=== PATIENT | male | born 1945 | race Caucasian/White ===

== ENCOUNTER 2019-09-29 15:46 | Inpatient (IN) | payer MEDICARE ==
[~2019-09-29] VITALS: Ht 172.7 cm; Wt 93.6 kg
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
[2019-09-29] MEDS ORDERED: BISACODYL 10 MG/30 ML ENEMA RC PRN (18:45)
[2019-09-29] MEDS ORDERED: NON FORMULARY ITEM (Insulin Lispro (Humalog) 1 UNIT) SQ PRN (18:45)
[2019-09-29] MEDS ORDERED: METF10007 PO (18:50)
[2019-09-29] MEDS ORDERED: INSU100V SQ (18:50)
[2019-09-29] MEDS ORDERED: BISA10EN RC (18:50)
[2019-09-29] MEDS ORDERED: PANT40TA3 PO (18:50)
[2019-09-29] MEDS ORDERED: INSU100I13 SQ (18:50)
[2019-09-29] MEDS ORDERED: METO50TA6 PO (18:50)
[2019-09-29] MEDS ORDERED: POLY17PO5 PO (18:50)
[2019-09-29] MEDS ORDERED: DOCU-109 PO (18:50)
[2019-09-29] MEDS ORDERED: ASPI1CPM9 PO (18:50)
[2019-09-29] MEDS ORDERED: ACET-704 PO (18:50)
[2019-09-29] MEDS ORDERED: CYCL-331 PO (18:50)
[2019-09-29] MEDS ORDERED: SIMV10TA PO (18:50)
[2019-09-29] MEDS ORDERED: DULO60CA6 PO (18:50)
[2019-09-29] MEDS ORDERED: DEXTROSE 50% 25 GM / 50ML DISP.SYRIN. IV PRN ×2 (19:00)
[2019-09-29] MEDS ORDERED: MAGNESIUM HYDROXIDE 2,400 MG/30 ML ORAL.SUSP. PO PRN (19:00)
[2019-09-29] MEDS ORDERED: METHYL SALICYLATE/MENTHOL TOPICAL OINTMENT 57GM TUBE. TP PRN (19:00)
[2019-09-29] MEDS ORDERED: MAG HYDROX/AL HYDROX/SIMETH 30 ML ORAL.SUSP PO PRN (19:00)
[2019-09-29] MEDS ORDERED: ACETAMINOPHEN 325 MG TABLET PO PRN (19:00)
[2019-09-29 19:36] LABS: BASO % 0 % (0-3); EOS % 0 % (0-3); HEMATOCRIT 33.6 % (39.0-53.0); HEMOGLOBIN 10.8 g/dL (13.0-17.5); LYMPH # 0.4 x10^3/uL (1.0-4.8); LYMPH % 7 % (24-48); MEAN CORPUSCULAR HEMOGLOBIN 27 pg (25-35); MEAN CORPUSCULAR HGB CONC 32 g/dL (31-37); MEAN CORPUSCULAR VOLUME 85 fL (79-100); MONO # 0.5 x10^3/uL (0.0-1.1); MONO % 10 % (0-9); NEUT # 3.9 x10^3uL (1.8-7.7); NEUT % 82 % (31-73); PLATELET COUNT 214 x10^3/uL (140-400); RED BLOOD COUNT 3.97 x10^6/uL (4.30-5.70); RED CELL DISTRIBUTION WIDTH 17.7 % (11.5-14.5); WHITE BLOOD COUNT 4.7 x10^3/uL (4.0-11.0)
[2019-09-29 19:51] LABS: ALBUMIN 3.3 g/dL (3.4-5.0); CALCIUM 8.7 mg/dL (8.5-10.1); CREATININE 1.1 mg/dL (0.7-1.3); GFR 65.3; MAGNESIUM 1.5 mg/dL (1.8-2.4); TOTAL BILIRUBIN 0.4 mg/dL (0.2-1.0); TOTAL PROTEIN 6.7 g/dL (6.4-8.2)
[2019-09-29 20:58] LABS: % LYMPHS 8 % (24-48); % MONOS 9 % (0-10); % SEGS 83 % (35-66)
[2019-09-29 21:00] LABS: ANISOCYTOSIS SLIGHT; OVALOCYTES OCC; PLT ESTIMATE ADEQUATE (ADEQUATE); POLYCHROMASIA SLIGHT
[2019-09-29] MEDS: INSULIN GLARGINE SYRINGE. SQ SCH (21:00)
[2019-09-29] MEDS ORDERED: DULoxetine HCL 60 MG CAPSULE.DR PO SCH (21:00)
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
--- NOTE | 2019-09-29 21:26 | PDOC ---
Exam Note: Sandoval Note: Please also refer to the separate dictated note~for this date of service dictated separately. Discussed the patient with Nursing staff reviewed the chart.~Reviewed interim history and current functioning. Reviewed vital signs,~Labs/ Radiology~and current medications noted below. Continue current treatment with the changes noted in the dictated addendum note Assessment: Labs: Laboratory Tests Test 09/29/19 19:25 White Blood Count 4.7 x10^3/uL (4.0-11.0) Red Blood Count 3.97 x10^6/uL (4.30-5.70) L Hemoglobin 10.8 g/dL (13.0-17.5) L Hematocrit 33.6 % (39.0-53.0) L Mean Corpuscular Volume 85 fL (79-100) Mean Corpuscular Hemoglobin 27 pg (25-35) Mean Corpuscular Hemoglobin Concent 32 g/dL (31-37) Red Cell Distribution Width 17.7 % (11.5-14.5) H Platelet Count 214 x10^3/uL (140-400) Neutrophils (%) (Auto) 82 % (31-73) H Lymphocytes (%) (Auto) 7 % (24-48) L Monocytes (%) (Auto) 10 % (0-9) H Eosinophils (%) (Auto) 0 % (0-3) Basophils (%) (Auto) 0 % (0-3) Neutrophils # (Auto) 3.9 x10^3uL (1.8-7.7) Lymphocytes # (Auto) 0.4 x10^3/uL (1.0-4.8) L Monocytes # (Auto) 0.5 x10^3/uL (0.0-1.1) Eosinophils # (Auto) 0.0 x10^3/uL (0.0-0.7) Basophils # (Auto) 0.0 x10^3/uL (0.0-0.2) Segmented Neutrophils % 83 % (35-66) H Lymphocytes % 8 % (24-48) L Monocytes % 9 % (0-10) Platelet Estimate Adequate (ADEQUATE) Polychromasia Slight Anisocytosis Slight Ovalocytes Occ Sodium Level 141 mmol/L (136-145) Potassium Level 4.0 mmol/L (3.5-5.1) Chloride Level 106 mmol/L (98-107) Carbon Dioxide Level 22 mmol/L (21-32) Anion Gap 13 (6-14) Blood Urea Nitrogen 18 mg/dL (8-26) Creatinine 1.1 mg/dL (0.7-1.3) Estimated GFR (Cockcroft-Gault) 65.3 BUN/Creatinine Ratio 16 (6-20) Glucose Level 117 mg/dL (70-99) H Calcium Level 8.7 mg/dL (8.5-10.1) Magnesium Level 1.5 mg/dL (1.8-2.4) L Total Bilirubin 0.4 mg/dL (0.2-1.0) Aspartate Amino Transferase (AST) 14 U/L (15-37) L Alanine Aminotransferase (ALT) 17 U/L (16-63) Alkaline Phosphatase 108 U/L (46-116) Total Protein 6.7 g/dL (6.4-8.2) Albumin 3.3 g/dL (3.4-5.0) L Albumin/Globulin Ratio 1.0 (1.0-1.7) Current Medications: I have reviewed the current psychotropics carefully including drug interactions. Risk benefit ratio favors no change other than as noted in my dictated progress note. Diagnosis: Problems: (1) Major neurocognitive disorder (2) Major neurocognitive disorder, due to vascular disease, with behavioral disturbance, mild (3) Anxiety disorder (4) Dementia, vascular, with delusions (5) Dementia, vascular, with depression (6) Impulse control disorder JESSICA TREADWELL MD Sep 29, 2019 21:26
[2019-09-29] MEDS: ACETAMINOPHEN/CODEINE 300/30MG TABLET PO PRN (21:53)
[2019-09-29] MEDS: DOCUSATE SODIUM 100 MG CAPSULE PO SCH (21:53)
[2019-09-29] MEDS: METOPROLOL TART IMMED RELEASE 50 MG TABLET PO SCH (21:54)
[2019-09-29] MEDS: SIMVASTATIN 10 MG TABLET PO SCH (21:54)
[2019-09-29 23:54] VITALS: BP 112/92
--- NOTE | 2019-09-30 02:36 | NUR ---
Nsg Note: Patient in room at time of medication administration and assessments. Patient was drowsy, lethargic at the time. Patient was able to answer simple yes or no questions and take medications crushed in pudding. Patient mentioned he was having some pain, moaning and groaning so PRN pain medication given. Patient went to sleep shortly after this. Patient began waking up around 0130. Patient needed to be changed because he was soaked and was not compliant. Patient was verbally aggressive and became combative. After done cleaning up patient, he ripped brief and all sheets off him. Onezie was placed on him and new brief. Patient is laying in the bed now, but is moving around. No other notable behaviors at this time.
[2019-09-30 05:03] VITALS: BP 137/89
[2019-09-30] MEDS: PANTOPRAZOLE 40 MG TABLET. PO SCH (05:13)
[2019-09-30] MEDS: INSULIN LISPRO 300 UNITS/3 ML VIAL. SQ SCH ×3 (07:55→17:00)
[2019-09-30] MEDS ORDERED: INSULIN LISPRO 300 UNITS/3 ML VIAL. SQ SCH (08:00)
[2019-09-30] MEDS: METOPROLOL TART IMMED RELEASE 50 MG TABLET PO SCH ×2 (08:11→20:53)
[2019-09-30] MEDS: DULoxetine HCL 60 MG CAPSULE.DR PO SCH (08:12)
[2019-09-30] MEDS: metFORMIN 500 MG TABLET PO SCH (08:12)
[2019-09-30] MEDS: POLYETHYLENE GLYCOL 3350 17 GM PACKET. PO SCH (08:12)
[2019-09-30] MEDS: DOCUSATE SODIUM 100 MG CAPSULE PO SCH ×2 (08:12→20:54)
[2019-09-30 10:56] LABS: THYROID STIM HORMONE (TSH) 0.652 uIU/mL (0.358-3.740)
[2019-09-30 11:07] LABS: THYROXINE 6.8 ug/dL (4.5-12.0)
[2019-09-30 15:50] VITALS: BP 126/67
--- NOTE | 2019-09-30 16:13 | NUR ---
Pt combative with staff prior to lunch with ADL and attempting to blood sugar. Pt up to table in Refuses to eat but did eat ice cream with zydis. During lunch patient did take insulin. Dtr called and attempted to get information about pt but does not have code. Dtr called and talked to two different nurses last noc attempting to get information. Son who is DPOA voiced concerns regarding sister being able to obtain information. Son changed code. Pt son does not feel pt dtr is a good influence for pt at this time but may be later when pt is more stabilized.
--- NOTE | 2019-09-30 20:45 | PDOC ---
Exam Note: Sandoval Note: Please also refer to the separate dictated note~for this date of service dictated separately.~Patient seen individually. Discussed the patient with Nursing staff reviewed the chart.~Reviewed interim history and current functioning. Reviewed vital signs,~Labs/ Radiology~and current medications noted below. Continue current treatment with the changes noted in the dictated addendum note Assessment: Vital Signs/I&O: Vital Signs Date Time Temp Pulse Resp B/P (MAP) Pulse Ox O2 Delivery O2 Flow Rate FiO2 09/30/19 15:50 97.5 78 16 126/67 (86) 95 09/29/19 23:54 Room Air Labs: Laboratory Tests Test 09/29/19 22:25 09/30/19 07:44 09/30/19 07:55 09/30/19 11:36 Glucose (Fingerstick) 113 mg/dL (70-99) H 87 mg/dL (70-99) 78 mg/dL (70-99) 355 mg/dL (70-99) H Test 09/30/19 16:29 09/30/19 19:25 Glucose (Fingerstick) 169 mg/dL (70-99) H 258 mg/dL (70-99) H Current Medications: Meds: Current Medications Medications (Trade) Dose Ordered Sig/John Route PRN Reason Start Time Stop Time Status Last Admin Dose Admin Docusate Sodium (Colace) 100 mg BID PO 09/29/19 21:00 09/30/19 08:12 Duloxetine HCl (Cymbalta) 60 mg BID PO 09/29/19 21:00 09/29/19 22:35 DC 09/29/19 21:53 Metoprolol Tartrate (Lopressor) 50 mg BID PO 09/29/19 21:00 09/30/19 08:11 Polyethylene Glycol (miraLAX) 17 gm DAILY PO 09/30/19 09:00 09/30/19 08:12 Simvastatin (Zocor) 10 mg HS PO 09/29/19 21:00 09/29/19 21:54 Insulin Glargine (Lantus Syringe) 52 unit QHS SQ 09/29/19 21:00 09/29/19 21:00 Metformin HCl (Glucophage) 1,000 mg DAILYWBKFT PO 09/30/19 08:00 09/30/19 08:12 Insulin Human Lispro (HumaLOG) 0-9 UNITS TIDWMEALS SQ 09/30/19 08:00 09/30/19 17:00 Duloxetine HCl (Cymbalta) 60 mg DAILY PO 09/30/19 09:00 09/30/19 08:12 Olanzapine (ZyPREXA ZYDIS) 2.5 mg PRN Q2HR PRN PO agitation 09/29/19 22:45 09/30/19 12:59 I have reviewed the current psychotropics carefully including drug interactions. Risk benefit ratio favors no change other than as noted in my dictated progress note. Diagnosis: Problems: (1) Major neurocognitive disorder, due to vascular disease, with behavioral disturbance, mild (2) Anxiety disorder (3) Dementia in Alzheimer's disease with delusions (4) Dementia in Alzheimer's disease with depression (5) Dementia, vascular, with delusions (6) Dementia, vascular, with depression (7) Impulse control disorder JESSICA TREADWELL MD Sep 30, 2019 20:45
[2019-09-30] MEDS: SIMVASTATIN 10 MG TABLET PO SCH (20:53)
[2019-09-30] MEDS: INSULIN GLARGINE SYRINGE. SQ SCH (20:54)
--- NOTE | 2019-09-30 23:02 | NUR ---
Pt located in the dayroom this evening. Pt sitting calmly in wheelchair. When approached, pt refused to lift his head up and acknowledge nurse. Pt refused to answer any assessment questions. Pt compliant with whole medications, looking up once and rolling his eyes at nurse. Once taken to bed, pt was noncompliant and became " weight." Pt called staff names and was sarcastic.
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
[2019-10-01 02:06] LABS: HEMOGLOBIN A1C 6.6 % (4.8-5.6)
[2019-10-01 05:59] VITALS: BP 153/75
[2019-10-01] MEDS: PANTOPRAZOLE 40 MG TABLET. PO SCH (06:10)
[2019-10-01] MEDS: INSULIN LISPRO 300 UNITS/3 ML VIAL. SQ SCH ×3 (08:00→17:00)
[2019-10-01] MEDS: metFORMIN 500 MG TABLET PO SCH (08:49)
[2019-10-01] MEDS: METOPROLOL TART IMMED RELEASE 50 MG TABLET PO SCH ×2 (08:50→20:25)
[2019-10-01] MEDS: DULoxetine HCL 60 MG CAPSULE.DR PO SCH (08:50)
[2019-10-01] MEDS: DOCUSATE SODIUM 100 MG CAPSULE PO SCH ×2 (08:51→20:25)
[2019-10-01] MEDS: POLYETHYLENE GLYCOL 3350 17 GM PACKET. PO SCH (08:51)
[2019-10-01] MEDS: QUEtiapine 25 MG TABLET. PO SCH ×3 (08:51→17:00)
--- NOTE | 2019-10-01 09:30 | NUR ---
Patient is in the dining room for assessment and medication. He is pleasant, confused, disorganized. He is alert to name, , and date. But he thinks he is at a train station. He was compliant taking his medications whole. Denies SI. Denies pain or discomfort.
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
--- NOTE | 2019-10-01 14:13 | NUR ---
Patient remains on the floor in the hallway despite repeated attempts by different staff members to convince him to get off the floor. He is snarky, rude, condescending. This teletypewriter operator went to the patient with his 1300 dose of Seroquel. Asked him if it wouldn't be easier to take it if he were sitting up. He stated "I'll just take it dry." Scanned patient wristband which he had used his teeth to remove. Gave patient the half pill, which he proceeded to lose in the sheet laying next to him. This teletypewriter operator offered him the other half, and he became suspicious, saying "I won't take nothing from you unless it comes in a bottle or a tube." This teletypewriter operator told patient that it was the same pill and if he wanted to refuse it that was fine. He replied "Oh, my heart bleeds for you, you thief. You are an asshole." This teletypewriter operator once again offered patient the medication once more, which he refused. Also offered to assist him off of the floor, which he also refused. Will continue to monitor.
--- NOTE | 2019-10-01 14:49 | NUR ---
Patient remains in hallway. He has urinated all over the sheet laying next to him through his clothing. Very resistant to being assisted off the floor and taken to his room to be changed. When asked why he urinated everywhere, he states "No one brought a urinal out." Patient did not, in fact, ask for a urinal or tell anyone he needed to use the bathroom. He continues to yell "You're all a bunch of thieves. I know what this place is." Brought into his room, where he changed himself with very little assistance, while continuing to be snarky and rude. Currently sitting in his wheelchair in his room. Will continue to monitor.
[2019-10-01 15:54] VITALS: BP 158/88
--- NOTE | 2019-10-01 18:43 | NUR ---
Patient has been remorseful and tearful. He stated "I am sorry from the bottom of my heart for how I acted earlier. I just miss my dog." He apologized to multiple staff members who he had yelled at and insulted. Came out of his room after dinner and ate his dinner in the hallway, then returned to his room.
[2019-10-01] MEDS: SIMVASTATIN 10 MG TABLET PO SCH (20:25)
[2019-10-01] MEDS: INSULIN GLARGINE SYRINGE. SQ SCH (20:29)
--- NOTE | 2019-10-01 20:48 | PDOC ---
Exam Note: Sandoval Note: Please also refer to the separate dictated note~for this date of service dictated separately.~Patient seen individually. Discussed the patient with Nursing staff reviewed the chart.~Reviewed interim history and current functioning. Reviewed vital signs,~Labs/ Radiology~and current medications noted below. Continue current treatment with the changes noted in the dictated addendum note Assessment: Vital Signs/I&O: Vital Signs Date Time Temp Pulse Resp B/P (MAP) Pulse Ox O2 Delivery O2 Flow Rate FiO2 10/01/19 20:25 73 158/88 10/01/19 15:54 97.3 16 95 09/29/19 23:54 Room Air I & O 09/30/19 09/30/19 10/01/19 14:59 22:59 06:59 Intake Total 360 ml 240 ml 0 ml Balance 360 ml 240 ml 0 ml Labs: Laboratory Tests Test 10/01/19 07:23 10/01/19 11:52 10/01/19 19:27 Glucose (Fingerstick) 131 mg/dL (70-99) H 190 mg/dL (70-99) H 219 mg/dL (70-99) H Current Medications: Meds: Current Medications Medications (Trade) Dose Ordered Sig/John Route PRN Reason Start Time Stop Time Status Last Admin Dose Admin Quetiapine Fumarate (SEROquel) 12.5 mg TID@0900,1300,1700 PO 10/01/19 09:00 10/01/19 17:00 I have reviewed the current psychotropics carefully including drug interactions. Risk benefit ratio favors no change other than as noted in my dictated progress note. Diagnosis: Problems: (1) Major neurocognitive disorder, due to vascular disease, with behavioral disturbance, mild (2) Anxiety disorder (3) Dementia in Alzheimer's disease with delusions (4) Dementia in Alzheimer's disease with depression (5) Dementia, vascular, with delusions (6) Dementia, vascular, with depression (7) Impulse control disorder JESSICA TREADWELL MD Oct 01, 2019 20:48
--- NOTE | 2019-10-01 22:20 | PN ---
DATE: 09/30/2019 PSYCHIATRIC PROGRESS NOTE. This late entry of 09/30/2019 covers the elements not covered in my initial note. SUBJECTIVE: I met with the patient in the evening of 09/30/2019. The patient slept 4-1/4 hours previous night. He remains confused, has been combative, sarcastic, making cat noises, sounding like a "pussy" per nursing report. REVIEW OF SYSTEMS: No CV, , pulmonary, eye, ENT system symptoms on review. Reliability poor. MENTAL STATUS EXAM: Oriented to himself. Insight, judgment, recent and remote memory, attention, concentration, fund of knowledge poor, consistent with his diagnosis. IMPRESSION: Major neurocognitive disorder, Alzheimer, vascular with delusion, depression, behavioral disturbance; anxiety disorder, unspecified; impulse control disorder, unspecified. PLAN: Start trazodone 50 mg at bedtime, may repeat x 1 for insomnia; Seroquel 12.5 mg t.i.d. 9:00 a.m., 1:00 p.m., 5:00 p.m. to help with mood stabilization, paranoia, agitation, impulse control problems. Maintain Cymbalta 60 mg a day and Zyprexa 2.5 mg q. 2 hours p.r.n. psychosis, agitation. Consider Depakote as a mood stabilizer. Reviewed drug interactions and will carefully evaluate this after another day or two depending on how he does with the current dosage. JESSICA TREADWELL MD DR: SERGIO/abhilash JOB#: [id number] / [id number]
--- NOTE | 2019-10-01 23:28 | NUR ---
Pt located in his bed all evening. When approached, pt was calm, cooperative and compliant with whole medications. Pt pleasant and thanked nurse for his medications. No behaviors noted this evening.
[2019-10-02] MEDS: PANTOPRAZOLE 40 MG TABLET. PO SCH (05:48)
[2019-10-02 05:53] VITALS: BP 172/92
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
[2019-10-02] MEDS: METOPROLOL TART IMMED RELEASE 50 MG TABLET PO SCH ×2 (06:36→20:08)
--- NOTE | 2019-10-02 06:44 | NUR ---
Pt had elevated BP today of 172/92. AM dose of Metoprolol administered.
[2019-10-02] MEDS: INSULIN LISPRO 300 UNITS/3 ML VIAL. SQ SCH ×3 (08:00→17:00)
[2019-10-02] MEDS: POLYETHYLENE GLYCOL 3350 17 GM PACKET. PO SCH (08:40)
[2019-10-02] MEDS: DOCUSATE SODIUM 100 MG CAPSULE PO SCH ×2 (08:41→20:08)
[2019-10-02] MEDS: metFORMIN 500 MG TABLET PO SCH (08:41)
[2019-10-02] MEDS: QUEtiapine 25 MG TABLET. PO SCH ×3 (08:42→17:54)
[2019-10-02] MEDS: DULoxetine HCL 60 MG CAPSULE.DR PO SCH (08:42)
--- NOTE | 2019-10-02 11:35 | NUR ---
Patient in the dining room for assessment and medication. He is pleasant, cooperative and compliant with meds taken whole. After breakfast, he withdrew to his room. Worked with PT, was snarky and sarcastic at times. No agitation so far this shift. Denies SI/HI. Denies pain and discomfort.
[2019-10-02 15:38] VITALS: BP 131/85
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
[2019-10-02] MEDS: SIMVASTATIN 10 MG TABLET PO SCH (20:08)
[2019-10-02] MEDS: INSULIN GLARGINE SYRINGE. SQ SCH (20:12)
[2019-10-02] MEDS: AMMONIUM LACTATE 12% TOPICAL LOTION 226GM BOTTLE. TP SCH (21:00)
--- NOTE | 2019-10-02 21:11 | PDOC ---
Exam Note: Sandoval Note: Please also refer to the separate dictated note~for this date of service dictated separately.~Patient seen individually. Discussed the patient with Nursing staff reviewed the chart.~Reviewed interim history and current functioning. Reviewed vital signs,~Labs/ Radiology~and current medications noted below. Continue current treatment with the changes noted in the dictated addendum note Assessment: Vital Signs/I&O: Vital Signs Date Time Temp Pulse Resp B/P (MAP) Pulse Ox O2 Delivery O2 Flow Rate FiO2 10/02/19 20:08 67 131/85 10/02/19 15:38 98.2 18 95 09/29/19 23:54 Room Air I & O 10/01/19 10/01/19 10/02/19 15:00 23:00 07:00 Intake Total 480 ml 200 ml Balance 480 ml 200 ml Labs: Laboratory Tests Test 10/02/19 07:25 10/02/19 12:15 10/02/19 16:52 10/02/19 19:22 Glucose (Fingerstick) 80 mg/dL (70-99) 138 mg/dL (70-99) H 143 mg/dL (70-99) H 203 mg/dL (70-99) H Current Medications: Meds: Current Medications Medications (Trade) Dose Ordered Sig/John Route PRN Reason Start Time Stop Time Status Last Admin Dose Admin Quetiapine Fumarate (SEROquel) 12.5 mg 1300,1700 PO 10/02/19 17:00 10/02/19 17:54 I have reviewed the current psychotropics carefully including drug interactions. Risk benefit ratio favors no change other than as noted in my dictated progress note. Diagnosis: Problems: (1) Major neurocognitive disorder, due to vascular disease, with behavioral disturbance, mild (2) Anxiety disorder (3) Dementia in Alzheimer's disease with delusions (4) Dementia in Alzheimer's disease with depression (5) Dementia, vascular, with delusions (6) Dementia, vascular, with depression (7) Impulse control disorder JESSICA TREADWELL MD Oct 02, 2019 21:11
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
--- NOTE | 2019-10-02 23:48 | NUR ---
Nursing Note Pt making inappropriate innuendos with me, makes little odd remarks and winks. Became belligerent with CONTROLS DESIGNER staff, calling them all bitches with HS care resistive angry and agitated. Last labs drawn 09/29/19, UA was negative at [facility] 09/24, admitted on 09/29/19, will collect specimen. BM none charted since admission, pt denies constipation, abdomen not distended BS present. Blood sugar this PM 203 with HGA1C 6.6. Resting well now. Pt refuses lotion to his feet even though they are very dry red and cracked, he states he hates his feet to feel slimy and doesn't want to slip. Offered him socks but he still declines lotion to feet.
[2019-10-03] MEDS: traZODone 50 MG TABLET. PO PRN (02:38)
[2019-10-03] MEDS: ACETAMINOPHEN/CODEINE 300/30MG TABLET PO PRN ×4 (02:38→20:22)
--- NOTE | 2019-10-03 03:00 | NUR ---
Nursing Note Pt was wet and in pain tylenol 3 given and trazodone. Pt was pleasant and cooperative saying please and thankyou etc. Back to bed comfortable sleeping shortly after.
[2019-10-03] MEDS: PANTOPRAZOLE 40 MG TABLET. PO SCH (06:00)
[2019-10-03 06:04] VITALS: BP 148/62
[2019-10-03] MEDS: INSULIN LISPRO 300 UNITS/3 ML VIAL. SQ SCH ×3 (08:29→17:00)
[2019-10-03] MEDS: metFORMIN 500 MG TABLET PO SCH (08:29)
[2019-10-03] MEDS: POLYETHYLENE GLYCOL 3350 17 GM PACKET. PO SCH (08:30)
[2019-10-03] MEDS: DOCUSATE SODIUM 100 MG CAPSULE PO SCH ×2 (08:30→20:22)
[2019-10-03] MEDS: DULoxetine HCL 60 MG CAPSULE.DR PO SCH (08:30)
[2019-10-03] MEDS: METOPROLOL TART IMMED RELEASE 50 MG TABLET PO SCH ×2 (08:30→20:23)
[2019-10-03] MEDS: QUEtiapine 25 MG TABLET. PO SCH ×3 (08:32→16:15)
[2019-10-03] MEDS: AMMONIUM LACTATE 12% TOPICAL LOTION 226GM BOTTLE. TP SCH ×2 (08:33→20:27)
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
--- NOTE | 2019-10-03 09:37 | NUR ---
SABRA attempted to contact pt son, John, and ended up leaving a message asking for a returned call when possible.
--- NOTE | 2019-10-03 10:05 | NUR ---
Pt is cooperative with his medication and assessment however he is irritable and angry when interacting with staff. He will state "how about you get away from me." "stop hounding me." "I'm here because someone thought I'm crazy." When nurse attempted to provide reassurance and validation pt yelled at nurse and told her to "get away from me!" PRN pain medicaton given with am medication. Pt would not let staff recheck blood sugar however pt did eat 100% of his breakfast.
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
[2019-10-03] MEDS: CYCLOBENZAPRINE 10 MG TABLET. PO PRN ×2 (12:36→20:26)
--- NOTE | 2019-10-03 12:41 | NUR ---
Pt was in his bathroom and ambulating by pushing his WC when nurse offered assistance to pt he stated "lock my brakes." nurse locked pt brakes for pt. Pt then stood with his back against the wall and the back of the WC against his legs. Nurse offered assistance. Pt began to yell at nurse "youre no help." "get out" "I dont want your help." Nurse explained that he is stuck against the wall and that staff may not leave him alone as he may fall. He continued to yell at staff and stated "your breath smells like shit." Nurse called for help and staff assisted pt to WC and to lunch. Pt stated "why are you doing this all I did was sit on the toilet and try to take a shit." Nurse informed pt that he may not be verbally aggressive with staff. PRN flexeril given.
[2019-10-03 15:51] VITALS: BP 120/68
[2019-10-03] MEDS: SIMVASTATIN 10 MG TABLET PO SCH (20:22)
[2019-10-03] MEDS: INSULIN GLARGINE SYRINGE. SQ SCH (20:27)
--- NOTE | 2019-10-03 21:00 | PDOC ---
Exam Note: Sandoval Note: Please also refer to the separate dictated note~for this date of service dictated separately.~Patient seen individually. Discussed the patient with Nursing staff reviewed the chart.~Reviewed interim history and current functioning. Reviewed vital signs,~Labs/ Radiology~and current medications noted below. Continue current treatment with the changes noted in the dictated addendum note Assessment: Vital Signs/I&O: Vital Signs Date Time Temp Pulse Resp B/P (MAP) Pulse Ox O2 Delivery O2 Flow Rate FiO2 10/03/19 20:23 79 120/68 10/03/19 20:22 95 10/03/19 17:21 20 10/03/19 15:51 97.5 Room Air I & O 10/02/19 10/02/19 10/03/19 15:00 23:00 07:00 Intake Total 840 ml 240 ml 80 ml Balance 840 ml 240 ml 80 ml Labs: Laboratory Tests Test 10/03/19 07:57 10/03/19 11:56 10/03/19 17:14 10/03/19 19:15 Glucose (Fingerstick) 47 mg/dL (70-99) L 140 mg/dL (70-99) H 167 mg/dL (70-99) H 153 mg/dL (70-99) H Current Medications: Meds: Current Medications Medications (Trade) Dose Ordered Sig/John Route PRN Reason Start Time Stop Time Status Last Admin Dose Admin Lactic Acid (Lac-Hydrin) 1 nila BID TP 10/02/19 21:00 10/03/19 20:27 Quetiapine Fumarate (SEROquel) 25 mg DAILY PO 10/03/19 09:00 10/03/19 08:32 I have reviewed the current psychotropics carefully including drug interactions. Risk benefit ratio favors no change other than as noted in my dictated progress note. Diagnosis: Problems: (1) Major neurocognitive disorder, due to vascular disease, with behavioral disturbance, mild (2) Anxiety disorder (3) Dementia in Alzheimer's disease with delusions (4) Dementia in Alzheimer's disease with depression (5) Dementia, vascular, with delusions (6) Dementia, vascular, with depression (7) Impulse control disorder JESSICA TREADWELL MD Oct 03, 2019 21:00
--- NOTE | 2019-10-03 21:49 | NUR ---
Nursing Note Pt pleasant with nursing and SUPERVISOR [employer]ODUCTION DEPART[employer]'s this pm compliant cooperative and smiling. Talked to the patient at the bedside about sonu reyes, he told me about his daughter Shira and how he obtained her a tomato soup red Camaro with black interior. Stated she loved that car more than anything. Also told me abut his Reyes Harinder, and how much he loved to drive it. He went on about the difference between car dealers and models/ make sof cars and trucks. We talked for a long time about his melo in [facility] and his former melo in [facility], [place]. He spent a considerable amount of time reminiscing about his female melo and Michele. 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 Pt was compliant and cooperative with HS care, no agitation or aggression. Also medicated the patient for pain and back spasms with tylenol 3 and flexeril. Resting well now.
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
[2019-10-04] MEDS: PANTOPRAZOLE 40 MG TABLET. PO SCH (05:30)
[2019-10-04 05:53] VITALS: BP 164/98
[2019-10-04 07:52] LABS: BACTERIA,URINE FEW /HPF (0-FEW); BILIRUBIN,URINE NEG (NEG); CLARITY,URINE HAZY; COLOR,URINE YELLOW; GLUCOSE,URINE NEG (NEG); GRANULAR CASTS,URINE FEW /HPF; HYALINE CASTS, URINE OCC /HPF; NITRITE,URINE NEG (NEG); RBC,URINE RARE /HPF (0-2); SQUAMOUS EPITHELIAL CELL,UR FEW /LPF; UROBILINOGEN,URINE 0.2 mg/dL (0.2 mg/dL)
[2019-10-04] MEDS: INSULIN LISPRO 300 UNITS/3 ML VIAL. SQ SCH ×3 (08:00→17:00)
[2019-10-04] MEDS: DULoxetine HCL 60 MG CAPSULE.DR PO SCH (08:11)
[2019-10-04] MEDS: metFORMIN 500 MG TABLET PO SCH (08:11)
[2019-10-04] MEDS: METOPROLOL TART IMMED RELEASE 50 MG TABLET PO SCH ×2 (08:12→19:33)
[2019-10-04] MEDS: DIVALPROEX 125 MG CAP.SPRINK PO SCH ×2 (08:12→17:14)
[2019-10-04] MEDS: QUEtiapine 25 MG TABLET. PO SCH ×3 (08:12→17:14)
[2019-10-04] MEDS: DOCUSATE SODIUM 100 MG CAPSULE PO SCH ×2 (08:12→19:33)
[2019-10-04] MEDS: AMMONIUM LACTATE 12% TOPICAL LOTION 226GM BOTTLE. TP SCH ×2 (08:14→19:34)
[2019-10-04] MEDS: POLYETHYLENE GLYCOL 3350 17 GM PACKET. PO SCH (08:14)
--- NOTE | 2019-10-04 09:45 | NUR ---
WEEKLY ACTIVITY THERAPY NOTE Date of Admission: 09/29/2019 Date of AT Assessment: 10/02/2019 Goal aimed: to increase leisure engagement Initial goal: Pt. will engage in three Activity Therapy groups or individual sessions before discharge. Weekly progress towards goal: 0/3 Group participation level: zero, attempted on 10/01 Weekly highlights: assessed Pt Behaviors observed: not around group much, sarcastic and irritable, reports of: combativeness, verbally aggressive and sexually inappropriateness Plan: no change to goal Beneficial adaptations:
[2019-10-04] MEDS: ACETAMINOPHEN/CODEINE 300/30MG TABLET PO PRN ×2 (10:00→19:32)
--- NOTE | 2019-10-04 11:18 | NUR ---
Nursing note: Pt in dining room this morning for meds and assessment. He was compliant with his meds whole and was cooperative with his assessment. He has been pleasant this morning, with no behaviors this shift. Pt c/o back pain 05/05. PRN given at that time. He is currently in his room. Will continue to monitor.
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
[2019-10-04 15:38] VITALS: BP 127/67
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
--- NOTE | 2019-10-04 17:19 | NUR ---
Nursing note: Insulin not administered d/t pt refusing to eat supper.
[2019-10-04] MEDS: CYCLOBENZAPRINE 10 MG TABLET. PO PRN (19:32)
[2019-10-04] MEDS: SIMVASTATIN 10 MG TABLET PO SCH (19:33)
[2019-10-04] MEDS: INSULIN GLARGINE SYRINGE. SQ SCH (20:36)
--- NOTE | 2019-10-04 21:06 | PDOC ---
Exam Note: Sandoval Note: Please also refer to the separate dictated note~for this date of service dictated separately.~Patient seen individually. Discussed the patient with Nursing staff reviewed the chart.~Reviewed interim history and current functioning. Reviewed vital signs,~Labs/ Radiology~and current medications noted below. Continue current treatment with the changes noted in the dictated addendum note Assessment: Vital Signs/I&O: Vital Signs Date Time Temp Pulse Resp B/P (MAP) Pulse Ox O2 Delivery O2 Flow Rate FiO2 10/04/19 20:41 95 10/04/19 19:33 62 127/67 10/04/19 19:32 18 10/04/19 15:38 98.5 Room Air I & O 10/03/19 10/03/19 10/04/19 15:00 23:00 07:00 Intake Total 720 ml 0 ml Balance 720 ml 0 ml Labs: Laboratory Tests Test 10/04/19 06:45 10/04/19 07:46 10/04/19 12:14 10/04/19 16:38 Urine Collection Type Unknown Urine Color Yellow Urine Clarity Hazy Urine pH 5.5 Urine Specific [place] 1.020 Urine Protein 100 mg/dl (NEG-TRACE) Urine Glucose (UA) Neg mg/dL (NEG) Urine Ketones (Stick) Neg mg/dL (NEG) Urine Blood Neg (NEG) Urine Nitrite Neg (NEG) Urine Bilirubin Neg (NEG) Urine Urobilinogen Dipstick 0.2 mg/dL (0.2 mg/dL) Urine Leukocyte Esterase Neg (NEG) Urine RBC Rare /HPF (0-2) Urine WBC 1-4 /HPF (0-4) Urine Squamous Epithelial Cells Few /LPF Urine Bacteria Few /HPF (0-FEW) Urine Hyaline Casts Occ /HPF Urine Granular Casts Few /HPF Urine Mucus Slight /LPF Glucose (Fingerstick) 59 mg/dL (70-99) L 240 mg/dL (70-99) H 151 mg/dL (70-99) H Test 10/04/19 19:28 Glucose (Fingerstick) 149 mg/dL (70-99) H Current Medications: Meds: Current Medications Medications (Trade) Dose Ordered Sig/John Route PRN Reason Start Time Stop Time Status Last Admin Dose Admin Divalproex Sodium (Depakote Sprinkles) 125 mg 0900,1700 PO 10/04/19 09:00 10/04/19 17:14 I have reviewed the current psychotropics carefully including drug interactions. Risk benefit ratio favors no change other than as noted in my dictated progress note. Diagnosis: Problems: (1) Major neurocognitive disorder, due to vascular disease, with behavioral disturbance, mild (2) Anxiety disorder (3) Dementia in Alzheimer's disease with delusions (4) Dementia in Alzheimer's disease with depression (5) Dementia, vascular, with delusions (6) Dementia, vascular, with depression (7) Impulse control disorder JESSICA TREADWELL MD Oct 04, 2019 21:06
--- NOTE | 2019-10-05 02:52 | NUR ---
Nursing Note Pt is pleasant and cooperative at first, then becomes short tempered and belligerent with staff later in the PM. Pt found sitting on the edge of the bed with his drink cup attempting to urinate in it because he couldn't find his urinal. When given the urinal pt becomes even more mad telling us he couldn't pee with an audience and wants us out of his room and his sight, I told him sure you can do whatever you like, and when you decide to be civil to us we could continue to help him. Pt scowled at us and continued to sit on the edge of the bed.
[2019-10-05 06:00] VITALS: BP 165/69
[2019-10-05] MEDS: INSULIN LISPRO 300 UNITS/3 ML VIAL. SQ SCH ×3 (08:00→17:00)
[2019-10-05] MEDS: POLYETHYLENE GLYCOL 3350 17 GM PACKET. PO SCH (08:25)
[2019-10-05] MEDS: DIVALPROEX 125 MG CAP.SPRINK PO SCH ×2 (08:26→17:15)
[2019-10-05] MEDS: DULoxetine HCL 60 MG CAPSULE.DR PO SCH (08:27)
[2019-10-05] MEDS: METOPROLOL TART IMMED RELEASE 50 MG TABLET PO SCH ×2 (08:27→20:46)
[2019-10-05] MEDS: DOCUSATE SODIUM 100 MG CAPSULE PO SCH ×2 (08:27→20:46)
[2019-10-05] MEDS: PANTOPRAZOLE 40 MG TABLET. PO SCH (08:28)
[2019-10-05] MEDS: metFORMIN 500 MG TABLET PO SCH (08:28)
[2019-10-05] MEDS: AMMONIUM LACTATE 12% TOPICAL LOTION 226GM BOTTLE. TP SCH ×2 (08:28→21:00)
[2019-10-05] MEDS: QUEtiapine 25 MG TABLET. PO SCH ×3 (08:28→17:15)
--- NOTE | 2019-10-05 11:18 | NUR ---
Patient is in the dining room for assessment and medication. He is calm, cooperative and compliant. In pleasant spirits. Took meds whole. No agitation. Denies SI/HI. No c/o or s/s pain or discomfort.
[2019-10-05 15:48] VITALS: BP 129/56
[2019-10-05] MEDS: SIMVASTATIN 10 MG TABLET PO SCH (20:46)
[2019-10-05] MEDS: INSULIN GLARGINE SYRINGE. SQ SCH (20:51)
--- NOTE | 2019-10-05 21:08 | PDOC ---
Exam Note: Sandoval Note: Please also refer to the separate dictated note~for this date of service dictated separately.~Patient seen individually. Discussed the patient with Nursing staff reviewed the chart.~Reviewed interim history and current functioning. Reviewed vital signs,~Labs/ Radiology~and current medications noted below. Continue current treatment with the changes noted in the dictated addendum note Assessment: Vital Signs/I&O: Vital Signs Date Time Temp Pulse Resp B/P (MAP) Pulse Ox O2 Delivery O2 Flow Rate FiO2 10/05/19 20:46 59 129/56 10/05/19 15:48 98.1 18 94 10/04/19 15:38 Room Air I & O 10/04/19 10/04/19 10/05/19 15:00 23:00 07:00 Intake Total 960 ml 240 ml Balance 960 ml 240 ml Labs: Laboratory Tests Test 10/05/19 07:35 10/05/19 11:43 10/05/19 17:12 10/05/19 19:15 Glucose (Fingerstick) 65 mg/dL (70-99) L 194 mg/dL (70-99) H 63 mg/dL (70-99) L 175 mg/dL (70-99) H Current Medications: Meds: Current Medications Medications (Trade) Dose Ordered Sig/John Route PRN Reason Start Time Stop Time Status Last Admin Dose Admin Insulin Glargine (Lantus Syringe) 45 unit QHS SQ 10/05/19 21:00 10/05/19 20:51 I have reviewed the current psychotropics carefully including drug interactions. Risk benefit ratio favors no change other than as noted in my dictated progress note. Diagnosis: Problems: (1) Major neurocognitive disorder, due to vascular disease, with behavioral disturbance, mild (2) Anxiety disorder (3) Dementia in Alzheimer's disease with delusions (4) Dementia in Alzheimer's disease with depression (5) Dementia, vascular, with delusions (6) Dementia, vascular, with depression (7) Impulse control disorder JESSICA TREADWELL MD Oct 05, 2019 21:08
--- NOTE | 2019-10-05 23:13 | PN ---
DATE: 10/03/2019 This late entry 10/03 covers elements not covered in my initial note. SUBJECTIVE: I met with the patient evening of 10/03. Per Jennifer RN, the patient slept 5-1/2 hours previous night. He was quite labile with his mood the previous night, telling nursing staff "get out of my face." He is sarcastic and per nursing report "tries to tear you down." Remains quite labile in his mood. REVIEW OF SYSTEMS: Ambulation impaired, in wheelchair. No CV, , pulmonary, eye system symptoms on review. Reliability varies. MENTAL STATUS EXAMINATION: Oriented to himself and situation. Speech is coherent, has some latency. Abstraction fair, computation impaired, language function intact, attention span short. Mood and affect remains labile. LABORATORY DATA: Reviewed. IMPRESSION: Major depressive disorder, recurrent; mild cognitive impairment versus major neurocognitive disorder; Alzheimer, vascular with delusion; depression. Rest unchanged. PLAN: Start Depakote Sprinkles 125 mg 9 a.m., 5:00 p.m. Check CBC, CMP, valproic acid level in 3 days. Continue Cymbalta 60 mg a day, Seroquel 12.5 mg b.i.d. and 25 mg once a day, trazodone and Zyprexa p.r.n. Rest unchanged from initial note. MAN Dewey TREADWELL MD DR: SERGIO/abhilash JOB#: [id number] / [id number]
--- NOTE | 2019-10-05 23:27 | PN ---
DATE: 10/04/2019 This late entry 10/04 covers elements not covered in my initial note. SUBJECTIVE: I met with the patient evening of 10/04 and staffed at a treatment team meeting earlier in the day on 10/04. The patient is sleeping average 6 hours, appetite 80%. He is confused, irritable, agitated at times, probably needs placement in a facility, which he resents. REVIEW OF SYSTEMS: Ambulation impaired, in wheelchair. No CV, , pulmonary, eye, ENT system symptoms on review. Reliability poor. MENTAL STATUS EXAMINATION: Oriented to himself and situation. Speech has some latency, often responses monosyllabic. He is quite sarcastic, dry in his humor. Abstraction fair, computation impaired, language function intact. Mood and affect remains somewhat labile, anxious. LABORATORY DATA: Reviewed. IMPRESSION: Unchanged from initial note. PLAN: No change from initial note. MAN Dewey TREADWELL MD DR: SERGIO/abhilash JOB#: [id number] / [id number]
[2019-10-05] MEDS: CYCLOBENZAPRINE 10 MG TABLET. PO PRN (23:36)
[2019-10-05] MEDS: ACETAMINOPHEN/CODEINE 300/30MG TABLET PO PRN (23:36)
--- NOTE | 2019-10-06 00:24 | NUR ---
Pt sitting on edge of bed since beginning of shift. Pt c/o back pain-tx with medication. Pt disposition flat, sarcastic, angry, confused language. Pt laughs sarcastically before response to any questions, if he responds at all. He refused a snack or drink or to lay down in bed. Will continue to monitor.
[2019-10-06 05:22] VITALS: BP 136/64
[2019-10-06] MEDS: PANTOPRAZOLE 40 MG TABLET. PO SCH (06:00)
[2019-10-06] MEDS: INSULIN LISPRO 300 UNITS/3 ML VIAL. SQ SCH ×3 (07:46→17:12)
[2019-10-06] MEDS: AMMONIUM LACTATE 12% TOPICAL LOTION 226GM BOTTLE. TP SCH ×2 (07:47→20:50)
[2019-10-06] MEDS: DULoxetine HCL 60 MG CAPSULE.DR PO SCH (08:38)
[2019-10-06] MEDS: DOCUSATE SODIUM 100 MG CAPSULE PO SCH ×2 (08:38→20:49)
[2019-10-06] MEDS: metFORMIN 500 MG TABLET PO SCH (08:38)
[2019-10-06] MEDS: DIVALPROEX 125 MG CAP.SPRINK PO SCH ×2 (08:38→17:13)
[2019-10-06] MEDS: POLYETHYLENE GLYCOL 3350 17 GM PACKET. PO SCH (08:39)
[2019-10-06] MEDS: QUEtiapine 25 MG TABLET. PO SCH ×3 (08:39→17:13)
[2019-10-06] MEDS: ACETAMINOPHEN/CODEINE 300/30MG TABLET PO PRN (08:44)
[2019-10-06] MEDS: METOPROLOL TART IMMED RELEASE 50 MG TABLET PO SCH ×2 (09:00→20:50)
--- NOTE | 2019-10-06 11:28 | NUR ---
Pt is calm, cooperative, compliant, and irritable. He is compliant with his medication and assessment. When offered the restroom after breakfast he stated " I don't need you to tell me to go to the bathroom.""Youre not going to take me anywhere." Staff reminded him that he was incontinent X 2 last night, which he was upset about. So in an attempt to prevent incontinence we would like to assist him to the bathroom however if he does not need to go he can politely decline but he may not yell at staff. Pt then stated "I do not need to go to the bathroom right now." Staff thanked the pt and pt was taken to the dayroom.
[2019-10-06 16:08] VITALS: BP 134/72
[2019-10-06] MEDS: SIMVASTATIN 10 MG TABLET PO SCH (20:49)
[2019-10-06] MEDS: INSULIN GLARGINE SYRINGE. SQ SCH (20:54)
--- NOTE | 2019-10-06 21:44 | PDOC ---
Exam Note: Sandoval Note: Please also refer to the separate dictated note~for this date of service dictated separately.~Patient seen individually. Discussed the patient with Nursing staff reviewed the chart.~Reviewed interim history and current functioning. Reviewed vital signs,~Labs/ Radiology~and current medications noted below. Continue current treatment with the changes noted in the dictated addendum note Assessment: Vital Signs/I&O: Vital Signs Date Time Temp Pulse Resp B/P (MAP) Pulse Ox O2 Delivery O2 Flow Rate FiO2 10/06/19 20:50 71 134/72 10/06/19 16:08 97.9 18 98 10/06/19 00:41 Room Air I & O 10/05/19 10/05/19 10/06/19 15:00 23:00 07:00 Intake Total 840 ml 600 ml Balance 840 ml 600 ml Labs: Laboratory Tests Test 10/06/19 07:28 10/06/19 11:48 10/06/19 17:10 10/06/19 19:25 Glucose (Fingerstick) 82 mg/dL (70-99) 307 mg/dL (70-99) H 149 mg/dL (70-99) H 127 mg/dL (70-99) H Current Medications: I have reviewed the current psychotropics carefully including drug interactions. Risk benefit ratio favors no change other than as noted in my dictated progress note. Diagnosis: Problems: (1) Major neurocognitive disorder (2) Major neurocognitive disorder, due to vascular disease, with behavioral disturbance, mild (3) Anxiety disorder (4) Dementia in Alzheimer's disease with delusions (5) Dementia in Alzheimer's disease with depression (6) Dementia, vascular, with delusions (7) Dementia, vascular, with depression (8) Impulse control disorder JESSICA TREADWELL MD Oct 06, 2019 21:44
[2019-10-06] MEDS: traZODone 50 MG TABLET. PO PRN (22:51)
--- NOTE | 2019-10-07 00:54 | NUR ---
Nursing Note The patient was located in the day room for his medication and assessment. The patient took his medication whole. The patient was irritable with staff during cares and was very restless@HS. The patient received PRN Trazodone@HS per PRN Order.
[2019-10-07] MEDS: PANTOPRAZOLE 40 MG TABLET. PO SCH (05:52)
[2019-10-07 06:58] VITALS: BP 170/76
[2019-10-07] MEDS: INSULIN LISPRO 300 UNITS/3 ML VIAL. SQ SCH ×3 (08:08→17:17)
[2019-10-07] MEDS: DOCUSATE SODIUM 100 MG CAPSULE PO SCH ×2 (08:10→20:10)
[2019-10-07] MEDS: metFORMIN 500 MG TABLET PO SCH (08:10)
[2019-10-07] MEDS: DIVALPROEX 125 MG CAP.SPRINK PO SCH ×2 (08:11→17:17)
[2019-10-07] MEDS: DULoxetine HCL 60 MG CAPSULE.DR PO SCH (08:11)
[2019-10-07] MEDS: METOPROLOL TART IMMED RELEASE 50 MG TABLET PO SCH ×2 (08:12→20:11)
[2019-10-07] MEDS: AMMONIUM LACTATE 12% TOPICAL LOTION 226GM BOTTLE. TP SCH ×2 (08:12→21:00)
[2019-10-07] MEDS: POLYETHYLENE GLYCOL 3350 17 GM PACKET. PO SCH (08:12)
[2019-10-07] MEDS: QUEtiapine 25 MG TABLET. PO SCH ×3 (08:12→17:17)
[2019-10-07] MEDS: ACETAMINOPHEN/CODEINE 300/30MG TABLET PO PRN ×2 (08:13→20:11)
[2019-10-07 10:32] LABS: BASO % 0 % (0-3); EOS % 0 % (0-3); HEMOGLOBIN 10.6 g/dL (13.0-17.5); LYMPH # 0.8 x10^3/uL (1.0-4.8); LYMPH % 12 % (24-48); MEAN CORPUSCULAR HEMOGLOBIN 27 pg (25-35); MEAN CORPUSCULAR HGB CONC 32 g/dL (31-37); MEAN CORPUSCULAR VOLUME 83 fL (79-100); MONO # 0.5 x10^3/uL (0.0-1.1); MONO % 8 % (0-9); NEUT # 5.2 x10^3uL (1.8-7.7); NEUT % 80 % (31-73); PLATELET COUNT 227 x10^3/uL (140-400); RED BLOOD COUNT 3.95 x10^6/uL (4.30-5.70); RED CELL DISTRIBUTION WIDTH 17.9 % (11.5-14.5); WHITE BLOOD COUNT 6.5 x10^3/uL (4.0-11.0)
--- NOTE | 2019-10-07 10:46 | NUR ---
Pt is calm, cooperative, and compliant with his medication and lab draw. He was yelling out and resistive with cares during his shower this morning. No hallucinations or delusions.
[2019-10-07 10:59] LABS: ALBUMIN 2.7 g/dL (3.4-5.0); ALBUMIN/GLOBULIN RATIO 0.7 (1.0-1.7); ALK PHOS 107 U/L (46-116); ALT (SGPT) 13 U/L (16-63); ANION GAP 8 (6-14); AST (SGOT) 13 U/L (15-37); BLOOD UREA NITROGEN 16 mg/dL (8-26); BUN/CREATININE RATIO 13 (6-20); CALCIUM 8.5 mg/dL (8.5-10.1); CARBON DIOXIDE 28 mmol/L (21-32); CHLORIDE 105 mmol/L (98-107); CREATININE 1.2 mg/dL (0.7-1.3); GLUCOSE 233 mg/dL (70-99); POTASSIUM 4.7 mmol/L (3.5-5.1); SODIUM 141 mmol/L (136-145); TOTAL BILIRUBIN 0.4 mg/dL (0.2-1.0); TOTAL PROTEIN 6.7 g/dL (6.4-8.2)
[2019-10-07 11:05] LABS: VAL ACID 14 mcg/mL (50-100)
[2019-10-07 15:52] VITALS: BP 154/69
--- NOTE | 2019-10-07 16:07 | PN ---
DATE: 10/05/2019 PSYCHIATRIC PROGRESS NOTE This late entry 10/05/2019 covers elements not covered in my initial note. SUBJECTIVE: I met with the patient evening of 10/05/2019. The patient slept for 3/4 hours previous night per SHON Rivera. Previous night, he was agitated, feeling the staff or one of his neighbors appeared to be much more confused. He was agitated with his on the telephone and then called her back and apologized. He remains somewhat impulsive. REVIEW OF SYSTEMS: Ambulation impaired, in wheelchair. No CV, , pulmonary, eye system symptoms on review. MENTAL STATUS EXAM: Oriented to himself and situation during the day, more confused in the evening. REVIEW OF SYSTEMS: No CV, , pulmonary, eye system symptoms on review. MENTAL STATUS EXAM: Speech is coherent, has some latency. Abstraction fair, computation impaired, language function intact. Mood and affect remains somewhat withdrawn at times, labile at other times. LABORATORY DATA: Reviewed. IMPRESSION: Unchanged from initial note. PLAN: No change from initial note. MAN Dewey TREADWELL MD DR: SERGIO/abhilash JOB#: [id number] / [id number]
[2019-10-07] MEDS: SIMVASTATIN 10 MG TABLET PO SCH (20:10)
[2019-10-07] MEDS: INSULIN GLARGINE SYRINGE. SQ SCH (20:12)
--- NOTE | 2019-10-07 20:54 | PDOC ---
Exam Note: Sandoval Note: Please also refer to the separate dictated note~for this date of service dictated separately.~Patient seen individually. Discussed the patient with Nursing staff reviewed the chart.~Reviewed interim history and current functioning. Reviewed vital signs,~Labs/ Radiology~and current medications noted below. Continue current treatment with the changes noted in the dictated addendum note Assessment: Vital Signs/I&O: Vital Signs Date Time Temp Pulse Resp B/P (MAP) Pulse Ox O2 Delivery O2 Flow Rate FiO2 10/07/19 20:11 76 154/69 10/07/19 20:11 18 100 Room Air 10/07/19 15:52 98.0 I & O 10/06/19 10/06/19 10/07/19 15:00 23:00 07:00 Intake Total 720 ml 0 ml 240 ml Balance 720 ml 0 ml 240 ml Labs: Laboratory Tests Test 10/07/19 07:33 10/07/19 09:35 10/07/19 11:35 10/07/19 16:55 Glucose (Fingerstick) 59 mg/dL (70-99) L 234 mg/dL (70-99) H 103 mg/dL (70-99) H White Blood Count 6.5 x10^3/uL (4.0-11.0) Red Blood Count 3.95 x10^6/uL (4.30-5.70) L Hemoglobin 10.6 g/dL (13.0-17.5) L Hematocrit 33.0 % (39.0-53.0) L Mean Corpuscular Volume 83 fL (79-100) Mean Corpuscular Hemoglobin 27 pg (25-35) Mean Corpuscular Hemoglobin Concent 32 g/dL (31-37) Red Cell Distribution Width 17.9 % (11.5-14.5) H Platelet Count 227 x10^3/uL (140-400) Neutrophils (%) (Auto) 80 % (31-73) H Lymphocytes (%) (Auto) 12 % (24-48) L Monocytes (%) (Auto) 8 % (0-9) Eosinophils (%) (Auto) 0 % (0-3) Basophils (%) (Auto) 0 % (0-3) Neutrophils # (Auto) 5.2 x10^3uL (1.8-7.7) Lymphocytes # (Auto) 0.8 x10^3/uL (1.0-4.8) L Monocytes # (Auto) 0.5 x10^3/uL (0.0-1.1) Eosinophils # (Auto) 0.0 x10^3/uL (0.0-0.7) Basophils # (Auto) 0.0 x10^3/uL (0.0-0.2) Sodium Level 141 mmol/L (136-145) Potassium Level 4.7 mmol/L (3.5-5.1) Chloride Level 105 mmol/L (98-107) Carbon Dioxide Level 28 mmol/L (21-32) Anion Gap 8 (6-14) Blood Urea Nitrogen 16 mg/dL (8-26) Creatinine 1.2 mg/dL (0.7-1.3) Estimated GFR (Cockcroft-Gault) 59.0 BUN/Creatinine Ratio 13 (6-20) Glucose Level 233 mg/dL (70-99) H Calcium Level 8.5 mg/dL (8.5-10.1) Total Bilirubin 0.4 mg/dL (0.2-1.0) Aspartate Amino Transferase (AST) 13 U/L (15-37) L Alanine Aminotransferase (ALT) 13 U/L (16-63) L Alkaline Phosphatase 107 U/L (46-116) Total Protein 6.7 g/dL (6.4-8.2) Albumin 2.7 g/dL (3.4-5.0) L Albumin/Globulin Ratio 0.7 (1.0-1.7) L Valproic Acid Level 14 mcg/mL (50-100) L Valproic Acid Last Dose Date 10/06/19 Valproic Acid Last Dose Time 1700 Test 10/07/19 19:07 Glucose (Fingerstick) 182 mg/dL (70-99) H Current Medications: I have reviewed the current psychotropics carefully including drug interactions. Risk benefit ratio favors no change other than as noted in my dictated progress note. Diagnosis: Problems: (1) Major neurocognitive disorder, due to vascular disease, with behavioral disturbance, mild (2) Anxiety disorder (3) Dementia in Alzheimer's disease with delusions (4) Dementia in Alzheimer's disease with depression (5) Dementia, vascular, with delusions (6) Dementia, vascular, with depression (7) Impulse control disorder MILE,MAN M MD Oct 07, 2019 20:54
--- NOTE | 2019-10-07 21:43 | PN ---
DATE: 10/06/2019 PSYCHIATRIC PROGRESS NOTE This late entry 10/06/2019 covers the elements not covered in my initial note. SUBJECTIVE: I met with the patient in the evening of 10/06/2019. The patient slept 4-1/2 hours previous night. He has been more cooperative with cares. Previous night, he was argumentative and combative when he was soiled and staff are trying to assist him. He is compliant with his medications. REVIEW OF SYSTEMS: Ambulation impaired, in wheelchair. No CV, , pulmonary, eye system symptoms on review. MENTAL STATUS EXAMINATION: The patient is oriented to himself and situation. Speech has some latency, coherent, somewhat dismissive at times. Abstraction fair, computation impaired, language function intact, attention span short. Mood and affect remains at times labile, anxious. Short term memory is impaired. Labs reviewed. IMPRESSION: Unchanged from initial note. PLAN: No change from initial note. JESSICA TREADWELL MD DR: SERGIO/abhilash JOB#: [id number] / [id number]
--- NOTE | 2019-10-07 23:02 | NUR ---
pt was in dayroom during med pass and assessment. pt was calm and cooperative this evening. pt had no complaints this evening thus far.
[2019-10-08] MEDS: PANTOPRAZOLE 40 MG TABLET. PO SCH (05:56)
[2019-10-08 06:00] VITALS: BP 141/63
[2019-10-08] MEDS: INSULIN LISPRO 300 UNITS/3 ML VIAL. SQ SCH ×3 (08:30→17:23)
[2019-10-08] MEDS: metFORMIN 500 MG TABLET PO SCH (08:33)
[2019-10-08] MEDS: DULoxetine HCL 60 MG CAPSULE.DR PO SCH (08:33)
[2019-10-08] MEDS: DOCUSATE SODIUM 100 MG CAPSULE PO SCH ×2 (08:33→20:29)
[2019-10-08] MEDS: DIVALPROEX 125 MG CAP.SPRINK PO SCH (08:33)
[2019-10-08] MEDS: METOPROLOL TART IMMED RELEASE 50 MG TABLET PO SCH ×2 (08:34→20:28)
[2019-10-08] MEDS: AMMONIUM LACTATE 12% TOPICAL LOTION 226GM BOTTLE. TP SCH ×2 (08:34→20:29)
[2019-10-08] MEDS: POLYETHYLENE GLYCOL 3350 17 GM PACKET. PO SCH (08:34)
[2019-10-08] MEDS: QUEtiapine 25 MG TABLET. PO SCH ×3 (08:34→17:23)
--- NOTE | 2019-10-08 10:51 | NUR ---
Pt is calm, cooperative, and compliant with his medication and assessment. No hallucinations or delusions.
[2019-10-08 15:55] VITALS: BP 170/82
[2019-10-08] MEDS: INSULIN GLARGINE SYRINGE. SQ SCH (20:28)
[2019-10-08] MEDS: SIMVASTATIN 10 MG TABLET PO SCH (20:29)
--- NOTE | 2019-10-08 21:14 | PDOC ---
Exam Note: Sandoval Note: Please also refer to the separate dictated note~for this date of service dictated separately.~Patient seen individually. Discussed the patient with Nursing staff reviewed the chart.~Reviewed interim history and current functioning. Reviewed vital signs,~Labs/ Radiology~and current medications noted below. Continue current treatment with the changes noted in the dictated addendum note Assessment: Vital Signs/I&O: Vital Signs Date Time Temp Pulse Resp B/P (MAP) Pulse Ox O2 Delivery O2 Flow Rate FiO2 10/08/19 20:28 68 170/82 10/08/19 15:55 97.8 18 94 Room Air I & O 10/07/19 10/07/19 10/08/19 15:00 23:00 07:00 Intake Total 840 ml Balance 840 ml Labs: Laboratory Tests Test 10/08/19 07:43 10/08/19 11:31 10/08/19 17:13 10/08/19 19:44 Glucose (Fingerstick) 66 mg/dL (70-99) L 126 mg/dL (70-99) H 109 mg/dL (70-99) H 97 mg/dL (70-99) Current Medications: I have reviewed the current psychotropics carefully including drug interactions. Risk benefit ratio favors no change other than as noted in my dictated progress note. Diagnosis: Problems: (1) Major neurocognitive disorder, due to vascular disease, with behavioral disturbance, mild (2) Anxiety disorder (3) Dementia in Alzheimer's disease with delusions (4) Dementia in Alzheimer's disease with depression (5) Dementia, vascular, with delusions (6) Dementia, vascular, with depression (7) Impulse control disorder JESSICA TREADWELL MD Oct 08, 2019 21:14
--- NOTE | 2019-10-08 21:34 | NUR ---
Nursing Note Pt is delusional, stating his went and did it today. Asked what that was and he claims she him today. Convinced that she got her [facility] consultant and made it happen today.
--- NOTE | 2019-10-09 01:27 | PN ---
DATE: 10/07/2019 PSYCHIATRIC PROGRESS NOTE This late entry of 10/07 covers elements not covered in my initial note. SUBJECTIVE: I met with the patient evening of 10/07. The patient slept 5-1/4 hours the previous night. Per SHON Jorge, the patient slept reasonably. Ambulates with a walker. Somewhat anxious, restless, dismissive at times. REVIEW OF SYSTEMS: Impaired ambulation. No CV, , pulmonary, eye system symptoms on review. MENTAL STATUS EXAMINATION: Oriented to himself, at times situation. Speech has some latency, coherent. Abstraction fair, computation impaired, language function intact, attention span short. Mood and affect remain somewhat labile at times. LABORATORY DATA: Reviewed. IMPRESSION: Unchanged from initial note. PLAN: No change from initial note. MAN Dewey TREADWELL MD DR: SERGIO/abhilash JOB#: [id number] / [id number]
[2019-10-09] MEDS: PANTOPRAZOLE 40 MG TABLET. PO SCH (05:29)
--- NOTE | 2019-10-09 05:32 | NUR ---
Nursing Note Pt belligerent this am, calling names and rude to the techs very irritable. Angry.
[2019-10-09 05:53] VITALS: BP 197/81
[2019-10-09] MEDS: INSULIN LISPRO 300 UNITS/3 ML VIAL. SQ SCH ×3 (08:00→17:00)
[2019-10-09] MEDS: DULoxetine HCL 60 MG CAPSULE.DR PO SCH (08:28)
[2019-10-09] MEDS: POLYETHYLENE GLYCOL 3350 17 GM PACKET. PO SCH (08:28)
[2019-10-09] MEDS: DIVALPROEX 125 MG CAP.SPRINK PO SCH ×2 (08:28→17:30)
[2019-10-09] MEDS: QUEtiapine 25 MG TABLET. PO SCH ×3 (08:28→17:30)
[2019-10-09] MEDS: metFORMIN 500 MG TABLET PO SCH (08:28)
[2019-10-09] MEDS: DOCUSATE SODIUM 100 MG CAPSULE PO SCH ×2 (08:29→20:30)
[2019-10-09] MEDS: METOPROLOL TART IMMED RELEASE 50 MG TABLET PO SCH ×2 (08:29→20:30)
[2019-10-09] MEDS: AMMONIUM LACTATE 12% TOPICAL LOTION 226GM BOTTLE. TP SCH ×2 (08:30→20:25)
--- NOTE | 2019-10-09 10:54 | NUR ---
Nursing note: Pt in dining room for morning meds and assessment. He was compliant with his meds whole and was pleasant and cooperative with his assessment. Pt was not having any delusions at that time and had no complaints. He is currently laying in his bed. Will continue to monitor.
[2019-10-09 15:47] VITALS: BP 153/64
[2019-10-09] MEDS: INSULIN GLARGINE SYRINGE. SQ SCH (20:25)
[2019-10-09] MEDS: SIMVASTATIN 10 MG TABLET PO SCH (20:30)
--- NOTE | 2019-10-09 20:30 | NUR ---
On assessment pt is laying down in his bed. Assisted pt with straightening out his blankets. Pt is very thankful and pleasant towards staff. Pt is calm and compliant with his medication and assessment. No hallucinations or delusions.
--- NOTE | 2019-10-09 21:19 | PDOC ---
Exam Note: Sandoval Note: Please also refer to the separate dictated note~for this date of service dictated separately.~Patient seen individually. Discussed the patient with Nursing staff reviewed the chart.~Reviewed interim history and current functioning. Reviewed vital signs,~Labs/ Radiology~and current medications noted below. Continue current treatment with the changes noted in the dictated addendum note Assessment: Vital Signs/I&O: Vital Signs Date Time Temp Pulse Resp B/P (MAP) Pulse Ox O2 Delivery O2 Flow Rate FiO2 10/09/19 20:30 67 153/64 10/09/19 15:47 97.9 16 94 10/08/19 15:55 Room Air I & O 10/08/19 10/08/19 10/09/19 15:00 23:00 07:00 Intake Total 240 ml 120 ml Balance 240 ml 120 ml Labs: Laboratory Tests Test 10/09/19 07:44 10/09/19 08:32 10/09/19 11:31 10/09/19 17:02 Glucose (Fingerstick) 48 mg/dL (70-99) L 97 mg/dL (70-99) 237 mg/dL (70-99) H 48 mg/dL (70-99) L Test 10/09/19 19:10 Glucose (Fingerstick) 170 mg/dL (70-99) H Current Medications: Meds: Current Medications Medications (Trade) Dose Ordered Sig/John Route PRN Reason Start Time Stop Time Status Last Admin Dose Admin Divalproex Sodium (Depakote Sprinkles) 250 mg 0900,1700 PO 10/09/19 09:00 10/09/19 17:30 I have reviewed the current psychotropics carefully including drug interactions. Risk benefit ratio favors no change other than as noted in my dictated progress note. Diagnosis: Problems: (1) Major neurocognitive disorder, due to vascular disease, with behavioral disturbance, mild (2) Anxiety disorder (3) Dementia in Alzheimer's disease with delusions (4) Dementia in Alzheimer's disease with depression (5) Dementia, vascular, with delusions (6) Dementia, vascular, with depression (7) Impulse control disorder JESSICA TREADWELL MD Oct 09, 2019 21:19
[2019-10-09] MEDS: traZODone 50 MG TABLET. PO PRN (22:26)
--- NOTE | 2019-10-09 22:34 | PN ---
DATE: 10/08/2019 This late entry, 10/08, covers elements not covered in my initial note. SUBJECTIVE: I met with the patient evening of 10/08. Per SHON Rodriguez, the patient slept 5 hours previous night. Previous evening, he was agitated, "flipped off" nursing staff, somewhat labile in his mood. REVIEW OF SYSTEMS: Ambulation impaired, in wheelchair. No CV, , pulmonary, eye, ENT system symptoms on review. Reliability varies. MENTAL STATUS EXAM: Oriented to himself and situation. Speech is coherent, has some latency. Abstraction fair, computation impaired, language function intact, attention span short. Mood and affect remain somewhat anxious, labile at times, improved, however, from before. LABORATORY DATA: Reviewed. IMPRESSION: Unchanged from initial note. PLAN: Valproic acid level subtherapeutic at 40 and increase Depakote to 250 mg twice a day. Check CBC, CMP, valproic acid level, ammonia level in 3 days. Rest unchanged for now. MAN Dewey TREADWELL MD DR: SERGIO/abhilash JOB#: [id number] / [id number]
[2019-10-10] MEDS: PANTOPRAZOLE 40 MG TABLET. PO SCH (05:12)
[2019-10-10 05:51] VITALS: BP 182/68
[2019-10-10] MEDS: INSULIN LISPRO 300 UNITS/3 ML VIAL. SQ SCH ×3 (08:00→17:00)
[2019-10-10] MEDS: POLYETHYLENE GLYCOL 3350 17 GM PACKET. PO SCH (08:16)
[2019-10-10] MEDS: METOPROLOL TART IMMED RELEASE 50 MG TABLET PO SCH ×2 (08:16→20:28)
[2019-10-10] MEDS: QUEtiapine 25 MG TABLET. PO SCH ×3 (08:17→17:51)
[2019-10-10] MEDS: DIVALPROEX 125 MG CAP.SPRINK PO SCH ×2 (08:17→17:51)
[2019-10-10] MEDS: DOCUSATE SODIUM 100 MG CAPSULE PO SCH ×2 (08:17→20:27)
[2019-10-10] MEDS: metFORMIN 500 MG TABLET PO SCH (08:17)
[2019-10-10] MEDS: DULoxetine HCL 60 MG CAPSULE.DR PO SCH (08:17)
[2019-10-10] MEDS: AMMONIUM LACTATE 12% TOPICAL LOTION 226GM BOTTLE. TP SCH ×2 (08:18→20:59)
--- NOTE | 2019-10-10 13:17 | NUR ---
SW contacted pt son to discuss discharge game plan. Pt son is torn about pt returning home and discussed the report from Jen with [facility]PS. SW and pt son discussed her vocalization about "hating" his through multiple insults and insinuating that "she deserved what she got". SW and pt son discussed "best case scenario" of pt going home with services and then the concerns of harm towards pt . SW explained that it may be more appropriate to consider a step-down program for the next month and see how it goes. If pt can remain calm and take his medications, they can work on getting pt home with extra services and support. However, if pt continues to pose a threat to his , they may work on keeping pt at the facility he does the respite stay. Pt son agrees with this plan and will let [facility] send referrals to those who are able to take pt insurance. Pt son has also asked to have SW contact pt to explain this to her.
[2019-10-10 15:56] VITALS: BP 137/75
--- NOTE | 2019-10-10 16:06 | NUR ---
Nursing note: Pt in dining room at time of morning meds and assessment. He was compliant with his meds whole and was cooperative with his assessment. He has been pleasant, but withdrawn today, sitting in his chair in his doorway. He stated that he is concerned about making it to [place] in time to renew his license before it expires. He was encouraged to focus on his hospital stay and getting better before worrying about getting his license renewed.
[2019-10-10] MEDS: SIMVASTATIN 10 MG TABLET PO SCH (20:27)
[2019-10-10] MEDS: INSULIN GLARGINE SYRINGE. SQ SCH (20:29)
[2019-10-10] MEDS: traZODone 100 MG TABLET. PO SCH (20:30)
--- NOTE | 2019-10-10 21:51 | PN ---
DATE: 10/09/2019 PSYCHIATRIC PROGRESS NOTE This late entry 10/09/2019 covers elements not covered in my initial note. SUBJECTIVE: I met with the patient evening of 10/09/2019. Per SHON Crawford, the patient slept 3-3/4 hours previous night. Apparently per nursing report, he did sleep better with this since he slept part of the night in his chair. 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 Later in the day, he was alright and I met with him in the evening. REVIEW OF SYSTEMS: Ambulation impaired. No CV, , pulmonary, eye system symptoms on review. MENTAL STATUS EXAM: Oriented to himself and situation. Speech has some latency, coherent. He was tired in the evening, abstraction fair, computation impaired, language function intact. Mood and affect somewhat withdrawn, less labile, less aggressive. LABORATORY DATA: Reviewed. IMPRESSION: Major depressive disorder, recurrent, mild cognitive impairment; impulse control disorder. Rest unchanged. PLAN: Continue current psychotropics. Check labs level on the Depakote on 10/12/2019, adjust to reach therapeutic level. Rest unchanged. MAN Dewey TREADWELL MD DR: SERGIO/abhilash JOB#: [id number] / [id number]
--- NOTE | 2019-10-10 22:07 | PDOC ---
Exam Note: Sandoval Note: Please also refer to the separate dictated note~for this date of service dictated separately.~Patient seen individually. Discussed the patient with Nursing staff reviewed the chart.~Reviewed interim history and current functioning. Reviewed vital signs,~Labs/ Radiology~and current medications noted below. Continue current treatment with the changes noted in the dictated addendum note Assessment: Vital Signs/I&O: Vital Signs Date Time Temp Pulse Resp B/P (MAP) Pulse Ox O2 Delivery O2 Flow Rate FiO2 10/10/19 20:28 80 137/75 10/10/19 15:56 97.4 16 95 Room Air I & O 10/09/19 10/09/19 10/10/19 15:00 23:00 07:00 Intake Total 480 ml 780 ml Balance 480 ml 780 ml Labs: Laboratory Tests Test 10/10/19 07:49 10/10/19 11:49 10/10/19 16:47 10/10/19 19:12 Glucose (Fingerstick) 93 mg/dL (70-99) 104 mg/dL (70-99) H 118 mg/dL (70-99) H 178 mg/dL (70-99) H Current Medications: Meds: Current Medications Medications (Trade) Dose Ordered Sig/John Route PRN Reason Start Time Stop Time Status Last Admin Dose Admin Insulin Glargine (Lantus Syringe) 35 unit QHS SQ 10/10/19 21:00 10/10/19 20:29 Trazodone HCl (Desyrel) 100 mg QHS PO 10/10/19 21:00 10/10/19 20:30 I have reviewed the current psychotropics carefully including drug interactions. Risk benefit ratio favors no change other than as noted in my dictated progress note. Diagnosis: Problems: (1) Major neurocognitive disorder, due to vascular disease, with behavioral disturbance, mild (2) Anxiety disorder (3) Dementia in Alzheimer's disease with delusions (4) Dementia in Alzheimer's disease with depression (5) Dementia, vascular, with delusions (6) Dementia, vascular, with depression (7) Impulse control disorder JESSICA TREADWELL MD Oct 10, 2019 22:07
--- NOTE | 2019-10-10 22:31 | NUR ---
Pt withdrawn to his room this evening. Patient denies any complaints at this time. Patient calm and cooperative with assessment and medications whole. Encouraged patient to lay in bed tonight with his feet elevated. Pt states, "I like to take you to bed tonight.". Reminded patient that those comments are inappropriate. Patient is noted to have redness and dryness to bilateral lower leg, patient refused lotion stating, "Maybe tomorrow".
[2019-10-10] MEDS: traZODone 50 MG TABLET. PO PRN (22:39)
[2019-10-11] MEDS: PANTOPRAZOLE 40 MG TABLET. PO SCH (05:41)
[2019-10-11] MEDS: INSULIN LISPRO 300 UNITS/3 ML VIAL. SQ SCH ×3 (08:00→17:20)
[2019-10-11] MEDS: DOCUSATE SODIUM 100 MG CAPSULE PO SCH ×2 (08:23→19:58)
[2019-10-11] MEDS: METOPROLOL TART IMMED RELEASE 50 MG TABLET PO SCH ×2 (08:24→19:57)
[2019-10-11] MEDS: DULoxetine HCL 60 MG CAPSULE.DR PO SCH (08:25)
[2019-10-11] MEDS: DIVALPROEX 125 MG CAP.SPRINK PO SCH ×2 (08:25→17:16)
[2019-10-11] MEDS: AMMONIUM LACTATE 12% TOPICAL LOTION 226GM BOTTLE. TP SCH ×2 (08:26→19:58)
[2019-10-11] MEDS: POLYETHYLENE GLYCOL 3350 17 GM PACKET. PO SCH (08:26)
[2019-10-11] MEDS: QUEtiapine 25 MG TABLET. PO SCH ×3 (08:26→17:16)
[2019-10-11] MEDS: metFORMIN 500 MG TABLET PO SCH (08:27)
--- NOTE | 2019-10-11 15:56 | NUR ---
Patient has been calm, withdrawn to room, and compliant with meds throughout this shift. Patient was oriented to self and place with mild confusion to day/date though he is delusional as evidenced by him asking for a ride to his parent's house because that's where his cars are and he needs to get to work. At about 15:10, patient was found lying on the floor in his room, he states that he was trying to walk next the closet in his room and fell. Patient denies any pain, old skin tear on right elbow opened; wound cleaned and dressed with aquacell foam. No point tenderness found, VSS, will continue to monitor
[2019-10-11 16:11] VITALS: BP 150/64
--- NOTE | 2019-10-11 17:05 | NUR ---
WEEKLY ACTIVITY THERAPY NOTE Date of Admission: 09/29/2019 Date of AT Assessment: 10/02/2019 Goal aimed: to increase leisure engagement Initial goal: Pt. will engage in three Activity Therapy groups or individual sessions before discharge. Weekly progress towards goal: 2/3 (10/05-high/low, 10/08-Leisure WYR Group participation level: 1 min, 1 mod Weekly highlights: Pleasantly answered leisure would you rather questions on Tuesday Behaviors observed: limited interest in groups, withdrawn, rude/sarcastic at times, sleeping often Plan: no change to goal Beneficial adaptations: possibly incorporate snacks for increased participation
[2019-10-11] MEDS: SIMVASTATIN 10 MG TABLET PO SCH (19:57)
[2019-10-11] MEDS: MIRTAZAPINE 7.5 MG TABLET. PO SCH (19:57)
[2019-10-11] MEDS: traZODone 100 MG TABLET. PO SCH (19:58)
--- NOTE | 2019-10-11 20:59 | PDOC ---
Exam Note: Sandoval Note: Please also refer to the separate dictated note~for this date of service dictated separately.~Patient seen individually. Discussed the patient with Nursing staff reviewed the chart.~Reviewed interim history and current functioning. Reviewed vital signs,~Labs/ Radiology~and current medications noted below. Continue current treatment with the changes noted in the dictated addendum note Assessment: Vital Signs/I&O: Vital Signs Date Time Temp Pulse Resp B/P (MAP) Pulse Ox O2 Delivery O2 Flow Rate FiO2 10/11/19 19:57 71 150/64 10/11/19 16:11 98.1 16 96 10/10/19 15:56 Room Air I & O 10/10/19 10/10/19 10/11/19 15:00 23:00 07:00 Intake Total 720 ml 480 ml Balance 720 ml 480 ml Labs: Laboratory Tests Test 10/11/19 07:28 10/11/19 12:08 10/11/19 17:04 10/11/19 19:34 Glucose (Fingerstick) 88 mg/dL (70-99) 144 mg/dL (70-99) H 168 mg/dL (70-99) H 159 mg/dL (70-99) H Current Medications: Meds: Current Medications Medications (Trade) Dose Ordered Sig/John Route PRN Reason Start Time Stop Time Status Last Admin Dose Admin Insulin Glargine (Lantus Syringe) 35 unit QHS SQ 10/10/19 21:00 10/10/19 20:29 Trazodone HCl (Desyrel) 100 mg QHS PO 10/10/19 21:00 10/11/19 19:58 Mirtazapine (Remeron) 7.5 mg QHS PO 10/11/19 21:00 10/11/19 19:57 I have reviewed the current psychotropics carefully including drug interactions. Risk benefit ratio favors no change other than as noted in my dictated progress note. Diagnosis: Problems: (1) Major neurocognitive disorder (2) Major neurocognitive disorder, due to vascular disease, with behavioral disturbance, mild (3) Anxiety disorder (4) Dementia in Alzheimer's disease with delusions (5) Dementia in Alzheimer's disease with depression (6) Dementia, vascular, with delusions (7) Dementia, vascular, with depression (8) Impulse control disorder JESSICA TREADWELL MD Oct 11, 2019 20:59
[2019-10-11] MEDS: INSULIN GLARGINE SYRINGE. SQ SCH (21:21)
--- NOTE | 2019-10-11 23:42 | NUR ---
Nursing Note the patient was located in his room for his assessment and medication pass. the patient was very irritable and argumentative with cares. The patient took his medication whole. The patient complained of an upset stomach this shift but refused anything to help with his upset stomach. The patient is currently sleeping in his room.
[2019-10-12 06:10] VITALS: BP 154/78
[2019-10-12] MEDS: PANTOPRAZOLE 40 MG TABLET. PO SCH (06:19)
[2019-10-12 06:49] LABS: BASO % 0 % (0-3); EOS # 0.1 x10^3/uL (0.0-0.7); EOS % 1 % (0-3); HEMATOCRIT 34.1 % (39.0-53.0); LYMPH # 1.1 x10^3/uL (1.0-4.8); LYMPH % 15 % (24-48); MEAN CORPUSCULAR HEMOGLOBIN 28 pg (25-35); MEAN CORPUSCULAR HGB CONC 32 g/dL (31-37); MEAN CORPUSCULAR VOLUME 85 fL (79-100); MONO # 0.6 x10^3/uL (0.0-1.1); MONO % 8 % (0-9); NEUT # 5.4 x10^3uL (1.8-7.7); NEUT % 76 % (31-73); PLATELET COUNT 308 x10^3/uL (140-400); RED BLOOD COUNT 3.99 x10^6/uL (4.30-5.70); RED CELL DISTRIBUTION WIDTH 17.8 % (11.5-14.5); WHITE BLOOD COUNT 7.2 x10^3/uL (4.0-11.0)
[2019-10-12 06:51] LABS: ALBUMIN 2.8 g/dL (3.4-5.0); ALBUMIN/GLOBULIN RATIO 0.7 (1.0-1.7); ALK PHOS 107 U/L (46-116); ALT (SGPT) 16 U/L (16-63); ANION GAP 3 (6-14); AST (SGOT) 11 U/L (15-37); BLOOD UREA NITROGEN 14 mg/dL (8-26); BUN/CREATININE RATIO 13 (6-20); CALCIUM 8.4 mg/dL (8.5-10.1); CARBON DIOXIDE 33 mmol/L (21-32); CHLORIDE 106 mmol/L (98-107); CREATININE 1.1 mg/dL (0.7-1.3); GFR 65.3; GLUCOSE 70 mg/dL (70-99); POTASSIUM 4.3 mmol/L (3.5-5.1); SODIUM 142 mmol/L (136-145); TOTAL BILIRUBIN 0.4 mg/dL (0.2-1.0); TOTAL PROTEIN 6.7 g/dL (6.4-8.2)
[2019-10-12 06:52] LABS: VAL ACID 29 mcg/mL (50-100)
[2019-10-12 07:14] LABS: % BANDS 2 % (0-9); % EOS 2 % (0-5); % LYMPHS 10 % (24-48); % METAS 2 % (0-0); % MONOS 6 % (0-10); % MYELOS 1 % (0-0); % SEGS 77 % (35-66); PLT ESTIMATE ADEQUATE (ADEQUATE)
[2019-10-12 07:15] LABS: ANISOCYTOSIS SLIGHT; OVALOCYTES OCC
[2019-10-12] MEDS: QUEtiapine 25 MG TABLET. PO SCH ×3 (07:59→17:22)
[2019-10-12] MEDS: METOPROLOL TART IMMED RELEASE 50 MG TABLET PO SCH ×2 (07:59→20:33)
[2019-10-12] MEDS: DOCUSATE SODIUM 100 MG CAPSULE PO SCH ×2 (07:59→20:33)
[2019-10-12] MEDS: INSULIN LISPRO 300 UNITS/3 ML VIAL. SQ SCH ×3 (08:00→17:00)
[2019-10-12] MEDS: metFORMIN 500 MG TABLET PO SCH (08:00)
[2019-10-12] MEDS: POLYETHYLENE GLYCOL 3350 17 GM PACKET. PO SCH (08:00)
[2019-10-12] MEDS: DIVALPROEX 125 MG CAP.SPRINK PO SCH ×2 (08:00→17:23)
[2019-10-12] MEDS: DULoxetine HCL 60 MG CAPSULE.DR PO SCH (08:00)
[2019-10-12] MEDS: AMMONIUM LACTATE 12% TOPICAL LOTION 226GM BOTTLE. TP SCH ×2 (08:01→20:33)
--- NOTE | 2019-10-12 10:32 | NUR ---
Patient was slightly irritable, sarcastic, and compliant with meds this morning. He was withdrawn to his room after breakfast. Will continue to monitor.
[2019-10-12 16:26] VITALS: BP 128/78
--- NOTE | 2019-10-12 16:32 | PN ---
DATE: 10/10/2019 PSYCHIATRIC PROGRESS NOTE This late entry of October 10 covers elements not covered in my initial note. SUBJECTIVE: I met with the patient in the evening. Per SHON Wadsworth, the patient slept 1-1/2 hours previous night. He has been pleasant during the day, angry in the morning, upset previous evening with the night aid. REVIEW OF SYSTEMS: Ambulation impaired, in wheelchair. No CV, , pulmonary, eye, ENT system symptoms on review. MENTAL STATUS EXAM: Oriented to himself and situation. Speech moderate latency, often responses monosyllabic. Abstraction fair, computation impaired, language function intact. Short term memory is impaired. Irritable, anxious, labile at times, but improved. LABORATORY DATA: Reviewed. IMPRESSION: Major depressive disorder with psychotic features, mild cognitive impairment versus major neurocognitive disorder, Alzheimer's, vascular with delusion, depression. PLAN: Continue psychotropics from initial note. Start trazodone from 100 mg at bedtime for insomnia, january repeat x 1 p.r.n. Rest unchanged for now. MAN Dewey TREADWELL MD DR: SERGIO/abhilash JOB#: [id number] / [id number]
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
[2019-10-12] MEDS: SIMVASTATIN 10 MG TABLET PO SCH (20:33)
[2019-10-12] MEDS: traZODone 100 MG TABLET. PO SCH (20:33)
[2019-10-12] MEDS: MIRTAZAPINE 7.5 MG TABLET. PO SCH (20:33)
--- NOTE | 2019-10-12 20:57 | PDOC ---
Exam Note: Sandoval Note: Please also refer to the separate dictated note~for this date of service dictated separately.~Patient seen individually. Discussed the patient with Nursing staff reviewed the chart.~Reviewed interim history and current functioning. Reviewed vital signs,~Labs/ Radiology~and current medications noted below. Continue current treatment with the changes noted in the dictated addendum note Assessment: Vital Signs/I&O: Vital Signs Date Time Temp Pulse Resp B/P (MAP) Pulse Ox O2 Delivery O2 Flow Rate FiO2 10/12/19 20:33 77 128/78 10/12/19 16:26 97.5 16 97 10/12/19 06:10 Room Air I & O 10/11/19 10/11/19 10/12/19 15:00 23:00 07:00 Intake Total 1200 ml 360 ml 240 ml Balance 1200 ml 360 ml 240 ml Labs: Laboratory Tests Test 10/12/19 06:25 10/12/19 07:20 10/12/19 11:38 10/12/19 17:07 White Blood Count 7.2 x10^3/uL (4.0-11.0) Red Blood Count 3.99 x10^6/uL (4.30-5.70) L Hemoglobin 11.0 g/dL (13.0-17.5) L Hematocrit 34.1 % (39.0-53.0) L Mean Corpuscular Volume 85 fL (79-100) Mean Corpuscular Hemoglobin 28 pg (25-35) Mean Corpuscular Hemoglobin Concent 32 g/dL (31-37) Red Cell Distribution Width 17.8 % (11.5-14.5) H Platelet Count 308 x10^3/uL (140-400) Neutrophils (%) (Auto) 76 % (31-73) H Lymphocytes (%) (Auto) 15 % (24-48) L Monocytes (%) (Auto) 8 % (0-9) Eosinophils (%) (Auto) 1 % (0-3) Basophils (%) (Auto) 0 % (0-3) Neutrophils # (Auto) 5.4 x10^3uL (1.8-7.7) Lymphocytes # (Auto) 1.1 x10^3/uL (1.0-4.8) Monocytes # (Auto) 0.6 x10^3/uL (0.0-1.1) Eosinophils # (Auto) 0.1 x10^3/uL (0.0-0.7) Basophils # (Auto) 0.0 x10^3/uL (0.0-0.2) Segmented Neutrophils % 77 % (35-66) H Band Neutrophils % 2 % (0-9) Lymphocytes % 10 % (24-48) L Monocytes % 6 % (0-10) Eosinophils % 2 % (0-5) Metamyelocytes % 2 % (0-0) H Myelocytes % 1 % (0-0) H Platelet Estimate Adequate (ADEQUATE) Anisocytosis Slight Ovalocytes Occ Sodium Level 142 mmol/L (136-145) Potassium Level 4.3 mmol/L (3.5-5.1) Chloride Level 106 mmol/L (98-107) Carbon Dioxide Level 33 mmol/L (21-32) H Anion Gap 3 (6-14) L Blood Urea Nitrogen 14 mg/dL (8-26) Creatinine 1.1 mg/dL (0.7-1.3) Estimated GFR (Cockcroft-Gault) 65.3 BUN/Creatinine Ratio 13 (6-20) Glucose Level 70 mg/dL (70-99) Calcium Level 8.4 mg/dL (8.5-10.1) L Total Bilirubin 0.4 mg/dL (0.2-1.0) Aspartate Amino Transferase (AST) 11 U/L (15-37) L Alanine Aminotransferase (ALT) 16 U/L (16-63) Alkaline Phosphatase 107 U/L (46-116) Ammonia < 10 mcmol/L (11-34) L Total Protein 6.7 g/dL (6.4-8.2) Albumin 2.8 g/dL (3.4-5.0) L Albumin/Globulin Ratio 0.7 (1.0-1.7) L Valproic Acid Level 29 mcg/mL (50-100) L Valproic Acid Last Dose Date 10/11/2019 Valproic Acid Last Dose Time 1700 Glucose (Fingerstick) 52 mg/dL (70-99) L 184 mg/dL (70-99) H 137 mg/dL (70-99) H Test 10/12/19 19:14 Glucose (Fingerstick) 219 mg/dL (70-99) H Current Medications: Meds: Current Medications Medications (Trade) Dose Ordered Sig/John Route PRN Reason Start Time Stop Time Status Last Admin Dose Admin Mirtazapine (Remeron) 7.5 mg QHS PO 10/11/19 21:00 10/12/19 20:33 Divalproex Sodium (Depakote Sprinkles) 375 mg 0900,1700 PO 10/12/19 17:00 10/12/19 17:23 I have reviewed the current psychotropics carefully including drug interactions. Risk benefit ratio favors no change other than as noted in my dictated progress note. Diagnosis: Problems: (1) Major neurocognitive disorder, due to vascular disease, with behavioral disturbance, mild (2) Anxiety disorder (3) Dementia in Alzheimer's disease with delusions (4) Dementia in Alzheimer's disease with depression (5) Dementia, vascular, with delusions (6) Dementia, vascular, with depression (7) Impulse control disorder JESSICA TREADWELL MD Oct 12, 2019 20:57
[2019-10-12] MEDS: INSULIN GLARGINE SYRINGE. SQ SCH (22:00)
--- NOTE | 2019-10-12 22:00 | NUR ---
Patient is in his room on assumption of care, sitting in chair at end of bed with the lights off. He is somewhat sarcastic in interactions with this selling underwriter, but is compliant with medications and assessments. No agitation. No c/o or s/s of pain or discomfort. Denies SI/HI.
[2019-10-13] MEDS: PANTOPRAZOLE 40 MG TABLET. PO SCH (05:31)
[2019-10-13 06:12] VITALS: BP 155/75
--- NOTE | 2019-10-13 08:05 | NUR ---
Pt refused FSBS by STATE FARM AGENT.
[2019-10-13] MEDS: metFORMIN 500 MG TABLET PO SCH (08:38)
[2019-10-13] MEDS: DOCUSATE SODIUM 100 MG CAPSULE PO SCH ×2 (08:38→20:43)
[2019-10-13] MEDS: DULoxetine HCL 60 MG CAPSULE.DR PO SCH (08:38)
[2019-10-13] MEDS: METOPROLOL TART IMMED RELEASE 50 MG TABLET PO SCH ×2 (08:39→20:43)
[2019-10-13] MEDS: DIVALPROEX 125 MG CAP.SPRINK PO SCH ×2 (08:39→17:26)
[2019-10-13] MEDS: QUEtiapine 25 MG TABLET. PO SCH ×3 (08:40→17:26)
[2019-10-13] MEDS: AMMONIUM LACTATE 12% TOPICAL LOTION 226GM BOTTLE. TP SCH ×2 (08:40→20:43)
[2019-10-13] MEDS: POLYETHYLENE GLYCOL 3350 17 GM PACKET. PO SCH (08:40)
[2019-10-13] MEDS: INSULIN LISPRO 300 UNITS/3 ML VIAL. SQ SCH ×3 (08:41→17:09)
--- NOTE | 2019-10-13 11:13 | NUR ---
No hallucinations or delusions noted. Pt is calm, cooperative, and compliant with his medication and assessment. Pt was irritable with his on the phone this morning.
--- NOTE | 2019-10-13 15:00 | NUR ---
Pt was observed yelling at his on the phone. Phone call ended when his hung up on him. Pt continued to ask staff for the phone however staff informed and educated pt that when he can be more calm and have more self control he may make a phone call.
[2019-10-13 15:26] VITALS: BP 147/70
[2019-10-13] MEDS: MELATONIN 3 MG TABLET PO SCH (20:42)
[2019-10-13] MEDS: MIRTAZAPINE 15 MG TABLET PO SCH (20:43)
[2019-10-13] MEDS: SIMVASTATIN 10 MG TABLET PO SCH (20:43)
[2019-10-13] MEDS: traZODone 100 MG TABLET. PO SCH (20:43)
[2019-10-13] MEDS: INSULIN GLARGINE SYRINGE. SQ SCH (20:52)
--- NOTE | 2019-10-13 20:54 | PDOC ---
Exam Note: Sandoval Note: Please also refer to the separate dictated note~for this date of service dictated separately.~Patient seen individually. Discussed the patient with Nursing staff reviewed the chart.~Reviewed interim history and current functioning. Reviewed vital signs,~Labs/ Radiology~and current medications noted below. Continue current treatment with the changes noted in the dictated addendum note Assessment: Vital Signs/I&O: Vital Signs Date Time Temp Pulse Resp B/P (MAP) Pulse Ox O2 Delivery O2 Flow Rate FiO2 10/13/19 20:43 74 147/70 10/13/19 15:26 97.5 20 97 10/12/19 06:10 Room Air I & O 10/12/19 10/12/19 10/13/19 15:00 23:00 07:00 Intake Total 960 ml 240 ml 240 ml Balance 960 ml 240 ml 240 ml Labs: Laboratory Tests Test 10/13/19 07:15 10/13/19 07:34 10/13/19 11:37 10/13/19 16:44 Glucose (Fingerstick) 54 mg/dL (70-99) L 57 mg/dL (70-99) L 171 mg/dL (70-99) H 100 mg/dL (70-99) H Test 10/13/19 19:18 Glucose (Fingerstick) 149 mg/dL (70-99) H Current Medications: Meds: Current Medications Medications (Trade) Dose Ordered Sig/John Route PRN Reason Start Time Stop Time Status Last Admin Dose Admin Mirtazapine (Remeron) 15 mg QHS PO 10/13/19 21:00 10/13/19 20:43 Melatonin (Melatonin) 3 mg HS PO 10/13/19 21:00 10/13/19 20:42 I have reviewed the current psychotropics carefully including drug interactions. Risk benefit ratio favors no change other than as noted in my dictated progress note. Diagnosis: Problems: (1) Major neurocognitive disorder, due to vascular disease, with behavioral disturbance, mild (2) Anxiety disorder (3) Dementia in Alzheimer's disease with delusions (4) Dementia in Alzheimer's disease with depression (5) Dementia, vascular, with delusions (6) Dementia, vascular, with depression (7) Impulse control disorder JESSICA TREADWELL MD Oct 13, 2019 20:54
--- NOTE | 2019-10-14 00:02 | NUR ---
Nursing Note The patient was located in his room and was very irritable and agitated during interactions with this nurse. The patient was very argumentative about all things with this nurse. The patient took his medication whole. The patient is currently sleeping in his room.
[2019-10-14 05:50] VITALS: BP 144/68
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
[2019-10-14] MEDS ORDERED: DEXTROSE ORAL GEL 15 GM TUBE. ONE (08:02)
--- NOTE | 2019-10-14 08:09 | NUR ---
0800-Informed by UTILITY APPRAISER pt had a FSBS of 32. Pt was A & O with no change in mentation, pt was not diaphoretic and no complaints at his time. Hypoglycemia protocol initiated. Dr. Vasquez paged. New orders to decrease lantus to 15 units @ HS. Stat glucose lab draw. casino floor supervisor informed. Pt is currently in the dining room eating breakfast.
[2019-10-14] MEDS: DOCUSATE SODIUM 100 MG CAPSULE PO SCH ×2 (08:56→20:34)
[2019-10-14] MEDS: PANTOPRAZOLE 40 MG TABLET. PO SCH (08:56)
[2019-10-14] MEDS: metFORMIN 500 MG TABLET PO SCH (08:56)
[2019-10-14] MEDS: INSULIN LISPRO 300 UNITS/3 ML VIAL. SQ SCH ×3 (08:56→17:00)
[2019-10-14] MEDS: POLYETHYLENE GLYCOL 3350 17 GM PACKET. PO SCH (08:57)
[2019-10-14] MEDS: DIVALPROEX 125 MG CAP.SPRINK PO SCH ×2 (08:57→16:26)
[2019-10-14] MEDS: QUEtiapine 25 MG TABLET. PO SCH ×3 (08:57→16:29)
[2019-10-14] MEDS: DULoxetine HCL 60 MG CAPSULE.DR PO SCH (08:57)
[2019-10-14] MEDS: METOPROLOL TART IMMED RELEASE 50 MG TABLET PO SCH ×2 (08:57→20:34)
[2019-10-14] MEDS: AMMONIUM LACTATE 12% TOPICAL LOTION 226GM BOTTLE. TP SCH ×2 (08:58→20:39)
[2019-10-14] MEDS: CYCLOBENZAPRINE 10 MG TABLET. PO PRN (08:58)
--- NOTE | 2019-10-14 10:09 | NUR ---
Pt is calm, cooperative, and compliant with his medication and assessment. No agitation, no aggression, no hallucinations or delusions noted.
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
[2019-10-14 15:30] VITALS: BP 183/74
[2019-10-14] MEDS: SIMVASTATIN 10 MG TABLET PO SCH (20:33)
[2019-10-14] MEDS: MELATONIN 3 MG TABLET PO SCH (20:34)
[2019-10-14] MEDS: traZODone 100 MG TABLET. PO SCH (20:34)
[2019-10-14] MEDS: MIRTAZAPINE 15 MG TABLET PO SCH (20:34)
[2019-10-14] MEDS: INSULIN GLARGINE SYRINGE. SQ SCH (20:38)
--- NOTE | 2019-10-14 20:57 | PDOC ---
Exam Note: Sandoval Note: Please also refer to the separate dictated note~for this date of service dictated separately.~Patient seen individually. Discussed the patient with Nursing staff reviewed the chart.~Reviewed interim history and current functioning. Reviewed vital signs,~Labs/ Radiology~and current medications noted below. Continue current treatment with the changes noted in the dictated addendum note Assessment: Vital Signs/I&O: Vital Signs Date Time Temp Pulse Resp B/P (MAP) Pulse Ox O2 Delivery O2 Flow Rate FiO2 10/14/19 20:34 66 183/74 10/14/19 15:30 98.0 18 96 10/12/19 06:10 Room Air I & O 10/13/19 10/13/19 10/14/19 15:00 23:00 07:00 Intake Total 360 ml 240 ml Balance 360 ml 240 ml Labs: Laboratory Tests Test 10/14/19 07:51 10/14/19 08:24 10/14/19 08:47 10/14/19 11:56 Glucose (Fingerstick) 47 mg/dL (70-99) L 46 mg/dL (70-99) L 195 mg/dL (70-99) H Glucose Level 117 mg/dL (70-99) H Test 10/14/19 16:44 10/14/19 19:35 Glucose (Fingerstick) 166 mg/dL (70-99) H 156 mg/dL (70-99) H Current Medications: Meds: Current Medications Medications (Trade) Dose Ordered Sig/John Route PRN Reason Start Time Stop Time Status Last Admin Dose Admin Mirtazapine (Remeron) 15 mg QHS PO 10/13/19 21:00 10/14/19 20:34 Melatonin (Melatonin) 3 mg HS PO 10/13/19 21:00 10/14/19 20:34 Insulin Glargine (Lantus Syringe) 15 unit QHS SQ 10/14/19 21:00 10/14/19 20:38 I have reviewed the current psychotropics carefully including drug interactions. Risk benefit ratio favors no change other than as noted in my dictated progress note. Diagnosis: Problems: (1) Major neurocognitive disorder, due to vascular disease, with behavioral disturbance, mild (2) Anxiety disorder (3) Dementia in Alzheimer's disease with delusions (4) Dementia in Alzheimer's disease with depression (5) Dementia, vascular, with delusions (6) Dementia, vascular, with depression (7) Impulse control disorder JESSICA TREADWELL MD Oct 14, 2019 20:57
[2019-10-14] MEDS ORDERED: traZODone 100 MG TABLET. PO ONE (21:00)
--- NOTE | 2019-10-14 23:48 | PN ---
DATE: 10/12/2019 PSYCHIATRIC PROGRESS NOTE This late entry 10/12/2019 covers elements not covered in my initial note. SUBJECTIVE: I met with the patient evening of 10/12/2019. Per SHON Ambriz, the patient slept 5-1/2 hours previous night. He remains resistive to meds previous night and during the day. On 10/12/2019, valproic acid level 29. AST, ALT unremarkable. Ammonia unremarkable. REVIEW OF SYSTEMS: Ambulation impaired, in wheelchair. No CV, , pulmonary, eye, ENT system symptoms on review. Reliability poor. MENTAL STATUS EXAM: Oriented to himself and situation. Speech, moderate latency, often responses monosyllabic. Abstraction fair, computation impaired, language function intact, attention span short. Mood and affect withdrawn at times, labile at other times. LABORATORY DATA: Reviewed. IMPRESSION: Major depressive disorder, recurrent with psychotic features; major neurocognitive disorder, probably vascular with depression, delusions. Rest unchanged including impulse control disorder. PLAN: Depakote is 250 mg b.i.d., level subtherapeutic at 14. We will increase it to 375 mg b.i.d. Check CBC, CMP, valproic acid level in 3 days. Adjust to reach therapeutic level. Continue Seroquel, trazodone, Cymbalta unchanged along with Zyprexa p.r.n. JESSICA TREADWELL MD DR: SERGIO/abhilash JOB#: [id number] / [id number]
--- NOTE | 2019-10-14 23:50 | PN ---
DATE: 10/13/2019 PSYCHIATRIC PROGRESS NOTE This late entry 10/13/2019 covers elements not covered in my initial note. SUBJECTIVE: I met with the patient evening of 10/13/2019. The patient slept very poorly previous night just 3/4 of an hour. At night, he was snarky, irritable per nursing report. REVIEW OF SYSTEMS: Ambulation impaired, in wheelchair. No CV, , pulmonary, eye system symptoms on review. MENTAL STATUS EXAM: Oriented to himself and situation. Speech moderate latency, often responses monosyllabic. Abstraction fair, computation impaired, language function intact. Mood and affect withdrawn. LABORATORY DATA: Reviewed. IMPRESSION: Unchanged from initial note. PLAN: Increase Remeron from 7.5 mg at bedtime to 15 mg at bedtime to help with the insomnia, start melatonin 3 mg at bedtime. Maintain trazodone 100 mg at bedtime to make sure we will give it to him scheduled and may repeat x 1. Rest unchanged for now. MAN Dewey TREADWELL MD DR: SERGIO/abhilash JOB#: [id number] / [id number]
--- NOTE | 2019-10-15 01:56 | NUR ---
Nursing Note: Pt walking in hallway with walker at shift change. Pt calm, pleasant, and interactive with this nurse this evening but also delusional- believes he is supposed to be meeting the doctor at 1830 at a location other than the hospital. Pt reports that he has had several of these meetings set up and the doctor never shows. Pt cooperative with assessment and compliant with medications administered whole.
[2019-10-15] MEDS: PANTOPRAZOLE 40 MG TABLET. PO SCH (05:31)
[2019-10-15 06:03] VITALS: BP 143/66
[2019-10-15] MEDS: ACETAMINOPHEN/CODEINE 300/30MG TABLET PO PRN ×2 (06:15→20:12)
--- NOTE | 2019-10-15 06:17 | NUR ---
Nursing Note: Pt c/o back pain this morning. PRN Tylenol #3 administered as ordered.
[2019-10-15] MEDS: INSULIN LISPRO 300 UNITS/3 ML VIAL. SQ SCH ×3 (08:32→17:28)
[2019-10-15] MEDS: METOPROLOL TART IMMED RELEASE 50 MG TABLET PO SCH ×2 (08:33→20:07)
[2019-10-15] MEDS: QUEtiapine 25 MG TABLET. PO SCH ×3 (08:33→16:48)
[2019-10-15] MEDS: POLYETHYLENE GLYCOL 3350 17 GM PACKET. PO SCH (08:33)
[2019-10-15] MEDS: DULoxetine HCL 60 MG CAPSULE.DR PO SCH (08:33)
[2019-10-15] MEDS: DIVALPROEX 125 MG CAP.SPRINK PO SCH ×2 (08:33→16:48)
[2019-10-15] MEDS: AMMONIUM LACTATE 12% TOPICAL LOTION 226GM BOTTLE. TP SCH ×2 (08:33→20:10)
[2019-10-15] MEDS: DOCUSATE SODIUM 100 MG CAPSULE PO SCH ×2 (08:33→20:07)
[2019-10-15] MEDS: metFORMIN 500 MG TABLET PO SCH (08:33)
--- NOTE | 2019-10-15 09:39 | NUR ---
No agitation, no aggression, no hallucinations or delusions noted. Pt is calm, cooperative, and compliant with his medication and assessment.
--- NOTE | 2019-10-15 15:00 | NUR ---
Pt was assessed by [facility]. She believes that they are more than able to care for pt and wanted to just follow up with the DON to make sure nursing vargas they are able to work everything out. SW will plan to follow up with Kim about that tomorrow.
[2019-10-15 15:58] VITALS: BP 168/65
[2019-10-15] MEDS: SIMVASTATIN 10 MG TABLET PO SCH (20:07)
[2019-10-15] MEDS: MELATONIN 3 MG TABLET PO SCH (20:07)
[2019-10-15] MEDS: MIRTAZAPINE 15 MG TABLET PO SCH (20:07)
[2019-10-15] MEDS: traZODone 100 MG TABLET. PO SCH (20:07)
[2019-10-15] MEDS: INSULIN GLARGINE SYRINGE. SQ SCH (20:09)
--- NOTE | 2019-10-15 20:55 | PDOC ---
Exam Note: Sandoval Note: Please also refer to the separate dictated note~for this date of service dictated separately.~Patient seen individually. Discussed the patient with Nursing staff reviewed the chart.~Reviewed interim history and current functioning. Reviewed vital signs,~Labs/ Radiology~and current medications noted below. Continue current treatment with the changes noted in the dictated addendum note Assessment: Vital Signs/I&O: Vital Signs Date Time Temp Pulse Resp B/P (MAP) Pulse Ox O2 Delivery O2 Flow Rate FiO2 10/15/19 20:07 70 168/65 10/15/19 15:58 98.0 16 93 10/12/19 06:10 Room Air I & O 10/14/19 10/14/19 10/15/19 15:00 23:00 07:00 Intake Total 1140 ml 460 ml 240 ml Balance 1140 ml 460 ml 240 ml Labs: Laboratory Tests Test 10/15/19 07:46 10/15/19 11:58 10/15/19 16:22 10/15/19 19:40 Glucose (Fingerstick) 75 mg/dL (70-99) 167 mg/dL (70-99) H 165 mg/dL (70-99) H 129 mg/dL (70-99) H Current Medications: Meds: Current Medications Medications (Trade) Dose Ordered Sig/John Route PRN Reason Start Time Stop Time Status Last Admin Dose Admin Insulin Glargine (Lantus Syringe) 15 unit QHS SQ 10/14/19 21:00 10/15/19 20:09 Trazodone HCl (Desyrel) 200 mg QHS PO 10/15/19 21:00 10/15/19 20:07 Trazodone HCl (Desyrel) 100 mg 1X ONCE PO 10/14/19 21:00 10/14/19 21:01 DC 10/14/19 21:18 I have reviewed the current psychotropics carefully including drug interactions. Risk benefit ratio favors no change other than as noted in my dictated progress note. Diagnosis: Problems: (1) Major neurocognitive disorder, due to vascular disease, with behavioral disturbance, mild (2) Anxiety disorder (3) Dementia in Alzheimer's disease with delusions (4) Dementia in Alzheimer's disease with depression (5) Dementia, vascular, with delusions (6) Dementia, vascular, with depression (7) Impulse control disorder JESSICA TREADWELL MD Oct 15, 2019 20:55
--- NOTE | 2019-10-15 22:13 | NUR ---
Nursing Note: Pt withdrawn to room, lying in bed at shift change. Pt calm, pleasant, and interactive this evening. Pt cooperative with assessment and compliant with medications administered whole. PRN Tylenol #3 administered for c/o LBP.
--- NOTE | 2019-10-15 23:44 | PN ---
DATE: 10/14/2019 PSYCHIATRIC PROGRESS NOTE. This late entry of 10/14/2019 covers the elements not covered in my initial note. SUBJECTIVE: I met with the patient in the evening of 10/14/2019. Per SHON Ro, the patient slept just half hour previous night. He has been arguing with staff, put himself on the floor, somewhat delusional, demanding, compliant with medications. REVIEW OF SYSTEMS: Ambulation impaired, in wheelchair. No CV, , pulmonary, eye, ENT system symptoms on review. MENTAL STATUS EXAM: Oriented to himself and situation. Speech has some latency, coherent, often responses monosyllabic. Abstraction fair, computation impaired, language function intact, attention span short, still paranoid, less so than before. LABORATORY DATA: Reviewed. IMPRESSION: Major depressive disorder, recurrent with psychotic features; mood disorder, unspecified; mild cognitive impairment; impulse control disorder. PLAN: Continue psychotropics from initial note. Remeron is 15 mg at bedtime, increase trazodone to 200 mg at bedtime from current 100 mg at bedtime, start melatonin 3 mg at bedtime for insomnia. Continue Depakote, Cymbalta, Seroquel, unchanged along with Zyprexa p.r.n. JESSICA TREADWELL MD DR: SERGIO/abhilash JOB#: [id number] / [id number]
--- NOTE | 2019-10-16 02:46 | NUR ---
Nursing Note: Pt urinated on floor in room. Staff in to assist with cleanup when pt became argumentative and began yelling and swearing at FORMULA TECHNICIAN's while attempting to assist him. As staff was escorting pt down the hallway to the day room, he placed himself on the floor and refused to stand up nor would he assist staff to stand him up. Staff x4 assist utilized to get pt p off the floor and back to his room and in bed.
[2019-10-16] MEDS: PANTOPRAZOLE 40 MG TABLET. PO SCH (05:10)
[2019-10-16 06:12] VITALS: BP 183/98
[2019-10-16 06:46] LABS: BASO % 0 % (0-3); EOS # 0.1 x10^3/uL (0.0-0.7); EOS % 1 % (0-3); HEMATOCRIT 32.6 % (39.0-53.0); HEMOGLOBIN 10.4 g/dL (13.0-17.5); LYMPH # 1.4 x10^3/uL (1.0-4.8); LYMPH % 22 % (24-48); MEAN CORPUSCULAR HEMOGLOBIN 28 pg (25-35); MEAN CORPUSCULAR HGB CONC 32 g/dL (31-37); MEAN CORPUSCULAR VOLUME 88 fL (79-100); MONO # 0.6 x10^3/uL (0.0-1.1); MONO % 10 % (0-9); NEUT # 4.2 x10^3uL (1.8-7.7); NEUT % 67 % (31-73); PLATELET COUNT 272 x10^3/uL (140-400); RED BLOOD COUNT 3.72 x10^6/uL (4.30-5.70); RED CELL DISTRIBUTION WIDTH 18.4 % (11.5-14.5); WHITE BLOOD COUNT 6.3 x10^3/uL (4.0-11.0)
[2019-10-16 06:58] LABS: ALBUMIN 2.5 g/dL (3.4-5.0); ALBUMIN/GLOBULIN RATIO 0.7 (1.0-1.7); ALK PHOS 87 U/L (46-116); ALT (SGPT) 13 U/L (16-63); ANION GAP 4 (6-14); AST (SGOT) 17 U/L (15-37); BLOOD UREA NITROGEN 22 mg/dL (8-26); BUN/CREATININE RATIO 18 (6-20); CALCIUM 8.2 mg/dL (8.5-10.1); CARBON DIOXIDE 32 mmol/L (21-32); CHLORIDE 105 mmol/L (98-107); CREATININE 1.2 mg/dL (0.7-1.3); GLUCOSE 118 mg/dL (70-99); POTASSIUM 4.5 mmol/L (3.5-5.1); SODIUM 141 mmol/L (136-145); TOTAL BILIRUBIN 0.3 mg/dL (0.2-1.0); TOTAL PROTEIN 6.3 g/dL (6.4-8.2)
[2019-10-16 06:59] LABS: VAL ACID 34 mcg/mL (50-100)
[2019-10-16] MEDS: POLYETHYLENE GLYCOL 3350 17 GM PACKET. PO SCH (07:50)
[2019-10-16] MEDS: DOCUSATE SODIUM 100 MG CAPSULE PO SCH ×2 (07:51→20:07)
[2019-10-16] MEDS: metFORMIN 500 MG TABLET PO SCH (07:51)
[2019-10-16] MEDS: DULoxetine HCL 60 MG CAPSULE.DR PO SCH (07:51)
[2019-10-16] MEDS: DIVALPROEX 125 MG CAP.SPRINK PO SCH ×2 (07:51→17:07)
[2019-10-16] MEDS: QUEtiapine 25 MG TABLET. PO SCH ×3 (07:51→17:08)
[2019-10-16] MEDS: METOPROLOL TART IMMED RELEASE 50 MG TABLET PO SCH ×2 (07:51→20:07)
[2019-10-16] MEDS: AMMONIUM LACTATE 12% TOPICAL LOTION 226GM BOTTLE. TP SCH ×2 (07:52→20:12)
[2019-10-16] MEDS: INSULIN LISPRO 300 UNITS/3 ML VIAL. SQ SCH ×3 (07:52→17:11)
[2019-10-16] MEDS: ACETAMINOPHEN/CODEINE 300/30MG TABLET PO PRN (07:57)
[2019-10-16 08:00] LABS: % BANDS 3 % (0-9); % BASOS 0 % (0-3); % EOS 2 % (0-5); % LYMPHS 25 % (24-48); % MONOS 7 % (0-10); % SEGS 66 % (35-66); ANISOCYTOSIS PRESENT; PLT ESTIMATE ADEQUATE (ADEQUATE)
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
[2019-10-16] MEDS: CYCLOBENZAPRINE 10 MG TABLET. PO PRN (12:08)
[2019-10-16 12:23] VITALS: BP 156/83
[2019-10-16 16:18] VITALS: BP 158/69
[2019-10-16] MEDS: MELATONIN 3 MG TABLET PO SCH (20:06)
[2019-10-16] MEDS: SIMVASTATIN 10 MG TABLET PO SCH (20:06)
[2019-10-16] MEDS: traZODone 100 MG TABLET. PO SCH (20:06)
[2019-10-16] MEDS: MIRTAZAPINE 15 MG TABLET PO SCH (20:07)
[2019-10-16] MEDS: INSULIN GLARGINE SYRINGE. SQ SCH (20:11)
--- NOTE | 2019-10-16 21:01 | PDOC ---
Exam Note: Sandoval Note: Please also refer to the separate dictated note~for this date of service dictated separately.~Patient seen individually. Discussed the patient with Nursing staff reviewed the chart.~Reviewed interim history and current functioning. Reviewed vital signs,~Labs/ Radiology~and current medications noted below. Continue current treatment with the changes noted in the dictated addendum note Assessment: Vital Signs/I&O: Vital Signs Date Time Temp Pulse Resp B/P (MAP) Pulse Ox O2 Delivery O2 Flow Rate FiO2 10/16/19 20:07 73 158/69 10/16/19 16:18 98.4 20 99 Room Air I & O 10/15/19 10/15/19 10/16/19 15:00 23:00 07:00 Intake Total 720 ml 720 ml Balance 720 ml 720 ml Labs: Laboratory Tests Test 10/16/19 06:27 10/16/19 07:36 10/16/19 11:35 10/16/19 16:56 White Blood Count 6.3 x10^3/uL (4.0-11.0) Red Blood Count 3.72 x10^6/uL (4.30-5.70) L Hemoglobin 10.4 g/dL (13.0-17.5) L Hematocrit 32.6 % (39.0-53.0) L Mean Corpuscular Volume 88 fL (79-100) Mean Corpuscular Hemoglobin 28 pg (25-35) Mean Corpuscular Hemoglobin Concent 32 g/dL (31-37) Red Cell Distribution Width 18.4 % (11.5-14.5) H Platelet Count 272 x10^3/uL (140-400) Neutrophils (%) (Auto) 67 % (31-73) Lymphocytes (%) (Auto) 22 % (24-48) L Monocytes (%) (Auto) 10 % (0-9) H Eosinophils (%) (Auto) 1 % (0-3) Basophils (%) (Auto) 0 % (0-3) Neutrophils # (Auto) 4.2 x10^3uL (1.8-7.7) Lymphocytes # (Auto) 1.4 x10^3/uL (1.0-4.8) Monocytes # (Auto) 0.6 x10^3/uL (0.0-1.1) Eosinophils # (Auto) 0.1 x10^3/uL (0.0-0.7) Basophils # (Auto) 0.0 x10^3/uL (0.0-0.2) Segmented Neutrophils % 66 % (35-66) Band Neutrophils % 3 % (0-9) Lymphocytes % 25 % (24-48) Monocytes % 7 % (0-10) Eosinophils % 2 % (0-5) Basophils % 0 % (0-3) Platelet Estimate Adequate (ADEQUATE) Anisocytosis Present Sodium Level 141 mmol/L (136-145) Potassium Level 4.5 mmol/L (3.5-5.1) Chloride Level 105 mmol/L (98-107) Carbon Dioxide Level 32 mmol/L (21-32) Anion Gap 4 (6-14) L Blood Urea Nitrogen 22 mg/dL (8-26) Creatinine 1.2 mg/dL (0.7-1.3) Estimated GFR (Cockcroft-Gault) 59.0 BUN/Creatinine Ratio 18 (6-20) Glucose Level 118 mg/dL (70-99) H Calcium Level 8.2 mg/dL (8.5-10.1) L Total Bilirubin 0.3 mg/dL (0.2-1.0) Aspartate Amino Transferase (AST) 17 U/L (15-37) Alanine Aminotransferase (ALT) 13 U/L (16-63) L Alkaline Phosphatase 87 U/L (46-116) Ammonia < 10 mcmol/L (11-34) L Total Protein 6.3 g/dL (6.4-8.2) L Albumin 2.5 g/dL (3.4-5.0) L Albumin/Globulin Ratio 0.7 (1.0-1.7) L Valproic Acid Level 34 mcg/mL (50-100) L Valproic Acid Last Dose Date 10/15/2019 Valproic Acid Last Dose Time 1700 Glucose (Fingerstick) 106 mg/dL (70-99) H 250 mg/dL (70-99) H 200 mg/dL (70-99) H Test 10/16/19 19:10 Glucose (Fingerstick) 159 mg/dL (70-99) H Current Medications: I have reviewed the current psychotropics carefully including drug interactions. Risk benefit ratio favors no change other than as noted in my dictated progress note. Diagnosis: Problems: (1) Major neurocognitive disorder, due to vascular disease, with behavioral disturbance, mild (2) Anxiety disorder (3) Dementia in Alzheimer's disease with delusions (4) Dementia in Alzheimer's disease with depression (5) Dementia, vascular, with delusions (6) Dementia, vascular, with depression (7) Impulse control disorder JESSICA TREADWELL MD Oct 16, 2019 21:01
--- NOTE | 2019-10-16 21:05 | NUR ---
Nursing Note: Pt withdrawn to his room, lying in bed at shift change. Pt calm, pleasant, and interactive with this nurse when approached. Pt cooperative with assessment and compliant with medications administered whole.
--- NOTE | 2019-10-16 21:51 | PN ---
DATE: 10/15/2019 PSYCHIATRIC PROGRESS NOTE This late entry 10/15/2019 covers elements not covered in my initial note. SUBJECTIVE: I met with the patient evening of 10/15/2019. The patient slept 8-1/2 hours previous night per SHON Ro. He has been less anxious, agitated, less sarcastic. REVIEW OF SYSTEMS: Ambulation impaired, in wheelchair. No CV, , pulmonary, eye system symptoms on review. MENTAL STATUS EXAM: Oriented to himself and situation. Speech moderate latency, often responses monosyllabic. Abstraction fair, computation impaired, language function intact, attention span short. Mood and affect anxious, less labile. LABORATORY DATA: Reviewed. IMPRESSION: Major depressive disorder, recurrent with psychotic features, in partial remission; anxiety disorder, unspecified; bipolar disorder, unspecified; mild cognitive impairment. Rest unchanged. PLAN: No change from initial note. MAN Dewey TREADWELL MD DR: SERGIO/abhilash JOB#: [id number] / [id number]
[2019-10-17] MEDS: PANTOPRAZOLE 40 MG TABLET. PO SCH (05:11)
[2019-10-17 05:19] VITALS: BP 133/84
[2019-10-17 06:46] LABS: HEMATOCRIT 29.7 % (39.0-53.0); HEMOGLOBIN 9.5 g/dL (13.0-17.5); RED BLOOD COUNT 3.42 x10^6/uL (4.30-5.70); RED CELL DISTRIBUTION WIDTH 17.8 % (11.5-14.5); WHITE BLOOD COUNT 6.2 x10^3/uL (4.0-11.0)
[2019-10-17 07:03] LABS: ALBUMIN 2.5 g/dL (3.4-5.0); ALBUMIN/GLOBULIN RATIO 0.7 (1.0-1.7); ALK PHOS 83 U/L (46-116); ALT (SGPT) 16 U/L (16-63); ANION GAP 4 (6-14); AST (SGOT) 14 U/L (15-37); BLOOD UREA NITROGEN 22 mg/dL (8-26); BUN/CREATININE RATIO 20 (6-20); CARBON DIOXIDE 31 mmol/L (21-32); CHLORIDE 107 mmol/L (98-107); CREATININE 1.1 mg/dL (0.7-1.3); GFR 65.3; GLUCOSE 110 mg/dL (70-99); POTASSIUM 4.5 mmol/L (3.5-5.1); SODIUM 142 mmol/L (136-145); TOTAL BILIRUBIN 0.2 mg/dL (0.2-1.0); TOTAL PROTEIN 5.9 g/dL (6.4-8.2)
[2019-10-17 07:10] LABS: VAL ACID 32 mcg/mL (50-100)
[2019-10-17] MEDS: INSULIN LISPRO 300 UNITS/3 ML VIAL. SQ SCH ×3 (08:00→17:00)
[2019-10-17] MEDS: METOPROLOL TART IMMED RELEASE 50 MG TABLET PO SCH ×2 (08:27→21:08)
[2019-10-17] MEDS: POLYETHYLENE GLYCOL 3350 17 GM PACKET. PO SCH (08:27)
[2019-10-17] MEDS: metFORMIN 500 MG TABLET PO SCH (08:28)
[2019-10-17] MEDS: QUEtiapine 25 MG TABLET. PO SCH ×3 (08:28→17:39)
[2019-10-17] MEDS: DULoxetine HCL 60 MG CAPSULE.DR PO SCH (08:28)
[2019-10-17] MEDS: DOCUSATE SODIUM 100 MG CAPSULE PO SCH ×2 (08:28→21:08)
[2019-10-17] MEDS: DIVALPROEX 125 MG CAP.SPRINK PO SCH ×2 (08:28→17:39)
[2019-10-17] MEDS: ACETAMINOPHEN/CODEINE 300/30MG TABLET PO PRN (08:38)
[2019-10-17] MEDS: AMMONIUM LACTATE 12% TOPICAL LOTION 226GM BOTTLE. TP SCH ×2 (10:47→21:00)
[2019-10-17] MEDS: CYCLOBENZAPRINE 10 MG TABLET. PO PRN (10:47)
--- NOTE | 2019-10-17 12:38 | NUR ---
Patient was irritable, sarcastic, and compliant with meds this morning. He complained of back pain, prn medication given with morning meds per eMAR. Patient was resistive to getting his shower and was verbally abusive to staff. He continued to complain of back pain, another prn provided per eMAR. He was withdrawn to his room after his shower. He staets pain medications have not been very helpful, will report to MD during rounds. Will continue to monitor.
[2019-10-17 16:01] VITALS: BP 134/62
--- NOTE | 2019-10-17 17:40 | NUR ---
Intranet not working on WOWs so medication is administered manually in eMAR.
--- NOTE | 2019-10-17 20:56 | PDOC ---
Exam Note: Asndoval Note: Please also refer to the separate dictated note~for this date of service dictated separately.~Patient seen individually. Discussed the patient with Nursing staff reviewed the chart.~Reviewed interim history and current functioning. Reviewed vital signs,~Labs/ Radiology~and current medications noted below. Continue current treatment with the changes noted in the dictated addendum note Assessment: Vital Signs/I&O: Vital Signs Date Time Temp Pulse Resp B/P (MAP) Pulse Ox O2 Delivery O2 Flow Rate FiO2 10/17/19 16:01 98.3 73 18 134/62 (86) 97 10/17/19 10:47 Room Air I & O 10/16/19 10/16/19 10/17/19 15:00 23:00 07:00 Intake Total 960 ml 720 ml Balance 960 ml 720 ml Labs: Laboratory Tests Test 10/17/19 06:13 10/17/19 07:42 10/17/19 12:05 10/17/19 17:24 White Blood Count 6.2 x10^3/uL (4.0-11.0) Red Blood Count 3.42 x10^6/uL (4.30-5.70) L Hemoglobin 9.5 g/dL (13.0-17.5) L Hematocrit 29.7 % (39.0-53.0) L Mean Corpuscular Volume 87 fL (79-100) Mean Corpuscular Hemoglobin 28 pg (25-35) Mean Corpuscular Hemoglobin Concent 32 g/dL (31-37) Red Cell Distribution Width 17.8 % (11.5-14.5) H Platelet Count 267 x10^3/uL (140-400) Sodium Level 142 mmol/L (136-145) Potassium Level 4.5 mmol/L (3.5-5.1) Chloride Level 107 mmol/L (98-107) Carbon Dioxide Level 31 mmol/L (21-32) Anion Gap 4 (6-14) L Blood Urea Nitrogen 22 mg/dL (8-26) Creatinine 1.1 mg/dL (0.7-1.3) Estimated GFR (Cockcroft-Gault) 65.3 BUN/Creatinine Ratio 20 (6-20) Glucose Level 110 mg/dL (70-99) H Calcium Level 8.0 mg/dL (8.5-10.1) L Total Bilirubin 0.2 mg/dL (0.2-1.0) Aspartate Amino Transferase (AST) 14 U/L (15-37) L Alanine Aminotransferase (ALT) 16 U/L (16-63) Alkaline Phosphatase 83 U/L (46-116) Total Protein 5.9 g/dL (6.4-8.2) L Albumin 2.5 g/dL (3.4-5.0) L Albumin/Globulin Ratio 0.7 (1.0-1.7) L Valproic Acid Level 32 mcg/mL (50-100) L Valproic Acid Last Dose Date 10/16/19 Valproic Acid Last Dose Time 1700 Glucose (Fingerstick) 103 mg/dL (70-99) H 255 mg/dL (70-99) H 135 mg/dL (70-99) H Test 10/17/19 19:05 Glucose (Fingerstick) 167 mg/dL (70-99) H Current Medications: I have reviewed the current psychotropics carefully including drug interactions. Risk benefit ratio favors no change other than as noted in my dictated progress note. Diagnosis: Problems: (1) Major neurocognitive disorder, due to vascular disease, with behavioral disturbance, mild (2) Anxiety disorder (3) Dementia in Alzheimer's disease with delusions (4) Dementia in Alzheimer's disease with depression (5) Dementia, vascular, with delusions (6) Dementia, vascular, with depression (7) Impulse control disorder JESSICA TREADWELL MD Oct 17, 2019 20:56
[2019-10-17] MEDS: INSULIN GLARGINE SYRINGE. SQ SCH (21:00)
[2019-10-17] MEDS: MIRTAZAPINE 15 MG TABLET PO SCH (21:08)
[2019-10-17] MEDS: SIMVASTATIN 10 MG TABLET PO SCH (21:09)
[2019-10-17] MEDS: HYDROcodone/APAP 5/325MG 1 TAB TABLET PO PRN (21:09)
[2019-10-17] MEDS: MELATONIN 3 MG TABLET PO SCH (21:09)
[2019-10-17] MEDS: traZODone 100 MG TABLET. PO SCH (21:09)
--- NOTE | 2019-10-17 23:18 | PN ---
DATE: 10/16/2019 PSYCHIATRIC PROGRESS NOTE This late entry of 10/16 covers elements not covered in my initial note. SUBJECTIVE: I met with the patient on the evening of 10/16. Per SHON Tubbs, the patient slept 6-3/4 hours the previous night. We will check a CBC, CMP, valproic acid level, ammonia level on the morning of 10/17. He has been pleasant, urinated in his bed, was agitated with nursing staff; put himself on the floor the previous night, but did okay during the day on 10/16. No injury noted. REVIEW OF SYSTEMS: Ambulation impaired, in wheelchair, somewhat drowsy. No CV, , pulmonary, eye system symptoms on review. MENTAL STATUS EXAMINATION: Oriented to himself and situation. Speech has some latency, coherent. Abstraction fair, computation impaired, language function intact, attention span short. Mood and affect somewhat withdrawn. LABORATORY DATA: Reviewed. IMPRESSION: Unchanged from initial note. PLAN: No change from initial note. JESSICA TREADWELL MD DR: SERGIO/abhilash JOB#: [id number] / [id number]
[2019-10-18] MEDS ORDERED: ACET325T21 PO (01:29)
[2019-10-18] MEDS ORDERED: AMMO385C5 TP (02:00)
[2019-10-18] MEDS ORDERED: DEXT50DI3 IV (02:06)
[2019-10-18] MEDS ORDERED: DIVA500T2 PO (02:07)
[2019-10-18] MEDS ORDERED: HYDR-2155 PO (02:08)
[2019-10-18] MEDS ORDERED: MAG-95 PO (02:09)
[2019-10-18] MEDS ORDERED: MELA3CAP2 PO (02:10)
[2019-10-18] MEDS ORDERED: MAGN2400 PO (02:10)
[2019-10-18] MEDS ORDERED: METH57CR17 TP (02:11)
[2019-10-18] MEDS ORDERED: MIRT15TA90 PO (02:11)
[2019-10-18] MEDS ORDERED: OLAN5TAB9 PO (02:13)
[2019-10-18] MEDS ORDERED: QUET25TA5 PO ×2 (02:14)
[2019-10-18] MEDS ORDERED: TRAZ-120 PO (02:15)
[2019-10-18] MEDS ORDERED: TRAZ300T2 PO (02:15)
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
[2019-10-18] MEDS: PANTOPRAZOLE 40 MG TABLET. PO SCH (06:00)
[2019-10-18 06:43] VITALS: BP 151/67
[2019-10-18] MEDS: INSULIN LISPRO 300 UNITS/3 ML VIAL. SQ SCH ×3 (08:00→17:00)
[2019-10-18] MEDS: METOPROLOL TART IMMED RELEASE 50 MG TABLET PO SCH ×2 (08:33→20:47)
[2019-10-18] MEDS: POLYETHYLENE GLYCOL 3350 17 GM PACKET. PO SCH (08:33)
[2019-10-18] MEDS: metFORMIN 500 MG TABLET PO SCH (08:33)
[2019-10-18] MEDS: DULoxetine HCL 60 MG CAPSULE.DR PO SCH (08:33)
[2019-10-18] MEDS: DIVALPROEX 125 MG CAP.SPRINK PO SCH ×2 (08:33→17:50)
[2019-10-18] MEDS: DOCUSATE SODIUM 100 MG CAPSULE PO SCH ×2 (08:33→20:46)
[2019-10-18] MEDS: QUEtiapine 25 MG TABLET. PO SCH ×3 (08:33→17:51)
[2019-10-18] MEDS: HYDROcodone/APAP 5/325MG 1 TAB TABLET PO PRN ×2 (08:39→20:48)
[2019-10-18] MEDS: AMMONIUM LACTATE 12% TOPICAL LOTION 226GM BOTTLE. TP SCH ×2 (08:39→20:53)
--- NOTE | 2019-10-18 10:43 | NUR ---
WEEKLY ACTIVITY THERAPY NOTE Date of Admission: 09/29/2019 Date of AT Assessment: 10/02/2019 Goal aimed: to increase leisure engagement Initial goal: Pt. will engage in three Activity Therapy groups or individual sessions before discharge. Weekly progress towards goal: achieved- 12/27 (10/05-high/low, 10/08-Leisure WYR, 10/13- Pooh video, 10/16-music trivia) Group participation level: 2 min Weekly highlights: 2 groups this week watching video clips on Tuesday and guessing a music trivia answer on Tuesday Behaviors observed: not around group often, sleeps most of the time Plan: repeat goal Beneficial adaptations: possibly incorporate snacks for increased participation
--- NOTE | 2019-10-18 11:00 | NUR ---
Elvira from the [facility] came to assess pt for his Care Level Admission to a regular SNF. This is needed for pt to discharge today.
--- NOTE | 2019-10-18 11:49 | NUR ---
SABRA returned call to pt son Mello and ended up leaving a message for him to contact SW when possible.
--- NOTE | 2019-10-18 12:12 | NUR ---
[facility] Social Work Discharge Planning Form Patient Name DOREEN MURRIETA Admit Date: 09/29/2019 DISCHARGE PLAN Discharge Destination: Pt to discharge to [facility] Care Assessment: Completed 10/18/2019 Level II Assessment: N/A Transportation: Facility to schedule transport. Time to be determined. Special Instructions/Notes: Please fax all discharge orders and medication list to the fax number listed below. DISCHARGE TO FACILITY Facility: [facility] Address: [address] [place] [address] Contact Name: Kim Chatman (Admissions): Contact Name: Please ask for the nurse caring for pt upon admission. PCP: Dr. Pool
[2019-10-18 16:18] VITALS: BP 162/63
[2019-10-18] MEDS: SIMVASTATIN 10 MG TABLET PO SCH (20:47)
[2019-10-18] MEDS: MIRTAZAPINE 15 MG TABLET PO SCH (20:47)
[2019-10-18] MEDS: traZODone 100 MG TABLET. PO SCH (20:47)
[2019-10-18] MEDS: MELATONIN 3 MG TABLET PO SCH (20:47)
[2019-10-18] MEDS: INSULIN GLARGINE SYRINGE. SQ SCH (20:50)
--- NOTE | 2019-10-18 21:05 | PDOC ---
Exam Note: Sandoval Note: Please also refer to the separate dictated note~for this date of service dictated separately.~Patient seen individually. Discussed the patient with Nursing staff reviewed the chart.~Reviewed interim history and current functioning. Reviewed vital signs,~Labs/ Radiology~and current medications noted below. Continue current treatment with the changes noted in the dictated addendum note Assessment: Vital Signs/I&O: Vital Signs Date Time Temp Pulse Resp B/P (MAP) Pulse Ox O2 Delivery O2 Flow Rate FiO2 10/18/19 20:48 16 95 Room Air 10/18/19 20:47 98 162/63 10/18/19 16:18 98.1 I & O 10/17/19 10/17/19 10/18/19 15:00 23:00 07:00 Intake Total 1140 ml 720 ml Balance 1140 ml 720 ml Labs: Laboratory Tests Test 10/18/19 07:20 10/18/19 11:41 10/18/19 17:13 10/18/19 19:12 Glucose (Fingerstick) 141 mg/dL (70-99) H 303 mg/dL (70-99) H 141 mg/dL (70-99) H 229 mg/dL (70-99) H Current Medications: I have reviewed the current psychotropics carefully including drug interactions. Risk benefit ratio favors no change other than as noted in my dictated progress note. Diagnosis: Problems: (1) Major neurocognitive disorder, due to vascular disease, with behavioral disturbance, mild (2) Anxiety disorder (3) Dementia in Alzheimer's disease with delusions (4) Dementia in Alzheimer's disease with depression (5) Dementia, vascular, with delusions (6) Dementia, vascular, with depression (7) Impulse control disorder JESSICA TREADWELL MD Oct 18, 2019 21:05
--- NOTE | 2019-10-19 01:27 | NUR ---
Yaa Note: Patient was in room at time of medication administration and assessments. Patient was calm, compliant and cooperative with cares. Patient awake sporadically throughout the night. No other notable behaviors at this time. Addendum: 10/19/19 at 0136 by CAMRON SOSA RN PRN Lortab also given with HS medications -- patient complaining of back pain at the time.
[2019-10-19] MEDS: PANTOPRAZOLE 40 MG TABLET. PO SCH (05:51)
[2019-10-19 06:22] VITALS: BP 104/68
[2019-10-19] MEDS: INSULIN LISPRO 300 UNITS/3 ML VIAL. SQ SCH ×2 (08:00→13:19)
[2019-10-19] MEDS: DOCUSATE SODIUM 100 MG CAPSULE PO SCH (08:51)
[2019-10-19] MEDS: DIVALPROEX 125 MG CAP.SPRINK PO SCH (08:52)
[2019-10-19] MEDS: DULoxetine HCL 60 MG CAPSULE.DR PO SCH (08:52)
[2019-10-19] MEDS: HYDROcodone/APAP 5/325MG 1 TAB TABLET PO PRN (08:52)
[2019-10-19] MEDS: metFORMIN 500 MG TABLET PO SCH (08:52)
[2019-10-19 08:53] VITALS: BP 104/68
[2019-10-19] MEDS: QUEtiapine 25 MG TABLET. PO SCH ×2 (08:53→13:10)
[2019-10-19] MEDS: POLYETHYLENE GLYCOL 3350 17 GM PACKET. PO SCH (08:53)
[2019-10-19] MEDS: METOPROLOL TART IMMED RELEASE 50 MG TABLET PO SCH (08:53)
[2019-10-19] MEDS: AMMONIUM LACTATE 12% TOPICAL LOTION 226GM BOTTLE. TP SCH (09:00)
[2019-10-19] MEDS: CYCLOBENZAPRINE 10 MG TABLET. PO PRN (13:10)
--- NOTE | 2019-10-19 13:30 | NUR ---
Transition Record was faxed to follow-up provider with the following elements: Reason for admission, procedures, tests, principal diagnosis, pending studies, patient instructions, 18/04 contact information for unit, phone number to obtain pending test results, plan for follow-up care, physician follow-up, advanced directive information, and medication list with dose, duration and instructions. This information was included in the following documents: History and physical, lab results, study results, progress notes, social work planning form, DC instruction form, patient visit summary, and medication reconciliation form. Date & time record faxed: 13:39 18 October 2019 Record faxed to:[facility] of Record discussed with/ report given to: MEssage left with nurse at [facility] to call for report Addendum: 10/24/19 at 1355 by LAURA MCGARRY II, RN [facility] did not return call to receive report. Discharge plans were discussed with patient prior to him leaving.
--- NOTE | 2019-10-19 20:53 | PDOC ---
Exam Note: Sandoval Note: Please also refer to the separate dictated note~for this date of service dictated separately.~Patient seen individually. Discussed the patient with Nursing staff reviewed the chart.~Reviewed interim history and current functioning. Reviewed vital signs,~Labs/ Radiology~and current medications noted below. Continue current treatment with the changes noted in the dictated addendum note Assessment: Vital Signs/I&O: Vital Signs Date Time Temp Pulse Resp B/P (MAP) Pulse Ox O2 Delivery O2 Flow Rate FiO2 10/19/19 10:42 16 95 Room Air 10/19/19 08:53 73 104/68 10/19/19 06:22 97.4 I & O 10/18/19 10/18/19 10/19/19 15:00 23:00 07:00 Intake Total 960 ml 240 ml 240 ml Balance 960 ml 240 ml 240 ml Labs: Laboratory Tests Test 10/19/19 07:13 10/19/19 11:34 Glucose (Fingerstick) 138 mg/dL (70-99) H 275 mg/dL (70-99) H Current Medications: I have reviewed the current psychotropics carefully including drug interactions. Risk benefit ratio favors no change other than as noted in my dictated progress note. Diagnosis: Problems: (1) Major neurocognitive disorder, due to vascular disease, with behavioral disturbance, mild (2) Anxiety disorder (3) Dementia in Alzheimer's disease with delusions (4) Dementia in Alzheimer's disease with depression (5) Dementia, vascular, with delusions (6) Dementia, vascular, with depression (7) Impulse control disorder JESSICA TREADWELL MD Oct 19, 2019 20:53
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
--- NOTE | 2019-10-21 18:42 | PN ---
DATE: 10/18/2019 PSYCHIATRIC PROGRESS NOTE This late entry covers elements not covered in my initial note. SUBJECTIVE: I met with the patient in the evening and staffed at a treatment team meeting with the entire team in the morning. The patient remains somewhat withdrawn at times, but not agitated, aggressive. REVIEW OF SYSTEMS: Ambulation impaired, in wheelchair. No CV, , pulmonary, eye system symptoms on review. MENTAL STATUS EXAM: Oriented to himself and situation. Speech moderate latency, often responses monosyllabic. Abstraction fair, computation impaired, language function intact. Mood and affect somewhat withdrawn. LABORATORY DATA: Reviewed. IMPRESSION: Unchanged from initial note. PLAN: No change from initial note. JESSICA TREADWELL MD DR: SERGIO/abhilash JOB#: [id number] / [id number]
== END 2019-10-19 13:33 | DRG 885 ==
LOC: GEROPSY 16:40
PROVIDERS: ADMIT Psychiatry & Neurology Psychiatry; ATTEND Psychiatry & Neurology Psychiatry
DX: F33.3 Major depressive disorder, recurrent, severe with psychotic symptoms (principal); F01.51 Vascular dementia, unspecified severity, with behavioral disturbance; F02.81 Dementia in other diseases classified elsewhere, unspecified severity, with behavioral disturbance; M48.56XA Collapsed vertebra, not elsewhere classified, lumbar region, initial encounter for fracture; E11.9 Type 2 diabetes mellitus without complications; E78.5 Hyperlipidemia, unspecified; F41.9 Anxiety disorder, unspecified; F63.9 Impulse disorder, unspecified; G30.9 Alzheimer's disease, unspecified; G47.00 Insomnia, unspecified; I10 Essential (primary) hypertension; S51.011A Laceration without foreign body of right elbow, initial encounter; Z79.899 Other long term (current) drug therapy; Z86.73 Personal history of transient ischemic attack (TIA), and cerebral infarction without residual deficits; Z91.81 History of falling
CPT/HCPCS: 36415; 80053; 80061; 80164; 81001; 82140; 82306; 82607; 82947; 83036; 83540; 83550; 83735; 84436; 84443; 84480; 85007; 85025; 85027; 86592; J1815

== ENCOUNTER 2021-03-25 15:15 | Inpatient (IN) | payer MEDICARE ==
[~2021-03-25] VITALS: Ht 172.7 cm; Wt 90.9 kg
[~2021-03-25 15:15] MED LIST: ACET-704 PO; ACET325T21 PO; AMMO385C5 TP; ASPI1CPM9 PO; BISA10EN RC; CYCL-331 PO; DEXT50DI3 IV; DIVA500T2 PO; DOCU-109 PO; DULO60CA6 PO; HYDR-2155 PO; INSU100I13 SQ; INSU100V SQ; MAG-124 PO; MAGN24003 PO; MELA3CAP2 PO; METF10007 PO; METH57CR17 TP; METO50TA6 PO; MIRT15TA90 PO; OLAN5TAB9 PO; PANT40TA3 PO; POLY17PO5 PO; QUET25TA5 PO; SIMV10TA PO; TRAZ-120 PO; TRAZ300T2 PO
--- NOTE | 2021-03-25 15:32 | PHYS DOC ---
Adult General Chief Complaint Chief Complaint: PSYCH EVALUATION HPI HPI Patient is a 75-year-old male who presents to the emergency department via EMS for a medical screening. Patient has been accepted to the senior behavioral health unit here at [facility]. Patient resides at medical [facility], staff have complained that he has been yelling out for help lately. Patient has no physical complaints or physical concerns. Patient denies chest pains or shortness of breath, abdominal pains, nausea, vomiting, diarrhea, aches or pains. Patient states he feels fine and does not know why he is here. Patient states he has not been yelling out for help. Patient states he does not need any help. Patient states he wishes to go home. Per transfer forms from medical [facility] [place], patient is a patient of Dr. Claudia Emanuel, has no allergies to medications, has a past medical history of unspecified abnormalities of gait and mobility, disorder of the kidney and ureter, other symptoms and signs involving cognitive functions and awareness, d ehydration, essential primary hypertension, iron deficiency anemia, unspecified dementia with behavioral disturbance, muscle weakness, type 2 diabetes without complications, cerebral infarct. (EVA RIGGINS APRN) Review of Systems Review of Systems 14 body systems of review of systems have been reviewed. See HPI for pertinent positives and negative responses, otherwise all other systems are negative, nonpertinent or noncontributory. (EVA RIGGINS APRN) Allergies Allergies Allergies Coded Allergies Type Severity Reaction Last Updated Verified No Known Drug Allergies 09/29/19 No (EVA RIGGINS APRN) Physical Exam Physical Exam Constitutional: Well developed, well nourished, no acute distress, non-toxic appearance. Patient is in no obvious distress, strong smell of urine from cloth ing. HENT: Normocephalic, atraumatic, bilateral external ears normal, oropharynx moist, no oral exudates, nose normal. Eyes: PERRLA, EOMI, conjunctiva normal, no discharge. Neck: Normal range of motion, no tenderness, supple, no stridor. Cardiovascular:Heart rate regular rhythm, no murmur Lungs & Thorax: Bilateral breath sounds clear to auscultation no adventitious lung sounds appreciated. Abdomen: Bowel sounds normal, soft, no tenderness, no masses, no pulsatile masses. Skin: Warm, dry, no erythema, no rash. Patient has abrasions of bilateral upper extremities with dried blood, not bleeding, no no infectious process appreciated. Back: No tenderness, no CVA tenderness. Extremities: No tenderness, no cyanosis, no clubbing, ROM intact, no edema. Neurologic: Alert and oriented X 3, normal motor function, normal sensory function, no focal deficits noted. Psychologic: Affect normal, judgement normal, mood normal. (EVA RIGGINS APRN) Current Patient Data Lab Results Laboratory Tests Test 03/25/21 15:25 03/25/21 15:34 White Blood Count 7.0 x10^3/uL Red Blood Count 3.84 x10^6/uL Hemoglobin 12.6 g/dL Hematocrit 37.2 % Mean Corpuscular Volume 97 fL Mean Corpuscular Hemoglobin 33 pg Mean Corpuscular Hemoglobin Concent 34 g/dL Red Cell Distribution Width 14.3 % Platelet Count 208 x10^3/uL Neutrophils (%) (Auto) 82 % Lymphocytes (%) (Auto) 11 % Monocytes (%) (Auto) 7 % Eosinophils (%) (Auto) 0 % Basophils (%) (Auto) 0 % Neutrophils # (Auto) 5.7 x10^3uL Lymphocytes # (Auto) 0.7 x10^3/uL Monocytes # (Auto) 0.5 x10^3/uL Eosinophils # (Auto) 0.0 x10^3/uL Basophils # (Auto) 0.0 x10^3/uL Sodium Level 141 mmol/L Potassium Level 4.0 mmol/L Chloride Level 104 mmol/L Carbon Dioxide Level 27 mmol/L Anion Gap 10 Blood Urea Nitrogen 18 mg/dL Creatinine 1.3 mg/dL Estimated GFR (Cockcroft-Gault) 53.5 BUN/Creatinine Ratio 14 Glucose Level 74 mg/dL Calcium Level 9.0 mg/dL Phosphorus Level 2.7 mg/dL Magnesium Level 1.7 mg/dL Total Bilirubin 0.8 mg/dL Aspartate Amino Transf (AST/SGOT) 11 U/L Alanine Aminotransferase (ALT/SGPT) 14 U/L Alkaline Phosphatase 97 U/L Troponin I Quantitative 0.026 ng/mL Total Protein 7.2 g/dL Albumin 3.2 g/dL Albumin/Globulin Ratio 0.8 Acetone Level Neg Urine Collection Type Unknown Urine Color Yellow Urine Clarity Hazy Urine pH 5.5 Urine Specific [place]ail 1.025 Urine Protein 100 mg/dl Urine Glucose (UA) Neg mg/dL Urine Ketones (Stick) 40 mg/dL Urine Blood Neg Urine Nitrite Neg Urine Bilirubin Small Urine Urobilinogen Dipstick 1.0 mg/dL Urine Leukocyte Esterase Neg Urine RBC 3-5 /HPF Urine WBC 5-10 /HPF Urine Squamous Epithelial Cells Mod /LPF Urine Bacteria Mod /HPF Current Medications Medications (Trade) Dose Ordered Sig/John Route PRN Reason Start Time Stop Time Status Last Admin Dose Admin Bacitracin (Bacitracin Topical Pkt) 1 pkt 1X ONCE TP 03/25/21 15:45 03/25/21 15:46 DC (EVA RIGGINS APRN) EKG EKG EKG performed at 1530 by house respiratory therapy staff shows a normal sinus rhythm with no other ectopy heart rate 77 bpm, VA interval 0.178, QTc interval 0.425, no acute STEMI, no ACS, no acute ischemia appreciated, EKG interpreted by ED attending physician Dr. Bowen. (EVA RIGGINS APRN) Radiology/Procedures Radiology/Procedures PATIENT: DOREEN MURRIETA ACCOUNT: [id number] : 1945 LOCATION: ER AGE: 75 SEX: M EXAM STATUS: PRE ER ORD. PHYSICIAN: EVA RIGGINS APRN REASON: medical screening PROCEDURE: CHEST AP ONLY EXAM: Chest, single view. HISTORY: Medical screening. COMPARISON: 03/06/2021 FINDINGS: A frontal view of the chest is obtained. There is bilateral infrahilar interstitial infiltrate or atelectasis. There may be trace pleural effusions. There is no pneumothorax. There is a stable prominent cardiac silhouette. IMPRESSION: Stable bilateral infrahilar atelectasis or interstitial infiltrate with possible trace pleural effusions. Electronically signed by: Elvira Melendez MD (03/25/2021 3:41 PM) [id number] DICTATED AND SIGNED BY: ELVIRA MELENDEZ MD DATE: 03/25/21 1538 CC: EVA RIGGINS APRN; ABI VERONICA ~MTH0 0 (EVA RIGGINS APRN) Heart Score C/O Chest Pain: No Risk Factors: Risk Factors: DM, Current or recent (<one month) smoker, HTN, HLP, family history of CAD, obesity. Risk Scores: Risk Factors: DM, Current or recent (<one month) smoker, HTN, HLP, family history of CAD, obesity. (EVA RIGGINS APRN) Course & Med Decision Making Course & Med Decision Making Pertinent Labs and Imaging studies reviewed. (See chart for details) 75-year-old male, vital signs reviewed, presents emergency department from [facility] for a medical evaluation prior to be admitted to the behavioral health unit here at [facility]. Patient's physical examination unremarkable except for minor abrasions to bilateral upper extremities most likely related to patient scratching himself. Will order EKG, chest x-ray, cardiorespiratory labs, urinalysis assay. Patient is EKG unremarkable, chest x-ray read negative for acute process per house radiologist interpretation. Patient's lab work unremarkable. The patient's urine was not infected, did show bacteria however most likely dirty catch, there were no leukocyte esterase, negative for nitrates. Patient has been medically cleared stable for transport to [facility] behavioral health unit at [facility]. Will discharge patient for transport. Patient is excepted to the [facility] behavioral health unit at [facility] by Dr. Cho. (EVA RIGGINS APRN) Dragon Disclaimer Dragon Disclaimer This electronic medical record was generated, in whole or in part, using a voice recognition dictation system. (EVA RIGGINS APRN) Departure Departure: Impression: Primary Impression: Medical clearance for psychiatric admission Additional Impression: Abrasion of upper extremity Disposition: 01 HOME / SELF CARE / HOMELESS Condition: GOOD Referrals: ABI VERONICA (PCP) Additional Instructions: You have been medically cleared for admission to the [facility] behavioral psychiatric unit at [facility]. Please return to the emergency department for worsening symptoms or other concerns. Please keep your abrasions clean and dry, please cleanse your abrasions 2-3 times daily, you may apply antibiotic ointment to your abrasion sites. EMERGENCY DEPARTMENT GENERAL DISCHARGE INSTRUCTIONS Thank you for coming to [facility] (ED) today and trusting us with you care. We trust that you had a positivie experience in our Emergency Department. If you wish to speak to the department management, you may call the director at [phone]. YOUR FOLLOW UP INSTRUCTIONS ARE FOLLOWS: 1. Do you have a private Doctor? If you do not have a private doctor, please ask for a resource list of physicians or clinics that may be able to assist you with follow up care. 2. The Emergency Physician has interpreted your x-rays. The X-Ray specialist will also review them. If there is a change in the findings, you will be notified in 48 hours when at all possible. 3. A lab test or culture has been done, your results will be reviewed and you will be notified if you need a change in treatment. ADDITIONAL INSTRUCTIONS AND INFORMATION: 1. Your care today has been supervised by a physician who is specially trained in emergency care. Many problems require more than one evaluation for a complete diagnosis and treatment. We recommend that you schedule your follow up appointment as recommended to ensure complete treatment of you illness or injury. If you are unable to obtain follow up care and continue to have a problem, or if your condition worsens, we recommend that you return to the ED. 2. We are not able to safely determine your condition over the phone nor are we able to give sound medical advice over the phone. For these safety reasons, if you call for medical advice we will ask you to come to the ED for further evaluation. 3. If you have any questions regarding these discharge instructions please call the ED at [phone]. SAFETY INFORMATION: In the interest of safety, wellness, and injury prevention; we encourage you to wear your sealbelt, if you smoke; quite smoking, and we encourage family to use a protective helmet for bicycling and other sporting events that present an increased risk for head injury. IF YOUR SYMPTOMS WORSEN OR NEW SYMPTOMS DEVELOP, OR YOU HAVE CONCERNS ABOUT YOUR CONDITION; OR IF YOUR CONDITION WORSENS WHILE YOU ARE WAITING FOR YOUR FOLLOW UP APPOINTMENT; EITHER CONTACT YOUR PRIMARY CARE DOCTOR, THE PHYSICIAN WHOSE NAME AND NUMBER YOU WERE GIVEN, OR RETURN TO THE ED IMMEDIATELY. Attending Signature Attending Signature I have reviewed the PA/INFORMATION WRITER's note and plan of care. I was available for consultation as needed during the patient's visit in the emergency department. I agree with the clinical impression, plan, and disposition. (EVA BOWEN DO) Problem Qualifiers Additional Impression: Abrasion of upper extremity Encounter type: initial encounter Laterality: unspecified laterality Qualified Codes: S40.819A - Abrasion of unspecified upper arm, initial encounter EVA RIGGINS APRN Mar 25, 2021 15:32 EVA BOWEN DO Mar 25, 2021 18:26
--- NOTE | 2021-03-25 15:43 | RAD ---
EXAM: Chest, single view. HISTORY: Medical screening. COMPARISON: 03/06/2021 FINDINGS: A frontal view of the chest is obtained. There is bilateral infrahilar interstitial infiltr ate or atelectasis. There may be trace pleural effusions. There is no pneumothorax. There is a stable prominent cardiac silhouette. IMPRESSION: Stable bilateral infrahilar atelectasis or interstitial infiltrate with possible trace pl eural effusions. Electronically signed by: Elvira Juarez MD (03/25/2021 3:41 PM) [id number]
[2021-03-25] MEDS ORDERED: BACITRACIN ZINC TOPICAL OINT PACKET. TP ONE (15:45)
[2021-03-25 15:57] LABS: BASO % 0 % (0-3); EOS % 0 % (0-3); HEMATOCRIT 37.2 % (39.0-53.0); HEMOGLOBIN 12.6 g/dL (13.0-17.5); LYMPH # 0.7 x10^3/uL (1.0-4.8); LYMPH % 11 % (24-48); MEAN CORPUSCULAR HEMOGLOBIN 33 pg (25-35); MEAN CORPUSCULAR HGB CONC 34 g/dL (31-37); MEAN CORPUSCULAR VOLUME 97 fL (79-100); MONO # 0.5 x10^3/uL (0.0-1.1); MONO % 7 % (0-9); NEUT # 5.7 x10^3uL (1.8-7.7); NEUT % 82 % (31-73); PLATELET COUNT 208 x10^3/uL (140-400); RED BLOOD COUNT 3.84 x10^6/uL (4.30-5.70); RED CELL DISTRIBUTION WIDTH 14.3 % (11.5-14.5)
[2021-03-25 16:12] LABS: CREATININE 1.3 mg/dL (0.7-1.3); GFR 53.5
[2021-03-25 16:16] LABS: ALBUMIN 3.2 g/dL (3.4-5.0); ALBUMIN/GLOBULIN RATIO 0.8 (1.0-1.7); MAGNESIUM 1.7 mg/dL (1.8-2.4); PHOSPHORUS 2.7 mg/dL (2.6-4.7); TOTAL BILIRUBIN 0.8 mg/dL (0.2-1.0); TOTAL PROTEIN 7.2 g/dL (6.4-8.2)
[2021-03-25 16:41] LABS: COLOR,URINE YELLOW
[2021-03-25 16:42] LABS: BACTERIA,URINE MOD /HPF (0-FEW); BILIRUBIN,URINE SMALL (NEG); CLARITY,URINE HAZY; GLUCOSE,URINE NEG (NEG); NITRITE,URINE NEG (NEG); SQUAMOUS EPITHELIAL CELL,UR MOD /LPF
--- NOTE | 2021-03-25 17:15 | NUR ---
Admission Note with Justification for Admission to [facility] Patient admitted to [facility] for protective oversight for emergency stabilization of acute psychiatric crisis. Pt admitted from: [facility] Mode of arrival: EMS Accompanied By: EMS Precipitating behaviors that initiated intake and admission: Admitted from [facility] via [facility] ED for reportedly refusing cares, depressed, isolating, uncooperative, hollering out, disruptive to facility, having poor appetite, and being verbally aggressive. Description of failure of out patient attempts at stabilization in previous setting list behavior and medication trials: Med changes ineffective Behaviors and assessment findings upon admission: Patient irritable, defensive, requiring a lot of encouragement and cuing to stand and walk from gurney to bed. He was oriented to self only and was non participatory with assessment. He has multiple small abrasions on his arms and legs from scratching himself. Plan: Admit for protective oversight for adjustment and stabilization of medications, behaviors and mood. Intense treatment regimen including groups, medication adjustments, therapy, consistent regimen for ADL's, self care, and sleep hygiene. Daily monitoring by Inpatient staff, Psychiatry, and Medical Physician.
[2021-03-25 18:02] VITALS: BP 169/66
[2021-03-25] MEDS ORDERED: BISACODYL 10 MG SUPP.RECT RC PRN (18:15)
[2021-03-25] MEDS ORDERED: DEXTROSE ORAL GEL 15 GM TUBE. PO PRN (18:15)
[2021-03-25] MEDS ORDERED: METHYL SALICYLATE/MENTHOL TOPICAL OINTMENT 57GM TUBE. TP PRN (18:15)
[2021-03-25] MEDS ORDERED: ACETAMINOPHEN 500 MG TABLET PO PRN (18:15)
[2021-03-25] MEDS ORDERED: MAG HYDROX/AL HYDROX/SIMETH 30 ML ORAL.SUSP PO PRN (18:15)
[2021-03-25] MEDS ORDERED: ACET500T33 PO (18:26)
[2021-03-25] MEDS ORDERED: GLUC1KIT IM (18:26)
[2021-03-25] MEDS ORDERED: MEMA10TA PO (18:26)
[2021-03-25] MEDS ORDERED: DEXT38GE2 PO (18:26)
[2021-03-25] MEDS ORDERED: FLUT16SP21 NS (18:26)
[2021-03-25] MEDS ORDERED: SENN1TAB62 PO (18:26)
[2021-03-25] MEDS ORDERED: ASPI-889 PO (18:26)
[2021-03-25] MEDS ORDERED: LISI10TA16 PO (18:26)
[2021-03-25] MEDS ORDERED: BISA10SU4 RC (18:26)
--- NOTE | 2021-03-25 18:57 | EKG ---
[address] [address] Test Date: 2021-03-25 Test Time: 15:30:25 Pat Name: DOREEN MURRIETA Department: Room: [address] [place] [address] Gender: M Chief Counsel: SMITH : 1945 Requested By: EVA RIGGINS Order Number: [id number] Reading MD: Edy Michele Measurements Intervals Fleming Rate: 77 P: 90 CO: 178 QRS: 49 QRSD: 112 T: 103 QT: 374 QTc: 425 Interpretive Statements SINUS RHYTHM T ABNORMALITY IN HIGH LATERAL LEADS ABNORMAL ECG RI6.02 No previous ECG available for comparison Electronically Signed On 04-01-2021 12:53:06 CDT by Edy Michele
[2021-03-25] MEDS ORDERED: GLUCAGON,HUMAN RECOMBINANT 1 MG KIT. IM PRN (19:00)
[2021-03-25] MEDS ORDERED: MAGNESIUM HYDROXIDE 2,400 MG/30 ML ORAL.SUSP. PO PRN (19:00)
[2021-03-25 19:03] LABS: VAL ACID 34 mcg/mL (50-100)
[2021-03-25] MEDS: QUEtiapine 25 MG TABLET. PO SCH (20:17)
[2021-03-25] MEDS: SENNOSIDES/DOCUSATE 8.6/50MG TABLET. PO SCH (20:18)
[2021-03-25] MEDS: SIMVASTATIN 10 MG TABLET PO SCH (20:18)
[2021-03-25] MEDS: MIRTAZAPINE ODT 15 MG TAB.RAPDIS. PO SCH (20:18)
[2021-03-25] MEDS: DIVALPROEX SODIUM 250 MG TABLET.DR. PO SCH (20:18)
[2021-03-25] MEDS: MEMANTINE 10 MG TABLET. PO SCH (20:18)
[2021-03-25] MEDS: INSULIN GLARGINE SYRINGE. SQ SCH (20:42)
--- NOTE | 2021-03-25 22:48 | PDOC ---
Exam Note: Sandoval Note: Please also refer to the separate dictated note~for this date of service dictated separately.~Patient seen individually. Discussed the patient with Nursing staff reviewed the chart.~Reviewed interim history and current functioning. Reviewed vital signs,~Labs/ Radiology~and current medications noted below. Continue current treatment with the changes noted in the dictated addendum note Assessment: Vital Signs/I&O: Vital Signs Date Time Temp Pulse Resp B/P (MAP) Pulse Ox O2 Delivery O2 Flow Rate FiO2 03/25/21 18:02 98.4 80 18 169/66 (100) 94 Room Air Labs: Laboratory Tests Test 03/25/21 15:25 03/25/21 15:34 03/25/21 19:05 03/25/21 19:20 White Blood Count 7.0 x10^3/uL (4.0-11.0) Red Blood Count 3.84 x10^6/uL (4.30-5.70) L Hemoglobin 12.6 g/dL (13.0-17.5) L Hematocrit 37.2 % (39.0-53.0) L Mean Corpuscular Volume 97 fL (79-100) Mean Corpuscular Hemoglobin 33 pg (25-35) Mean Corpuscular Hemoglobin Concent 34 g/dL (31-37) Red Cell Distribution Width 14.3 % (11.5-14.5) Platelet Count 208 x10^3/uL (140-400) Neutrophils (%) (Auto) 82 % (31-73) H Lymphocytes (%) (Auto) 11 % (24-48) L Monocytes (%) (Auto) 7 % (0-9) Eosinophils (%) (Auto) 0 % (0-3) Basophils (%) (Auto) 0 % (0-3) Neutrophils # (Auto) 5.7 x10^3uL (1.8-7.7) Lymphocytes # (Auto) 0.7 x10^3/uL (1.0-4.8) L Monocytes # (Auto) 0.5 x10^3/uL (0.0-1.1) Eosinophils # (Auto) 0.0 x10^3/uL (0.0-0.7) Basophils # (Auto) 0.0 x10^3/uL (0.0-0.2) Sodium Level 141 mmol/L (136-145) Potassium Level 4.0 mmol/L (3.5-5.1) Chloride Level 104 mmol/L (98-107) Carbon Dioxide Level 27 mmol/L (21-32) Anion Gap 10 (6-14) Blood Urea Nitrogen 18 mg/dL (8-26) Creatinine 1.3 mg/dL (0.7-1.3) Estimated GFR (Cockcroft-Gault) 53.5 BUN/Creatinine Ratio 14 (6-20) Glucose Level 74 mg/dL (70-99) Calcium Level 9.0 mg/dL (8.5-10.1) Phosphorus Level 2.7 mg/dL (2.6-4.7) Magnesium Level 1.7 mg/dL (1.8-2.4) L Total Bilirubin 0.8 mg/dL (0.2-1.0) Aspartate Amino Transferase (AST) 11 U/L (15-37) L Alanine Aminotransferase (ALT) 14 U/L (16-63) L Alkaline Phosphatase 97 U/L (46-116) Troponin I Quantitative 0.026 ng/mL (0-0.055) Total Protein 7.2 g/dL (6.4-8.2) Albumin 3.2 g/dL (3.4-5.0) L Albumin/Globulin Ratio 0.8 (1.0-1.7) L Valproic Acid Level 34 mcg/mL (50-100) L Valproic Acid Last Dose Date 03/25/21 Valproic Acid Last Dose Time 0900 Acetone Level Neg (NEG) Urine Collection Type Unknown Urine Color Yellow Urine Clarity Hazy Urine pH 5.5 Urine Specific [place] 1.025 Urine Protein 100 mg/dl (NEG-TRACE) Urine Glucose (UA) Neg mg/dL (NEG) Urine Ketones (Stick) 40 mg/dL (NEG) Urine Blood Neg (NEG) Urine Nitrite Neg (NEG) Urine Bilirubin Small (NEG) Urine Urobilinogen Dipstick 1.0 mg/dL (0.2 mg/dL) Urine Leukocyte Esterase Neg (NEG) Urine RBC 3-5 /HPF (0-2) Urine WBC 5-10 /HPF (0-4) Urine Squamous Epithelial Cells Mod /LPF Urine Bacteria Mod /HPF (0-FEW) D-Dimer ([place]) 1.21 mg/L (0.00-0.50) H Glucose (Fingerstick) 114 mg/dL (70-99) H Current Medications: Meds: Current Medications Medications (Trade) Dose Ordered Sig/John Route PRN Reason Start Time Stop Time Status Last Admin Dose Admin Memantine (Namenda) 10 mg BID PO 03/25/21 21:00 03/25/21 20:18 Mirtazapine (Remeron Nasra-Tab) 15 mg HS PO 03/25/21 21:00 03/25/21 20:18 Quetiapine Fumarate (SEROquel) 75 mg QHS PO 03/25/21 21:00 03/25/21 20:17 Senna/Docusate Sodium (Senna Plus) 1 tab BID PO 03/25/21 21:00 03/25/21 20:18 Simvastatin (Zocor) 10 mg HS PO 03/25/21 21:00 03/25/21 20:18 Divalproex Sodium (Depakote) 500 mg BID PO 03/25/21 21:00 03/25/21 20:18 Insulin Glargine (Lantus Syringe) 14 unit QHS SQ 03/25/21 21:00 03/25/21 20:42 I have reviewed the current psychotropics carefully including drug interactions. Risk benefit ratio favors no change other than as noted in my dictated progress note. Diagnosis: Problems: (1) Major neurocognitive disorder, due to vascular disease, with behavioral disturbance, mild (2) Anxiety disorder (3) Dementia in Alzheimer's disease with delusions (4) Dementia in Alzheimer's disease with depression (5) Dementia, vascular, with delusions (6) Dementia, vascular, with depression (7) Impulse control disorder JESSICA TREADWELL MD Mar 25, 2021 22:48
--- NOTE | 2021-03-25 22:54 | NUR ---
Pt sitting up in w/c in the day room when approached. Pt irritable, demanding to go back to his room, and has been uncooperative with transfers and cares. Pt cooperative with assessment and compliant with medications administered whole.
[2021-03-26 06:08] VITALS: BP 153/72
[2021-03-26] MEDS: SENNOSIDES/DOCUSATE 8.6/50MG TABLET. PO SCH ×2 (08:15→20:10)
[2021-03-26] MEDS: MEMANTINE 10 MG TABLET. PO SCH ×2 (08:15→20:10)
[2021-03-26] MEDS: DIVALPROEX SODIUM 250 MG TABLET.DR. PO SCH ×2 (08:15→20:10)
[2021-03-26] MEDS: INSULIN LISPRO 300 UNITS/3 ML VIAL. SQ SCH ×3 (08:17→17:18)
[2021-03-26] MEDS ORDERED: LISINOPRIL 10 MG TABLET PO SCH (09:00)
[2021-03-26] MEDS ORDERED: FLUTICASONE 50MCG/NASAL SPRAY 16GM BOTTLE. NS SCH (09:00)
[2021-03-26] MEDS ORDERED: POLYETHYLENE GLYCOL 3350 17 GM PACKET. PO SCH (09:00)
[2021-03-26] MEDS ORDERED: ASPIRIN ENTERIC COATED 81 MG TABLET.DR. PO SCH (09:00)
[2021-03-26] MEDS ORDERED: DULoxetine HCL 60 MG CAPSULE.DR PO SCH (09:00)
--- NOTE | 2021-03-26 11:30 | NUR ---
Pt is eating 100% of meals and slept roughly 6 hours last night. Pt is currently being difficult in refusal of participating with staff and did not participate in therapies. Pt is uncooperative with transfers in which shift nurse manager reported pt transfer ended up from bed to floor to wheelchair. Pt does appear to be flat and is withdrawn to his room. Pt VPA upon admission was 34; staff is concerned that pt was cheeking medications and will monitor during pt stay.
--- NOTE | 2021-03-26 12:09 | NUR ---
WEEKLY ACTIVITY THERAPY NOTE Date of Admission:03/25/21 Date of AT Assessment: TBD Precipitating behaviors that initiated intake and admission: Admitted from [facility] via [facility] ED for reportedly refusing cares, depressed, isolating, uncooperative, hollering out, disruptive to facility, having poor appetite, and being verbally aggressive. Goal aimed: TBD Initial Goal: TBD Weekly progress towards goal: NA Group participation level: new patient Weekly highlights: arrived to unit Behaviors observed: TBD Plan: meet/ assess Pt Beneficial adaptations: TBD
[2021-03-26 12:12] LABS: THYROXINE 7.1 ug/dL (4.5-12.0)
--- NOTE | 2021-03-26 12:52 | NUR ---
Pt has spent most of the day in his room. His interactions between staff and his room mate have been appropriate. He is compliant with whole medications. He is absent of SI/HI behaviors, absent of disturbance/distraction by possible VH/AH, has not expressed delusions so far this shift. Pt denies pain when asked. He is not forthcoming with assessment questions, primarily being non-verbal. Pt very flat and emotionless in expression. Pt overall appropriate and has not demonstrated deadweighting/resistance to transfers/ADLs. Plan of care continues, will pass to next shift.
--- NOTE | 2021-03-26 13:55 | NUR ---
ACTIVITY THERAPY ASSESSMENT completed based on notes, observation, and interview. Pt was non compliant with assessment questions and said "get away from me and leave me alone." Pt only answered on assessment question which was his birthday and answered correctly. AT was unable to determine pt's leisure interests. Per notes pt has been demanding, irritable and resistive with staff. Pt has also been withdrawn to his room. Staff are concerned that pt is leaving medications in his cheeks. Initial goal aimed to increase socialization and relaxation skills. Pt will participate in at least three individual or group Activity Therapy sessions before discharge.
[2021-03-26 14:33] LABS: THYROID STIM HORMONE (TSH) 0.455 uIU/mL (0.358-3.740)
[2021-03-26 16:43] VITALS: BP 144/88
--- NOTE | 2021-03-26 17:31 | RAD ---
EXAM: Abdomen and pelvis CT without intravenous contrast. HISTORY: Anorexia. Weight loss. Constipation. TECHNIQUE: Computed tomographic images of the abdomen and pelvis were obtained without contrast. Mult iplanar reformatting was performed. *One or more of the following individualized dose reduction techniques were utilized for this examina tion: 1. Automated exposure control. 2. Adjustment of the mA and/or kV according to patient size. 3. Use of iterative reconstruction technique. COMPARISON: 03/06/2021. FINDINGS: Evaluation of the lower thorax demonstrates posterior dependent and basilar atelectasis. Th ere is cardiomegaly. There is calcified atherosclerotic plaque involving the coronary arteries. No he patic lesion is seen. The gallbladder, pancreas, spleen, adrenal glands and stomach are unremarkable. There is mild renal atrophy. There is no hydronephrosis. There has been interval increase in cecal wall thickening and surrounding inflammatory stranding and trace fluid. This appears to involve the appendix. No free air or drainable fluid collection is seen. The bladder is unremarkable. The prostate is enlarged. There is a tiny fat-containing umbilical barrett ia. The aorta is normal in caliber. There is no lymphadenopathy. There is multilevel degenerative change throughout the spine. There are chronic appearing compression fractures of T12 and L1. There is internal fixation of the proximal right femur. 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 IMPRESSION: 1. Increasing cecal an appendiceal wall thickening with surrounding inflammatory stranding and trace fluid. The involvement of the cecum favors acute cecitis of infectious or inflammatory etiologies wit h suspected secondary acute appendicitis. Neoplasm is not excluded. No perforation or drainable absce ss is seen. 2. No additional acute abdominal or pelvic finding. Electronically signed by: Elvira Juarez MD (03/26/2021 5:28 PM) [id number]
--- NOTE | 2021-03-26 18:31 | NUR ---
Called Dr Vasquez to report abd CT. Dr Vasquez recommends transfer to [facility] for f/u and surgical consult, admitting dx acute appendicitis. Pt's son/DPOA contacted and and informed, DPOA gives consent for transfer. Pt notified of preparations for transfer, he has no questions at this times aside from if he will be coming back to [facility] after [facility]. Dr Mueller notified of preparation for transfer, he has no questions at this time. Window Treatment Installer notified.
[2021-03-26 20:01] VITALS: BP 120/76
[2021-03-26] MEDS: QUEtiapine 25 MG TABLET. PO SCH (20:10)
[2021-03-26] MEDS: MIRTAZAPINE ODT 15 MG TAB.RAPDIS. PO SCH (20:10)
[2021-03-26] MEDS: SIMVASTATIN 10 MG TABLET PO SCH (20:10)
[2021-03-26] MEDS: INSULIN GLARGINE SYRINGE. SQ SCH (20:12)
--- NOTE | 2021-03-26 20:12 | HP ---
ADMIT DATE: 03/26/2021 ADMISSION PSYCHIATRIC HISTORY/EVALUATION AND DISCHARGE SUMMARY This note covers elements not covered in my initial note of 03/26/2021. This is a combined admission psychiatric history, evaluation and discharge summary. IDENTIFYING DATA: The patient is a 75-year-old male [facility] by his primary care physician/psychiatric nurse practitioner on account of worsening symptoms of depression with psychotic features, mild cognitive impairment, anxiety. The patient had been refusing cares, was depressed, isolating, uncooperative, hollering out. He is disruptive at the facility, having poor appetite with verbal aggression. He had failed outpatient psychiatric interventions. Behavior is deemed dangerous, unmanageable resulting in this referral. CHIEF COMPLAINT: "I don't do those things." HISTORY OF PRESENT ILLNESS: The patient has a history of worsening symptoms of depression, psychotic features and short-term memory deficits. He has been more disruptive, restless, paranoid with sleep and appetite changes, unmanageable at the facility and quite disruptive. No clear history of bipolar disorder, suicidal or homicidal ideation. PAST PSYCHIATRIC HISTORY: As above. PAST MEDICAL HISTORY: Positive gait impairment; kidney disease, unspecified; hypertension; dehydration; iron deficiency anemia; muscle weakness; type 2 diabetes mellitus; history of cerebral infarction. CODE STATUS: Full code. ALLERGIES: Negative. Accu-Cheks before meals and at bedtime. DIET: Diabetic. Ambulates, 2 person, standby assist. CURRENT PSYCHOTROPICS: Depakote delayed release 500 mg b.i.d., Cymbalta 60 mg a day, Remeron 15 mg at bedtime, Namenda 10 mg b.i.d., Seroquel 75 mg at bedtime. FAMILY HISTORY: Noncontributory. SOCIAL HISTORY: No alcohol, drug abuse, physical, sexual or elder abuse. He is not known to be a perpetrator. The patient was staffed with treatment team meeting with entire team earlier today with SHON Emmanuel and Nati and Elsy Peralta and Inessa, social service staff and Kindra, activity therapy staff. The patient's history was reviewed. He has been depressed, refusing physical therapy, occupational therapy, valproic acid level subtherapeutic at 34, but this could be partly due to noncompliance with this medication, we will repeat in 2 days. He has been demanding, intermittently compliant with his medication, at times uncooperative with transfer, weight on staff. MENTAL STATUS EXAM: Alert, oriented. Speech is coherent, has some latency. Abstraction fair. Computation impaired. Language function intact. Attention span short. Mood and affect are depressed. No active suicidal or homicidal ideation. Labs reviewed. CLINICAL COURSE: Following admission, the patient was seen individually by myself and staffed with treatment team meeting. Plan is to repeat valproic acid level in 2 days, which would help us get an accurate level once we ensure compliance on his medications. We will consider further adjustments in his psychotropics. However, by the evening of 03/26/2021, the patient reportedly was diagnosed with acute appendicitis and is being transferred to [facility]. We will leave all his psychotropics unchanged and determination will be made at [facility] whether he needs to be back for inpatient Geropsychiatry stabilization or may return back to the halfway. CONDITION AT DISCHARGE: Stable. REGINO DR: Aurora TID: [id number]
--- NOTE | 2021-03-26 21:17 | NUR ---
Transition Record was faxed to follow-up provider with the following elements: Discharge instructions, medication reconciliation, lab/radiology reports, and DPOA paperwork. Reason for admission, procedures, tests, principal diagnosis, pending studies, patient instructions, 18/04 contact information for unit, phone number to obtain pending test results, plan for follow-up care, physician follow-up, advanced directive information, and medication list with dose, duration and instructions. This information was included in the following documents: Discharge packet. History and physical, lab results, study results, progress notes, social work planning form, DC instruction form, patient visit summary, and medication reconciliation form. Date & time record faxed: 03/26/2021 @1958 Record faxed to: [facility] Attn: Vimal Record discussed with/ report given to: Vimal MENENDEZ, and EMS transport
--- NOTE | 2021-03-26 21:47 | CONS ---
DATE OF CONSULTATION: 03/26/2021 REASON FOR CONSULTATION: Medical management HISTORY OF PRESENT ILLNESS: The patient is a 75-year-old male patient, a resident at [facility], who [facility] on account of refusing cares, depressed, isolating, uncooperative, hollering out, disruptive to facility, having poor appetite, and being verbally aggressive, all this in a background of major depressive disorder with psychosis; mild cognitive impairment; psychotic disorder, unspecified; anxiety disorder, unspecified. On questioning him, the patient was answering only short answers and does not engage; however, he said that his appetite is poor and he has lost weight, has also constipation, although he cannot specify how many pounds he lost over what span and denied any nausea or vomiting. PAST MEDICAL HISTORY: Significant for hypertension, iron deficiency anemia, type 2 diabetes mellitus, had a history of cerebral infarction and abnormal kidney function. He is also known to have anemia, muscle weakness, gait and mobility abnormalities. PAST SURGICAL HISTORY: Significant for right total hip arthroplasty. ALLERGIES: He has no known drug allergies. MEDICATIONS: He is currently on following medications: He is on polyethylene glycol 17 grams daily, lisinopril 10 mg once a day, Flonase 2 sprays to each nostril once a day, duloxetine 60 mg once a day, aspirin 81 mg once a day. He is on a Humalog insulin 10 units before meals and Lantus insulin 40 units at bedtime. He is on Depakote 500 mg twice a day, simvastatin 10 mg at bedtime, senna-S 1 tablet twice a day, quetiapine fumarate 75 mg at bedtime, mirtazapine 15 mg at bedtime, Namenda 10 mg twice a day, milk of magnesia 30 mL p.o. daily p.r.n. for constipation, glucagon 1 mg intramuscular as needed for hypoglycemia. He is on Mylanta 15 mL after meals and bedtime. He is on Dulcolax suppositories 10 mg rectally daily and p.r.n. for constipation and Tylenol 1000 mg every 6 hours as needed. FAMILY HISTORY: Probably noncontributory. SOCIAL HISTORY: He said he used to be , has a son and a daughter. He does not smoke, drink alcohol or use recreational drugs. REVIEW OF SYSTEMS: Significant for anorexia, constipation and weight loss. PHYSICAL EXAMINATION: GENERAL: When I examined him, the patient was sitting in his wheelchair. There was no pallor, jaundice, cyanosis, or thyromegaly. No jugular venous distention. Has bilateral lower extremity edema. VITAL SIGNS: His heart rate was 61, blood pressure is 138/61, temperature was 98, respiratory rate was 18 and oxygen saturation was 98% on room air. HEAD, EYES, EARS, NOSE, AND THROAT: Normocephalic, atraumatic. NECK: Supple. HEART: Normal first and second heart sounds. No gallop, rub or murmur. CHEST: Showed central trachea, equal bilateral expansion, air entry. Vesicular breath sounds. No crepitation or rhonchi. ABDOMEN: Distended, soft, nontender. NEUROLOGIC: He is awake, alert, responding appropriately. All cranial nerves intact. He moves extremities without difficulty; however, he apparently is mostly wheelchair bound. He stated that he is unsteady on his feet. LABORATORY DATA: Showed a white cell count of 7000, hemoglobin 12.6, hematocrit 37, MCV 97 and platelet count 208,000. His D-dimer was slightly elevated at 1.21 mg per liter. His chemistry showed a serum sodium 141, potassium 4, chloride 104, bicarbonate 27, anion gap of 10, BUN 18, creatinine 1.3. Estimated GFR was 54 mL per minute. His glucose was 74, calcium was 9, phosphorus 2.7, magnesium was 1.7. Total bilirubin, AST, ALT, alkaline phosphatase were normal. Total protein 7.2, albumin was 3.2. His serum triglycerides was 148. Total cholesterol 150, LDL cholesterol was 74, VLDL was 29, HDL was 47 and the ratio was 3. His vitamin B12 was 633 pg/mL, 25-hydroxy vitamin D was 14.9. TSH was normal at 0.455. His total T4 and total T3 are within normal range. Serum iron, TIBC, and iron saturation are all consistent with replete iron stores. Urinalysis showed that the urine was yellow, hazy with a pH of 5.5, specific gravity of 1.025. There was large amount of protein. The urine was negative for glucose, small amount of ketones, negative for blood, nitrite, negative for leukocyte esterase, 3-5 rbc's, 5-10 wbc's and moderate amount of bacteria. His toxic screen showed that valproic acid was 34 mcg/mL, which is subtherapeutic. His treponema pallidum antibodies nonreactive. His chest x-ray showed that he has stable bilateral infrahilar atelectasis or interstitial infiltrate or possible trace pleural effusion. ASSESSMENT AND PLAN: In summary, this is a 75-year-old male patient, a resident at [facility], who was admitted on account of refusing cares, depressed, isolating, uncooperative, hollering out, he is disruptive to the facility, having poor appetite, and being verbally aggressive. On questioning him, he complained of anorexia, constipation as well as weight loss, further he could not quantify how many pounds he lost. His current weight is 90 kilograms. His lab work showed that his CBC is well within acceptable range or his chemistry is also within acceptable range except his 25-hydroxy vitamin D is low. Given his constipation, weight loss, anorexia and depression, I would recommend probably a CT scan of the abdomen and pelvis as sometimes the pancreatic malignancy can present with depression and weight loss, although he denied any pain. Thank you, Dr. Mueller, for allowing me to participate in the care of this patient. KIM DR: Gaurav TID: [id number]
--- NOTE | 2021-03-26 22:19 | PDOC ---
Exam Note: Sandoval Note: Please also refer to the separate dictated note~for this date of service dictated separately.~Patient seen individually. Discussed the patient with Nursing staff reviewed the chart.~Reviewed interim history and current functioning. Reviewed vital signs,~Labs/ Radiology~and current medications noted below. Continue current treatment with the changes noted in the dictated addendum note Assessment: Vital Signs/I&O: Vital Signs Date Time Temp Pulse Resp B/P (MAP) Pulse Ox O2 Delivery O2 Flow Rate FiO2 03/26/21 20:01 99.2 60 18 120/76 (91) 98 Room Air I & O 03/25/21 03/25/21 03/26/21 15:00 23:00 07:00 Intake Total 240 ml Balance 240 ml Labs: Laboratory Tests Test 03/26/21 08:03 03/26/21 12:21 03/26/21 17:02 03/26/21 19:31 Glucose (Fingerstick) 123 mg/dL (70-99) H 224 mg/dL (70-99) H 154 mg/dL (70-99) H 97 mg/dL (70-99) Current Medications: Meds: Laboratory Tests Test 03/26/21 08:03 03/26/21 12:21 03/26/21 17:02 03/26/21 19:31 Glucose (Fingerstick) 123 mg/dL 224 mg/dL 154 mg/dL 97 mg/dL Current Medications Medications (Trade) Dose Ordered Sig/John Route PRN Reason Start Time Stop Time Status Last Admin Dose Admin Bacitracin (Bacitracin Topical Pkt) 1 pkt 1X ONCE TP 03/25/21 15:45 03/25/21 15:46 DC Acetaminophen (Tylenol) 1,000 mg PRN Q6HRS PRN PO PAIN 03/25/21 18:15 03/26/21 21:20 DC Aspirin (Aspirin Enteric Coated) 81 mg DAILY PO 03/26/21 09:00 03/26/21 21:20 DC 03/26/21 08:15 Bisacodyl (Dulcolax Supp) 10 mg PRN Q48HR PRN RC 2ND CHOICE CONSTIPATION 03/25/21 18:15 03/26/21 21:20 DC Glucose (Insta-Glucose) 15 gm PRN Q1HR PRN PO Hypoglycemia 03/25/21 18:15 03/26/21 21:20 DC Duloxetine HCl (Cymbalta) 60 mg DAILY PO 03/26/21 09:00 03/26/21 21:20 DC 03/26/21 08:15 Fluticasone Propionate (Flonase) 2 spray DAILY NS 03/26/21 09:00 03/26/21 21:20 DC Lisinopril (Prinivil) 10 mg DAILY PO 03/26/21 09:00 03/26/21 21:20 DC 03/26/21 08:15 Al Hydroxide/Mg Hydroxide (Mylanta Plus Xs) 15 ml PRN AFTMEALHC PRN PO DYSPEPSIA 03/25/21 18:15 03/26/21 21:20 DC Memantine (Namenda) 10 mg BID PO 03/25/21 21:00 03/26/21 21:20 DC 03/26/21 20:10 Multi-Ingredient Ointment (Analgesic Banks) 1 nila PRN QID PRN TP MUSCLE PAIN 03/25/21 18:15 03/26/21 21:20 DC Mirtazapine (Remeron Nasra-Tab) 15 mg HS PO 03/25/21 21:00 03/26/21 21:20 DC 03/26/21 20:10 Polyethylene Glycol (miraLAX) 17 gm DAILY PO 03/26/21 09:00 03/26/21 21:20 DC 03/26/21 08:15 Quetiapine Fumarate (SEROquel) 75 mg QHS PO 03/25/21 21:00 03/26/21 21:20 DC 03/26/21 20:10 Senna/Docusate Sodium (Senna Plus) 1 tab BID PO 03/25/21 21:00 03/26/21 21:20 DC 03/26/21 20:10 Simvastatin (Zocor) 10 mg HS PO 03/25/21 21:00 03/26/21 21:20 DC 03/26/21 20:10 Divalproex Sodium (Depakote) 500 mg BID PO 03/25/21 21:00 03/26/21 21:20 DC 03/26/21 20:10 Glucagon (Glucagen Kit) 1 mg 1X PRN PRN IM SEVERE HYPOGLYCEMIA 03/25/21 19:00 03/26/21 21:20 DC Insulin Glargine (Lantus Syringe) 14 unit QHS SQ 03/25/21 21:00 03/26/21 21:20 DC 03/25/21 20:42 Insulin Human Lispro (HumaLOG) 10 units TIDWMEALS SQ 03/26/21 08:00 03/26/21 21:20 DC 03/26/21 17:18 Magnesium Hydroxide (Milk Of Magnesia) 2,400 mg PRN QHS PRN PO 1ST CHOICE CONSTIPATION 03/25/21 19:00 03/26/21 21:20 DC Current Medications Medications (Trade) Dose Ordered Sig/John Route PRN Reason Start Time Stop Time Status Last Admin Dose Admin Aspirin (Aspirin Enteric Coated) 81 mg DAILY PO 03/26/21 09:00 03/26/21 21:20 DC 03/26/21 08:15 Duloxetine HCl (Cymbalta) 60 mg DAILY PO 03/26/21 09:00 03/26/21 21:20 DC 03/26/21 08:15 Lisinopril (Prinivil) 10 mg DAILY PO 03/26/21 09:00 03/26/21 21:20 DC 03/26/21 08:15 Polyethylene Glycol (miraLAX) 17 gm DAILY PO 03/26/21 09:00 03/26/21 21:20 DC 03/26/21 08:15 Insulin Human Lispro (HumaLOG) 10 units TIDWMEALS SQ 03/26/21 08:00 03/26/21 21:20 DC 03/26/21 17:18 I have reviewed the current psychotropics carefully including drug interactions. Risk benefit ratio favors no change other than as noted in my dictated progress note. Diagnosis: Problems: (1) Major neurocognitive disorder, due to vascular disease, with behavioral disturbance, mild (2) Anxiety disorder (3) Dementia in Alzheimer's disease with delusions (4) Dementia in Alzheimer's disease with depression (5) Dementia, vascular, with delusions (6) Dementia, vascular, with depression (7) Impulse control disorder JESSICA TREADWELL MD Mar 26, 2021 22:18
[2021-03-26 23:07] LABS: HEMOGLOBIN A1C 6.2 % (4.8-5.6)
== END 2021-03-26 21:15 | disposition short-term general hospital (02) | DRG 57 ==
LOC: ER 15:15 → GEROPSY 17:15
PROVIDERS: ADMIT Psychiatry & Neurology Psychiatry; ATTEND Psychiatry & Neurology Psychiatry
DX: G30.9 Alzheimer's disease, unspecified (principal); F01.51 Vascular dementia, unspecified severity, with behavioral disturbance; F02.81 Dementia in other diseases classified elsewhere, unspecified severity, with behavioral disturbance; K35.80 Unspecified acute appendicitis; F41.9 Anxiety disorder, unspecified; F63.9 Impulse disorder, unspecified; I10 Essential (primary) hypertension; E11.649 Type 2 diabetes mellitus with hypoglycemia without coma; F32.9 Major depressive disorder, single episode, unspecified; Z96.641 Presence of right artificial hip joint; Z86.73 Personal history of transient ischemic attack (TIA), and cerebral infarction without residual deficits
CPT/HCPCS: 36415; 71045; 74176; 80053; 80061; 80164; 81001; 82010; 82306; 82607; 82947; 83036; 83540; 83550; 83735; 84100; 84436; 84443; 84480; 84484; 85025; 85379; 86592; 87077; 87086; 93005; J1815; 97530; 97535; 99285-25

== ENCOUNTER 2021-03-28 17:03 | Inpatient (IN) | payer MEDICARE ==
[~2021-03-28] VITALS: Ht 172.7 cm; Wt 92.2 kg
--- NOTE | 2021-03-28 16:30 | NUR ---
Admission Note with Justification for Admission to [facility] Patient admitted to [facility] for protective oversight for emergency stabilization of acute psychiatric crisis. Pt admitted from: [facility] Mode of arrival: EMS Accompanied By: EMS Precipitating behaviors that initiated intake and admission: yelling out, refusing cares Description of failure of out patient attempts at stabilization in previous setting list behavior and medication trials:med adjustment Behaviors and assessment findings upon admission: irritable, resistive Plan: Admit for protective oversight for adjustment and stabilization of medications, behaviors and mood. Intense treatment regimen including groups, medication adjustments, therapy, consistent regimen for ADL's, self care, and sleep hygiene. Daily monitoring by Inpatient staff, Psychiatry, and Medical Physician.
[~2021-03-28 17:03] MED LIST changes: +ACET500T33 PO; +ASPI-889 PO; +BISA10SU4 RC; +DEXT38GE2 PO; +FLUT16SP21 NS; +GLUC1KIT IM; +LISI10TA16 PO; +MEMA10TA PO; +OLAN5TAB67 PO; -OLAN5TAB9 PO; +SENN1TAB62 PO
[2021-03-28] MEDS ORDERED: GUAI400T78 PO (19:43)
[2021-03-28] MEDS ORDERED: ONDA4TAB7 PO (19:43)
[2021-03-28] MEDS ORDERED: BISACODYL 10 MG SUPP.RECT RC PRN (19:45)
[2021-03-28] MEDS ORDERED: METHYL SALICYLATE/MENTHOL TOPICAL OINTMENT 57GM TUBE. TP PRN (19:45)
[2021-03-28] MEDS ORDERED: MAG HYDROX/AL HYDROX/SIMETH 30 ML ORAL.SUSP PO PRN (19:45)
[2021-03-28] MEDS ORDERED: ONDANSETRON ODT 4 MG TAB.RAPDIS PO PRN (20:00)
[2021-03-28] MEDS ORDERED: GLUCAGON,HUMAN RECOMBINANT 1 MG KIT. IM PRN (20:00)
[2021-03-28 20:18] VITALS: BP 175/90
[2021-03-28] MEDS: MEMANTINE 10 MG TABLET. PO SCH (20:58)
[2021-03-28] MEDS: SENNOSIDES/DOCUSATE 8.6/50MG TABLET. PO SCH (20:58)
[2021-03-28] MEDS: MIRTAZAPINE ODT 15 MG TAB.RAPDIS. PO SCH (20:58)
[2021-03-28] MEDS: SIMVASTATIN 10 MG TABLET PO SCH (20:58)
[2021-03-28] MEDS: QUEtiapine 25 MG TABLET. PO SCH (20:58)
[2021-03-28] MEDS: DIVALPROEX SODIUM 250 MG TABLET.DR. PO SCH (20:59)
[2021-03-28] MEDS: INSULIN GLARGINE SYRINGE. SQ SCH (21:00)
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
[2021-03-29 05:51] VITALS: BP 122/70
[2021-03-29] MEDS: NON FORMULARY ITEM (Insulin Lispro (Humalog) 10 UNIT) SQ SCH ×3 (07:30→16:30)
[2021-03-29] MEDS: FLUTICASONE 50MCG/NASAL SPRAY 16GM BOTTLE. NS SCH (09:00)
[2021-03-29] MEDS: LISINOPRIL 10 MG TABLET PO SCH (09:40)
[2021-03-29] MEDS: DULoxetine HCL 60 MG CAPSULE.DR PO SCH (09:40)
[2021-03-29] MEDS: SENNOSIDES/DOCUSATE 8.6/50MG TABLET. PO SCH ×2 (09:40→20:10)
[2021-03-29] MEDS: ASPIRIN ENTERIC COATED 81 MG TABLET.DR. PO SCH (09:41)
[2021-03-29] MEDS: DIVALPROEX SODIUM 250 MG TABLET.DR. PO SCH ×2 (09:41→20:09)
[2021-03-29] MEDS: MEMANTINE 10 MG TABLET. PO SCH ×2 (09:41→20:09)
[2021-03-29] MEDS: POLYETHYLENE GLYCOL 3350 17 GM PACKET. PO SCH (09:42)
[2021-03-29 16:39] VITALS: BP 159/81
[2021-03-29] MEDS: MIRTAZAPINE ODT 15 MG TAB.RAPDIS. PO SCH (20:09)
[2021-03-29] MEDS: SIMVASTATIN 10 MG TABLET PO SCH (20:09)
[2021-03-29] MEDS: AMOXICILLIN 250 MG CAPSULE PO SCH (20:10)
[2021-03-29] MEDS: QUEtiapine 25 MG TABLET. PO SCH (20:10)
[2021-03-29] MEDS: INSULIN GLARGINE SYRINGE. SQ SCH (20:12)
--- NOTE | 2021-03-29 22:03 | PDOC ---
Exam Note: Sandoval Note: Please also refer to the separate dictated note~for this date of service dictated separately.~Patient seen individually. Discussed the patient with Nursing staff reviewed the chart.~Reviewed interim history and current functioning. Reviewed vital signs,~Labs/ Radiology~and current medications noted below. Continue current treatment with the changes noted in the dictated addendum note Assessment: Vital Signs/I&O: Vital Signs Date Time Temp Pulse Resp B/P (MAP) Pulse Ox O2 Delivery O2 Flow Rate FiO2 03/29/21 16:39 97.1 73 16 159/81 (107) 92 03/28/21 20:18 Room Air I & O 03/28/21 03/28/21 03/29/21 15:00 23:00 07:00 Intake Total 120 ml Balance 120 ml Labs: Laboratory Tests Test 03/29/21 07:40 03/29/21 11:48 03/29/21 16:53 03/29/21 19:08 Glucose (Fingerstick) 169 mg/dL (70-99) H 201 mg/dL (70-99) H 87 mg/dL (70-99) 80 mg/dL (70-99) Current Medications: Meds: Current Medications Medications (Trade) Dose Ordered Sig/John Route PRN Reason Start Time Stop Time Status Last Admin Dose Admin Aspirin (Aspirin Enteric Coated) 81 mg DAILY PO 03/29/21 09:00 03/29/21 09:41 Duloxetine HCl (Cymbalta) 60 mg DAILY PO 03/29/21 09:00 03/29/21 09:40 Lisinopril (Prinivil) 10 mg DAILY PO 03/29/21 09:00 03/29/21 09:40 Polyethylene Glycol (miraLAX) 17 gm DAILY PO 03/29/21 09:00 03/29/21 09:42 Non-Formulary Medication (Insulin Lispro (Humalog)) 10 unit TIDAC SQ 03/29/21 07:30 03/29/21 11:30 Amoxicillin (Amoxil) 500 mg [id number] PO 03/29/21 21:00 04/05/21 21:01 03/29/21 20:10 I have reviewed the current psychotropics carefully including drug interactions. Risk benefit ratio favors no change other than as noted in my dictated progress note. Diagnosis: Problems: (1) Major neurocognitive disorder, due to vascular disease, with behavioral disturbance, mild (2) Anxiety disorder (3) Dementia in Alzheimer's disease with delusions (4) Dementia in Alzheimer's disease with depression (5) Dementia, vascular, with delusions (6) Dementia, vascular, with depression (7) Impulse control disorder JESSICA TREADWELL MD Mar 29, 2021 22:03
--- NOTE | 2021-03-29 22:47 | HP ---
ADMIT DATE: 03/29/2021 PSYCHIATRIC ADMISSION HISTORY/EVALUATION This note covers elements not covered in my initial note of 03/29/2021. IDENTIFYING DATA: The patient is a 75-year-old male who returns back to us from [facility] where he was transferred from our unit for possible acute appendicitis after having been on a unit for just one day. He was initially referred to us from [facility] in [place], [place] on account of worsening symptoms of depression, paranoia, yelling, refusing cares, isolating himself, being resistive to medications, poor appetite and unmanageable at the facility. CHIEF COMPLAINT: "I am okay." HISTORY OF PRESENT ILLNESS: The patient has a history of worsening symptoms of depression, paranoia. Sleep and appetite changes, anger, irritability, mood swings. No active suicidal or homicidal ideation. The patient has also had some short-term memory deficits and forgetfulness. Accu-Cheks before meals and at bedtime is diabetic. PAST PSYCHIATRIC HISTORY: As above. PAST MEDICAL HISTORY: Status post right hip fracture, colitis, mild cognitive impairment, hypertension, atrial fibrillation, anemia, type 2 diabetes mellitus, history of CVA, aphasia, hyperlipidemia, coronary artery disease. CODE STATUS: Full code. DRUG ALLERGIES: Negative. MEDICATIONS: Takes medications whole, ambulates in wheelchair. UA on 03/27/2021, culture was positive, we will defer to Dr. Vasquez. CURRENT PSYCHOTROPICS: Depakote 500 mg b.i.d., Namenda 10 mg b.i.d., Remeron 15 mg at bedtime, Seroquel 75 mg at bedtime. FAMILY HISTORY: Noncontributory. SOCIAL HISTORY: No history of alcohol, drug abuse, physical, sexual or elder abuse. He is not known to be a perpetrator. REACTION TO HOSPITALIZATION: The patient reluctantly accepting it. ASSETS: Supportive, living at the facility. REVIEW OF SYSTEMS: Positive for tiredness. No CV, , pulmonary, eye, ENT system symptoms on review. Reliability varies. MENTAL STATUS EXAM: The patient is oriented to himself and situation. Speech moderate latency often responses monosyllabic. Abstraction fair. Computation impaired. Language function intact. Attention span short. Mood is depressed. No active suicidal or homicidal ideation. He does have short-term memory deficits. LABORATORY DATA: Reviewed. IMPRESSION: Major depressive disorder with psychotic features, mild cognitive impairment versus early major neurocognitive disorder, vascular with delusion, depression; anxiety disorder, unspecified; impulse control disorder, unspecified. PLAN: Admit to Geropsychiatry Unit at [facility]. I will see the patient daily individually from a psychiatric standpoint. Medical followup with Dr. Vasquez/Dr. Beckford. Continue current psychotropics. Check a valproic acid level. Start Wellbutrin-XL 150 mg in the morning. Continue Remeron, Seroquel, Namenda and Depakote at current dosage. Adjust further as clinically indicated. ESTIMATED LENGTH OF STAY: 10-12 days. DISPOSITION: Back to senior care when stable. GEE DR: Aurora TID: [id number]
--- NOTE | 2021-03-29 23:03 | NUR ---
Pt located in his room this evening sleeping. Pt irritable when woke up to administer HS medications. Compliant with whole medications. Pt refused to acknowledge this RN or answer assessment questions.
--- NOTE | 2021-03-30 01:25 | PN ---
SUBJECTIVE: The patient is a 75-year-old male patient who was transferred to [facility]. A CT scan of the abdomen and pelvis showed that he has increasing cecal appendiceal wall thickening with surrounding inflammatory stranding, trace fluid involving the cecum, favors acute colitis, cecitis of infectious inflammatory etiology, suspected, secondary to acute appendicitis. Neoplasm is not excluded. The patient, however, has no fever, no leukocytosis, no abdominal pain. He was seen by the surgical team who recommended outpatient colonoscopy to rule out malignancy; however, he did not recommend any surgical intervention for the time being and the patient was returned back to [facility] for inpatient psychiatric stabilization. OBJECTIVE: GENERAL: When I examined him today, he looked well and was clearly in no apparent respiratory distress. There was no pallor, jaundice, cyanosis or thyromegaly. No jugular venous distention. No lower limb edema. VITAL SIGNS: His heart rate was 54, blood pressure is 122/70, temperature was 98, respiratory rate 20, and oxygen saturation was 92%. The rest of clinical exam stable. LABORATORY DATA: Showed that his urine culture has grown greater than 100,000 colony forming aerococcus urinae for which I started him on amoxicillin 500 mg 3 times a day for 7 days. The patient should meanwhile continue with all other medication and once discharged, he needs to have had a colonoscopy as an outpatient to rule out malignancy in descending colon. CHRISTIN/FRED/GERMAN DR: Gaurav TID: [id number]
[2021-03-30 05:31] VITALS: BP 160/82
[2021-03-30 07:00] LABS: BASO % 1 % (0-3); EOS % 0 % (0-3); HEMATOCRIT 31.9 % (39.0-53.0); LYMPH # 0.7 x10^3/uL (1.0-4.8); LYMPH % 17 % (24-48); MEAN CORPUSCULAR HEMOGLOBIN 33 pg (25-35); MEAN CORPUSCULAR HGB CONC 34 g/dL (31-37); MEAN CORPUSCULAR VOLUME 96 fL (79-100); MONO # 0.5 x10^3/uL (0.0-1.1); MONO % 12 % (0-9); NEUT # 3.1 x10^3uL (1.8-7.7); NEUT % 70 % (31-73); PLATELET COUNT 97 x10^3/uL (140-400); RED BLOOD COUNT 3.35 x10^6/uL (4.30-5.70); RED CELL DISTRIBUTION WIDTH 14.4 % (11.5-14.5); WHITE BLOOD COUNT 4.4 x10^3/uL (4.0-11.0)
[2021-03-30 07:19] LABS: ALBUMIN 2.3 g/dL (3.4-5.0); ALBUMIN/GLOBULIN RATIO 0.7 (1.0-1.7); ALK PHOS 80 U/L (46-116); ALT (SGPT) 8 U/L (16-63); ANION GAP 7 (6-14); AST (SGOT) 13 U/L (15-37); BLOOD UREA NITROGEN 21 mg/dL (8-26); BUN/CREATININE RATIO 18 (6-20); CALCIUM 8.1 mg/dL (8.5-10.1); CARBON DIOXIDE 28 mmol/L (21-32); CHLORIDE 108 mmol/L (98-107); CREATININE 1.2 mg/dL (0.7-1.3); GFR 58.7; GLUCOSE 107 mg/dL (70-99); POTASSIUM 4.4 mmol/L (3.5-5.1); SODIUM 143 mmol/L (136-145); TOTAL BILIRUBIN 0.6 mg/dL (0.2-1.0); TOTAL PROTEIN 5.7 g/dL (6.4-8.2)
[2021-03-30 07:26] LABS: VAL ACID 56 mcg/mL (50-100)
[2021-03-30] MEDS: INSULIN LISPRO 300 UNITS/3 ML VIAL. SQ SCH ×3 (08:00→17:39)
[2021-03-30] MEDS: buPROPion XL 150 MG TAB.ER.24H PO SCH (08:50)
[2021-03-30] MEDS: ASPIRIN ENTERIC COATED 81 MG TABLET.DR. PO SCH (08:50)
[2021-03-30] MEDS: LISINOPRIL 10 MG TABLET PO SCH (08:50)
[2021-03-30] MEDS: DIVALPROEX SODIUM 250 MG TABLET.DR. PO SCH ×2 (08:50→20:53)
[2021-03-30] MEDS: DULoxetine HCL 60 MG CAPSULE.DR PO SCH (08:50)
[2021-03-30] MEDS: MEMANTINE 10 MG TABLET. PO SCH ×2 (08:50→20:53)
[2021-03-30] MEDS: AMOXICILLIN 250 MG CAPSULE PO SCH ×3 (08:50→20:53)
[2021-03-30] MEDS: FLUTICASONE 50MCG/NASAL SPRAY 16GM BOTTLE. NS SCH (08:51)
[2021-03-30] MEDS: SENNOSIDES/DOCUSATE 8.6/50MG TABLET. PO SCH ×2 (09:00→20:53)
[2021-03-30] MEDS: POLYETHYLENE GLYCOL 3350 17 GM PACKET. PO SCH (09:00)
[2021-03-30] MEDS: LACTOBACILLUS RHAMNOSUS GG 1 CAPSULE. PO SCH ×2 (12:17→20:53)
--- NOTE | 2021-03-30 14:44 | NUR ---
nsg note; charan is impatient, irritable and annoyed with staff during cares, meal set up and meds admin. he does seem to be hard of hearing so elevating my voice seemed to help. he uses one word answers to questions and again is irritated with any staff interactions with him. he stayed in the dayroom after breakfast but did not participate in group or interact with others. he went to bed after lunch and is currently taking a nap
[2021-03-30 16:16] VITALS: BP 125/67
[2021-03-30] MEDS: SIMVASTATIN 10 MG TABLET PO SCH (20:53)
[2021-03-30] MEDS: QUEtiapine 100 MG TABLET. PO SCH (20:53)
[2021-03-30] MEDS: MIRTAZAPINE ODT 15 MG TAB.RAPDIS. PO SCH (20:53)
[2021-03-30] MEDS: INSULIN GLARGINE SYRINGE. SQ SCH (20:54)
--- NOTE | 2021-03-30 22:04 | PDOC ---
Exam Note: Sandoval Note: Please also refer to the separate dictated note~for this date of service dictated separately.~Patient seen individually. Discussed the patient with Nursing staff reviewed the chart.~Reviewed interim history and current functioning. Reviewed vital signs,~Labs/ Radiology~and current medications noted below. Continue current treatment with the changes noted in the dictated addendum note Assessment: Vital Signs/I&O: Vital Signs Date Time Temp Pulse Resp B/P (MAP) Pulse Ox O2 Delivery O2 Flow Rate FiO2 03/30/21 16:16 97.8 76 18 125/67 (86) 95 03/28/21 20:18 Room Air I & O 03/29/21 03/29/21 03/30/21 15:00 23:00 07:00 Intake Total 840 ml 0 ml Balance 840 ml 0 ml Labs: Laboratory Tests Test 03/30/21 06:49 03/30/21 07:49 03/30/21 11:17 03/30/21 16:34 White Blood Count 4.4 x10^3/uL (4.0-11.0) Red Blood Count 3.35 x10^6/uL (4.30-5.70) L Hemoglobin 11.0 g/dL (13.0-17.5) L Hematocrit 31.9 % (39.0-53.0) L Mean Corpuscular Volume 96 fL (79-100) Mean Corpuscular Hemoglobin 33 pg (25-35) Mean Corpuscular Hemoglobin Concent 34 g/dL (31-37) Red Cell Distribution Width 14.4 % (11.5-14.5) Platelet Count 97 x10^3/uL (140-400) L Neutrophils (%) (Auto) 70 % (31-73) Lymphocytes (%) (Auto) 17 % (24-48) L Monocytes (%) (Auto) 12 % (0-9) H Eosinophils (%) (Auto) 0 % (0-3) Basophils (%) (Auto) 1 % (0-3) Neutrophils # (Auto) 3.1 x10^3uL (1.8-7.7) Lymphocytes # (Auto) 0.7 x10^3/uL (1.0-4.8) L Monocytes # (Auto) 0.5 x10^3/uL (0.0-1.1) Eosinophils # (Auto) 0.0 x10^3/uL (0.0-0.7) Basophils # (Auto) 0.0 x10^3/uL (0.0-0.2) Sodium Level 143 mmol/L (136-145) Potassium Level 4.4 mmol/L (3.5-5.1) Chloride Level 108 mmol/L (98-107) H Carbon Dioxide Level 28 mmol/L (21-32) Anion Gap 7 (6-14) Blood Urea Nitrogen 21 mg/dL (8-26) Creatinine 1.2 mg/dL (0.7-1.3) Estimated GFR (Cockcroft-Gault) 58.7 BUN/Creatinine Ratio 18 (6-20) Glucose Level 107 mg/dL (70-99) H Calcium Level 8.1 mg/dL (8.5-10.1) L Total Bilirubin 0.6 mg/dL (0.2-1.0) Aspartate Amino Transferase (AST) 13 U/L (15-37) L Alanine Aminotransferase (ALT) 8 U/L (16-63) L Alkaline Phosphatase 80 U/L (46-116) Total Protein 5.7 g/dL (6.4-8.2) L Albumin 2.3 g/dL (3.4-5.0) L Albumin/Globulin Ratio 0.7 (1.0-1.7) L Valproic Acid Level 56 mcg/mL (50-100) Valproic Acid Last Dose Date 03/29/2021 Valproic Acid Last Dose Time 2100 Glucose (Fingerstick) 102 mg/dL (70-99) H 237 mg/dL (70-99) H 181 mg/dL (70-99) H Test 03/30/21 19:03 Glucose (Fingerstick) 192 mg/dL (70-99) H Current Medications: Meds: Current Medications Medications (Trade) Dose Ordered Sig/John Route PRN Reason Start Time Stop Time Status Last Admin Dose Admin Bupropion HCl (Wellbutrin Xl) 150 mg DAILY PO 03/30/21 09:00 03/30/21 08:50 Lactobacillus Rhamnosus (Culturelle) 1 cap BID PO 03/30/21 09:00 03/30/21 20:53 Insulin Human Lispro (HumaLOG) 10 units TIDWMEALS SQ 03/30/21 08:00 7/5/21 17:39 Quetiapine Fumarate (SEROquel) 100 mg QHS PO 03/30/21 21:00 03/30/21 20:53 I have reviewed the current psychotropics carefully including drug interactions. Risk benefit ratio favors no change other than as noted in my dictated progress note. Diagnosis: Problems: (1) Mild cognitive impairment (2) Dementia in Alzheimer's disease with delusions (3) Dementia in Alzheimer's disease with depression (4) Dementia, vascular, with delusions (5) Dementia, vascular, with depression (6) Impulse control disorder (7) Anxiety disorder (8) Major depressive disorder with psychotic features (9) Major neurocognitive disorder JESSICA TREADWELL MD Mar 30, 2021 22:04
[2021-03-31 05:52] VITALS: BP 143/86
--- NOTE | 2021-03-31 06:33 | PDOC ---
Exam Note: Sandoval Note: This note is a late entry for 03/30/2021 covers elements not covered in my initial note. Subjective: The patient was seen individually in the evening of 03/30/2021 with Amy MENENDEZ, discussed and reviewed the chart. The patient slept 7-1/4 hours previous night. Appetite 25% today. Valproic acid level therapeutic at 56 on Depakote Sprinkle 500 mg b.i.d. He was irritable in the morning, angry and was in bed after lunch. His son has indicated he would want the patient transferred back to [facility] for workup of his malignancy if that is true. Review of Systems: Ambulation impaired in wheelchair. No CV, , pulmonary, eye, ENT system symptoms on review. Mental Status Exam: The patient is oriented to himself and situation. Speech coherent, low in rate and rhythm, low in volume. Abstraction fair. Computation impaired. Language function intact. Mood and affect withdrawn. No suicidal or homicidal ideation. Laboratory Data: Reviewed. Impression: Major depressive disorder with psychotic features. Mild cognitive impairment. Anxiety disorder unspecified. Impulse control disorder unspecified. Plan: Continue current psychotropics. Increase Seroquel from 75 mg h.s. to 100 mg h.s. Continue Remeron, Namenda, Wellbutrin at current dosage. Assessment: Vital Signs/I&O: Vital Signs Date Time Temp Pulse Resp B/P (MAP) Pulse Ox O2 Delivery O2 Flow Rate FiO2 03/31/21 05:52 97.9 68 18 143/86 (105) 93 Room Air I & O 03/30/21 03/30/21 03/31/21 15:00 23:00 07:00 Intake Total 600 ml 480 ml Balance 600 ml 480 ml Labs: Laboratory Tests Test 03/30/21 06:49 03/30/21 07:49 03/30/21 11:17 03/30/21 16:34 White Blood Count 4.4 x10^3/uL (4.0-11.0) Red Blood Count 3.35 x10^6/uL (4.30-5.70) L Hemoglobin 11.0 g/dL (13.0-17.5) L Hematocrit 31.9 % (39.0-53.0) L Mean Corpuscular Volume 96 fL (79-100) Mean Corpuscular Hemoglobin 33 pg (25-35) Mean Corpuscular Hemoglobin Concent 34 g/dL (31-37) Red Cell Distribution Width 14.4 % (11.5-14.5) Platelet Count 97 x10^3/uL (140-400) L Neutrophils (%) (Auto) 70 % (31-73) Lymphocytes (%) (Auto) 17 % (24-48) L Monocytes (%) (Auto) 12 % (0-9) H Eosinophils (%) (Auto) 0 % (0-3) Basophils (%) (Auto) 1 % (0-3) Neutrophils # (Auto) 3.1 x10^3uL (1.8-7.7) Lymphocytes # (Auto) 0.7 x10^3/uL (1.0-4.8) L Monocytes # (Auto) 0.5 x10^3/uL (0.0-1.1) Eosinophils # (Auto) 0.0 x10^3/uL (0.0-0.7) Basophils # (Auto) 0.0 x10^3/uL (0.0-0.2) Sodium Level 143 mmol/L (136-145) Potassium Level 4.4 mmol/L (3.5-5.1) Chloride Level 108 mmol/L (98-107) H Carbon Dioxide Level 28 mmol/L (21-32) Anion Gap 7 (6-14) Blood Urea Nitrogen 21 mg/dL (8-26) Creatinine 1.2 mg/dL (0.7-1.3) Estimated GFR (Cockcroft-Gault) 58.7 BUN/Creatinine Ratio 18 (6-20) Glucose Level 107 mg/dL (70-99) H Calcium Level 8.1 mg/dL (8.5-10.1) L Total Bilirubin 0.6 mg/dL (0.2-1.0) Aspartate Amino Transferase (AST) 13 U/L (15-37) L Alanine Aminotransferase (ALT) 8 U/L (16-63) L Alkaline Phosphatase 80 U/L (46-116) Total Protein 5.7 g/dL (6.4-8.2) L Albumin 2.3 g/dL (3.4-5.0) L Albumin/Globulin Ratio 0.7 (1.0-1.7) L Valproic Acid Level 56 mcg/mL (50-100) Valproic Acid Last Dose Date 03/29/2021 Valproic Acid Last Dose Time 2100 Glucose (Fingerstick) 102 mg/dL (70-99) H 237 mg/dL (70-99) H 181 mg/dL (70-99) H Test 03/30/21 19:03 Glucose (Fingerstick) 192 mg/dL (70-99) H Current Medications: Meds: Current Medications Medications (Trade) Dose Ordered Sig/John Route PRN Reason Start Time Stop Time Status Last Admin Dose Admin Bupropion HCl (Wellbutrin Xl) 150 mg DAILY PO 03/30/21 09:00 03/30/21 08:50 Lactobacillus Rhamnosus (Culturelle) 1 cap BID PO 03/30/21 09:00 03/30/21 20:53 Insulin Human Lispro (HumaLOG) 10 units TIDWMEALS SQ 03/30/21 08:00 03/30/21 17:39 Quetiapine Fumarate (SEROquel) 100 mg QHS PO 03/30/21 21:00 03/30/21 20:53 I have reviewed the current psychotropics carefully including drug interactions. Risk benefit ratio favors no change other than as noted in my dictated progress note. Diagnosis: Problems: (1) Major depressive disorder with psychotic features (2) Mild cognitive impairment (3) Impulse control disorder (4) Anxiety disorder JESSICA TREADWELL MD Mar 31, 2021 06:33
[2021-03-31] MEDS: LISINOPRIL 10 MG TABLET PO SCH (08:22)
[2021-03-31] MEDS: buPROPion XL 150 MG TAB.ER.24H PO SCH (08:22)
[2021-03-31] MEDS: DIVALPROEX SODIUM 250 MG TABLET.DR. PO SCH ×2 (08:22→20:29)
[2021-03-31] MEDS: LACTOBACILLUS RHAMNOSUS GG 1 CAPSULE. PO SCH ×2 (08:22→20:28)
[2021-03-31] MEDS: POLYETHYLENE GLYCOL 3350 17 GM PACKET. PO SCH (08:23)
[2021-03-31] MEDS: DULoxetine HCL 60 MG CAPSULE.DR PO SCH (08:23)
[2021-03-31] MEDS: AMOXICILLIN 250 MG CAPSULE PO SCH ×3 (08:23→20:29)
[2021-03-31] MEDS: ASPIRIN ENTERIC COATED 81 MG TABLET.DR. PO SCH (08:23)
[2021-03-31] MEDS: SENNOSIDES/DOCUSATE 8.6/50MG TABLET. PO SCH ×2 (08:23→20:29)
[2021-03-31] MEDS: FLUTICASONE 50MCG/NASAL SPRAY 16GM BOTTLE. NS SCH (08:26)
[2021-03-31] MEDS: INSULIN LISPRO 300 UNITS/3 ML VIAL. SQ SCH ×3 (08:26→17:22)
[2021-03-31] MEDS: MEMANTINE 10 MG TABLET. PO SCH ×2 (08:27→20:29)
--- NOTE | 2021-03-31 09:59 | NUR ---
Pt has been visible and present on the unit. He wheeled himself down to the dining room for breakfast; appetite appeared adequate and he requested yogurt when he completed what was served. He does not speak much to this nurse, he will only reply with one word answers at best or nod/shake his head. He is absent of verbal/physical aggression, no disruptive behaviors noted at this time. After breakfast he spent time in the day room, again not interacting much with staff or other patients. Absent of SI/HI/VH/AH/delusions, he denies pain. He is compliant with whole medications. Plan of care continues, will pass to next shift.
--- NOTE | 2021-03-31 13:44 | NUR ---
WEEKLY ACTIVITY THERAPY NOTE Date of Admission: 03/28/21 Date of AT Assessment: 03/26 remains valid Precipitating behaviors that initiated 03/28 intake and admission: yelling out, refusing cares Precipitating behaviors that initiated 03/25 intake and admission: Admitted from [facility] via [facility] for reportedly refusing cares, depressed, isolating, uncooperative, hollering out, disruptive to facility, having poor appetite, and being verbally aggressive. Goal aimed: increase socialization and relaxation skills Initial Goal: Pt will participate in at least three individual or group Activity Therapy sessions before discharge. Weekly progress towards goal: goal evaluation begins next week Group participation level: NA Weekly highlights: arrived on [facility] Behaviors observed: irritable Plan: no change to goal at this time Beneficial adaptations:
--- NOTE | 2021-03-31 14:35 | NUR ---
ACTIVITY THERAPY ASSESSMENT Pt was a bit reluctant to answer assessment questions but was agreeable. Pt was aware of his discharge and coming back from [facility]. Pt said that he came here because I guess he had been a bad boy. Pt did not list any leisure preferences when asked. Goal remains: Pt will participate in at least three individual or group Activity Therapy sessions before discharge. Original ACTIVITY THERAPY ASSESSMENT from 03/26/2021 at 1355 remains valid: completed based on notes, observation, and interview. Pt was non compliant with assessment questions and said "get away from me and leave me alone." Pt only answered on assessment question which was his birthday and answered correctly. AT was unable to determine pt's leisure interests. Per notes pt has been demanding, irritable and resistive with staff. Pt has also been withdrawn to his room. Staff are concerned that pt is leaving medications in his cheeks. Initial goal aimed to increase socialization and relaxation skills. Pt will participate in at least three individual or group Activity Therapy sessions before discharge.
[2021-03-31 15:53] VITALS: BP 149/89
[2021-03-31] MEDS: MIRTAZAPINE ODT 15 MG TAB.RAPDIS. PO SCH (20:29)
[2021-03-31] MEDS: QUEtiapine 100 MG TABLET. PO SCH (20:29)
[2021-03-31] MEDS: SIMVASTATIN 10 MG TABLET PO SCH (20:29)
[2021-03-31] MEDS: INSULIN GLARGINE SYRINGE. SQ SCH (21:00)
--- NOTE | 2021-03-31 22:07 | PDOC ---
Exam Note: Sandoval Note: Please also refer to the separate dictated note~for this date of service dictated separately.~Patient seen individually. Discussed the patient with Nursing staff reviewed the chart.~Reviewed interim history and current functioning. Reviewed vital signs,~Labs/ Radiology~and current medications noted below. Continue current treatment with the changes noted in the dictated addendum note Assessment: Vital Signs/I&O: Vital Signs Date Time Temp Pulse Resp B/P (MAP) Pulse Ox O2 Delivery O2 Flow Rate FiO2 03/31/21 15:53 97.3 71 17 149/89 (109) 98 Room Air I & O 03/30/21 03/30/21 03/31/21 15:00 23:00 07:00 Intake Total 600 ml 480 ml Balance 600 ml 480 ml Labs: Laboratory Tests Test 03/31/21 08:02 03/31/21 11:34 03/31/21 16:09 03/31/21 19:19 Glucose (Fingerstick) 167 mg/dL (70-99) H 227 mg/dL (70-99) H 131 mg/dL (70-99) H 81 mg/dL (70-99) Test 03/31/21 21:18 Glucose (Fingerstick) 150 mg/dL (70-99) H Current Medications: Meds: Laboratory Tests Test 03/31/21 08:02 03/31/21 11:34 03/31/21 16:09 03/31/21 19:19 Glucose (Fingerstick) 167 mg/dL 227 mg/dL 131 mg/dL 81 mg/dL Test 03/31/21 21:18 Glucose (Fingerstick) 150 mg/dL Current Medications Medications (Trade) Dose Ordered Sig/John Route PRN Reason Start Time Stop Time Status Last Admin Dose Admin Acetaminophen (Tylenol) 1,000 mg PRN Q6HRS PRN PO MILD PAIN 1-3 03/28/21 19:45 Aspirin (Aspirin Enteric Coated) 81 mg DAILY PO 03/29/21 09:00 03/31/21 08:23 Bisacodyl (Dulcolax Supp) 10 mg PRN Q48HR PRN RC CONSTIPATION 03/28/21 19:45 Duloxetine HCl (Cymbalta) 60 mg DAILY PO 03/29/21 09:00 03/31/21 08:23 Fluticasone Propionate (Flonase) 2 spray DAILY NS 03/29/21 09:00 03/31/21 08:26 Lisinopril (Prinivil) 10 mg DAILY PO 03/29/21 09:00 03/31/21 08:22 Al Hydroxide/Mg Hydroxide (Mylanta Plus Xs) 15 ml PRN AFTMEALHC PRN PO DYSPEPSIA 03/28/21 19:45 Memantine (Namenda) 10 mg BID PO 03/28/21 21:00 03/31/21 20:29 Multi-Ingredient Ointment (Analgesic [place]) 1 nila PRN QID PRN TP MUSCLE PAIN 03/28/21 19:45 Mirtazapine (Remeron Nasra-Tab) 15 mg HS PO 03/28/21 21:00 03/31/21 20:29 Polyethylene Glycol (miraLAX) 17 gm DAILY PO 03/29/21 09:00 03/31/21 08:23 Quetiapine Fumarate (SEROquel) 75 mg QHS PO 03/28/21 21:00 03/30/21 17:03 DC 03/29/21 20:10 Senna/Docusate Sodium (Senna Plus) 1 tab BID PO 03/28/21 21:00 03/31/21 20:29 Simvastatin (Zocor) 10 mg HS PO 03/28/21 21:00 03/31/21 20:29 Divalproex Sodium (Depakote) 500 mg BID PO 03/28/21 21:00 03/31/21 20:29 Glucagon (Glucagen Kit) 1 mg PRN Q15MIN PRN IM HYPOGLYCEMIA 03/28/21 20:00 Insulin Glargine (Lantus Syringe) 14 unit QHS SQ 03/28/21 21:00 03/31/21 21:00 Non-Formulary Medication (Insulin Lispro (Humalog)) 10 unit TIDAC SQ 03/29/21 07:30 03/30/21 07:58 DC 03/29/21 11:30 Magnesium Hydroxide (Milk Of Magnesia) 2,400 mg PRN QHS PRN PO CONSTIPATION 03/28/21 20:00 Guaifenesin (Guaifenesin) 400 mg PRN Q4HRS PRN PO COUGH 03/28/21 20:00 Ondansetron HCl (Zofran Odt) 4 mg PRN Q6HRS PRN PO NAUSEA/VOMITING 03/28/21 20:00 Amoxicillin (Amoxil) 500 mg [id number] PO 04/05/21 22:00 03/29/21 19:30 DC Amoxicillin (Amoxil) 500 mg [id number] PO 03/29/21 21:00 04/05/21 21:01 03/31/21 20:29 Bupropion HCl (Wellbutrin Xl) 150 mg DAILY PO 03/30/21 09:00 03/31/21 08:22 Lactobacillus Rhamnosus (Culturelle) 1 cap BID PO 03/30/21 09:00 03/31/21 20:28 Insulin Human Lispro (HumaLOG) 10 units TIDWMEALS SQ 03/30/21 08:00 03/31/21 17:22 Quetiapine Fumarate (SEROquel) 100 mg QHS PO 03/30/21 21:00 03/31/21 20:29 I have reviewed the current psychotropics carefully including drug interactions. Risk benefit ratio favors no change other than as noted in my dictated progress note. Diagnosis: Problems: (1) Major neurocognitive disorder, due to vascular disease, with behavioral disturbance, mild (2) Major depressive disorder with psychotic features (3) Major neurocognitive disorder (4) Anxiety disorder (5) Dementia, vascular, with delusions (6) Dementia, vascular, with depression (7) Impulse control disorder JESSICA TREADWELL MD Mar 31, 2021 22:07
--- NOTE | 2021-03-31 23:27 | NUR ---
Pt located in dayroom this evening. Pt calm and withdrawn to self. Compliant with whole medications. Refused any interaction with this nurse. Helpless and non compliant with cares.
[2021-04-01 05:57] VITALS: BP 127/69
[2021-04-01] MEDS: MEMANTINE 10 MG TABLET. PO SCH ×2 (08:32→22:12)
[2021-04-01] MEDS: SENNOSIDES/DOCUSATE 8.6/50MG TABLET. PO SCH ×2 (08:32→22:12)
[2021-04-01] MEDS: ASPIRIN ENTERIC COATED 81 MG TABLET.DR. PO SCH (08:32)
[2021-04-01] MEDS: buPROPion XL 150 MG TAB.ER.24H PO SCH (08:32)
[2021-04-01] MEDS: POLYETHYLENE GLYCOL 3350 17 GM PACKET. PO SCH (08:32)
[2021-04-01] MEDS: DULoxetine HCL 60 MG CAPSULE.DR PO SCH (08:33)
[2021-04-01] MEDS: AMOXICILLIN 250 MG CAPSULE PO SCH ×3 (08:33→22:13)
[2021-04-01] MEDS: LISINOPRIL 10 MG TABLET PO SCH (08:33)
[2021-04-01] MEDS: DIVALPROEX SODIUM 250 MG TABLET.DR. PO SCH ×2 (08:33→22:13)
[2021-04-01] MEDS: LACTOBACILLUS RHAMNOSUS GG 1 CAPSULE. PO SCH ×2 (08:33→22:12)
[2021-04-01] MEDS: INSULIN LISPRO 300 UNITS/3 ML VIAL. SQ SCH ×3 (08:34→17:19)
[2021-04-01] MEDS: FLUTICASONE 50MCG/NASAL SPRAY 16GM BOTTLE. NS SCH (08:35)
--- NOTE | 2021-04-01 08:57 | PDOC ---
Exam Note: Sandoval Note: This note is a late entry for 03/31/2021 covers elements not covered in my initial note. Subjective: The patient was seen individually in the morning of 03/31/2021 for a treatment team meeting with Inessa Holland (community mental health social worker), [place], activity therapy and Lien discussed and reviewed the chart. The patient slept 7-3/4 hours previous night. The patients son apparently wants him transferred back to [place] for workup of any malignancy. He has been irritable at times, not very verbally interactive, somewhat dismissive asking staff to live him alone. Review of Systems: Ambulation impaired in wheelchair. No CV, , pulmonary, eye, ENT system symptoms on review. Mental Status Exam: The patient is awake, alert oriented. Eye contact poor. Psychomotor activity reduced. Speech often response is monosyllabic. Abstraction fair. Computation impaired. Language function intact. Mood and affect withdrawn. No suicidal or homicidal ideation. He does have some short- term memory deficits. Laboratory Data: Reviewed. Impression: Major depressive disorder with psychotic features. Mild cognitive impairment. Anxiety disorder unspecified. Impulse control disorder unspecified. Plan: Continue current psychotropics. Assessment: Vital Signs/I&O: Vital Signs Date Time Temp Pulse Resp B/P (MAP) Pulse Ox O2 Delivery O2 Flow Rate FiO2 04/01/21 08:33 92 127/69 04/01/21 05:57 97.4 20 94 Room Air I & O 03/31/21 03/31/21 04/01/21 15:00 23:00 07:00 Intake Total 720 ml 360 ml 120 ml Balance 720 ml 360 ml 120 ml Labs: Laboratory Tests Test 03/31/21 11:34 03/31/21 16:09 03/31/21 19:19 03/31/21 21:18 Glucose (Fingerstick) 227 mg/dL (70-99) H 131 mg/dL (70-99) H 81 mg/dL (70-99) 150 mg/dL (70-99) H Test 04/01/21 07:32 Glucose (Fingerstick) 143 mg/dL (70-99) H Current Medications: Meds: Laboratory Tests Test 03/31/21 11:34 03/31/21 16:09 03/31/21 19:19 03/31/21 21:18 Glucose (Fingerstick) 227 mg/dL 131 mg/dL 81 mg/dL 150 mg/dL Test 04/01/21 07:32 Glucose (Fingerstick) 143 mg/dL Current Medications Medications (Trade) Dose Ordered Sig/John Route PRN Reason Start Time Stop Time Status Last Admin Dose Admin Acetaminophen (Tylenol) 1,000 mg PRN Q6HRS PRN PO MILD PAIN 1-3 03/28/21 19:45 Aspirin (Aspirin Enteric Coated) 81 mg DAILY PO 03/29/21 09:00 04/01/21 08:32 Bisacodyl (Dulcolax Supp) 10 mg PRN Q48HR PRN RC CONSTIPATION 03/28/21 19:45 Duloxetine HCl (Cymbalta) 60 mg DAILY PO 03/29/21 09:00 04/01/21 08:33 Fluticasone Propionate (Flonase) 2 spray DAILY NS 03/29/21 09:00 03/31/21 08:26 Lisinopril (Prinivil) 10 mg DAILY PO 03/29/21 09:00 04/01/21 08:33 Al Hydroxide/Mg Hydroxide (Mylanta Plus Xs) 15 ml PRN AFTMEALHC PRN PO DYSPEPSIA 03/28/21 19:45 Memantine (Namenda) 10 mg BID PO 03/28/21 21:00 04/01/21 08:32 Multi-Ingredient Ointment (Analgesic [place]) 1 nila PRN QID PRN TP MUSCLE PAIN 03/28/21 19:45 Mirtazapine (Remeron Nasra-Tab) 15 mg HS PO 03/28/21 21:00 03/31/21 20:29 Polyethylene Glycol (miraLAX) 17 gm DAILY PO 03/29/21 09:00 04/01/21 08:32 Quetiapine Fumarate (SEROquel) 75 mg QHS PO 03/28/21 21:00 03/30/21 17:03 DC 03/29/21 20:10 Senna/Docusate Sodium (Senna Plus) 1 tab BID PO 03/28/21 21:00 04/01/21 08:32 Simvastatin (Zocor) 10 mg HS PO 03/28/21 21:00 03/31/21 20:29 Divalproex Sodium (Depakote) 500 mg BID PO 03/28/21 21:00 04/01/21 08:33 Glucagon (Glucagen Kit) 1 mg PRN Q15MIN PRN IM HYPOGLYCEMIA 03/28/21 20:00 Insulin Glargine (Lantus Syringe) 14 unit QHS SQ 03/28/21 21:00 03/31/21 21:00 Non-Formulary Medication (Insulin Lispro (Humalog)) 10 unit TIDAC SQ 03/29/21 07:30 03/30/21 07:58 DC 03/29/21 11:30 Magnesium Hydroxide (Milk Of Magnesia) 2,400 mg PRN QHS PRN PO CONSTIPATION 03/28/21 20:00 Guaifenesin (Guaifenesin) 400 mg PRN Q4HRS PRN PO COUGH 03/28/21 20:00 Ondansetron HCl (Zofran Odt) 4 mg PRN Q6HRS PRN PO NAUSEA/VOMITING 03/28/21 20:00 Amoxicillin (Amoxil) 500 mg [id number] PO 04/05/21 22:00 03/29/21 19:30 DC Amoxicillin (Amoxil) 500 mg [id number] PO 03/29/21 21:00 04/05/21 21:01 04/01/21 08:33 Bupropion HCl (Wellbutrin Xl) 150 mg DAILY PO 03/30/21 09:00 04/01/21 08:32 Lactobacillus Rhamnosus (Culturelle) 1 cap BID PO 03/30/21 09:00 04/01/21 08:33 Insulin Human Lispro (HumaLOG) 10 units TIDWMEALS SQ 03/30/21 08:00 04/01/21 08:34 Quetiapine Fumarate (SEROquel) 100 mg QHS PO 03/30/21 21:00 03/31/21 20:29 I have reviewed the current psychotropics carefully including drug interactions. Risk benefit ratio favors no change other than as noted in my dictated progress note. Diagnosis: Problems: (1) Major neurocognitive disorder (2) Anxiety disorder (3) Impulse control disorder (4) Major depressive disorder with psychotic features (5) Mild cognitive impairment JESSICA TREADWELL MD Apr 01, 2021 08:57
--- NOTE | 2021-04-01 10:09 | NUR ---
Pt has been present and visible on the unit. He is appropriate with his interactions with others, however he remains flat and not very interactive. He is mostly withdrawn. He is compliant with whole medications. Absent of SI/HI/VH/AH/delusions/pain. He reports no GI difficulties or problems with voiding at this time. Pt continues to not answer much of the assessment questions and continues to provide 1-2 word answers. This nurse spoke with Dr Vasquez about DEMOND's request for colonoscopy. Waiting for callback concerning if [facility] is able/willing to perform it, or if pt will have to wait until after d/c. Plan of care continues, will pass to next shift. Addendum: 04/01/21 at 1709 by LAYO RUEDA RN Update: Per Dr Vasquez, he spoke with Dr Fermin (GI Specialist at [facility]). At this time, they cannot accept pt for admission as inpatient for a colonoscopy but are willing/able to do the procedure outpatient. Dr Vasquez is unsure if pt is able to briefly leave [facility] for an outpatient procedure while still inpatient at [facility], or if he will have to completely d/c from [facility] first. Information passed to so they can discuss this with BREANA.
[2021-04-01 16:23] VITALS: BP 139/81
--- NOTE | 2021-04-01 21:46 | PDOC ---
Exam Note: Sandoval Note: Please also refer to the separate dictated note~for this date of service dictated separately.~Patient seen individually. Discussed the patient with Nursing staff reviewed the chart.~Reviewed interim history and current functioning. Reviewed vital signs,~Labs/ Radiology~and current medications noted below. Continue current treatment with the changes noted in the dictated addendum note Assessment: Vital Signs/I&O: Vital Signs Date Time Temp Pulse Resp B/P (MAP) Pulse Ox O2 Delivery O2 Flow Rate FiO2 04/01/21 16:23 98.7 71 18 139/81 (100) 97 04/01/21 05:57 Room Air I & O 03/31/21 03/31/21 04/01/21 14:59 22:59 06:59 Intake Total 720 ml 360 ml 120 ml Balance 720 ml 360 ml 120 ml Labs: Laboratory Tests Test 04/01/21 07:32 04/01/21 12:05 04/01/21 16:36 04/01/21 19:14 Glucose (Fingerstick) 143 mg/dL (70-99) H 183 mg/dL (70-99) H 186 mg/dL (70-99) H 168 mg/dL (70-99) H Current Medications: Meds: Laboratory Tests Test 04/01/21 07:32 04/01/21 12:05 04/01/21 16:36 04/01/21 19:14 Glucose (Fingerstick) 143 mg/dL 183 mg/dL 186 mg/dL 168 mg/dL Current Medications Medications (Trade) Dose Ordered Sig/John Route PRN Reason Start Time Stop Time Status Last Admin Dose Admin Acetaminophen (Tylenol) 1,000 mg PRN Q6HRS PRN PO MILD PAIN 1-3 03/28/21 19:45 Aspirin (Aspirin Enteric Coated) 81 mg DAILY PO 03/29/21 09:00 04/01/21 08:32 Bisacodyl (Dulcolax Supp) 10 mg PRN Q48HR PRN RC CONSTIPATION 03/28/21 19:45 Duloxetine HCl (Cymbalta) 60 mg DAILY PO 03/29/21 09:00 04/01/21 08:33 Fluticasone Propionate (Flonase) 2 spray DAILY NS 03/29/21 09:00 03/31/21 08:26 Lisinopril (Prinivil) 10 mg DAILY PO 03/29/21 09:00 04/01/21 08:33 Al Hydroxide/Mg Hydroxide (Mylanta Plus Xs) 15 ml PRN AFTMEALHC PRN PO DYSPEPSIA 03/28/21 19:45 Memantine (Namenda) 10 mg BID PO 03/28/21 21:00 04/01/21 08:32 Multi-Ingredient Ointment (Analgesic [place]) 1 nila PRN QID PRN TP MUSCLE PAIN 03/28/21 19:45 Mirtazapine (Remeron Nasra-Tab) 15 mg HS PO 03/28/21 21:00 03/31/21 20:29 Polyethylene Glycol (miraLAX) 17 gm DAILY PO 03/29/21 09:00 04/01/21 08:32 Quetiapine Fumarate (SEROquel) 75 mg QHS PO 03/28/21 21:00 03/30/21 17:03 DC 03/29/21 20:10 Senna/Docusate Sodium (Senna Plus) 1 tab BID PO 03/28/21 21:00 04/01/21 08:32 Simvastatin (Zocor) 10 mg HS PO 03/28/21 21:00 03/31/21 20:29 Divalproex Sodium (Depakote) 500 mg BID PO 03/28/21 21:00 04/01/21 08:33 Glucagon (Glucagen Kit) 1 mg PRN Q15MIN PRN IM HYPOGLYCEMIA 03/28/21 20:00 Insulin Glargine (Lantus Syringe) 14 unit QHS SQ 03/28/21 21:00 03/31/21 21:00 Non-Formulary Medication (Insulin Lispro (Humalog)) 10 unit TIDAC SQ 03/29/21 07:30 03/30/21 07:58 DC 03/29/21 11:30 Magnesium Hydroxide (Milk Of Magnesia) 2,400 mg PRN QHS PRN PO CONSTIPATION 03/28/21 20:00 Guaifenesin (Guaifenesin) 400 mg PRN Q4HRS PRN PO COUGH 03/28/21 20:00 Ondansetron HCl (Zofran Odt) 4 mg PRN Q6HRS PRN PO NAUSEA/VOMITING 03/28/21 20:00 Amoxicillin (Amoxil) 500 mg [id number] PO 04/05/21 22:00 03/29/21 19:30 DC Amoxicillin (Amoxil) 500 mg [id number] PO 03/29/21 21:00 04/05/21 21:01 04/01/21 12:18 Bupropion HCl (Wellbutrin Xl) 150 mg DAILY PO 03/30/21 09:00 04/01/21 16:43 DC 04/01/21 08:32 Lactobacillus Rhamnosus (Culturelle) 1 cap BID PO 03/30/21 09:00 04/01/21 08:33 Insulin Human Lispro (HumaLOG) 10 units TIDWMEALS SQ 03/30/21 08:00 04/01/21 17:19 Quetiapine Fumarate (SEROquel) 100 mg QHS PO 03/30/21 21:00 03/31/21 20:29 Bupropion HCl (Wellbutrin Xl) 300 mg DAILY PO 04/02/21 09:00 I have reviewed the current psychotropics carefully including drug interactions. Risk benefit ratio favors no change other than as noted in my dictated progress note. Diagnosis: Problems: (1) Major depressive disorder with psychotic features (2) Mild cognitive impairment (3) Impulse control disorder (4) Anxiety disorder JESSICA TREADWELL MD Apr 01, 2021 21:46
[2021-04-01] MEDS: MIRTAZAPINE ODT 15 MG TAB.RAPDIS. PO SCH (22:12)
[2021-04-01] MEDS: QUEtiapine 100 MG TABLET. PO SCH (22:13)
[2021-04-01] MEDS: SIMVASTATIN 10 MG TABLET PO SCH (22:13)
[2021-04-01] MEDS: INSULIN GLARGINE SYRINGE. SQ SCH (22:20)
--- NOTE | 2021-04-02 05:10 | NUR ---
Nursing Note The patient was located in his room for his assessment and medication pass. The patient was compliant with medications and took them whole. The patient was irritable during his assessment and yelled at this nurse several times. The patient was able to answer name only. The patient is currently sleeping in his room.
[2021-04-02 06:02] VITALS: BP 166/79
--- NOTE | 2021-04-02 06:43 | PDOC ---
Exam Note: [place]oval Note: This note is a late entry for 04/01/2021 covers elements not covered in my initial note. Subjective: The patient was seen individually in the evening of 04/01/2021 with Lien MENENDEZ, discussed and reviewed the chart. The patient slept 7-1/4 hours previous night. The patient is withdrawn, flat, irritable. I met with him in the hallway, right after supper time. Review of Systems: Ambulation impaired in wheelchair. No CV, , pulmonary, eye, ENT system symptoms on review. Mental Status Exam: The patient is oriented to himself and situation. Speech often response is monosyllabic. Most of his verbal responses are monosyllabic. Abstraction fair. Computation impaired. Language function intact. Mood and affect withdrawn. No suicidal or homicidal ideation. I met with him about half hour after his dinner and he was able to recount to me what he had for dinner including [place] steak but states he did not like it. Laboratory Data: Reviewed. Impression: Major depressive disorder with psychotic features. Mild cognitive impairment. Anxiety disorder unspecified. Impulse control disorder unspecified. Plan: Continue current psychotropics. The patient remains somewhat depressed, withdrawn. We will increase Wellbutrin XL from 150 mg a day to 300 mg a day. Continue Depakote at current dosage, level therapeutic at 56. Continue Namenda, Remeron, Seroquel unchanged for now. Adjust further as clinically indicated. Assessment: Vital Signs/I&O: Vital Signs Date Time Temp Pulse Resp B/P (MAP) Pulse Ox O2 Delivery O2 Flow Rate FiO2 04/02/21 06:02 96.8 63 16 166/79 (108) 91 Room Air I & O 04/01/21 04/01/21 04/02/21 15:00 23:00 07:00 Intake Total 400 ml 240 ml Balance 400 ml 240 ml Labs: Laboratory Tests Test 04/01/21 07:32 04/01/21 12:05 04/01/21 16:36 04/01/21 19:14 Glucose (Fingerstick) 143 mg/dL (70-99) H 183 mg/dL (70-99) H 186 mg/dL (70-99) H 168 mg/dL (70-99) H Current Medications: Meds: Laboratory Tests Test 04/01/21 07:32 04/01/21 12:05 04/01/21 16:36 04/01/21 19:14 Glucose (Fingerstick) 143 mg/dL 183 mg/dL 186 mg/dL 168 mg/dL Current Medications Medications (Trade) Dose Ordered Sig/John Route PRN Reason Start Time Stop Time Status Last Admin Dose Admin Acetaminophen (Tylenol) 1,000 mg PRN Q6HRS PRN PO MILD PAIN 1-3 03/28/21 19:45 Aspirin (Aspirin Enteric Coated) 81 mg DAILY PO 03/29/21 09:00 04/01/21 08:32 Bisacodyl (Dulcolax Supp) 10 mg PRN Q48HR PRN RC CONSTIPATION 03/28/21 19:45 Duloxetine HCl (Cymbalta) 60 mg DAILY PO 03/29/21 09:00 04/01/21 08:33 Fluticasone Propionate (Flonase) 2 spray DAILY NS 03/29/21 09:00 03/31/21 08:26 Lisinopril (Prinivil) 10 mg DAILY PO 03/29/21 09:00 04/01/21 08:33 Al Hydroxide/Mg Hydroxide (Mylanta Plus Xs) 15 ml PRN AFTMEALHC PRN PO DYSPEPSIA 03/28/21 19:45 Memantine (Namenda) 10 mg BID PO 03/28/21 21:00 04/01/21 22:12 Multi-Ingredient Ointment (Analgesic [place]) 1 nila PRN QID PRN TP MUSCLE PAIN 03/28/21 19:45 Mirtazapine (Remeron Nasra-Tab) 15 mg HS PO 03/28/21 21:00 04/01/21 22:12 Polyethylene Glycol (miraLAX) 17 gm DAILY PO 03/29/21 09:00 04/01/21 08:32 Quetiapine Fumarate (SEROquel) 75 mg QHS PO 03/28/21 21:00 03/30/21 17:03 DC 03/29/21 20:10 Senna/Docusate Sodium (Senna Plus) 1 tab BID PO 03/28/21 21:00 04/01/21 22:12 Simvastatin (Zocor) 10 mg HS PO 03/28/21 21:00 04/01/21 22:13 Divalproex Sodium (Depakote) 500 mg BID PO 03/28/21 21:00 04/01/21 22:13 Glucagon (Glucagen Kit) 1 mg PRN Q15MIN PRN IM HYPOGLYCEMIA 03/28/21 20:00 Insulin Glargine (Lantus Syringe) 14 unit QHS SQ 03/28/21 21:00 04/01/21 22:20 Non-Formulary Medication (Insulin Lispro (Humalog)) 10 unit TIDAC SQ 03/29/21 07:30 03/30/21 07:58 DC 03/29/21 11:30 Magnesium Hydroxide (Milk Of Magnesia) 2,400 mg PRN QHS PRN PO CONSTIPATION 03/28/21 20:00 Guaifenesin (Guaifenesin) 400 mg PRN Q4HRS PRN PO COUGH 03/28/21 20:00 Ondansetron HCl (Zofran Odt) 4 mg PRN Q6HRS PRN PO NAUSEA/VOMITING 03/28/21 20:00 Amoxicillin (Amoxil) 500 mg [id number] PO 04/05/21 22:00 03/29/21 19:30 DC Amoxicillin (Amoxil) 500 mg [id number] PO 03/29/21 21:00 04/05/21 21:01 04/01/21 22:13 Bupropion HCl (Wellbutrin Xl) 150 mg DAILY PO 03/30/21 09:00 04/01/21 16:43 DC 04/01/21 08:32 Lactobacillus Rhamnosus (Culturelle) 1 cap BID PO 03/30/21 09:00 04/01/21 22:12 Insulin Human Lispro (HumaLOG) 10 units TIDWMEALS SQ 03/30/21 08:00 04/01/21 17:19 Quetiapine Fumarate (SEROquel) 100 mg QHS PO 03/30/21 21:00 04/01/21 22:13 Bupropion HCl (Wellbutrin Xl) 300 mg DAILY PO 04/02/21 09:00 I have reviewed the current psychotropics carefully including drug interactions. Risk benefit ratio favors no change other than as noted in my dictated progress note. Diagnosis: Problems: (1) Major depressive disorder with psychotic features (2) Mild cognitive impairment (3) Anxiety disorder (4) Impulse control disorder JESSICA TREADWELL MD Apr 02, 2021 06:43
[2021-04-02] MEDS: POLYETHYLENE GLYCOL 3350 17 GM PACKET. PO SCH (08:24)
[2021-04-02] MEDS: buPROPion XL 150 MG TAB.ER.24H PO SCH (08:24)
[2021-04-02] MEDS: ASPIRIN ENTERIC COATED 81 MG TABLET.DR. PO SCH (08:24)
[2021-04-02] MEDS: FLUTICASONE 50MCG/NASAL SPRAY 16GM BOTTLE. NS SCH (08:24)
[2021-04-02] MEDS: DULoxetine HCL 60 MG CAPSULE.DR PO SCH (08:25)
[2021-04-02] MEDS: AMOXICILLIN 250 MG CAPSULE PO SCH ×3 (08:25→21:23)
[2021-04-02] MEDS: LISINOPRIL 10 MG TABLET PO SCH (08:25)
[2021-04-02] MEDS: DIVALPROEX SODIUM 250 MG TABLET.DR. PO SCH ×2 (08:25→21:23)
[2021-04-02] MEDS: MEMANTINE 10 MG TABLET. PO SCH ×2 (08:26→21:22)
[2021-04-02] MEDS: LACTOBACILLUS RHAMNOSUS GG 1 CAPSULE. PO SCH ×2 (08:26→21:23)
[2021-04-02] MEDS: SENNOSIDES/DOCUSATE 8.6/50MG TABLET. PO SCH ×2 (08:26→21:22)
[2021-04-02] MEDS: INSULIN LISPRO 300 UNITS/3 ML VIAL. SQ SCH ×3 (08:33→17:31)
--- NOTE | 2021-04-02 13:15 | NUR ---
Nursing Note: Pt. has been withdrawn to his room and in his bed except for meal times. When [employer] administered morning medications pt refused any pain. Pt. has a flat affect and will not interact with others unless he absolutely has to and when he does it is only 1-2 word answers. He was medication compliant with all medications throughout the day.
[2021-04-02] MEDS: ACETAMINOPHEN 500 MG TABLET PO PRN (14:51)
--- NOTE | 2021-04-02 14:52 | NUR ---
Nursing Note: Pt was administered PRN Tylenol for back pain. Pt. states that this back pain is chronic and regular for him, ever since he has had surgery on his back. Nursing recommended he not lay in the bed as much throughout the day as this could be causing his back to become stiff and more painful. Nursing will reevaluate if Tylenol is not helping
[2021-04-02 16:11] VITALS: BP 138/69
[2021-04-02] MEDS: MIRTAZAPINE ODT 15 MG TAB.RAPDIS. PO SCH (21:22)
[2021-04-02] MEDS: QUEtiapine 100 MG TABLET. PO SCH (21:22)
[2021-04-02] MEDS: SIMVASTATIN 10 MG TABLET PO SCH (21:23)
[2021-04-02] MEDS: INSULIN GLARGINE SYRINGE. SQ SCH (21:31)
--- NOTE | 2021-04-02 21:47 | NUR ---
Pt sat in the day room until going to bed. When HS meds were given he took them whole. When asking orientation questions he was minimally cooperative saying "I am not going to play this game" the questions he did answer were accurate but he could not remember presidents name. He was brief and dismissive with staff and denies pain at this time.
--- NOTE | 2021-04-02 22:18 | PDOC ---
Exam Note: Sandoval Note: Please also refer to the separate dictated note~for this date of service dictated separately.~Patient seen individually. Discussed the patient with Nursing staff reviewed the chart.~Reviewed interim history and current functioning. Reviewed vital signs,~Labs/ Radiology~and current medications noted below. Continue current treatment with the changes noted in the dictated addendum note Assessment: Vital Signs/I&O: Vital Signs Date Time Temp Pulse Resp B/P (MAP) Pulse Ox O2 Delivery O2 Flow Rate FiO2 04/02/21 16:11 97.2 76 21 138/69 (92) 99 04/02/21 06:02 Room Air I & O 04/01/21 04/01/21 04/02/21 15:00 23:00 07:00 Intake Total 400 ml 240 ml Balance 400 ml 240 ml Labs: Laboratory Tests Test 04/02/21 07:40 04/02/21 11:09 04/02/21 16:30 04/02/21 19:23 Glucose (Fingerstick) 151 mg/dL (70-99) H 288 mg/dL (70-99) H 199 mg/dL (70-99) H 160 mg/dL (70-99) H Current Medications: Meds: Laboratory Tests Test 04/02/21 07:40 04/02/21 11:09 04/02/21 16:30 04/02/21 19:23 Glucose (Fingerstick) 151 mg/dL 288 mg/dL 199 mg/dL 160 mg/dL Current Medications Medications (Trade) Dose Ordered Sig/John Route PRN Reason Start Time Stop Time Status Last Admin Dose Admin Acetaminophen (Tylenol) 1,000 mg PRN Q6HRS PRN PO MILD PAIN 1-3 03/28/21 19:45 04/02/21 14:51 Aspirin (Aspirin Enteric Coated) 81 mg DAILY PO 03/29/21 09:00 04/02/21 08:24 Bisacodyl (Dulcolax Supp) 10 mg PRN Q48HR PRN RC CONSTIPATION 03/28/21 19:45 Duloxetine HCl (Cymbalta) 60 mg DAILY PO 03/29/21 09:00 04/02/21 08:25 Fluticasone Propionate (Flonase) 2 spray DAILY NS 03/29/21 09:00 04/02/21 08:24 Lisinopril (Prinivil) 10 mg DAILY PO 03/29/21 09:00 04/02/21 08:25 Al Hydroxide/Mg Hydroxide (Mylanta Plus Xs) 15 ml PRN AFTMEALHC PRN PO DYSPEPSIA 03/28/21 19:45 Memantine (Namenda) 10 mg BID PO 03/28/21 21:00 04/02/21 21:22 Multi-Ingredient Ointment (Analgesic [place]) 1 nila PRN QID PRN TP MUSCLE PAIN 03/28/21 19:45 Mirtazapine (Remeron Nasra-Tab) 15 mg HS PO 03/28/21 21:00 04/02/21 21:22 Polyethylene Glycol (miraLAX) 17 gm DAILY PO 03/29/21 09:00 04/02/21 08:24 Quetiapine Fumarate (SEROquel) 75 mg QHS PO 03/28/21 21:00 03/30/21 17:03 DC 03/29/21 20:10 Senna/Docusate Sodium (Senna Plus) 1 tab BID PO 03/28/21 21:00 04/02/21 21:22 Simvastatin (Zocor) 10 mg HS PO 03/28/21 21:00 04/02/21 21:23 Divalproex Sodium (Depakote) 500 mg BID PO 03/28/21 21:00 04/02/21 21:23 Glucagon (Glucagen Kit) 1 mg PRN Q15MIN PRN IM HYPOGLYCEMIA 03/28/21 20:00 Insulin Glargine (Lantus Syringe) 14 unit QHS SQ 03/28/21 21:00 04/02/21 21:31 Non-Formulary Medication (Insulin Lispro (Humalog)) 10 unit TIDAC SQ 03/29/21 07:30 03/30/21 07:58 DC 03/29/21 11:30 Magnesium Hydroxide (Milk Of Magnesia) 2,400 mg PRN QHS PRN PO CONSTIPATION 03/28/21 20:00 Guaifenesin (Guaifenesin) 400 mg PRN Q4HRS PRN PO COUGH 03/28/21 20:00 Ondansetron HCl (Zofran Odt) 4 mg PRN Q6HRS PRN PO NAUSEA/VOMITING 03/28/21 20:00 Amoxicillin (Amoxil) 500 mg [id number] PO 04/05/21 22:00 03/29/21 19:30 DC Amoxicillin (Amoxil) 500 mg [id number] PO 03/29/21 21:00 04/05/21 21:01 04/02/21 21:23 Bupropion HCl (Wellbutrin Xl) 150 mg DAILY PO 03/30/21 09:00 04/01/21 16:43 DC 04/01/21 08:32 Lactobacillus Rhamnosus (Culturelle) 1 cap BID PO 03/30/21 09:00 04/02/21 21:23 Insulin Human Lispro (HumaLOG) 10 units TIDWMEALS SQ 03/30/21 08:00 04/02/21 17:31 Quetiapine Fumarate (SEROquel) 100 mg QHS PO 03/30/21 21:00 04/02/21 21:22 Bupropion HCl (Wellbutrin Xl) 300 mg DAILY PO 04/02/21 09:00 04/02/21 08:24 Current Medications Medications (Trade) Dose Ordered Sig/John Route PRN Reason Start Time Stop Time Status Last Admin Dose Admin Bupropion HCl (Wellbutrin Xl) 300 mg DAILY PO 04/02/21 09:00 04/02/21 08:24 I have reviewed the current psychotropics carefully including drug interactions. Risk benefit ratio favors no change other than as noted in my dictated progress note. Diagnosis: Problems: (1) Major depressive disorder with psychotic features (2) Major neurocognitive disorder (3) Anxiety disorder (4) Dementia in Alzheimer's disease with delusions (5) Dementia in Alzheimer's disease with depression (6) Dementia, vascular, with delusions (7) Dementia, vascular, with depression (8) Impulse control disorder JESSICA TREADWELL MD Apr 02, 2021 22:18
[2021-04-03 06:28] VITALS: BP 137/83
--- NOTE | 2021-04-03 07:04 | PDOC ---
Exam Note: [place]oval Note: This note is a late entry for 04/02/2021 covers elements not covered in my initial note. Subjective: The patient was seen individually in the evening of 04/02/2021 with Mason MENENDEZ, discussed and reviewed the chart. The patient slept 7 hours previous night. The patient is withdrawn, flat, does complain of back pain, irritable at times. He refused his dinner. Review of Systems: Ambulation impaired in wheelchair. No CV, , pulmonary, eye, ENT system symptoms on review. Mental Status Exam: The patient is oriented to himself and situation. Speech often response is monosyllabic. Abstraction fair. Computation impaired. Language function intact. Mood and affect withdrawn. No suicidal or homicidal ideation. I met with him about half hour after his dinner and he was able to recount to me what he had for dinner including [place] steak but states he did not like it. Laboratory Data: Reviewed. Impression: Major depressive disorder with psychotic features. Mild cognitive impairment.Anxiety disorder unspecified. Impulse control disorder unspecified. Plan: Continue current psychotropics. The patients Wellbutrin has been gradually increased and seemed more alert this evening. We will continue to monitor. Assessment: Vital Signs/I&O: Vital Signs Date Time Temp Pulse Resp B/P (MAP) Pulse Ox O2 Delivery O2 Flow Rate FiO2 04/03/21 06:28 96.8 79 16 137/83 (101) 98 04/02/21 06:02 Room Air I & O 04/02/21 04/02/21 04/03/21 15:00 23:00 07:00 Intake Total 720 ml 480 ml Balance 720 ml 480 ml Labs: Laboratory Tests Test 04/02/21 07:40 04/02/21 11:09 04/02/21 16:30 04/02/21 19:23 Glucose (Fingerstick) 151 mg/dL (70-99) H 288 mg/dL (70-99) H 199 mg/dL (70-99) H 160 mg/dL (70-99) H Current Medications: Meds: Laboratory Tests Test 04/02/21 07:40 04/02/21 11:09 04/02/21 16:30 04/02/21 19:23 Glucose (Fingerstick) 151 mg/dL 288 mg/dL 199 mg/dL 160 mg/dL Current Medications Medications (Trade) Dose Ordered Sig/John Route PRN Reason Start Time Stop Time Status Last Admin Dose Admin Acetaminophen (Tylenol) 1,000 mg PRN Q6HRS PRN PO MILD PAIN 1-3 03/28/21 19:45 04/02/21 14:51 Aspirin (Aspirin Enteric Coated) 81 mg DAILY PO 03/29/21 09:00 04/02/21 08:24 Bisacodyl (Dulcolax Supp) 10 mg PRN Q48HR PRN RC CONSTIPATION 03/28/21 19:45 Duloxetine HCl (Cymbalta) 60 mg DAILY PO 03/29/21 09:00 04/02/21 08:25 Fluticasone Propionate (Flonase) 2 spray DAILY NS 03/29/21 09:00 04/02/21 08:24 Lisinopril (Prinivil) 10 mg DAILY PO 03/29/21 09:00 04/02/21 08:25 Al Hydroxide/Mg Hydroxide (Mylanta Plus Xs) 15 ml PRN AFTMEALHC PRN PO DYSPEPSIA 03/28/21 19:45 Memantine (Namenda) 10 mg BID PO 03/28/21 21:00 04/02/21 21:22 Multi-Ingredient Ointment (Analgesic [place]) 1 nila PRN QID PRN TP MUSCLE PAIN 03/28/21 19:45 Mirtazapine (Remeron Nasra-Tab) 15 mg HS PO 03/28/21 21:00 04/02/21 21:22 Polyethylene Glycol (miraLAX) 17 gm DAILY PO 03/29/21 09:00 04/02/21 08:24 Quetiapine Fumarate (SEROquel) 75 mg QHS PO 03/28/21 21:00 03/30/21 17:03 DC 03/29/21 20:10 Senna/Docusate Sodium (Senna Plus) 1 tab BID PO 03/28/21 21:00 04/02/21 21:22 Simvastatin (Zocor) 10 mg HS PO 03/28/21 21:00 04/02/21 21:23 Divalproex Sodium (Depakote) 500 mg BID PO 03/28/21 21:00 04/02/21 21:23 Glucagon (Glucagen Kit) 1 mg PRN Q15MIN PRN IM HYPOGLYCEMIA 03/28/21 20:00 Insulin Glargine (Lantus Syringe) 14 unit QHS SQ 03/28/21 21:00 04/02/21 21:31 Non-Formulary Medication (Insulin Lispro (Humalog)) 10 unit TIDAC SQ 03/29/21 07:30 03/30/21 07:58 DC 03/29/21 11:30 Magnesium Hydroxide (Milk Of Magnesia) 2,400 mg PRN QHS PRN PO CONSTIPATION 03/28/21 20:00 Guaifenesin (Guaifenesin) 400 mg PRN Q4HRS PRN PO COUGH 03/28/21 20:00 Ondansetron HCl (Zofran Odt) 4 mg PRN Q6HRS PRN PO NAUSEA/VOMITING 03/28/21 20:00 Amoxicillin (Amoxil) 500 mg [id number] PO 04/05/21 22:00 03/29/21 19:30 DC Amoxicillin (Amoxil) 500 mg [id number] PO 03/29/21 21:00 04/05/21 21:01 04/02/21 21:23 Bupropion HCl (Wellbutrin Xl) 150 mg DAILY PO 03/30/21 09:00 04/01/21 16:43 DC 04/01/21 08:32 Lactobacillus Rhamnosus (Culturelle) 1 cap BID PO 03/30/21 09:00 04/02/21 21:23 Insulin Human Lispro (HumaLOG) 10 units TIDWMEALS SQ 03/30/21 08:00 04/02/21 17:31 Quetiapine Fumarate (SEROquel) 100 mg QHS PO 03/30/21 21:00 04/02/21 21:22 Bupropion HCl (Wellbutrin Xl) 300 mg DAILY PO 04/02/21 09:00 04/02/21 08:24 Current Medications Medications (Trade) Dose Ordered Sig/John Route PRN Reason Start Time Stop Time Status Last Admin Dose Admin Bupropion HCl (Wellbutrin Xl) 300 mg DAILY PO 04/02/21 09:00 04/02/21 08:24 I have reviewed the current psychotropics carefully including drug interactions. Risk benefit ratio favors no change other than as noted in my dictated progress note. Diagnosis: Problems: (1) Mild cognitive impairment (2) Major depressive disorder with psychotic features (3) Anxiety disorder (4) Impulse control disorder JESSICA TREADWELL MD Apr 03, 2021 07:04
[2021-04-03] MEDS: ASPIRIN ENTERIC COATED 81 MG TABLET.DR. PO SCH (08:20)
[2021-04-03] MEDS: DIVALPROEX SODIUM 250 MG TABLET.DR. PO SCH ×2 (08:20→21:29)
[2021-04-03] MEDS: buPROPion XL 150 MG TAB.ER.24H PO SCH (08:20)
[2021-04-03] MEDS: POLYETHYLENE GLYCOL 3350 17 GM PACKET. PO SCH (08:20)
[2021-04-03] MEDS: LACTOBACILLUS RHAMNOSUS GG 1 CAPSULE. PO SCH ×2 (08:21→21:29)
[2021-04-03] MEDS: MEMANTINE 10 MG TABLET. PO SCH ×2 (08:21→21:29)
[2021-04-03] MEDS: DULoxetine HCL 60 MG CAPSULE.DR PO SCH (08:21)
[2021-04-03] MEDS: SENNOSIDES/DOCUSATE 8.6/50MG TABLET. PO SCH ×2 (08:21→21:28)
[2021-04-03] MEDS: LISINOPRIL 10 MG TABLET PO SCH (08:21)
[2021-04-03] MEDS: AMOXICILLIN 250 MG CAPSULE PO SCH ×3 (08:22→21:29)
[2021-04-03] MEDS: INSULIN LISPRO 300 UNITS/3 ML VIAL. SQ SCH ×3 (08:27→18:01)
[2021-04-03] MEDS: FLUTICASONE 50MCG/NASAL SPRAY 16GM BOTTLE. NS SCH (08:27)
--- NOTE | 2021-04-03 10:48 | NUR ---
Nursing Note: Pt was unpleasant this morning while at breakfast. Anytime anyone spoke to him or inconvenienced him in any way he got very paul and irritable. Pt. was frustrated that nursing wanted to administer his medications while he was eating. He only had short negative statements when talking out loud. He seemed on edge and annoyed with everyone around him. Pt. was medication compliant with some encouragement. Pt. got back into bed after being up shortly after breakfast.
[2021-04-03 15:57] VITALS: BP 131/80
[2021-04-03] MEDS: QUEtiapine 100 MG TABLET. PO SCH (21:29)
[2021-04-03] MEDS: MIRTAZAPINE ODT 15 MG TAB.RAPDIS. PO SCH (21:29)
[2021-04-03] MEDS: SIMVASTATIN 10 MG TABLET PO SCH (21:29)
[2021-04-03] MEDS: INSULIN GLARGINE SYRINGE. SQ SCH (21:31)
--- NOTE | 2021-04-03 22:05 | PDOC ---
Exam Note: [place]oval Note: Please also refer to the separate dictated note~for this date of service dictated separately.~Patient seen individually. Discussed the patient with Nursing staff reviewed the chart.~Reviewed interim history and current functioning. Reviewed vital signs,~Labs/ Radiology~and current medications noted below. Continue current treatment with the changes noted in the dictated addendum note Assessment: Vital Signs/I&O: Vital Signs Date Time Temp Pulse Resp B/P (MAP) Pulse Ox O2 Delivery O2 Flow Rate FiO2 04/03/21 15:57 97.5 77 16 131/80 (97) 95 04/02/21 06:02 Room Air I & O 04/02/21 04/02/21 04/03/21 15:00 23:00 07:00 Intake Total 720 ml 480 ml Balance 720 ml 480 ml Labs: Laboratory Tests Test 04/03/21 07:56 04/03/21 11:54 04/03/21 17:01 04/03/21 18:59 Glucose (Fingerstick) 149 mg/dL (70-99) H 177 mg/dL (70-99) H 119 mg/dL (70-99) H 162 mg/dL (70-99) H Current Medications: Meds: Laboratory Tests Test 04/03/21 07:56 04/03/21 11:54 04/03/21 17:01 04/03/21 18:59 Glucose (Fingerstick) 149 mg/dL 177 mg/dL 119 mg/dL 162 mg/dL Current Medications Medications (Trade) Dose Ordered Sig/John Route PRN Reason Start Time Stop Time Status Last Admin Dose Admin Acetaminophen (Tylenol) 1,000 mg PRN Q6HRS PRN PO MILD PAIN 1-3 03/28/21 19:45 04/02/21 14:51 Aspirin (Aspirin Enteric Coated) 81 mg DAILY PO 03/29/21 09:00 04/03/21 08:20 Bisacodyl (Dulcolax Supp) 10 mg PRN Q48HR PRN RC CONSTIPATION 03/28/21 19:45 Duloxetine HCl (Cymbalta) 60 mg DAILY PO 03/29/21 09:00 04/03/21 08:21 Fluticasone Propionate (Flonase) 2 spray DAILY NS 03/29/21 09:00 04/02/21 08:24 Lisinopril (Prinivil) 10 mg DAILY PO 03/29/21 09:00 04/03/21 08:21 Al Hydroxide/Mg Hydroxide (Mylanta Plus Xs) 15 ml PRN AFTMEALHC PRN PO DYSPEPSIA 03/28/21 19:45 Memantine (Namenda) 10 mg BID PO 03/28/21 21:00 04/03/21 21:29 Multi-Ingredient Ointment (Analgesic [place]) 1 nila PRN QID PRN TP MUSCLE PAIN 03/28/21 19:45 Mirtazapine (Remeron Nasra-Tab) 15 mg HS PO 03/28/21 21:00 04/03/21 21:29 Polyethylene Glycol (miraLAX) 17 gm DAILY PO 03/29/21 09:00 04/03/21 08:20 Quetiapine Fumarate (SEROquel) 75 mg QHS PO 03/28/21 21:00 03/30/21 17:03 DC 03/29/21 20:10 Senna/Docusate Sodium (Senna Plus) 1 tab BID PO 03/28/21 21:00 04/03/21 21:28 Simvastatin (Zocor) 10 mg HS PO 03/28/21 21:00 04/03/21 21:29 Divalproex Sodium (Depakote) 500 mg BID PO 03/28/21 21:00 04/03/21 21:29 Glucagon (Glucagen Kit) 1 mg PRN Q15MIN PRN IM HYPOGLYCEMIA 03/28/21 20:00 Insulin Glargine (Lantus Syringe) 14 unit QHS SQ 03/28/21 21:00 04/03/21 21:31 Non-Formulary Medication (Insulin Lispro (Humalog)) 10 unit TIDAC SQ 03/29/21 07:30 03/30/21 07:58 DC 03/29/21 11:30 Magnesium Hydroxide (Milk Of Magnesia) 2,400 mg PRN QHS PRN PO CONSTIPATION 03/28/21 20:00 Guaifenesin (Guaifenesin) 400 mg PRN Q4HRS PRN PO COUGH 03/28/21 20:00 Ondansetron HCl (Zofran Odt) 4 mg PRN Q6HRS PRN PO NAUSEA/VOMITING 03/28/21 20:00 Amoxicillin (Amoxil) 500 mg [id number] PO 04/05/21 22:00 03/29/21 19:30 DC Amoxicillin (Amoxil) 500 mg [id number] PO 03/29/21 21:00 04/05/21 21:01 04/03/21 21:29 Bupropion HCl (Wellbutrin Xl) 150 mg DAILY PO 03/30/21 09:00 04/01/21 16:43 DC 04/01/21 08:32 Lactobacillus Rhamnosus (Culturelle) 1 cap BID PO 03/30/21 09:00 04/03/21 21:29 Insulin Human Lispro (HumaLOG) 10 units TIDWMEALS SQ 03/30/21 08:00 04/03/21 18:01 Quetiapine Fumarate (SEROquel) 100 mg QHS PO 03/30/21 21:00 04/03/21 21:29 Bupropion HCl (Wellbutrin Xl) 300 mg DAILY PO 04/02/21 09:00 04/03/21 08:20 I have reviewed the current psychotropics carefully including drug interactions. Risk benefit ratio favors no change other than as noted in my dictated progress note. Diagnosis: Problems: (1) Mild cognitive impairment (2) Major depressive disorder with psychotic features (3) Anxiety disorder (4) Impulse control disorder JESSICA TREADWELL MD Apr 03, 2021 22:05
[2021-04-04 06:22] VITALS: BP 138/71
[2021-04-04] MEDS: DIVALPROEX SODIUM 250 MG TABLET.DR. PO SCH ×2 (08:28→19:54)
[2021-04-04] MEDS: AMOXICILLIN 250 MG CAPSULE PO SCH ×3 (08:28→19:55)
[2021-04-04] MEDS: DULoxetine HCL 60 MG CAPSULE.DR PO SCH (08:28)
[2021-04-04] MEDS: buPROPion XL 150 MG TAB.ER.24H PO SCH (08:28)
[2021-04-04] MEDS: POLYETHYLENE GLYCOL 3350 17 GM PACKET. PO SCH (08:28)
[2021-04-04] MEDS: ASPIRIN ENTERIC COATED 81 MG TABLET.DR. PO SCH (08:29)
[2021-04-04] MEDS: LACTOBACILLUS RHAMNOSUS GG 1 CAPSULE. PO SCH ×2 (08:29→19:54)
[2021-04-04] MEDS: LISINOPRIL 10 MG TABLET PO SCH (08:29)
[2021-04-04] MEDS: MEMANTINE 10 MG TABLET. PO SCH ×2 (08:29→19:55)
[2021-04-04] MEDS: SENNOSIDES/DOCUSATE 8.6/50MG TABLET. PO SCH ×2 (08:29→19:54)
[2021-04-04] MEDS: FLUTICASONE 50MCG/NASAL SPRAY 16GM BOTTLE. NS SCH (08:36)
[2021-04-04] MEDS: INSULIN LISPRO 300 UNITS/3 ML VIAL. SQ SCH ×3 (08:36→17:00)
--- NOTE | 2021-04-04 11:51 | NUR ---
Nursing Note: Pt. got up and came to breakfast this morning. He was calm, cooperative, and medication compliant. Pt. went back to bed after breakfast. He continues to have a flat affect and wants to nap about half of the day. Pt. does not interact much with other patients and only responds with 1-2 word answers to nursing.
[2021-04-04 16:02] VITALS: BP 135/85
[2021-04-04] MEDS: ACETAMINOPHEN 500 MG TABLET PO PRN (17:44)
[2021-04-04] MEDS: SIMVASTATIN 10 MG TABLET PO SCH (19:54)
[2021-04-04] MEDS: MIRTAZAPINE ODT 15 MG TAB.RAPDIS. PO SCH (19:55)
[2021-04-04] MEDS: QUEtiapine 100 MG TABLET. PO SCH (19:55)
[2021-04-04] MEDS: INSULIN GLARGINE SYRINGE. SQ SCH (20:03)
--- NOTE | 2021-04-04 22:17 | PDOC ---
Exam Note: Sandoval Note: Please also refer to the separate dictated note~for this date of service dictated separately.~Patient seen individually. Discussed the patient with Nursing staff reviewed the chart.~Reviewed interim history and current functioning. Reviewed vital signs,~Labs/ Radiology~and current medications noted below. Continue current treatment with the changes noted in the dictated addendum note Assessment: Vital Signs/I&O: Vital Signs Date Time Temp Pulse Resp B/P (MAP) Pulse Ox O2 Delivery O2 Flow Rate FiO2 04/04/21 16:02 97.3 83 18 135/85 (102) 95 04/02/21 06:02 Room Air I & O 04/03/21 04/03/21 04/04/21 14:59 22:59 06:59 Intake Total 840 ml 720 ml Balance 840 ml 720 ml Labs: Laboratory Tests Test 04/04/21 07:50 04/04/21 11:48 04/04/21 17:18 04/04/21 19:07 Glucose (Fingerstick) 145 mg/dL (70-99) H 190 mg/dL (70-99) H 63 mg/dL (70-99) L 123 mg/dL (70-99) H Current Medications: Meds: Laboratory Tests Test 04/04/21 07:50 04/04/21 11:48 04/04/21 17:18 04/04/21 19:07 Glucose (Fingerstick) 145 mg/dL 190 mg/dL 63 mg/dL 123 mg/dL Current Medications Medications (Trade) Dose Ordered Sig/John Route PRN Reason Start Time Stop Time Status Last Admin Dose Admin Acetaminophen (Tylenol) 1,000 mg PRN Q6HRS PRN PO MILD PAIN 1-3 03/28/21 19:45 04/04/21 17:44 Aspirin (Aspirin Enteric Coated) 81 mg DAILY PO 03/29/21 09:00 04/04/21 08:29 Bisacodyl (Dulcolax Supp) 10 mg PRN Q48HR PRN RC CONSTIPATION 03/28/21 19:45 Duloxetine HCl (Cymbalta) 60 mg DAILY PO 03/29/21 09:00 04/04/21 08:28 Fluticasone Propionate (Flonase) 2 spray DAILY NS 03/29/21 09:00 04/02/21 08:24 Lisinopril (Prinivil) 10 mg DAILY PO 03/29/21 09:00 04/04/21 08:29 Al Hydroxide/Mg Hydroxide (Mylanta Plus Xs) 15 ml PRN AFTMEALHC PRN PO DYSPEPSIA 03/28/21 19:45 Memantine (Namenda) 10 mg BID PO 03/28/21 21:00 04/04/21 19:55 Multi-Ingredient Ointment (Analgesic [place]) 1 nila PRN QID PRN TP MUSCLE PAIN 03/28/21 19:45 Mirtazapine (Remeron Nasra-Tab) 15 mg HS PO 03/28/21 21:00 04/04/21 19:55 Polyethylene Glycol (miraLAX) 17 gm DAILY PO 03/29/21 09:00 04/04/21 08:28 Quetiapine Fumarate (SEROquel) 75 mg QHS PO 03/28/21 21:00 03/30/21 17:03 DC 03/29/21 20:10 Senna/Docusate Sodium (Senna Plus) 1 tab BID PO 03/28/21 21:00 04/04/21 19:54 Simvastatin (Zocor) 10 mg HS PO 03/28/21 21:00 04/04/21 19:54 Divalproex Sodium (Depakote) 500 mg BID PO 03/28/21 21:00 04/04/21 19:54 Glucagon (Glucagen Kit) 1 mg PRN Q15MIN PRN IM HYPOGLYCEMIA 03/28/21 20:00 Insulin Glargine (Lantus Syringe) 14 unit QHS SQ 03/28/21 21:00 04/04/21 20:03 Non-Formulary Medication (Insulin Lispro (Humalog)) 10 unit TIDAC SQ 03/29/21 07:30 03/30/21 07:58 DC 03/29/21 11:30 Magnesium Hydroxide (Milk Of Magnesia) 2,400 mg PRN QHS PRN PO CONSTIPATION 03/28/21 20:00 Guaifenesin (Guaifenesin) 400 mg PRN Q4HRS PRN PO COUGH 03/28/21 20:00 Ondansetron HCl (Zofran Odt) 4 mg PRN Q6HRS PRN PO NAUSEA/VOMITING 03/28/21 20:00 Amoxicillin (Amoxil) 500 mg [id number] PO 04/05/21 22:00 03/29/21 19:30 DC Amoxicillin (Amoxil) 500 mg [id number] PO 03/29/21 21:00 04/05/21 21:01 04/04/21 19:55 Bupropion HCl (Wellbutrin Xl) 150 mg DAILY PO 03/30/21 09:00 04/01/21 16:43 DC 04/01/21 08:32 Lactobacillus Rhamnosus (Culturelle) 1 cap BID PO 03/30/21 09:00 04/04/21 19:54 Insulin Human Lispro (HumaLOG) 10 units TIDWMEALS SQ 03/30/21 08:00 04/04/21 12:30 Quetiapine Fumarate (SEROquel) 100 mg QHS PO 03/30/21 21:00 04/04/21 19:55 Bupropion HCl (Wellbutrin Xl) 300 mg DAILY PO 04/02/21 09:00 04/04/21 08:28 I have reviewed the current psychotropics carefully including drug interactions. Risk benefit ratio favors no change other than as noted in my dictated progress note. Diagnosis: Problems: (1) Mild cognitive impairment (2) Major depressive disorder with psychotic features (3) Anxiety disorder (4) Impulse control disorder JESSICA TREADWELL MD Apr 04, 2021 22:17
--- NOTE | 2021-04-05 02:52 | NUR ---
Last evening pt sat in the day room until going to bed. He was more interactive with staff and not irritable as he was last 2 nights. Meds were taken whole without difficulty. He denies pain at this time and has had no behaviors tonight.
[2021-04-05 05:51] VITALS: BP 163/75
--- NOTE | 2021-04-05 08:15 | PDOC ---
Exam Note: Sandoval Note: This note is a late entry for 04/03/2021 covers elements not covered in my initial note. Subjective: The patient was seen individually in the evening of 04/03/2021 with Mason MENENDEZ, discussed and reviewed the chart. The patient slept 5-1/2 hours previous night. The patient has been somewhat grumpy, less verbally interactive, irritable at times. Nursing staff inadvertently hit his wheelchair with the mobile nursing station. It just shook the wheelchair slightly but the patient is somewhat irritable about this, partly understandable. I met with him in the dayroom. Review of Systems: Ambulation impaired in wheelchair. No CV, , pulmonary, eye, ENT system symptoms on review. Mental Status Exam: The patient is oriented to himself and situation. Speech is coherent, has some latency. Abstraction fair. Computation impaired. Language function intact. Mood and affect somewhat withdrawn, little more animated than before. No suicidal or homicidal ideation. Laboratory Data: Reviewed. Impression: Major depressive disorder with psychotic features. Mild cognitive impairment. Anxiety disorder unspecified. Impulse control disorder unspecified. Plan: Continue current psychotropics. We have increased Wellbutrin XL to 300 mg a day. Valproic acid level is therapeutic. Continue Remeron, Seroquel and Namenda. Rest unchanged for now. Assessment: Vital Signs/I&O: Vital Signs Date Time Temp Pulse Resp B/P (MAP) Pulse Ox O2 Delivery O2 Flow Rate FiO2 04/05/21 05:51 97.0 18 18 163/75 (104) 93 04/02/21 06:02 Room Air I & O 04/04/21 04/04/21 04/05/21 15:00 23:00 07:00 Intake Total 720 ml 480 ml Balance 720 ml 480 ml Labs: Laboratory Tests Test 04/04/21 11:48 04/04/21 17:18 04/04/21 19:07 04/05/21 07:21 Glucose (Fingerstick) 190 mg/dL (70-99) H 63 mg/dL (70-99) L 123 mg/dL (70-99) H 110 mg/dL (70-99) H Current Medications: Meds: Laboratory Tests Test 04/04/21 11:48 04/04/21 17:18 04/04/21 19:07 04/05/21 07:21 Glucose (Fingerstick) 190 mg/dL 63 mg/dL 123 mg/dL 110 mg/dL Current Medications Medications (Trade) Dose Ordered Sig/John Route PRN Reason Start Time Stop Time Status Last Admin Dose Admin Acetaminophen (Tylenol) 1,000 mg PRN Q6HRS PRN PO MILD PAIN 1-3 03/28/21 19:45 04/04/21 17:44 Aspirin (Aspirin Enteric Coated) 81 mg DAILY PO 03/29/21 09:00 04/04/21 08:29 Bisacodyl (Dulcolax Supp) 10 mg PRN Q48HR PRN RC CONSTIPATION 03/28/21 19:45 Duloxetine HCl (Cymbalta) 60 mg DAILY PO 03/29/21 09:00 04/04/21 08:28 Fluticasone Propionate (Flonase) 2 spray DAILY NS 03/29/21 09:00 04/02/21 08:24 Lisinopril (Prinivil) 10 mg DAILY PO 03/29/21 09:00 04/04/21 08:29 Al Hydroxide/Mg Hydroxide (Mylanta Plus Xs) 15 ml PRN AFTMEALHC PRN PO DYSPEPSIA 03/28/21 19:45 Memantine (Namenda) 10 mg BID PO 03/28/21 21:00 04/04/21 19:55 Multi-Ingredient Ointment (Analgesic [place]) 1 nila PRN QID PRN TP MUSCLE PAIN 03/28/21 19:45 Mirtazapine (Remeron Nasra-Tab) 15 mg HS PO 03/28/21 21:00 04/04/21 19:55 Polyethylene Glycol (miraLAX) 17 gm DAILY PO 03/29/21 09:00 04/04/21 08:28 Quetiapine Fumarate (SEROquel) 75 mg QHS PO 03/28/21 21:00 03/30/21 17:03 DC 03/29/21 20:10 Senna/Docusate Sodium (Senna Plus) 1 tab BID PO 03/28/21 21:00 04/04/21 19:54 Simvastatin (Zocor) 10 mg HS PO 03/28/21 21:00 04/04/21 19:54 Divalproex Sodium (Depakote) 500 mg BID PO 03/28/21 21:00 04/04/21 19:54 Glucagon (Glucagen Kit) 1 mg PRN Q15MIN PRN IM HYPOGLYCEMIA 03/28/21 20:00 Insulin Glargine (Lantus Syringe) 14 unit QHS SQ 03/28/21 21:00 04/04/21 20:03 Non-Formulary Medication (Insulin Lispro (Humalog)) 10 unit TIDAC SQ 03/29/21 07:30 03/30/21 07:58 DC 03/29/21 11:30 Magnesium Hydroxide (Milk Of Magnesia) 2,400 mg PRN QHS PRN PO CONSTIPATION 03/28/21 20:00 Guaifenesin (Guaifenesin) 400 mg PRN Q4HRS PRN PO COUGH 03/28/21 20:00 Ondansetron HCl (Zofran Odt) 4 mg PRN Q6HRS PRN PO NAUSEA/VOMITING 03/28/21 20:00 Amoxicillin (Amoxil) 500 mg [id number] PO 04/05/21 22:00 03/29/21 19:30 DC Amoxicillin (Amoxil) 500 mg [id number] PO 03/29/21 21:00 04/05/21 21:01 04/04/21 19:55 Bupropion HCl (Wellbutrin Xl) 150 mg DAILY PO 03/30/21 09:00 04/01/21 16:43 DC 04/01/21 08:32 Lactobacillus Rhamnosus (Culturelle) 1 cap BID PO 03/30/21 09:00 04/04/21 19:54 Insulin Human Lispro (HumaLOG) 10 units TIDWMEALS SQ 03/30/21 08:00 04/04/21 12:30 Quetiapine Fumarate (SEROquel) 100 mg QHS PO 03/30/21 21:00 04/04/21 19:55 Bupropion HCl (Wellbutrin Xl) 300 mg DAILY PO 04/02/21 09:00 04/04/21 08:28 I have reviewed the current psychotropics carefully including drug interactions. Risk benefit ratio favors no change other than as noted in my dictated progress note. Diagnosis: Problems: (1) Major depressive disorder with psychotic features (2) Anxiety disorder (3) Impulse control disorder (4) Mild cognitive impairment JESSICA TREADWELL MD Apr 05, 2021 08:15
--- NOTE | 2021-04-05 08:37 | PDOC ---
Exam Note: Sandoval Note: This note is a late entry for 04/04/2021 covers elements not covered in my initial note. Subjective: The patient was seen individually in the evening of 04/04/2021 with Mason MENENDEZ, discussed and reviewed the chart. The patient slept 7-1/2 hours previous night. The patient has been out of the bed, 50% of the time up for meals, somewhat flat, withdrawn, weak, took 2 people to toilet him and compliant with medications. Review of Systems: Ambulation impaired in wheelchair. No CV, , pulmonary, eye, ENT system symptoms on review. Mental Status Exam: The patient is oriented to himself and situation. Speech is coherent, has some latency. Often response is monosyllabic. Abstraction fair. Computation impaired. Language function intact. Mood and affect somewhat withdrawn. No suicidal or homicidal ideation. Laboratory Data: Reviewed. Impression: Major depressive disorder with psychotic features. Mild cognitive impairment. Anxiety disorder unspecified. Impulse control disorder unspecified. Plan: Continue current psychotropics. Valproic acid level is therapeutic at 56. Wellbutrin XL has been increased to 300 mg a day. Maintain Namenda 10 mg b.i.d., Remeron 15 mg h.s., Seroquel 100 mg h.s. Rest unchanged for now. Assessment: Vital Signs/I&O: Vital Signs Date Time Temp Pulse Resp B/P (MAP) Pulse Ox O2 Delivery O2 Flow Rate FiO2 04/05/21 05:51 97.0 18 18 163/75 (104) 93 04/02/21 06:02 Room Air I & O 04/04/21 04/04/21 04/05/21 15:00 23:00 07:00 Intake Total 720 ml 480 ml Balance 720 ml 480 ml Labs: Laboratory Tests Test 04/04/21 11:48 04/04/21 17:18 04/04/21 19:07 04/05/21 07:21 Glucose (Fingerstick) 190 mg/dL (70-99) H 63 mg/dL (70-99) L 123 mg/dL (70-99) H 110 mg/dL (70-99) H Current Medications: Meds: Laboratory Tests Test 04/04/21 11:48 04/04/21 17:18 04/04/21 19:07 04/05/21 07:21 Glucose (Fingerstick) 190 mg/dL 63 mg/dL 123 mg/dL 110 mg/dL Current Medications Medications (Trade) Dose Ordered Sig/John Route PRN Reason Start Time Stop Time Status Last Admin Dose Admin Acetaminophen (Tylenol) 1,000 mg PRN Q6HRS PRN PO MILD PAIN 1-3 03/28/21 19:45 04/04/21 17:44 Aspirin (Aspirin Enteric Coated) 81 mg DAILY PO 03/29/21 09:00 04/04/21 08:29 Bisacodyl (Dulcolax Supp) 10 mg PRN Q48HR PRN RC CONSTIPATION 03/28/21 19:45 Duloxetine HCl (Cymbalta) 60 mg DAILY PO 03/29/21 09:00 04/04/21 08:28 Fluticasone Propionate (Flonase) 2 spray DAILY NS 03/29/21 09:00 04/02/21 08:24 Lisinopril (Prinivil) 10 mg DAILY PO 03/29/21 09:00 04/04/21 08:29 Al Hydroxide/Mg Hydroxide (Mylanta Plus Xs) 15 ml PRN AFTMEALHC PRN PO DYSPEPSIA 03/28/21 19:45 Memantine (Namenda) 10 mg BID PO 03/28/21 21:00 04/04/21 19:55 Multi-Ingredient Ointment (Analgesic [place]) 1 nila PRN QID PRN TP MUSCLE PAIN 03/28/21 19:45 Mirtazapine (Remeron Nasra-Tab) 15 mg HS PO 03/28/21 21:00 04/04/21 19:55 Polyethylene Glycol (miraLAX) 17 gm DAILY PO 03/29/21 09:00 04/04/21 08:28 Quetiapine Fumarate (SEROquel) 75 mg QHS PO 03/28/21 21:00 03/30/21 17:03 DC 03/29/21 20:10 Senna/Docusate Sodium (Senna Plus) 1 tab BID PO 03/28/21 21:00 04/04/21 19:54 Simvastatin (Zocor) 10 mg HS PO 03/28/21 21:00 04/04/21 19:54 Divalproex Sodium (Depakote) 500 mg BID PO 03/28/21 21:00 04/04/21 19:54 Glucagon (Glucagen Kit) 1 mg PRN Q15MIN PRN IM HYPOGLYCEMIA 03/28/21 20:00 Insulin Glargine (Lantus Syringe) 14 unit QHS SQ 03/28/21 21:00 04/04/21 20:03 Non-Formulary Medication (Insulin Lispro (Humalog)) 10 unit TIDAC SQ 03/29/21 07:30 03/30/21 07:58 DC 03/29/21 11:30 Magnesium Hydroxide (Milk Of Magnesia) 2,400 mg PRN QHS PRN PO CONSTIPATION 03/28/21 20:00 Guaifenesin (Guaifenesin) 400 mg PRN Q4HRS PRN PO COUGH 03/28/21 20:00 Ondansetron HCl (Zofran Odt) 4 mg PRN Q6HRS PRN PO NAUSEA/VOMITING 03/28/21 20:00 Amoxicillin (Amoxil) 500 mg [id number] PO 04/05/21 22:00 03/29/21 19:30 DC Amoxicillin (Amoxil) 500 mg [id number] PO 03/29/21 21:00 04/05/21 21:01 04/04/21 19:55 Bupropion HCl (Wellbutrin Xl) 150 mg DAILY PO 03/30/21 09:00 04/01/21 16:43 DC 04/01/21 08:32 Lactobacillus Rhamnosus (Culturelle) 1 cap BID PO 03/30/21 09:00 04/04/21 19:54 Insulin Human Lispro (HumaLOG) 10 units TIDWMEALS SQ 03/30/21 08:00 04/04/21 12:30 Quetiapine Fumarate (SEROquel) 100 mg QHS PO 03/30/21 21:00 04/04/21 19:55 Bupropion HCl (Wellbutrin Xl) 300 mg DAILY PO 04/02/21 09:00 04/04/21 08:28 I have reviewed the current psychotropics carefully including drug interactions. Risk benefit ratio favors no change other than as noted in my dictated progress note. Diagnosis: Problems: (1) Mild cognitive impairment (2) Major depressive disorder with psychotic features (3) Impulse control disorder (4) Anxiety disorder JESSICA TREADWELL MD Apr 05, 2021 08:37
[2021-04-05] MEDS: INSULIN LISPRO 300 UNITS/3 ML VIAL. SQ SCH ×3 (08:41→17:00)
[2021-04-05] MEDS: DIVALPROEX SODIUM 250 MG TABLET.DR. PO SCH ×2 (08:42→20:05)
[2021-04-05] MEDS: buPROPion XL 150 MG TAB.ER.24H PO SCH (08:42)
[2021-04-05] MEDS: MEMANTINE 10 MG TABLET. PO SCH ×2 (08:42→20:05)
[2021-04-05] MEDS: ASPIRIN ENTERIC COATED 81 MG TABLET.DR. PO SCH (08:42)
[2021-04-05] MEDS: LACTOBACILLUS RHAMNOSUS GG 1 CAPSULE. PO SCH ×2 (08:42→20:05)
[2021-04-05] MEDS: SENNOSIDES/DOCUSATE 8.6/50MG TABLET. PO SCH ×2 (08:42→20:05)
[2021-04-05] MEDS: POLYETHYLENE GLYCOL 3350 17 GM PACKET. PO SCH (08:42)
[2021-04-05] MEDS: LISINOPRIL 10 MG TABLET PO SCH (08:43)
[2021-04-05] MEDS: DULoxetine HCL 60 MG CAPSULE.DR PO SCH (08:43)
[2021-04-05] MEDS: AMOXICILLIN 250 MG CAPSULE PO SCH ×3 (08:44→20:05)
[2021-04-05] MEDS: FLUTICASONE 50MCG/NASAL SPRAY 16GM BOTTLE. NS SCH (08:47)
--- NOTE | 2021-04-05 13:28 | NUR ---
Nursing Note: Pt. got up and came to breakfast this morning. He was calm, cooperative, and medication compliant. Pt spent majority of his day in his room or in his wheel chair right outside the doorway of his room. He continues to be withdrawn and flat.
[2021-04-05 16:05] VITALS: BP 128/68
[2021-04-05] MEDS: MIRTAZAPINE ODT 15 MG TAB.RAPDIS. PO SCH (20:05)
[2021-04-05] MEDS: SIMVASTATIN 10 MG TABLET PO SCH (20:05)
[2021-04-05] MEDS: QUEtiapine 100 MG TABLET. PO SCH (20:05)
[2021-04-05] MEDS: INSULIN GLARGINE SYRINGE. SQ SCH (20:11)
[2021-04-05] MEDS ORDERED: AMOXICILLIN 250 MG CAPSULE PO SCH (22:00)
--- NOTE | 2021-04-05 22:11 | PDOC ---
Exam Note: [place]oval Note: Please also refer to the separate dictated note~for this date of service dictated separately.~Patient seen individually. Discussed the patient with Nursing staff reviewed the chart.~Reviewed interim history and current functioning. Reviewed vital signs,~Labs/ Radiology~and current medications noted below. Continue current treatment with the changes noted in the dictated addendum note Assessment: Vital Signs/I&O: Vital Signs Date Time Temp Pulse Resp B/P (MAP) Pulse Ox O2 Delivery O2 Flow Rate FiO2 04/05/21 16:05 98.2 68 16 128/68 (88) 92 04/02/21 06:02 Room Air I & O 04/04/21 04/04/21 04/05/21 15:00 23:00 07:00 Intake Total 720 ml 480 ml Balance 720 ml 480 ml Labs: Laboratory Tests Test 04/05/21 07:21 04/05/21 11:54 04/05/21 16:23 04/05/21 17:59 Glucose (Fingerstick) 110 mg/dL (70-99) H 190 mg/dL (70-99) H 70 mg/dL (70-99) 75 mg/dL (70-99) Test 04/05/21 19:21 Glucose (Fingerstick) 184 mg/dL (70-99) H Current Medications: Meds: Laboratory Tests Test 04/05/21 07:21 04/05/21 11:54 04/05/21 16:23 04/05/21 17:59 Glucose (Fingerstick) 110 mg/dL 190 mg/dL 70 mg/dL 75 mg/dL Test 04/05/21 19:21 Glucose (Fingerstick) 184 mg/dL Current Medications Medications (Trade) Dose Ordered Sig/John Route PRN Reason Start Time Stop Time Status Last Admin Dose Admin Acetaminophen (Tylenol) 1,000 mg PRN Q6HRS PRN PO MILD PAIN 1-3 03/28/21 19:45 04/04/21 17:44 Aspirin (Aspirin Enteric Coated) 81 mg DAILY PO 03/29/21 09:00 04/05/21 08:42 Bisacodyl (Dulcolax Supp) 10 mg PRN Q48HR PRN RC CONSTIPATION 03/28/21 19:45 Duloxetine HCl (Cymbalta) 60 mg DAILY PO 03/29/21 09:00 04/05/21 08:43 Fluticasone Propionate (Flonase) 2 spray DAILY NS 03/29/21 09:00 04/02/21 08:24 Lisinopril (Prinivil) 10 mg DAILY PO 03/29/21 09:00 04/05/21 08:43 Al Hydroxide/Mg Hydroxide (Mylanta Plus Xs) 15 ml PRN AFTMEALHC PRN PO DYSPEPSIA 03/28/21 19:45 Memantine (Namenda) 10 mg BID PO 03/28/21 21:00 04/05/21 20:05 Multi-Ingredient Ointment (Analgesic [place]) 1 nila PRN QID PRN TP MUSCLE PAIN 03/28/21 19:45 Mirtazapine (Remeron Nasra-Tab) 15 mg HS PO 03/28/21 21:00 04/05/21 20:05 Polyethylene Glycol (miraLAX) 17 gm DAILY PO 03/29/21 09:00 04/05/21 08:42 Quetiapine Fumarate (SEROquel) 75 mg QHS PO 03/28/21 21:00 03/30/21 17:03 DC 03/29/21 20:10 Senna/Docusate Sodium (Senna Plus) 1 tab BID PO 03/28/21 21:00 04/05/21 20:05 Simvastatin (Zocor) 10 mg HS PO 03/28/21 21:00 04/05/21 20:05 Divalproex Sodium (Depakote) 500 mg BID PO 03/28/21 21:00 04/05/21 20:05 Glucagon (Glucagen Kit) 1 mg PRN Q15MIN PRN IM HYPOGLYCEMIA 03/28/21 20:00 Insulin Glargine (Lantus Syringe) 14 unit QHS SQ 03/28/21 21:00 04/05/21 20:11 Non-Formulary Medication (Insulin Lispro (Humalog)) 10 unit TIDAC SQ 03/29/21 07:30 03/30/21 07:58 DC 03/29/21 11:30 Magnesium Hydroxide (Milk Of Magnesia) 2,400 mg PRN QHS PRN PO CONSTIPATION 03/28/21 20:00 Guaifenesin (Guaifenesin) 400 mg PRN Q4HRS PRN PO COUGH 03/28/21 20:00 Ondansetron HCl (Zofran Odt) 4 mg PRN Q6HRS PRN PO NAUSEA/VOMITING 03/28/21 20:00 Amoxicillin (Amoxil) 500 mg [id number] PO 04/05/21 22:00 03/29/21 19:30 DC Amoxicillin (Amoxil) 500 mg [id number] PO 03/29/21 21:00 04/05/21 21:01 DC 04/05/21 20:05 Bupropion HCl (Wellbutrin Xl) 150 mg DAILY PO 03/30/21 09:00 04/01/21 16:43 DC 04/01/21 08:32 Lactobacillus Rhamnosus (Culturelle) 1 cap BID PO 03/30/21 09:00 04/05/21 20:05 Insulin Human Lispro (HumaLOG) 10 units TIDWMEALS SQ 03/30/21 08:00 04/05/21 12:00 Quetiapine Fumarate (SEROquel) 100 mg QHS PO 03/30/21 21:00 04/05/21 20:05 Bupropion HCl (Wellbutrin Xl) 300 mg DAILY PO 04/02/21 09:00 04/05/21 08:42 I have reviewed the current psychotropics carefully including drug interactions. Risk benefit ratio favors no change other than as noted in my dictated progress note. Diagnosis: Problems: (1) Major depressive disorder with psychotic features (2) Anxiety disorder (3) Impulse control disorder (4) Mild cognitive impairment JESSICA TREADWELL MD Apr 05, 2021 22:11
--- NOTE | 2021-04-05 22:57 | NUR ---
Patient was cooperative in the shower and then went to bed. He was irritable during med pass and told nurse "don't let the door hit you in the ass on the way out". Patient was med compliant. When asked if he had any pain, patient stated "I always have pain in my back, where my surgical scar is". He was unable to tell nurse what/when he had surgery and did not want the tylenol that nurse offered. Patient has been sleeping soundly, no s/s pain noted.
[2021-04-06] MEDS: LISINOPRIL 10 MG TABLET PO SCH (05:51)
--- NOTE | 2021-04-06 05:51 | NUR ---
Patient AM BP 162/94. Gave his 0900 scheduled lisinopril at 0550. Will continue to monitor.
[2021-04-06 06:08] VITALS: BP 162/94
--- NOTE | 2021-04-06 06:53 | PDOC ---
Exam Note: [place]oval Note: This note is a late entry for 04/05/2021 covers elements not covered in my initial note. Subjective: The patient was seen individually in the evening of 04/05/2021 with Mason MENENDEZ, discussed and reviewed the chart. The patient slept 7-1/4hours previous night. The patient has been grouchy, spends much time in his wheelchair, withdrawn, very negative, compliant with medications, quiet. I met with him in his room. The patient was somewhat sedated but did respond to my questions. Review of Systems: Ambulation impaired in wheelchair. No CV, , pulmonary, eye, ENT system symptoms on review. Mental Status Exam: The patient is oriented to himself and situation. Speech is coherent, has some latency. Often response is monosyllabic. Abstraction fair. Computation impaired. Language function intact. Mood and affect is still dysphoric, depressed. No suicidal or homicidal ideation. Laboratory Data: Reviewed. Impression: Major depressive disorder with psychotic features. Mild cognitive impairment. Anxiety disorder unspecified. Impulse control disorder unspecified. Plan: Continue current psychotropics. Adjust as clinically indicated. Assessment: Vital Signs/I&O: Vital Signs Date Time Temp Pulse Resp B/P (MAP) Pulse Ox O2 Delivery O2 Flow Rate FiO2 04/06/21 06:08 97.6 66 18 162/94 (116) 95 04/02/21 06:02 Room Air I & O 04/05/21 04/05/21 04/06/21 15:00 23:00 07:00 Intake Total 360 ml 600 ml Balance 360 ml 600 ml Labs: Laboratory Tests Test 04/05/21 07:04/05/21 11:54 04/05/21 16:23 04/05/21 17:59 Glucose (Fingerstick) 110 mg/dL (70-99) H 190 mg/dL (70-99) H 70 mg/dL (70-99) 75 mg/dL (70-99) Test 04/05/21 19:21 Glucose (Fingerstick) 184 mg/dL (70-99) H Current Medications: Meds: Laboratory Tests Test 04/05/21 07:21 04/05/21 11:54 04/05/21 16:23 04/05/21 17:59 Glucose (Fingerstick) 110 mg/dL 190 mg/dL 70 mg/dL 75 mg/dL Test 04/05/21 19:21 Glucose (Fingerstick) 184 mg/dL Current Medications Medications (Trade) Dose Ordered Sig/John Route PRN Reason Start Time Stop Time Status Last Admin Dose Admin Acetaminophen (Tylenol) 1,000 mg PRN Q6HRS PRN PO MILD PAIN 1-3 03/28/21 19:45 04/04/21 17:44 Aspirin (Aspirin Enteric Coated) 81 mg DAILY PO 03/29/21 09:00 04/05/21 08:42 Bisacodyl (Dulcolax Supp) 10 mg PRN Q48HR PRN RC CONSTIPATION 03/28/21 19:45 Duloxetine HCl (Cymbalta) 60 mg DAILY PO 03/29/21 09:00 04/05/21 08:43 Fluticasone Propionate (Flonase) 2 spray DAILY NS 03/29/21 09:00 04/02/21 08:24 Lisinopril (Prinivil) 10 mg DAILY PO 03/29/21 09:00 04/06/21 05:51 Al Hydroxide/Mg Hydroxide (Mylanta Plus Xs) 15 ml PRN AFTMEALHC PRN PO DYSPEPSIA 03/28/21 19:45 Memantine (Namenda) 10 mg BID PO 03/28/21 21:00 04/05/21 20:05 Multi-Ingredient Ointment (Analgesic [place]) 1 nila PRN QID PRN TP MUSCLE PAIN 03/28/21 19:45 Mirtazapine (Remeron Nasra-Tab) 15 mg HS PO 03/28/21 21:00 04/05/21 20:05 Polyethylene Glycol (miraLAX) 17 gm DAILY PO 03/29/21 09:00 04/05/21 08:42 Quetiapine Fumarate (SEROquel) 75 mg QHS PO 03/28/21 21:00 03/30/21 17:03 DC 03/29/21 20:10 Senna/Docusate Sodium (Senna Plus) 1 tab BID PO 03/28/21 21:00 04/05/21 20:05 Simvastatin (Zocor) 10 mg HS PO 03/28/21 21:00 04/05/21 20:05 Divalproex Sodium (Depakote) 500 mg BID PO 03/28/21 21:00 04/05/21 20:05 Glucagon (Glucagen Kit) 1 mg PRN Q15MIN PRN IM HYPOGLYCEMIA 03/28/21 20:00 Insulin Glargine (Lantus Syringe) 14 unit QHS SQ 03/28/21 21:00 04/05/21 20:11 Non-Formulary Medication (Insulin Lispro (Humalog)) 10 unit TIDAC SQ 03/29/21 07:30 03/30/21 07:58 DC 03/29/21 11:30 Magnesium Hydroxide (Milk Of Magnesia) 2,400 mg PRN QHS PRN PO CONSTIPATION 03/28/21 20:00 Guaifenesin (Guaifenesin) 400 mg PRN Q4HRS PRN PO COUGH 03/28/21 20:00 Ondansetron HCl (Zofran Odt) 4 mg PRN Q6HRS PRN PO NAUSEA/VOMITING 03/28/21 20:00 Amoxicillin (Amoxil) 500 mg [id number] PO 04/05/21 22:00 03/29/21 19:30 DC Amoxicillin (Amoxil) 500 mg [id number] PO 03/29/21 21:00 04/05/21 21:01 DC 04/05/21 20:05 Bupropion HCl (Wellbutrin Xl) 150 mg DAILY PO 03/30/21 09:00 04/01/21 16:43 DC 04/01/21 08:32 Lactobacillus Rhamnosus (Culturelle) 1 cap BID PO 03/30/21 09:00 04/05/21 20:05 Insulin Human Lispro (HumaLOG) 10 units TIDWMEALS SQ 03/30/21 08:00 04/05/21 12:00 Quetiapine Fumarate (SEROquel) 100 mg QHS PO 03/30/21 21:00 04/05/21 20:05 Bupropion HCl (Wellbutrin Xl) 300 mg DAILY PO 04/02/21 09:00 04/05/21 08:42 I have reviewed the current psychotropics carefully including drug interactions. Risk benefit ratio favors no change other than as noted in my dictated progress note. Diagnosis: Problems: (1) Mild cognitive impairment (2) Major depressive disorder with psychotic features (3) Anxiety disorder (4) Impulse control disorder JESSICA TREADWELL MD Apr 06, 2021 06:53
[2021-04-06 06:58] LABS: BASO % 0 % (0-3); EOS # 0.1 x10^3/uL (0.0-0.7); EOS % 2 % (0-3); HEMATOCRIT 33.3 % (39.0-53.0); HEMOGLOBIN 11.4 g/dL (13.0-17.5); LYMPH # 1.8 x10^3/uL (1.0-4.8); LYMPH % 26 % (24-48); MEAN CORPUSCULAR HEMOGLOBIN 33 pg (25-35); MEAN CORPUSCULAR HGB CONC 34 g/dL (31-37); MEAN CORPUSCULAR VOLUME 97 fL (79-100); MONO # 0.7 x10^3/uL (0.0-1.1); MONO % 10 % (0-9); NEUT # 4.4 x10^3uL (1.8-7.7); NEUT % 62 % (31-73); PLATELET COUNT 176 x10^3/uL (140-400); RED BLOOD COUNT 3.44 x10^6/uL (4.30-5.70); RED CELL DISTRIBUTION WIDTH 14.8 % (11.5-14.5)
[2021-04-06 07:23] LABS: ALBUMIN 2.8 g/dL (3.4-5.0); ALBUMIN/GLOBULIN RATIO 0.8 (1.0-1.7); CALCIUM 8.6 mg/dL (8.5-10.1); CREATININE 1.3 mg/dL (0.7-1.3); GFR 53.5; TOTAL BILIRUBIN 0.3 mg/dL (0.2-1.0); TOTAL PROTEIN 6.5 g/dL (6.4-8.2)
[2021-04-06] MEDS: LACTOBACILLUS RHAMNOSUS GG 1 CAPSULE. PO SCH ×2 (08:36→20:49)
[2021-04-06] MEDS: buPROPion XL 150 MG TAB.ER.24H PO SCH (08:36)
[2021-04-06] MEDS: SENNOSIDES/DOCUSATE 8.6/50MG TABLET. PO SCH ×2 (08:36→20:49)
[2021-04-06] MEDS: POLYETHYLENE GLYCOL 3350 17 GM PACKET. PO SCH (08:36)
[2021-04-06] MEDS: DULoxetine HCL 60 MG CAPSULE.DR PO SCH (08:36)
[2021-04-06 08:37] LABS: % EOS 3 % (0-5); % LYMPHS 22 % (24-48); % MONOS 7 % (0-10); % MYELOS 8 % (0-0); % PROS 1 % (0-0); % SEGS 59 % (35-66)
[2021-04-06] MEDS: MEMANTINE 10 MG TABLET. PO SCH ×2 (08:37→20:49)
[2021-04-06] MEDS: DIVALPROEX SODIUM 250 MG TABLET.DR. PO SCH ×2 (08:37→20:49)
[2021-04-06] MEDS: ASPIRIN ENTERIC COATED 81 MG TABLET.DR. PO SCH (08:37)
[2021-04-06 08:38] LABS: PLT ESTIMATE ADEQUATE (ADEQUATE)
[2021-04-06] MEDS: FLUTICASONE 50MCG/NASAL SPRAY 16GM BOTTLE. NS SCH (09:00)
[2021-04-06] MEDS: INSULIN LISPRO 300 UNITS/3 ML VIAL. SQ SCH ×3 (09:13→17:21)
--- NOTE | 2021-04-06 10:06 | NUR ---
Pt continues to withdraw primarily to room. He remains flat in affect. He does not interact much with others, and instead will provide 1-2 word answers to assessment questions. He denies SI/HI/VH/AH/delusions/pain. He is compliant with whole medications. He is absent of verbal/physical aggression at this time. Plan of care continues, will pass to next shift.
--- NOTE | 2021-04-06 10:08 | NUR ---
SW received call from pt son John who wanted to follow up with his call from the nurse yesterday. He was concerned as when he was on the phone he heard the term "malignant" and was concerned it had to do with his brother. And no one would explain to him what was going on. SABRA explained that the hospitalist spoke with the GI specialist at [facility]. He did not feel re-admitting pt for a scope was pertinent at the moment and recommended that it be considered on an outpt basis once pt completed treatment on [facility]. Pt son was fine with that and did not understand why nursing wasn't able to just tell him that. John reports that the DON has left and is not sure who to discuss follow up with; SW mentioning contacting the SW with updates and possibly having discharge arrangements for later this week.
--- NOTE | 2021-04-06 14:30 | NUR ---
WEEKLY ACTIVITY THERAPY NOTE Date of Admission: 03/14/21 Date of AT Assessment: 03/17 Precipitating behaviors that initiated intake and admission: Patient was reported to believe that his money was being stolen, his dog was being murdered, trying to leave the facility, disoriented, being tearful and crying frequently, and having sexually inappropriate conversations with other residents. Goal aimed: increase socialization and engagement Initial Goal: Pt will participate in at least three individual or group Activity Therapy sessions per week. Goal repeated / Weekly progress towards goal: did not achieve, 1/3 Group participation level: 1 mod Weekly highlights: horseshoes and yodeling afternoon Behaviors observed: withdrawn to room, pleasant Plan: no change to goal Beneficial adaptations: socialization
[2021-04-06 15:46] VITALS: BP 159/96
[2021-04-06] MEDS: QUEtiapine 100 MG TABLET. PO SCH (20:49)
[2021-04-06] MEDS: SIMVASTATIN 10 MG TABLET PO SCH (20:49)
[2021-04-06] MEDS: MIRTAZAPINE ODT 15 MG TAB.RAPDIS. PO SCH (20:49)
[2021-04-06] MEDS: INSULIN GLARGINE SYRINGE. SQ SCH (20:56)
--- NOTE | 2021-04-06 21:26 | NUR ---
Patients blood sugar was 96 at 1900. He was given 2 juices and a snack, blood sugar was rechecked an hour later. Blood sugar was 98 at that time. Patient stated he "does not feel well" but would not elaborate. MARCIO [place] held at this time. Will continue to monitor.
--- NOTE | 2021-04-06 22:15 | PDOC ---
Exam Note: Sandoval Note: Please also refer to the separate dictated note~for this date of service dictated separately.~Patient seen individually. Discussed the patient with Nursing staff reviewed the chart.~Reviewed interim history and current functioning. Reviewed vital signs,~Labs/ Radiology~and current medications noted below. Continue current treatment with the changes noted in the dictated addendum note Assessment: Vital Signs/I&O: Vital Signs Date Time Temp Pulse Resp B/P (MAP) Pulse Ox O2 Delivery O2 Flow Rate FiO2 04/06/21 15:46 97.7 77 16 159/96 (117) 99 04/02/21 06:02 Room Air I & O 04/05/21 04/05/21 04/06/21 15:00 23:00 07:00 Intake Total 360 ml 600 ml Balance 360 ml 600 ml Labs: Laboratory Tests Test 04/06/21 06:23 04/06/21 07:26 04/06/21 11:14 04/06/21 16:39 White Blood Count 7.0 x10^3/uL (4.0-11.0) Red Blood Count 3.44 x10^6/uL (4.30-5.70) L Hemoglobin 11.4 g/dL (13.0-17.5) L Hematocrit 33.3 % (39.0-53.0) L Mean Corpuscular Volume 97 fL (79-100) Mean Corpuscular Hemoglobin 33 pg (25-35) Mean Corpuscular Hemoglobin Concent 34 g/dL (31-37) Red Cell Distribution Width 14.8 % (11.5-14.5) H Platelet Count 176 x10^3/uL (140-400) Neutrophils (%) (Auto) 62 % (31-73) Lymphocytes (%) (Auto) 26 % (24-48) Monocytes (%) (Auto) 10 % (0-9) H Eosinophils (%) (Auto) 2 % (0-3) Basophils (%) (Auto) 0 % (0-3) Neutrophils # (Auto) 4.4 x10^3uL (1.8-7.7) Lymphocytes # (Auto) 1.8 x10^3/uL (1.0-4.8) Monocytes # (Auto) 0.7 x10^3/uL (0.0-1.1) Eosinophils # (Auto) 0.1 x10^3/uL (0.0-0.7) Basophils # (Auto) 0.0 x10^3/uL (0.0-0.2) Segmented Neutrophils % 59 % (35-66) Lymphocytes % 22 % (24-48) L Monocytes % 7 % (0-10) Eosinophils % 3 % (0-5) Myelocytes % 8 % (0-0) H Promyelocytes % 1 % (0-0) H Platelet Estimate Adequate (ADEQUATE) Sodium Level 146 mmol/L (136-145) H Potassium Level 5.0 mmol/L (3.5-5.1) Chloride Level 108 mmol/L (98-107) H Carbon Dioxide Level 30 mmol/L (21-32) Anion Gap 8 (6-14) Blood Urea Nitrogen 24 mg/dL (8-26) Creatinine 1.3 mg/dL (0.7-1.3) Estimated GFR (Cockcroft-Gault) 53.5 BUN/Creatinine Ratio 18 (6-20) Glucose Level 136 mg/dL (70-99) H Calcium Level 8.6 mg/dL (8.5-10.1) Total Bilirubin 0.3 mg/dL (0.2-1.0) Aspartate Amino Transferase (AST) 16 U/L (15-37) Alanine Aminotransferase (ALT) 18 U/L (16-63) Alkaline Phosphatase 95 U/L (46-116) Total Protein 6.5 g/dL (6.4-8.2) Albumin 2.8 g/dL (3.4-5.0) L Albumin/Globulin Ratio 0.8 (1.0-1.7) L Glucose (Fingerstick) 148 mg/dL (70-99) H 231 mg/dL (70-99) H 127 mg/dL (70-99) H Test 04/06/21 18:57 04/06/21 20:55 Glucose (Fingerstick) 96 mg/dL (70-99) 98 mg/dL (70-99) Current Medications: Meds: Laboratory Tests Test 04/06/21 06:23 04/06/21 07:26 04/06/21 11:14 04/06/21 16:39 White Blood Count 7.0 x10^3/uL Red Blood Count 3.44 x10^6/uL Hemoglobin 11.4 g/dL Hematocrit 33.3 % Mean Corpuscular Volume 97 fL Mean Corpuscular Hemoglobin 33 pg Mean Corpuscular Hemoglobin Concent 34 g/dL Red Cell Distribution Width 14.8 % Platelet Count 176 x10^3/uL Neutrophils (%) (Auto) 62 % Lymphocytes (%) (Auto) 26 % Monocytes (%) (Auto) 10 % Eosinophils (%) (Auto) 2 % Basophils (%) (Auto) 0 % Neutrophils # (Auto) 4.4 x10^3uL Lymphocytes # (Auto) 1.8 x10^3/uL Monocytes # (Auto) 0.7 x10^3/uL Eosinophils # (Auto) 0.1 x10^3/uL Basophils # (Auto) 0.0 x10^3/uL Segmented Neutrophils % 59 % Lymphocytes % 22 % Monocytes % 7 % Eosinophils % 3 % Myelocytes % 8 % Promyelocytes % 1 % Platelet Estimate Adequate Sodium Level 146 mmol/L Potassium Level 5.0 mmol/L Chloride Level 108 mmol/L Carbon Dioxide Level 30 mmol/L Anion Gap 8 Blood Urea Nitrogen 24 mg/dL Creatinine 1.3 mg/dL Estimated GFR (Cockcroft-Gault) 53.5 BUN/Creatinine Ratio 18 Glucose Level 136 mg/dL Calcium Level 8.6 mg/dL Total Bilirubin 0.3 mg/dL Aspartate Amino Transf (AST/SGOT) 16 U/L Alanine Aminotransferase (ALT/SGPT) 18 U/L Alkaline Phosphatase 95 U/L Total Protein 6.5 g/dL Albumin 2.8 g/dL Albumin/Globulin Ratio 0.8 Glucose (Fingerstick) 148 mg/dL 231 mg/dL 127 mg/dL Test 04/06/21 18:57 04/06/21 20:55 Glucose (Fingerstick) 96 mg/dL 98 mg/dL Current Medications Medications (Trade) Dose Ordered Sig/John Route PRN Reason Start Time Stop Time Status Last Admin Dose Admin Acetaminophen (Tylenol) 1,000 mg PRN Q6HRS PRN PO MILD PAIN 1-3 03/28/21 19:45 04/04/21 17:44 Aspirin (Aspirin Enteric Coated) 81 mg DAILY PO 03/29/21 09:00 04/06/21 08:37 Bisacodyl (Dulcolax Supp) 10 mg PRN Q48HR PRN RC CONSTIPATION 03/28/21 19:45 Duloxetine HCl (Cymbalta) 60 mg DAILY PO 03/29/21 09:00 04/06/21 08:36 Fluticasone Propionate (Flonase) 2 spray DAILY NS 03/29/21 09:00 04/02/21 08:24 Lisinopril (Prinivil) 10 mg DAILY PO 03/29/21 09:00 04/06/21 05:51 Al Hydroxide/Mg Hydroxide (Mylanta Plus Xs) 15 ml PRN AFTMEALHC PRN PO DYSPEPSIA 03/28/21 19:45 Memantine (Namenda) 10 mg BID PO 03/28/21 21:00 04/06/21 20:49 Multi-Ingredient Ointment (Analgesic [place]) 1 nila PRN QID PRN TP MUSCLE PAIN 03/28/21 19:45 Mirtazapine (Remeron Nasra-Tab) 15 mg HS PO 03/28/21 21:00 04/06/21 20:49 Polyethylene Glycol (miraLAX) 17 gm DAILY PO 03/29/21 09:00 04/06/21 08:36 Quetiapine Fumarate (SEROquel) 75 mg QHS PO 03/28/21 21:00 03/30/21 17:03 DC 03/29/21 20:10 Senna/Docusate Sodium (Senna Plus) 1 tab BID PO 03/28/21 21:00 04/06/21 20:49 Simvastatin (Zocor) 10 mg HS PO 03/28/21 21:00 04/06/21 20:49 Divalproex Sodium (Depakote) 500 mg BID PO 03/28/21 21:00 04/06/21 20:49 Glucagon (Glucagen Kit) 1 mg PRN Q15MIN PRN IM HYPOGLYCEMIA 03/28/21 20:00 Insulin Glargine (Lantus Syringe) 14 unit QHS SQ 03/28/21 21:00 04/05/21 20:11 Non-Formulary Medication (Insulin Lispro (Humalog)) 10 unit TIDAC SQ 03/29/21 07:30 03/30/21 07:58 DC 03/29/21 11:30 Magnesium Hydroxide (Milk Of Magnesia) 2,400 mg PRN QHS PRN PO CONSTIPATION 03/28/21 20:00 Guaifenesin (Guaifenesin) 400 mg PRN Q4HRS PRN PO COUGH 03/28/21 20:00 Ondansetron HCl (Zofran Odt) 4 mg PRN Q6HRS PRN PO NAUSEA/VOMITING 03/28/21 20:00 Amoxicillin (Amoxil) 500 mg [id number] PO 04/05/21 22:00 03/29/21 19:30 DC Amoxicillin (Amoxil) 500 mg [id number] PO 03/29/21 21:00 04/05/21 21:01 DC 04/05/21 20:05 Bupropion HCl (Wellbutrin Xl) 150 mg DAILY PO 03/30/21 09:00 04/01/21 16:43 DC 04/01/21 08:32 Lactobacillus Rhamnosus (Culturelle) 1 cap BID PO 03/30/21 09:00 04/06/21 20:49 Insulin Human Lispro (HumaLOG) 10 units TIDWMEALS SQ 03/30/21 08:00 04/06/21 17:21 Quetiapine Fumarate (SEROquel) 100 mg QHS PO 03/30/21 21:00 04/06/21 20:49 Bupropion HCl (Wellbutrin Xl) 300 mg DAILY PO 04/02/21 09:00 04/06/21 08:36 I have reviewed the current psychotropics carefully including drug interactions. Risk benefit ratio favors no change other than as noted in my dictated progress note. Diagnosis: Problems: (1) Major depressive disorder with psychotic features (2) Anxiety disorder (3) Impulse control disorder (4) Mild cognitive impairment JESSICA TREADWELL MD Apr 06, 2021 22:15
[2021-04-07] MEDS: ACETAMINOPHEN 500 MG TABLET PO PRN (05:25)
[2021-04-07] MEDS: LISINOPRIL 10 MG TABLET PO SCH (05:25)
--- NOTE | 2021-04-07 07:07 | NUR ---
at 0525 patient was sitting in the day room in his wheelchair and he reported back pain and R leg pain. PRN tylenol given per order for pain. The patients BP 156/94 pulse 102 this morning. Scheduled lisinopril given at 0525. [employer] was down at that time, documented on paper chart and then entered into [employer] now that it is up.
--- NOTE | 2021-04-07 07:15 | PDOC ---
Exam Note: Sandoval Note: This note is a late entry for 04/06/2021 covers elements not covered in my initial note. Subjective: The patient was seen individually in the morning of 04/06/2021 for a treatment team meeting with Elsy Pang, Inessa Holland (social work supervisor), [place], activity therapy and Lien MENENDEZ, discussed and reviewed the chart. The patient slept 8 hours previous night. The patient has been grouchy, irritable, frequent verbal responses are monosyllabic. He wants to be discharged. He has attended two groups in the past week. He has been pleasant today. Review of Systems: Ambulation impaired in wheelchair. No CV, , pulmonary, eye, ENT system symptoms on review. Mental Status Exam: The patient is oriented to himself and situation. Speech is coherent, has some latency. Often response is monosyllabic. Abstraction fair. Computation impaired. Language function intact. Mood and affect is still dysphoric, depressed. No suicidal or homicidal ideation. Laboratory Data: Reviewed. Impression: Major depressive disorder with psychotic features. Mild cognitive impairment. Anxiety disorder unspecified. Impulse control disorder unspecified. Plan: Continue current psychotropics. Adjust as clinically indicated. We will possibly look at transition to lower level of care later this week. Assessment: Vital Signs/I&O: Vital Signs Date Time Temp Pulse Resp B/P (MAP) Pulse Ox O2 Delivery O2 Flow Rate FiO2 04/07/21 05:25 102 156/94 04/06/21 15:46 97.7 16 99 04/02/21 06:02 Room Air I & O 04/06/21 04/06/21 04/07/21 15:00 23:00 07:00 Intake Total 960 ml 480 ml Balance 960 ml 480 ml Labs: Laboratory Tests Test 04/06/21 07:26 04/06/21 11:14 04/06/21 16:39 04/06/21 18:57 Glucose (Fingerstick) 148 mg/dL (70-99) H 231 mg/dL (70-99) H 127 mg/dL (70-99) H 96 mg/dL (70-99) Test 04/06/21 20:55 Glucose (Fingerstick) 98 mg/dL (70-99) Current Medications: Meds: Laboratory Tests Test 04/06/21 07:26 7/12/21 11:14 04/06/21 16:39 04/06/21 18:57 Glucose (Fingerstick) 148 mg/dL 231 mg/dL 127 mg/dL 96 mg/dL Test 04/06/21 20:55 Glucose (Fingerstick) 98 mg/dL Current Medications Medications (Trade) Dose Ordered Sig/John Route PRN Reason Start Time Stop Time Status Last Admin Dose Admin Acetaminophen (Tylenol) 1,000 mg PRN Q6HRS PRN PO MILD PAIN 1-3 03/28/21 19:45 04/07/21 05:25 Aspirin (Aspirin Enteric Coated) 81 mg DAILY PO 03/29/21 09:00 04/06/21 08:37 Bisacodyl (Dulcolax Supp) 10 mg PRN Q48HR PRN RC CONSTIPATION 03/28/21 19:45 Duloxetine HCl (Cymbalta) 60 mg DAILY PO 03/29/21 09:00 04/06/21 08:36 Fluticasone Propionate (Flonase) 2 spray DAILY NS 03/29/21 09:00 04/02/21 08:24 Lisinopril (Prinivil) 10 mg DAILY PO 03/29/21 09:00 04/07/21 05:25 Al Hydroxide/Mg Hydroxide (Mylanta Plus Xs) 15 ml PRN AFTMEALHC PRN PO DYSPEPSIA 03/28/21 19:45 Memantine (Namenda) 10 mg BID PO 03/28/21 21:00 04/06/21 20:49 Multi-Ingredient Ointment (Analgesic [place]) 1 nila PRN QID PRN TP MUSCLE PAIN 03/28/21 19:45 Mirtazapine (Remeron Nasra-Tab) 15 mg HS PO 03/28/21 21:00 04/06/21 20:49 Polyethylene Glycol (miraLAX) 17 gm DAILY PO 03/29/21 09:00 04/06/21 08:36 Quetiapine Fumarate (SEROquel) 75 mg QHS PO 03/28/21 21:00 03/30/21 17:03 DC 03/29/21 20:10 Senna/Docusate Sodium (Senna Plus) 1 tab BID PO 03/28/21 21:00 04/06/21 20:49 Simvastatin (Zocor) 10 mg HS PO 03/28/21 21:00 04/06/21 20:49 Divalproex Sodium (Depakote) 500 mg BID PO 03/28/21 21:00 04/06/21 20:49 Glucagon (Glucagen Kit) 1 mg PRN Q15MIN PRN IM HYPOGLYCEMIA 03/28/21 20:00 Insulin Glargine (Lantus Syringe) 14 unit QHS SQ 03/28/21 21:00 04/05/21 20:11 Non-Formulary Medication (Insulin Lispro (Humalog)) 10 unit TIDAC SQ 03/29/21 07:30 03/30/21 07:58 DC 03/29/21 11:30 Magnesium Hydroxide (Milk Of Magnesia) 2,400 mg PRN QHS PRN PO CONSTIPATION 03/28/21 20:00 Guaifenesin (Guaifenesin) 400 mg PRN Q4HRS PRN PO COUGH 03/28/21 20:00 Ondansetron HCl (Zofran Odt) 4 mg PRN Q6HRS PRN PO NAUSEA/VOMITING 03/28/21 20:00 Amoxicillin (Amoxil) 500 mg [id number] PO 04/05/21 22:00 03/29/21 19:30 DC Amoxicillin (Amoxil) 500 mg [id number] PO 03/29/21 21:00 04/05/21 21:01 DC 04/05/21 20:05 Bupropion HCl (Wellbutrin Xl) 150 mg DAILY PO 03/30/21 09:00 04/01/21 16:43 DC 04/01/21 08:32 Lactobacillus Rhamnosus (Culturelle) 1 cap BID PO 03/30/21 09:00 04/06/21 20:49 Insulin Human Lispro (HumaLOG) 10 units TIDWMEALS SQ 03/30/21 08:00 04/06/21 17:21 Quetiapine Fumarate (SEROquel) 100 mg QHS PO 03/30/21 21:00 04/06/21 20:49 Bupropion HCl (Wellbutrin Xl) 300 mg DAILY PO 04/02/21 09:00 04/06/21 08:36 I have reviewed the current psychotropics carefully including drug interactions. Risk benefit ratio favors no change other than as noted in my dictated progress note. Diagnosis: Problems: (1) Major depressive disorder with psychotic features (2) Mild cognitive impairment (3) Anxiety disorder (4) Impulse control disorder JESSICA TREADWELL MD Apr 07, 2021 07:15
[2021-04-07] MEDS: ASPIRIN ENTERIC COATED 81 MG TABLET.DR. PO SCH (08:34)
[2021-04-07] MEDS: buPROPion XL 150 MG TAB.ER.24H PO SCH (08:34)
[2021-04-07] MEDS: MEMANTINE 10 MG TABLET. PO SCH ×2 (08:34→20:06)
[2021-04-07] MEDS: SENNOSIDES/DOCUSATE 8.6/50MG TABLET. PO SCH ×2 (08:34→20:05)
[2021-04-07] MEDS: DIVALPROEX SODIUM 250 MG TABLET.DR. PO SCH ×2 (08:34→20:06)
[2021-04-07] MEDS: DULoxetine HCL 60 MG CAPSULE.DR PO SCH (08:34)
[2021-04-07] MEDS: POLYETHYLENE GLYCOL 3350 17 GM PACKET. PO SCH (08:34)
[2021-04-07] MEDS: LACTOBACILLUS RHAMNOSUS GG 1 CAPSULE. PO SCH ×2 (08:35→20:06)
[2021-04-07] MEDS: FLUTICASONE 50MCG/NASAL SPRAY 16GM BOTTLE. NS SCH (08:39)
[2021-04-07] MEDS: INSULIN LISPRO 300 UNITS/3 ML VIAL. SQ SCH ×3 (08:44→16:59)
[2021-04-07 09:23] VITALS: BP 156/94
--- NOTE | 2021-04-07 11:09 | NUR ---
Treatment team note: Pt is eating roughly 75% of meals and sleeping on average 6.5 hours per night. Pt continues to be flat and withdrawn to his room. Pt can be sarcastic and at times verbally aggressive but redirectable. Pt is medication compliant but agitated that he has to take them. Cooperative with cares. Pt will be able to look at discharging later this week. SW will follow up with pt son and call the facility in making those arrangements. Pt did attend two groups with minimal participation.
--- NOTE | 2021-04-07 11:32 | TX PLAN ---
Interdisciplinary Tx Plan Admission Information Mar 28, 2021 at 17:03 Legal Status (on Admission): Voluntary DPOA/Guardian Name: John Denise Contact Verified Code Status: Full Code Allergies: Coded Allergies: No Known Drug Allergies (Unverified , 03/28/21) Diagnoses Primary Diagnosis: MDD with psychosis Reasons for Admission: Agitated, Isolating, Poor impulse control, Other Problem in Patient's Words: According to the intake, pt is yelling, refusing cares, isolating self, medication resistent, poor appetite Problems Active Problems: isolating yelling Inactive Problems: mostly medication compliant Pt Strengths/Limitations Ability for [place]: Poor Cognitive Functioning/Ability: Fair Communication Skills/Ability: Fair Financial Resources: Fair Insight/Judgement: Poor Intellectual Ability: Fair Physical Health: Poor Social Skills: Poor Stability in Family: Fair Stability in School/Work: Poor Verbal Skills: Fair Discharge Criteria Discharge Criteria: No need for close observ., Adequate arrangements @DC, Improved behavior, Improved mood/thought Preliminary Discharge Plan Preliminary DC Plan: Current Living Arrange. Special Precautions Fall Risk: Moderate Initial D/C Plan Pt to return [place] [facility] [place]. Identified Discharge Needs: Continued psychiatric care Currently Utilized Resources Currently Utilized Resources/P: Primary Care Physician Identified Problems/Hx/Goals Objectives/Short-Term Goals Short Term Goals in Patient's: N/A Interventions/Frequency Staff Interventions/Frequency&: Psychiatrist to assess pt at least 3x per week for medication management. Social Work to assess pt at least 2x per week to identify barriers to care and finalize discharge planning. Nursing to assess medication effects, behavior modification and complete 15 minute checks daily. History Education: Pt graduated the 12th grade Community Follow-up Primary care physician referral to GI specialist. 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 Pt continues to be flat and withdrawn to his room. Pt can be sarcastic and at times verbally aggressive but redirectable. Pt is medication compliant but agitated that he has to take them. Cooperative with cares. Pt will be able to look at discharging later this week. SW will follow up with pt son and call the facility in making those arrangements. Pt did attend two groups with minimal participation. LEORA WAN Apr 07, 2021 11:32
--- NOTE | 2021-04-07 13:40 | NUR ---
Nursing Note Patient took medications well, not very interactive with staff/other patients. Patient hard of hearing which is a cause of frustration at times. Patient is up in dining room for meals and in day room. Patient calm and pleasant otherwise. No acute concerns.
[2021-04-07 16:08] VITALS: BP 151/76
[2021-04-07 16:13] VITALS: BP 128/68
[2021-04-07] MEDS ORDERED: traMADol 50 MG TABLET PO ONE (16:45)
[2021-04-07 17:55] LABS: MAGNESIUM 1.9 mg/dL (1.8-2.4)
--- NOTE | 2021-04-07 18:12 | NUR ---
Patient Condition Change, Patient reports chest pain to nurse at apx, 1608. Vitals obtained and paged. 1640 Orders received per for STAT Cardiac labs, EKG, Ultram to be given and notified with results 1657 EKG obtained and labs being drawn at this time 1809 All results read to . states it's non cardiac at this time, no further orders received.
[2021-04-07] MEDS: SIMVASTATIN 10 MG TABLET PO SCH (20:05)
[2021-04-07] MEDS: QUEtiapine 100 MG TABLET. PO SCH (20:05)
[2021-04-07] MEDS: MIRTAZAPINE ODT 15 MG TAB.RAPDIS. PO SCH (20:06)
--- NOTE | 2021-04-07 21:15 | EKG ---
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
[2021-04-07] MEDS: INSULIN GLARGINE SYRINGE. SQ SCH (21:40)
--- NOTE | 2021-04-07 22:00 | NUR ---
Patient continues to report chest pain. EKG was abnormal but all labs were WNL. Patient has hx of A Fib. he is med compliant and calm. Pt laying in bed this shift, he was scheduled to take a shower tonight but will not have one r/t chest pain. Will continue to monitor.
--- NOTE | 2021-04-07 22:07 | PDOC ---
Exam Note: [place]oval Note: Please also refer to the separate dictated note~for this date of service dictated separately.~Patient seen individually. Discussed the patient with Nursing staff reviewed the chart.~Reviewed interim history and current functioning. Reviewed vital signs,~Labs/ Radiology~and current medications noted below. Continue current treatment with the changes noted in the dictated addendum note Assessment: Vital Signs/I&O: Vital Signs Date Time Temp Pulse Resp B/P (MAP) Pulse Ox O2 Delivery O2 Flow Rate FiO2 04/07/21 16:13 70 15 128/68 (88) 96 Room Air 04/07/21 16:08 97.5 I & O 04/06/21 04/06/21 04/07/21 15:00 23:00 07:00 Intake Total 960 ml 480 ml Balance 960 ml 480 ml Labs: Laboratory Tests Test 04/07/21 07:32 04/07/21 11:08 04/07/21 16:48 04/07/21 17:19 Glucose (Fingerstick) 141 mg/dL (70-99) H 228 mg/dL (70-99) H 91 mg/dL (70-99) Magnesium Level 1.9 mg/dL (1.8-2.4) Creatine Kinase 32 U/L (39-308) L Troponin I Quantitative < 0.017 ng/mL (0-0.055) Test 04/07/21 19:16 Glucose (Fingerstick) 121 mg/dL (70-99) H Current Medications: Meds: Laboratory Tests Test 04/07/21 07:32 04/07/21 11:08 04/07/21 16:48 04/07/21 17:19 Glucose (Fingerstick) 141 mg/dL 228 mg/dL 91 mg/dL Magnesium Level 1.9 mg/dL Creatine Kinase 32 U/L Troponin I Quantitative < 0.017 ng/mL Test 04/07/21 19:16 Glucose (Fingerstick) 121 mg/dL Current Medications Medications (Trade) Dose Ordered Sig/John Route PRN Reason Start Time Stop Time Status Last Admin Dose Admin Acetaminophen (Tylenol) 1,000 mg PRN Q6HRS PRN PO MILD PAIN 1-3 03/28/21 19:45 04/07/21 05:25 Aspirin (Aspirin Enteric Coated) 81 mg DAILY PO 03/29/21 09:00 04/07/21 08:34 Bisacodyl (Dulcolax Supp) 10 mg PRN Q48HR PRN RC CONSTIPATION 03/28/21 19:45 Duloxetine HCl (Cymbalta) 60 mg DAILY PO 03/29/21 09:00 04/07/21 08:34 Fluticasone Propionate (Flonase) 2 spray DAILY NS 03/29/21 09:00 04/02/21 08:24 Lisinopril (Prinivil) 10 mg DAILY PO 03/29/21 09:00 04/07/21 05:25 Al Hydroxide/Mg Hydroxide (Mylanta Plus Xs) 15 ml PRN AFTMEALHC PRN PO DYSPEPSIA 03/28/21 19:45 Memantine (Namenda) 10 mg BID PO 03/28/21 21:00 04/07/21 20:06 Multi-Ingredient Ointment (Analgesic [place]) 1 nila PRN QID PRN TP MUSCLE PAIN 03/28/21 19:45 Mirtazapine (Remeron Nasra-Tab) 15 mg HS PO 03/28/21 21:00 04/07/21 20:06 Polyethylene Glycol (miraLAX) 17 gm DAILY PO 03/29/21 09:00 04/07/21 08:34 Quetiapine Fumarate (SEROquel) 75 mg QHS PO 03/28/21 21:00 03/30/21 17:03 DC 03/29/21 20:10 Senna/Docusate Sodium (Senna Plus) 1 tab BID PO 03/28/21 21:00 04/07/21 20:05 Simvastatin (Zocor) 10 mg HS PO 03/28/21 21:00 04/07/21 20:05 Divalproex Sodium (Depakote) 500 mg BID PO 03/28/21 21:00 04/07/21 20:06 Glucagon (Glucagen Kit) 1 mg PRN Q15MIN PRN IM HYPOGLYCEMIA 03/28/21 20:00 Insulin Glargine (Lantus Syringe) 14 unit QHS SQ 03/28/21 21:00 04/05/21 20:11 Non-Formulary Medication (Insulin Lispro (Humalog)) 10 unit TIDAC SQ 03/29/21 07:30 03/30/21 07:58 DC 03/29/21 11:30 Magnesium Hydroxide (Milk Of Magnesia) 2,400 mg PRN QHS PRN PO CONSTIPATION 03/28/21 20:00 Guaifenesin (Guaifenesin) 400 mg PRN Q4HRS PRN PO COUGH 03/28/21 20:00 Ondansetron HCl (Zofran Odt) 4 mg PRN Q6HRS PRN PO NAUSEA/VOMITING 03/28/21 20:00 Amoxicillin (Amoxil) 500 mg [id number] PO 04/05/21 22:00 03/29/21 19:30 DC Amoxicillin (Amoxil) 500 mg [id number] PO 03/29/21 21:00 04/05/21 21:01 DC 04/05/21 20:05 Bupropion HCl (Wellbutrin Xl) 150 mg DAILY PO 03/30/21 09:00 04/01/21 16:43 DC 04/01/21 08:32 Lactobacillus Rhamnosus (Culturelle) 1 cap BID PO 03/30/21 09:00 04/07/21 20:06 Insulin Human Lispro (HumaLOG) 10 units TIDWMEALS SQ 03/30/21 08:00 04/07/21 12:18 Quetiapine Fumarate (SEROquel) 100 mg QHS PO 03/30/21 21:00 04/07/21 20:05 Bupropion HCl (Wellbutrin Xl) 300 mg DAILY PO 04/02/21 09:00 04/07/21 08:34 Tramadol HCl (Ultram) 50 mg PRN Q6HRS PRN PO PAIN 04/07/21 16:45 Tramadol HCl (Ultram) 50 mg 1X ONCE PO 04/07/21 16:45 04/07/21 16:53 DC 04/07/21 16:57 Current Medications Medications (Trade) Dose Ordered Sig/John Route PRN Reason Start Time Stop Time Status Last Admin Dose Admin Tramadol HCl (Ultram) 50 mg 1X ONCE PO 04/07/21 16:45 04/07/21 16:53 DC 04/07/21 16:57 I have reviewed the current psychotropics carefully including drug interactions. Risk benefit ratio favors no change other than as noted in my dictated progress note. Diagnosis: Problems: (1) Major depressive disorder with psychotic features (2) Anxiety disorder (3) Impulse control disorder JESSICA TREADWELL MD Apr 07, 2021 22:07
[2021-04-08 06:28] VITALS: BP 138/73
--- NOTE | 2021-04-08 07:04 | PDOC ---
Exam Note: Sandoval Note: This note is a late entry for 04/07/2021 covers elements not covered in my initial note. Subjective: The patient was seen individually in the evening of 04/07/2021 with Cal MENENDEZ, discussed and reviewed the chart. The patient slept 7-1/2 hours previous night. The patient did reasonably well till about 4.30 p.m., then was complaining of chest pain. Dr. Beckford has ordered some labs and patient does have history of atrial fibrillation and this could be contributing to his symptoms. We will defer to Dr. Beckford and Dr. Vasquez. Review of Systems: Ambulation impaired in wheelchair. No CV, , pulmonary, eye, ENT system symptoms on review. Mental Status Exam: The patient is oriented to himself and situation. Speech is coherent, has some latency. Often response is monosyllabic. Abstraction fair. Computation impaired. Language function intact. Mood and affect withdrawn. No suicidal or homicidal ideation. Laboratory Data: Reviewed. Impression: Major depressive disorder with psychotic features. Mild cognitive impairment. Anxiety disorder unspecified. Impulse control disorder unspecified. Plan: Continue current psychotropics. Adjust as clinically indicated. Assessment: Vital Signs/I&O: Vital Signs Date Time Temp Pulse Resp B/P (MAP) Pulse Ox O2 Delivery O2 Flow Rate FiO2 04/08/21 06:28 96.7 93 16 138/73 (94) 94 04/07/21 16:13 Room Air I & O 04/07/21 04/07/21 04/08/21 14:59 22:59 06:59 Intake Total 840 ml 240 ml Balance 840 ml 240 ml Labs: Laboratory Tests Test 04/07/21 07:32 04/07/21 11:08 04/07/21 16:48 04/07/21 17:19 Glucose (Fingerstick) 141 mg/dL (70-99) H 228 mg/dL (70-99) H 91 mg/dL (70-99) Magnesium Level 1.9 mg/dL (1.8-2.4) Creatine Kinase 32 U/L (39-308) L Troponin I Quantitative < 0.017 ng/mL (0-0.055) Test 04/07/21 19:16 Glucose (Fingerstick) 121 mg/dL (70-99) H Current Medications: Meds: Laboratory Tests Test 04/07/21 07:32 04/07/21 11:08 04/07/21 16:48 04/07/21 17:19 Glucose (Fingerstick) 141 mg/dL 228 mg/dL 91 mg/dL Magnesium Level 1.9 mg/dL Creatine Kinase 32 U/L Troponin I Quantitative < 0.017 ng/mL Test 04/07/21 19:16 Glucose (Fingerstick) 121 mg/dL Current Medications Medications (Trade) Dose Ordered Sig/John Route PRN Reason Start Time Stop Time Status Last Admin Dose Admin Acetaminophen (Tylenol) 1,000 mg PRN Q6HRS PRN PO MILD PAIN 1-3 03/28/21 19:45 04/07/21 05:25 Aspirin (Aspirin Enteric Coated) 81 mg DAILY PO 03/29/21 09:00 04/07/21 08:34 Bisacodyl (Dulcolax Supp) 10 mg PRN Q48HR PRN RC CONSTIPATION 03/28/21 19:45 Duloxetine HCl (Cymbalta) 60 mg DAILY PO 03/29/21 09:00 04/07/21 08:34 Fluticasone Propionate (Flonase) 2 spray DAILY NS 03/29/21 09:00 04/02/21 08:24 Lisinopril (Prinivil) 10 mg DAILY PO 03/29/21 09:00 04/07/21 05:25 Al Hydroxide/Mg Hydroxide (Mylanta Plus Xs) 15 ml PRN AFTMEALHC PRN PO DYSPEPSIA 03/28/21 19:45 Memantine (Namenda) 10 mg BID PO 03/28/21 21:00 04/07/21 20:06 Multi-Ingredient Ointment (Analgesic [place]) 1 nila PRN QID PRN TP MUSCLE PAIN 03/28/21 19:45 Mirtazapine (Remeron Nasra-Tab) 15 mg HS PO 03/28/21 21:00 04/07/21 20:06 Polyethylene Glycol (miraLAX) 17 gm DAILY PO 03/29/21 09:00 04/07/21 08:34 Quetiapine Fumarate (SEROquel) 75 mg QHS PO 03/28/21 21:00 03/30/21 17:03 DC 03/29/21 20:10 Senna/Docusate Sodium (Senna Plus) 1 tab BID PO 03/28/21 21:00 04/07/21 20:05 Simvastatin (Zocor) 10 mg HS PO 03/28/21 21:00 04/07/21 20:05 Divalproex Sodium (Depakote) 500 mg BID PO 03/28/21 21:00 04/07/21 20:06 Glucagon (Glucagen Kit) 1 mg PRN Q15MIN PRN IM HYPOGLYCEMIA 03/28/21 20:00 Insulin Glargine (Lantus Syringe) 14 unit QHS SQ 03/28/21 21:00 04/05/21 20:11 Non-Formulary Medication (Insulin Lispro (Humalog)) 10 unit TIDAC SQ 03/29/21 07:30 03/30/21 07:58 DC 03/29/21 11:30 Magnesium Hydroxide (Milk Of Magnesia) 2,400 mg PRN QHS PRN PO CONSTIPATION 03/28/21 20:00 Guaifenesin (Guaifenesin) 400 mg PRN Q4HRS PRN PO COUGH 03/28/21 20:00 Ondansetron HCl (Zofran Odt) 4 mg PRN Q6HRS PRN PO NAUSEA/VOMITING 03/28/21 20:00 Amoxicillin (Amoxil) 500 mg [id number] PO 04/05/21 22:00 03/29/21 19:30 DC Amoxicillin (Amoxil) 500 mg [id number] PO 03/29/21 21:00 04/05/21 21:01 DC 04/05/21 20:05 Bupropion HCl (Wellbutrin Xl) 150 mg DAILY PO 03/30/21 09:00 04/01/21 16:43 DC 04/01/21 08:32 Lactobacillus Rhamnosus (Culturelle) 1 cap BID PO 03/30/21 09:00 04/07/21 20:06 Insulin Human Lispro (HumaLOG) 10 units TIDWMEALS SQ 03/30/21 08:00 04/07/21 12:18 Quetiapine Fumarate (SEROquel) 100 mg QHS PO 03/30/21 21:00 04/07/21 20:05 Bupropion HCl (Wellbutrin Xl) 300 mg DAILY PO 04/02/21 09:00 04/07/21 08:34 Tramadol HCl (Ultram) 50 mg PRN Q6HRS PRN PO PAIN 04/07/21 16:45 Tramadol HCl (Ultram) 50 mg 1X ONCE PO 04/07/21 16:45 04/07/21 16:53 DC 04/07/21 16:57 Current Medications Medications (Trade) Dose Ordered Sig/John Route PRN Reason Start Time Stop Time Status Last Admin Dose Admin Tramadol HCl (Ultram) 50 mg 1X ONCE PO 04/07/21 16:45 04/07/21 16:53 DC 04/07/21 16:57 I have reviewed the current psychotropics carefully including drug interactions. Risk benefit ratio favors no change other than as noted in my dictated progress note. Diagnosis: Problems: (1) Major depressive disorder with psychotic features (2) Anxiety disorder (3) Impulse control disorder (4) Mild cognitive impairment JESSICA TREADWELL MD Apr 08, 2021 07:04
[2021-04-08] MEDS: ASPIRIN ENTERIC COATED 81 MG TABLET.DR. PO SCH (08:03)
[2021-04-08] MEDS: buPROPion XL 150 MG TAB.ER.24H PO SCH (08:03)
[2021-04-08] MEDS: LACTOBACILLUS RHAMNOSUS GG 1 CAPSULE. PO SCH ×2 (08:03→20:30)
[2021-04-08] MEDS: DULoxetine HCL 60 MG CAPSULE.DR PO SCH (08:03)
[2021-04-08] MEDS: SENNOSIDES/DOCUSATE 8.6/50MG TABLET. PO SCH ×2 (08:04→20:30)
[2021-04-08] MEDS: MEMANTINE 10 MG TABLET. PO SCH ×2 (08:04→20:30)
[2021-04-08] MEDS: DIVALPROEX SODIUM 250 MG TABLET.DR. PO SCH ×2 (08:04→20:30)
[2021-04-08] MEDS: LISINOPRIL 10 MG TABLET PO SCH (08:04)
[2021-04-08] MEDS: INSULIN LISPRO 300 UNITS/3 ML VIAL. SQ SCH ×3 (08:05→17:00)
[2021-04-08] MEDS: POLYETHYLENE GLYCOL 3350 17 GM PACKET. PO SCH (08:06)
[2021-04-08] MEDS: FLUTICASONE 50MCG/NASAL SPRAY 16GM BOTTLE. NS SCH (08:06)
--- NOTE | 2021-04-08 10:18 | NUR ---
Pt remains flat and socially withdrawn. He does not respond to this nurse's questions nor does he look at me during interactions. Appetite appears adequate during breakfast. Absent of SI/HI/VH/AH/delusions, he denies pain when asked. He is compliant with whole medications. He is absent of verbal/physical aggression at this time. Plan of care continues, will pass to next shift.
--- NOTE | 2021-04-08 12:26 | NUR ---
Pt's blood sugar is 181 and he has not eaten any of his lunch. He is sitting in front of a full plate of food with his head on the table. When asked if he was going to eat his lunch he replied rather sharply, 'No." When being asked if there was something wrong with the food he interrupted the question in a harsh tone and yelled, "I said no! I'm not eating!" Scheduled insulin held d/t blood sugar level and pt refusal to consume food.
--- NOTE | 2021-04-08 13:06 | NUR ---
SW faxed over notes for [facility] in [facility] to review. Pt discharge at this time will be scheduled for Friday 04/13. SABRA will continue to follow up to finalize discharge plans for that date.
[2021-04-08 16:04] VITALS: BP 110/60
--- NOTE | 2021-04-08 18:00 | NUR ---
Late entry: Pt on toilet attempting to have BM. He increased in agitation and anxiety while on the toilet. He became impatient in what he believed was an inability to produce a BM despite staff encouragement to remain sitting on the toilet and to wait a bit. At one point he called CHARLIE Forman a "worthless 2 bit whore." This nurse firmly reiterated expectation and boundaries on the unit regarding appropriate behavior towards others. Pt verbalized understanding. PRN Milk of Magnesia administered.
[2021-04-08] MEDS: MAGNESIUM HYDROXIDE 2,400 MG/30 ML ORAL.SUSP. PO PRN (18:51)
[2021-04-08] MEDS: QUEtiapine 100 MG TABLET. PO SCH (20:30)
[2021-04-08] MEDS: SIMVASTATIN 10 MG TABLET PO SCH (20:30)
[2021-04-08] MEDS: MIRTAZAPINE ODT 15 MG TAB.RAPDIS. PO SCH (20:30)
[2021-04-08] MEDS: INSULIN GLARGINE SYRINGE. SQ SCH (21:36)
--- NOTE | 2021-04-08 22:18 | PDOC ---
Exam Note: Sandoval Note: Please also refer to the separate dictated note~for this date of service dictated separately.~Patient seen individually. Discussed the patient with Nursing staff reviewed the chart.~Reviewed interim history and current functioning. Reviewed vital signs,~Labs/ Radiology~and current medications noted below. Continue current treatment with the changes noted in the dictated addendum note Assessment: Vital Signs/I&O: Vital Signs Date Time Temp Pulse Resp B/P (MAP) Pulse Ox O2 Delivery O2 Flow Rate FiO2 04/08/21 16:04 97.1 68 20 110/60 (77) 98 04/07/21 16:13 Room Air I & O 04/07/21 04/07/21 04/08/21 15:00 23:00 07:00 Intake Total 840 ml 240 ml Balance 840 ml 240 ml Labs: Laboratory Tests Test 04/08/21 07:37 04/08/21 11:48 04/08/21 16:28 04/08/21 19:24 Glucose (Fingerstick) 139 mg/dL (70-99) H 181 mg/dL (70-99) H 134 mg/dL (70-99) H 140 mg/dL (70-99) H Current Medications: Meds: Laboratory Tests Test 04/08/21 07:37 04/08/21 11:48 04/08/21 16:28 04/08/21 19:24 Glucose (Fingerstick) 139 mg/dL 181 mg/dL 134 mg/dL 140 mg/dL Current Medications Medications (Trade) Dose Ordered Sig/John Route PRN Reason Start Time Stop Time Status Last Admin Dose Admin Acetaminophen (Tylenol) 1,000 mg PRN Q6HRS PRN PO MILD PAIN 1-3 03/28/21 19:45 04/07/21 05:25 Aspirin (Aspirin Enteric Coated) 81 mg DAILY PO 03/29/21 09:00 04/08/21 08:03 Bisacodyl (Dulcolax Supp) 10 mg PRN Q48HR PRN RC CONSTIPATION 03/28/21 19:45 Duloxetine HCl (Cymbalta) 60 mg DAILY PO 03/29/21 09:00 04/08/21 08:03 Fluticasone Propionate (Flonase) 2 spray DAILY NS 03/29/21 09:00 04/02/21 08:24 Lisinopril (Prinivil) 10 mg DAILY PO 03/29/21 09:00 04/08/21 08:04 Al Hydroxide/Mg Hydroxide (Mylanta Plus Xs) 15 ml PRN AFTMEALHC PRN PO DYSPEPSIA 03/28/21 19:45 Memantine (Namenda) 10 mg BID PO 03/28/21 21:00 04/08/21 20:30 Multi-Ingredient Ointment (Analgesic [place]) 1 nila PRN QID PRN TP MUSCLE PAIN 03/28/21 19:45 Mirtazapine (Remeron Nasra-Tab) 15 mg HS PO 03/28/21 21:00 04/08/21 20:30 Polyethylene Glycol (miraLAX) 17 gm DAILY PO 03/29/21 09:00 04/07/21 08:34 Quetiapine Fumarate (SEROquel) 75 mg QHS PO 03/28/21 21:00 03/30/21 17:03 DC 03/29/21 20:10 Senna/Docusate Sodium (Senna Plus) 1 tab BID PO 03/28/21 21:00 04/08/21 20:30 Simvastatin (Zocor) 10 mg HS PO 03/28/21 21:00 04/08/21 20:30 Divalproex Sodium (Depakote) 500 mg BID PO 03/28/21 21:00 04/08/21 20:30 Glucagon (Glucagen Kit) 1 mg PRN Q15MIN PRN IM HYPOGLYCEMIA 03/28/21 20:00 Insulin Glargine (Lantus Syringe) 14 unit QHS SQ 03/28/21 21:00 04/08/21 21:36 Non-Formulary Medication (Insulin Lispro (Humalog)) 10 unit TIDAC SQ 03/29/21 07:30 03/30/21 07:58 DC 03/29/21 11:30 Magnesium Hydroxide (Milk Of Magnesia) 2,400 mg PRN QHS PRN PO CONSTIPATION 03/28/21 20:00 04/08/21 18:51 Guaifenesin (Guaifenesin) 400 mg PRN Q4HRS PRN PO COUGH 03/28/21 20:00 Ondansetron HCl (Zofran Odt) 4 mg PRN Q6HRS PRN PO NAUSEA/VOMITING 03/28/21 20:00 Amoxicillin (Amoxil) 500 mg [id number] PO 04/05/21 22:00 03/29/21 19:30 DC Amoxicillin (Amoxil) 500 mg [id number] PO 03/29/21 21:00 04/05/21 21:01 DC 04/05/21 20:05 Bupropion HCl (Wellbutrin Xl) 150 mg DAILY PO 03/30/21 09:00 04/01/21 16:43 DC 04/01/21 08:32 Lactobacillus Rhamnosus (Culturelle) 1 cap BID PO 03/30/21 09:00 04/08/21 20:30 Insulin Human Lispro (HumaLOG) 10 units TIDWMEALS SQ 03/30/21 08:00 04/08/21 17:00 Quetiapine Fumarate (SEROquel) 100 mg QHS PO 03/30/21 21:00 04/08/21 20:30 Bupropion HCl (Wellbutrin Xl) 300 mg DAILY PO 04/02/21 09:00 04/08/21 08:03 Tramadol HCl (Ultram) 50 mg PRN Q6HRS PRN PO PAIN 04/07/21 16:45 Tramadol HCl (Ultram) 50 mg 1X ONCE PO 04/07/21 16:45 04/07/21 16:53 DC 04/07/21 16:57 I have reviewed the current psychotropics carefully including drug interactions. Risk benefit ratio favors no change other than as noted in my dictated progress note. Diagnosis: Problems: (1) Major depressive disorder with psychotic features (2) Anxiety disorder (3) Mild cognitive impairment (4) Impulse control disorder JESSICA TREADWELL MD Apr 08, 2021 22:18
--- NOTE | 2021-04-09 01:51 | NUR ---
Pt withdrawn to room, sitting up in his w/c when approached. Pt irritable, sarcastic, and demanding towards staff, particularly when wanting to go to bed. Pt cooperative with assessment and compliant with medications administered whole.
[2021-04-09 06:34] VITALS: BP 177/75
[2021-04-09] MEDS: POLYETHYLENE GLYCOL 3350 17 GM PACKET. PO SCH (08:10)
[2021-04-09] MEDS: DIVALPROEX SODIUM 250 MG TABLET.DR. PO SCH ×2 (08:11→20:40)
[2021-04-09] MEDS: LISINOPRIL 10 MG TABLET PO SCH (08:11)
[2021-04-09] MEDS: buPROPion XL 150 MG TAB.ER.24H PO SCH (08:11)
[2021-04-09] MEDS: DULoxetine HCL 60 MG CAPSULE.DR PO SCH (08:11)
[2021-04-09] MEDS: SENNOSIDES/DOCUSATE 8.6/50MG TABLET. PO SCH ×2 (08:11→20:39)
[2021-04-09] MEDS: MEMANTINE 10 MG TABLET. PO SCH ×2 (08:11→20:39)
[2021-04-09] MEDS: ASPIRIN ENTERIC COATED 81 MG TABLET.DR. PO SCH (08:11)
[2021-04-09] MEDS: LACTOBACILLUS RHAMNOSUS GG 1 CAPSULE. PO SCH ×2 (08:11→20:39)
[2021-04-09] MEDS: FLUTICASONE 50MCG/NASAL SPRAY 16GM BOTTLE. NS SCH (08:14)
--- NOTE | 2021-04-09 08:19 | PDOC ---
Exam Note: Sandoval Note: This note is a late entry for 04/08/2021 covers elements not covered in my initial note. Subjective: The patient was seen individually in the evening of 04/08/2021 with Lien MENENDEZ, discussed and reviewed the chart. The patient slept 5-1/4 hours previous night. Previous evening he had chest pain, questionably due to atrial fibrillation but not chest pain today. At times he has been somewhat rude, somewhat withdrawn, isolative today, irritable, refusing to eat and then did better later in the evening. Review of Systems: Ambulation impaired in wheelchair. No CV, , pulmonary, eye, ENT system symptoms on review. Mental Status Exam: The patient is oriented to himself and situation. I met with him at length in his room. Speech is coherent, moderate latency. Abstraction fair. Computation impaired. Language function intact. Mood and affect withdrawn. Laboratory Data: Reviewed. Impression: Major depressive disorder with psychotic features. Mild cognitive impairment. Anxiety disorder unspecified. Impulse control disorder unspecified. Plan: Continue current psychotropics. Adjust as clinically indicated. Assessment: Vital Signs/I&O: Vital Signs Date Time Temp Pulse Resp B/P (MAP) Pulse Ox O2 Delivery O2 Flow Rate FiO2 04/09/21 08:11 63 177/75 04/09/21 06:34 97.9 16 95 Room Air I & O 04/08/21 04/08/21 04/09/21 15:00 23:00 07:00 Intake Total 840 ml 480 ml Balance 840 ml 480 ml Labs: Laboratory Tests Test 04/08/21 11:48 04/08/21 16:28 04/08/21 19:24 04/09/21 07:23 Glucose (Fingerstick) 181 mg/dL (70-99) H 134 mg/dL (70-99) H 140 mg/dL (70-99) H 112 mg/dL (70-99) H Current Medications: Meds: Laboratory Tests Test 04/08/21 11:48 04/08/21 16:28 04/08/21 19:24 04/09/21 07:23 Glucose (Fingerstick) 181 mg/dL 134 mg/dL 140 mg/dL 112 mg/dL Current Medications Medications (Trade) Dose Ordered Sig/John Route PRN Reason Start Time Stop Time Status Last Admin Dose Admin Acetaminophen (Tylenol) 1,000 mg PRN Q6HRS PRN PO MILD PAIN 1-3 03/28/21 19:45 04/07/21 05:25 Aspirin (Aspirin Enteric Coated) 81 mg DAILY PO 03/29/21 09:00 04/09/21 08:11 Bisacodyl (Dulcolax Supp) 10 mg PRN Q48HR PRN RC CONSTIPATION 03/28/21 19:45 Duloxetine HCl (Cymbalta) 60 mg DAILY PO 03/29/21 09:00 04/09/21 08:11 Fluticasone Propionate (Flonase) 2 spray DAILY NS 03/29/21 09:00 04/02/21 08:24 Lisinopril (Prinivil) 10 mg DAILY PO 03/29/21 09:00 04/09/21 08:11 Al Hydroxide/Mg Hydroxide (Mylanta Plus Xs) 15 ml PRN AFTMEALHC PRN PO DYSPEPSIA 03/28/21 19:45 Memantine (Namenda) 10 mg BID PO 03/28/21 21:00 04/09/21 08:11 Multi-Ingredient Ointment (Analgesic [place]) 1 nila PRN QID PRN TP MUSCLE PAIN 03/28/21 19:45 Mirtazapine (Remeron Nasra-Tab) 15 mg HS PO 03/28/21 21:00 04/08/21 20:30 Polyethylene Glycol (miraLAX) 17 gm DAILY PO 03/29/21 09:00 04/09/21 08:10 Quetiapine Fumarate (SEROquel) 75 mg QHS PO 03/28/21 21:00 03/30/21 17:03 DC 03/29/21 20:10 Senna/Docusate Sodium (Senna Plus) 1 tab BID PO 03/28/21 21:00 04/09/21 08:11 Simvastatin (Zocor) 10 mg HS PO 03/28/21 21:00 04/08/21 20:30 Divalproex Sodium (Depakote) 500 mg BID PO 03/28/21 21:00 04/09/21 08:11 Glucagon (Glucagen Kit) 1 mg PRN Q15MIN PRN IM HYPOGLYCEMIA 03/28/21 20:00 Insulin Glargine (Lantus Syringe) 14 unit QHS SQ 03/28/21 21:00 04/08/21 21:36 Non-Formulary Medication (Insulin Lispro (Humalog)) 10 unit TIDAC SQ 03/29/21 07:30 03/30/21 07:58 DC 03/29/21 11:30 Magnesium Hydroxide (Milk Of Magnesia) 2,400 mg PRN QHS PRN PO CONSTIPATION 03/28/21 20:00 04/08/21 18:51 Guaifenesin (Guaifenesin) 400 mg PRN Q4HRS PRN PO COUGH 03/28/21 20:00 Ondansetron HCl (Zofran Odt) 4 mg PRN Q6HRS PRN PO NAUSEA/VOMITING 03/28/21 20:00 Amoxicillin (Amoxil) 500 mg [id number] PO 04/05/21 22:00 03/29/21 19:30 DC Amoxicillin (Amoxil) 500 mg [id number] PO 03/29/21 21:00 04/05/21 21:01 DC 04/05/21 20:05 Bupropion HCl (Wellbutrin Xl) 150 mg DAILY PO 03/30/21 09:00 04/01/21 16:43 DC 04/01/21 08:32 Lactobacillus Rhamnosus (Culturelle) 1 cap BID PO 03/30/21 09:00 04/09/21 08:11 Insulin Human Lispro (HumaLOG) 10 units TIDWMEALS SQ 03/30/21 08:00 04/08/21 17:00 Quetiapine Fumarate (SEROquel) 100 mg QHS PO 03/30/21 21:00 04/08/21 20:30 Bupropion HCl (Wellbutrin Xl) 300 mg DAILY PO 04/02/21 09:00 04/09/21 08:11 Tramadol HCl (Ultram) 50 mg PRN Q6HRS PRN PO MOD-SEV PAIN 04/07/21 16:45 Tramadol HCl (Ultram) 50 mg 1X ONCE PO 04/07/21 16:45 04/07/21 16:53 DC 04/07/21 16:57 I have reviewed the current psychotropics carefully including drug interactions. Risk benefit ratio favors no change other than as noted in my dictated progress note. Diagnosis: Problems: (1) Major depressive disorder with psychotic features (2) Mild cognitive impairment (3) Anxiety disorder (4) Impulse control disorder JESSICA TREADWELL MD Apr 09, 2021 08:19
--- NOTE | 2021-04-09 09:30 | NUR ---
Pt compliant with assessment and medications administered whole. He remains flat and appears withdrawn and irritable. He has been appropriate with his interactions so far this shift; no rude comments or insults towards staff. He denies pain when asked. Plan of care continues, will pass to next shift.
[2021-04-09] MEDS: INSULIN LISPRO 300 UNITS/3 ML VIAL. SQ SCH ×3 (09:53→17:00)
--- NOTE | 2021-04-09 12:34 | NUR ---
Pt located in hallway and refusing to eat lunch. Blood sugar 245. Scheduled Insulin Lispro 10 units SQ held d/t refusal to consume food.
--- NOTE | 2021-04-09 14:23 | NUR ---
From the nurse station pt could be heard yelling "Help me!" This nurse immediately went into the hallway and observed pt sitting in w/c in the escobedo calmly and in no apparent distress. When this nurse approached pt and asked what was wrong and what he needed help with he shook his head and said, "nothing." This nurse spoke about not yelling for help on the unit when assistance was not truly needed, as it disrupts the unit and causes un-necessary elevations in anxiety/stress in those around him. Pt verbalized understanding.
--- NOTE | 2021-04-09 15:14 | NUR ---
Pt sitting in w/c in the doorway of his room yelling "Ma'am!" repeatedly. He will not wheel self to nurse station to speak with staff and will yell until staff approach him. He inquires about having a shower today. Per notes and WATCH INSPECTOR, he had a shower on 04/08/21. This was explained to pt along with explanation that showers are every other day and so his next shower will be tomorrow (04/10/21). Pt verbalized understanding. While I was correction down the escobedo away from pt he yelled out "you're wrong!" I requested CHARLIE Forman to return to pt with me, and together we explained again that his previous shower was 04/08/21, showers are every other day, his next shower is 04/10/21. Pt verbalized understanding....but when me and WATCH INSPECTOR were once again down the escobedo he yelled out, "you're wrong!" CHARLIE and I returned again to reiterate information previously provided. Pt states because he did not have his scheduled shower on 04/07/21 d/t his chest pain exacerbation he feels as if he should have a shower tonight. Explanation provided that the shower on the 04/08/21 was what caught him up from his missed day. Nothing further at this time.
[2021-04-09 15:56] VITALS: BP 174/83
--- NOTE | 2021-04-09 17:43 | NUR ---
Pt's blood sugar is 170 and he ate less than 25% of dinner. Scheduled Insulin 10 units held.
[2021-04-09] MEDS: QUEtiapine 100 MG TABLET. PO SCH (20:39)
[2021-04-09] MEDS: INSULIN GLARGINE SYRINGE. SQ SCH (20:39)
[2021-04-09] MEDS: SIMVASTATIN 10 MG TABLET PO SCH (20:39)
[2021-04-09] MEDS: MIRTAZAPINE ODT 15 MG TAB.RAPDIS. PO SCH (20:39)
--- NOTE | 2021-04-09 22:15 | PDOC ---
Exam Note: Sandoval Note: Please also refer to the separate dictated note~for this date of service dictated separately.~Patient seen individually. Discussed the patient with Nursing staff reviewed the chart.~Reviewed interim history and current functioning. Reviewed vital signs,~Labs/ Radiology~and current medications noted below. Continue current treatment with the changes noted in the dictated addendum note Assessment: Vital Signs/I&O: Vital Signs Date Time Temp Pulse Resp B/P (MAP) Pulse Ox O2 Delivery O2 Flow Rate FiO2 04/09/21 15:56 98.4 60 18 174/83 (113) 93 04/09/21 06:34 Room Air I & O 04/08/21 04/08/21 04/09/21 15:00 23:00 07:00 Intake Total 840 ml 480 ml Balance 840 ml 480 ml Labs: Laboratory Tests Test 04/09/21 07:23 04/09/21 11:30 04/09/21 16:39 04/09/21 19:32 Glucose (Fingerstick) 112 mg/dL (70-99) H 245 mg/dL (70-99) H 170 mg/dL (70-99) H 208 mg/dL (70-99) H Current Medications: Meds: Laboratory Tests Test 04/09/21 07:23 04/09/21 11:30 04/09/21 16:39 04/09/21 19:32 Glucose (Fingerstick) 112 mg/dL 245 mg/dL 170 mg/dL 208 mg/dL Current Medications Medications (Trade) Dose Ordered Sig/John Route PRN Reason Start Time Stop Time Status Last Admin Dose Admin Acetaminophen (Tylenol) 1,000 mg PRN Q6HRS PRN PO MILD PAIN 1-3 03/28/21 19:45 04/07/21 05:25 Aspirin (Aspirin Enteric Coated) 81 mg DAILY PO 03/29/21 09:00 04/09/21 08:11 Bisacodyl (Dulcolax Supp) 10 mg PRN Q48HR PRN RC CONSTIPATION 03/28/21 19:45 Duloxetine HCl (Cymbalta) 60 mg DAILY PO 03/29/21 09:00 04/09/21 08:11 Fluticasone Propionate (Flonase) 2 spray DAILY NS 03/29/21 09:00 04/02/21 08:24 Lisinopril (Prinivil) 10 mg DAILY PO 03/29/21 09:00 04/09/21 08:11 Al Hydroxide/Mg Hydroxide (Mylanta Plus Xs) 15 ml PRN AFTMEALHC PRN PO DYSPEPSIA 03/28/21 19:45 Memantine (Namenda) 10 mg BID PO 03/28/21 21:00 04/09/21 20:39 Multi-Ingredient Ointment (Analgesic [place]) 1 nila PRN QID PRN TP MUSCLE PAIN 03/28/21 19:45 Mirtazapine (Remeron Nasra-Tab) 15 mg HS PO 03/28/21 21:00 04/09/21 20:39 Polyethylene Glycol (miraLAX) 17 gm DAILY PO 03/29/21 09:00 04/09/21 08:10 Quetiapine Fumarate (SEROquel) 75 mg QHS PO 03/28/21 21:00 03/30/21 17:03 DC 03/29/21 20:10 Senna/Docusate Sodium (Senna Plus) 1 tab BID PO 03/28/21 21:00 04/09/21 20:39 Simvastatin (Zocor) 10 mg HS PO 03/28/21 21:00 04/09/21 20:39 Divalproex Sodium (Depakote) 500 mg BID PO 03/28/21 21:00 04/09/21 20:40 Glucagon (Glucagen Kit) 1 mg PRN Q15MIN PRN IM HYPOGLYCEMIA 03/28/21 20:00 Insulin Glargine (Lantus Syringe) 14 unit QHS SQ 03/28/21 21:00 04/09/21 20:39 Non-Formulary Medication (Insulin Lispro (Humalog)) 10 unit TIDAC SQ 03/29/21 07:30 03/30/21 07:58 DC 03/29/21 11:30 Magnesium Hydroxide (Milk Of Magnesia) 2,400 mg PRN QHS PRN PO CONSTIPATION 03/28/21 20:00 04/08/21 18:51 Guaifenesin (Guaifenesin) 400 mg PRN Q4HRS PRN PO COUGH 03/28/21 20:00 Ondansetron HCl (Zofran Odt) 4 mg PRN Q6HRS PRN PO NAUSEA/VOMITING 03/28/21 20:00 Amoxicillin (Amoxil) 500 mg [id number] PO 04/05/21 22:00 03/29/21 19:30 DC Amoxicillin (Amoxil) 500 mg [id number] PO 03/29/21 21:00 04/05/21 21:01 DC 04/05/21 20:05 Bupropion HCl (Wellbutrin Xl) 150 mg DAILY PO 03/30/21 09:00 04/01/21 16:43 DC 04/01/21 08:32 Lactobacillus Rhamnosus (Culturelle) 1 cap BID PO 03/30/21 09:00 04/09/21 20:39 Insulin Human Lispro (HumaLOG) 10 units TIDWMEALS SQ 03/30/21 08:00 04/09/21 09:53 Quetiapine Fumarate (SEROquel) 100 mg QHS PO 03/30/21 21:00 04/09/21 20:39 Bupropion HCl (Wellbutrin Xl) 300 mg DAILY PO 04/02/21 09:00 04/09/21 08:11 Tramadol HCl (Ultram) 50 mg PRN Q6HRS PRN PO MOD-SEV PAIN 04/07/21 16:45 Tramadol HCl (Ultram) 50 mg 1X ONCE PO 04/07/21 16:45 04/07/21 16:53 DC 04/07/21 16:57 I have reviewed the current psychotropics carefully including drug interactions. Risk benefit ratio favors no change other than as noted in my dictated progress note. Diagnosis: Problems: (1) Anxiety disorder (2) Major depressive disorder with psychotic features (3) Impulse control disorder (4) Mild cognitive impairment JESSICA TREADWELL MD Apr 09, 2021 22:15
--- NOTE | 2021-04-10 04:17 | NUR ---
Pt withdrawn to his room, lying in bed when approached. Pt calm with a flat affect, but appears less irritable this evening. Pt cooperative with assessment and compliant with medications administered whole. No yelling or agitation noted thus far this shift.
[2021-04-10 06:29] VITALS: BP 131/79
[2021-04-10] MEDS: DIVALPROEX SODIUM 250 MG TABLET.DR. PO SCH ×2 (08:25→21:11)
[2021-04-10] MEDS: LACTOBACILLUS RHAMNOSUS GG 1 CAPSULE. PO SCH ×2 (08:25→21:10)
[2021-04-10] MEDS: SENNOSIDES/DOCUSATE 8.6/50MG TABLET. PO SCH ×2 (08:25→21:11)
[2021-04-10] MEDS: ASPIRIN ENTERIC COATED 81 MG TABLET.DR. PO SCH (08:25)
[2021-04-10] MEDS: POLYETHYLENE GLYCOL 3350 17 GM PACKET. PO SCH (08:25)
[2021-04-10] MEDS: MEMANTINE 10 MG TABLET. PO SCH ×2 (08:26→21:11)
[2021-04-10] MEDS: buPROPion XL 150 MG TAB.ER.24H PO SCH (08:26)
[2021-04-10] MEDS: LISINOPRIL 10 MG TABLET PO SCH (08:26)
[2021-04-10] MEDS: DULoxetine HCL 60 MG CAPSULE.DR PO SCH (08:26)
[2021-04-10] MEDS: INSULIN LISPRO 300 UNITS/3 ML VIAL. SQ SCH ×3 (08:27→17:25)
[2021-04-10] MEDS: FLUTICASONE 50MCG/NASAL SPRAY 16GM BOTTLE. NS SCH (08:28)
--- NOTE | 2021-04-10 10:32 | NUR ---
Pt remains flat and not interactive with others this shift. He completed all of his breakfast and has been drinking adequate amounts of fluids. He is compliant with medications and absent of physical/verbal outbursts towards others. Plan of care continues, will pass to next shift.
--- NOTE | 2021-04-10 13:48 | NUR ---
Pt did not eat lunch. Blood glucose 157. Scheduled Lantus 10 units held.
--- NOTE | 2021-04-10 14:31 | NUR ---
Pt becoming fixated and agitated over the perception that he has not had a BM "for days." CHARLIE Nichols attempted to explain to pt that he had a BM yesterday (04/09/21) which she was present for to provide hygiene and nancy-care. Pt became argumentative and accused her of lying. Pt is insistent that he has not had a BM "in days" and instructed CHARLIE Nichols to inform this nurse "so I can get an enema."
--- NOTE | 2021-04-10 15:22 | NUR ---
SABRA left a message for Tonya at [facility] re: the fax SABRA sent yesterday in preparation for pt to discharge on Tuesday. SABRA called to confirm that they actually received the fax and discuss discharge plans. SABRA will try back again.
--- NOTE | 2021-04-10 15:34 | NUR ---
SW attempted to contact pt son Mello and left a message asking for a returned call to discuss pt discharge for next week.
[2021-04-10 16:13] VITALS: BP 134/85
[2021-04-10] MEDS: MIRTAZAPINE ODT 15 MG TAB.RAPDIS. PO SCH (21:10)
[2021-04-10] MEDS: SIMVASTATIN 10 MG TABLET PO SCH (21:11)
[2021-04-10] MEDS: QUEtiapine 100 MG TABLET. PO SCH (21:11)
[2021-04-10] MEDS: INSULIN GLARGINE SYRINGE. SQ SCH (21:17)
--- NOTE | 2021-04-10 22:09 | PDOC ---
Exam Note: Sandoval Note: Please also refer to the separate dictated note~for this date of service dictated separately.~Patient seen individually. Discussed the patient with Nursing staff reviewed the chart.~Reviewed interim history and current functioning. Reviewed vital signs,~Labs/ Radiology~and current medications noted below. Continue current treatment with the changes noted in the dictated addendum note Assessment: Vital Signs/I&O: Vital Signs Date Time Temp Pulse Resp B/P (MAP) Pulse Ox O2 Delivery O2 Flow Rate FiO2 04/10/21 16:13 96.8 69 18 134/85 (101) 93 04/09/21 06:34 Room Air I & O 04/09/21 04/09/21 04/10/21 15:00 23:00 07:00 Intake Total 240 ml 400 ml Balance 240 ml 400 ml Labs: Laboratory Tests Test 04/10/21 07:47 04/10/21 11:57 04/10/21 17:09 04/10/21 19:23 Glucose (Fingerstick) 143 mg/dL (70-99) H 157 mg/dL (70-99) H 131 mg/dL (70-99) H 142 mg/dL (70-99) H Current Medications: Meds: Laboratory Tests Test 04/10/21 07:47 04/10/21 11:57 04/10/21 17:09 04/10/21 19:23 Glucose (Fingerstick) 143 mg/dL 157 mg/dL 131 mg/dL 142 mg/dL Current Medications Medications (Trade) Dose Ordered Sig/John Route PRN Reason Start Time Stop Time Status Last Admin Dose Admin Acetaminophen (Tylenol) 1,000 mg PRN Q6HRS PRN PO MILD PAIN 1-3 03/28/21 19:45 04/07/21 05:25 Aspirin (Aspirin Enteric Coated) 81 mg DAILY PO 03/29/21 09:00 04/10/21 08:25 Bisacodyl (Dulcolax Supp) 10 mg PRN Q48HR PRN RC CONSTIPATION 03/28/21 19:45 Duloxetine HCl (Cymbalta) 60 mg DAILY PO 03/29/21 09:00 04/10/21 08:26 Fluticasone Propionate (Flonase) 2 spray DAILY NS 03/29/21 09:00 04/02/21 08:24 Lisinopril (Prinivil) 10 mg DAILY PO 03/29/21 09:00 04/10/21 08:26 Al Hydroxide/Mg Hydroxide (Mylanta Plus Xs) 15 ml PRN AFTMEALHC PRN PO DYSPEPSIA 03/28/21 19:45 Memantine (Namenda) 10 mg BID PO 03/28/21 21:00 04/10/21 21:11 Multi-Ingredient Ointment (Analgesic [place]) 1 nila PRN QID PRN TP MUSCLE PAIN 03/28/21 19:45 Mirtazapine (Remeron Nasra-Tab) 15 mg HS PO 03/28/21 21:00 04/10/21 21:10 Polyethylene Glycol (miraLAX) 17 gm DAILY PO 03/29/21 09:00 04/10/21 08:25 Quetiapine Fumarate (SEROquel) 75 mg QHS PO 03/28/21 21:00 03/30/21 17:03 DC 03/29/21 20:10 Senna/Docusate Sodium (Senna Plus) 1 tab BID PO 03/28/21 21:00 04/10/21 21:11 Simvastatin (Zocor) 10 mg HS PO 03/28/21 21:00 04/10/21 21:11 Divalproex Sodium (Depakote) 500 mg BID PO 03/28/21 21:00 04/10/21 21:11 Glucagon (Glucagen Kit) 1 mg PRN Q15MIN PRN IM HYPOGLYCEMIA 03/28/21 20:00 Insulin Glargine (Lantus Syringe) 14 unit QHS SQ 03/28/21 21:00 04/10/21 21:17 Non-Formulary Medication (Insulin Lispro (Humalog)) 10 unit TIDAC SQ 03/29/21 07:30 03/30/21 07:58 DC 03/29/21 11:30 Magnesium Hydroxide (Milk Of Magnesia) 2,400 mg PRN QHS PRN PO CONSTIPATION 03/28/21 20:00 04/08/21 18:51 Guaifenesin (Guaifenesin) 400 mg PRN Q4HRS PRN PO COUGH 03/28/21 20:00 Ondansetron HCl (Zofran Odt) 4 mg PRN Q6HRS PRN PO NAUSEA/VOMITING 03/28/21 20:00 Amoxicillin (Amoxil) 500 mg [id number] PO 04/05/21 22:00 03/29/21 19:30 DC Amoxicillin (Amoxil) 500 mg [id number] PO 03/29/21 21:00 04/05/21 21:01 DC 04/05/21 20:05 Bupropion HCl (Wellbutrin Xl) 150 mg DAILY PO 03/30/21 09:00 04/01/21 16:43 DC 04/01/21 08:32 Lactobacillus Rhamnosus (Culturelle) 1 cap BID PO 03/30/21 09:00 04/10/21 21:10 Insulin Human Lispro (HumaLOG) 10 units TIDWMEALS SQ 03/30/21 08:00 04/10/21 17:25 Quetiapine Fumarate (SEROquel) 100 mg QHS PO 03/30/21 21:00 04/10/21 21:11 Bupropion HCl (Wellbutrin Xl) 300 mg DAILY PO 04/02/21 09:00 04/10/21 08:26 Tramadol HCl (Ultram) 50 mg PRN Q6HRS PRN PO MOD-SEV PAIN 04/07/21 16:45 Tramadol HCl (Ultram) 50 mg 1X ONCE PO 04/07/21 16:45 04/07/21 16:53 DC 04/07/21 16:57 I have reviewed the current psychotropics carefully including drug interactions. Risk benefit ratio favors no change other than as noted in my dictated progress note. Diagnosis: Problems: (1) Major depressive disorder with psychotic features (2) Anxiety disorder (3) Impulse control disorder (4) Mild cognitive impairment JESSICA TREADWELL MD Apr 10, 2021 22:09
--- NOTE | 2021-04-11 00:11 | NUR ---
Pt withdrawn to his room, lying in bed when approached. Pt calm with a flat, depressed affect. Pt cooperative with assessment and compliant with medications administered whole. No agitation or yelling noted thus far this shift.
[2021-04-11 05:36] VITALS: BP 156/91
[2021-04-11] MEDS: INSULIN LISPRO 300 UNITS/3 ML VIAL. SQ SCH ×3 (08:00→17:00)
[2021-04-11] MEDS: POLYETHYLENE GLYCOL 3350 17 GM PACKET. PO SCH (08:40)
[2021-04-11] MEDS: FLUTICASONE 50MCG/NASAL SPRAY 16GM BOTTLE. NS SCH (08:41)
[2021-04-11] MEDS: LACTOBACILLUS RHAMNOSUS GG 1 CAPSULE. PO SCH ×2 (08:41→19:54)
[2021-04-11] MEDS: ASPIRIN ENTERIC COATED 81 MG TABLET.DR. PO SCH (08:41)
[2021-04-11] MEDS: SENNOSIDES/DOCUSATE 8.6/50MG TABLET. PO SCH ×2 (08:41→19:54)
[2021-04-11] MEDS: DIVALPROEX SODIUM 250 MG TABLET.DR. PO SCH ×2 (08:41→19:54)
[2021-04-11] MEDS: buPROPion XL 150 MG TAB.ER.24H PO SCH (08:41)
[2021-04-11] MEDS: LISINOPRIL 10 MG TABLET PO SCH (08:41)
[2021-04-11] MEDS: DULoxetine HCL 60 MG CAPSULE.DR PO SCH (08:41)
[2021-04-11] MEDS: MEMANTINE 10 MG TABLET. PO SCH ×2 (08:41→19:54)
--- NOTE | 2021-04-11 09:12 | PDOC ---
Exam Note: Sandoval Note: This note is a late entry for 04/09/2021 covers elements not covered in my initial note. Subjective: The patient was seen individually in the evening of 04/09/2021 with Lien MENENDEZ, discussed and reviewed the chart. The patient slept 6-1/2 hours previous night. He has been withdrawn, spends much time in his room, somewhat irritable. He readily recognized me as I visited him and knew my name, irritable that staff had had him come to bed. He was looking for his glasses and felt they were on the side table but in fact he was wearing them. When I pointed this out he was quite surprised. Review of Systems: Ambulation impaired in wheelchair. No CV, , pulmonary, eye, ENT system symptoms on review. Mental Status Exam: The patient is oriented to himself and situation. Speech is coherent, moderate latency. Abstraction fair. Computation impaired. Language function intact. Mood and affect withdrawn. Laboratory Data: Reviewed. Impression: Major depressive disorder with psychotic features. Mild cognitive impairment. Anxiety disorder unspecified. Impulse control disorder unspecified. Plan: Continue current psychotropics. Adjust further as clinically indicated. Assessment: Vital Signs/I&O: Vital Signs Date Time Temp Pulse Resp B/P (MAP) Pulse Ox O2 Delivery O2 Flow Rate FiO2 04/11/21 08:41 82 156/91 04/11/21 05:36 96.2 18 99 Room Air I & O 04/10/21 04/10/21 04/11/21 15:00 23:00 07:00 Intake Total 360 ml 360 ml 120 ml Balance 360 ml 360 ml 120 ml Labs: Laboratory Tests Test 04/10/21 11:57 04/10/21 17:09 04/10/21 19:23 04/11/21 08:05 Glucose (Fingerstick) 157 mg/dL (70-99) H 131 mg/dL (70-99) H 142 mg/dL (70-99) H 144 mg/dL (70-99) H Current Medications: Meds: Laboratory Tests Test 04/10/21 11:57 04/10/21 17:09 04/10/21 19:23 04/11/21 08:05 Glucose (Fingerstick) 157 mg/dL 131 mg/dL 142 mg/dL 144 mg/dL Current Medications Medications (Trade) Dose Ordered Sig/John Route PRN Reason Start Time Stop Time Status Last Admin Dose Admin Acetaminophen (Tylenol) 1,000 mg PRN Q6HRS PRN PO MILD PAIN 1-3 03/28/21 19:45 04/07/21 05:25 Aspirin (Aspirin Enteric Coated) 81 mg DAILY PO 03/29/21 09:00 04/11/21 08:41 Bisacodyl (Dulcolax Supp) 10 mg PRN Q48HR PRN RC CONSTIPATION 03/28/21 19:45 Duloxetine HCl (Cymbalta) 60 mg DAILY PO 03/29/21 09:00 04/11/21 08:41 Fluticasone Propionate (Flonase) 2 spray DAILY NS 03/29/21 09:00 04/11/21 08:41 Lisinopril (Prinivil) 10 mg DAILY PO 03/29/21 09:00 04/11/21 08:41 Al Hydroxide/Mg Hydroxide (Mylanta Plus Xs) 15 ml PRN AFTMEALHC PRN PO DYSPEPSIA 03/28/21 19:45 Memantine (Namenda) 10 mg BID PO 03/28/21 21:00 04/11/21 08:41 Multi-Ingredient Ointment (Analgesic [place]) 1 nila PRN QID PRN TP MUSCLE PAIN 03/28/21 19:45 Mirtazapine (Remeron Nasra-Tab) 15 mg HS PO 03/28/21 21:00 04/10/21 21:10 Polyethylene Glycol (miraLAX) 17 gm DAILY PO 03/29/21 09:00 04/11/21 08:40 Quetiapine Fumarate (SEROquel) 75 mg QHS PO 03/28/21 21:00 03/30/21 17:03 DC 03/29/21 20:10 Senna/Docusate Sodium (Senna Plus) 1 tab BID PO 03/28/21 21:00 04/11/21 08:41 Simvastatin (Zocor) 10 mg HS PO 03/28/21 21:00 04/10/21 21:11 Divalproex Sodium (Depakote) 500 mg BID PO 03/28/21 21:00 04/11/21 08:41 Glucagon (Glucagen Kit) 1 mg PRN Q15MIN PRN IM HYPOGLYCEMIA 03/28/21 20:00 Insulin Glargine (Lantus Syringe) 14 unit QHS SQ 03/28/21 21:00 04/10/21 21:17 Non-Formulary Medication (Insulin Lispro (Humalog)) 10 unit TIDAC SQ 03/29/21 07:30 03/30/21 07:58 DC 03/29/21 11:30 Magnesium Hydroxide (Milk Of Magnesia) 2,400 mg PRN QHS PRN PO CONSTIPATION 03/28/21 20:00 04/08/21 18:51 Guaifenesin (Guaifenesin) 400 mg PRN Q4HRS PRN PO COUGH 03/28/21 20:00 Ondansetron HCl (Zofran Odt) 4 mg PRN Q6HRS PRN PO NAUSEA/VOMITING 03/28/21 20:00 Amoxicillin (Amoxil) 500 mg [id number] PO 04/05/21 22:00 03/29/21 19:30 DC Amoxicillin (Amoxil) 500 mg [id number] PO 03/29/21 21:00 04/05/21 21:01 DC 04/05/21 20:05 Bupropion HCl (Wellbutrin Xl) 150 mg DAILY PO 03/30/21 09:00 04/01/21 16:43 DC 04/01/21 08:32 Lactobacillus Rhamnosus (Culturelle) 1 cap BID PO 03/30/21 09:00 04/11/21 08:41 Insulin Human Lispro (HumaLOG) 10 units TIDWMEALS SQ 03/30/21 08:00 04/10/21 17:25 Quetiapine Fumarate (SEROquel) 100 mg QHS PO 03/30/21 21:00 04/10/21 21:11 Bupropion HCl (Wellbutrin Xl) 300 mg DAILY PO 04/02/21 09:00 04/11/21 08:41 Tramadol HCl (Ultram) 50 mg PRN Q6HRS PRN PO MOD-SEV PAIN 04/07/21 16:45 Tramadol HCl (Ultram) 50 mg 1X ONCE PO 04/07/21 16:45 04/07/21 16:53 DC 04/07/21 16:57 I have reviewed the current psychotropics carefully including drug interactions. Risk benefit ratio favors no change other than as noted in my dictated progress note. Diagnosis: Problems: (1) Impulse control disorder (2) Anxiety disorder (3) Mild cognitive impairment (4) Major depressive disorder with psychotic features JESSICA TREADWELL MD Apr 11, 2021 09:12
--- NOTE | 2021-04-11 11:58 | NUR ---
Patient is alert, oriented to self and place. Pt irritable and stopped answering questions to RN. Pt did open scab on hand, bandaid applied due to bleeding. Pt wheel chairs self around. Keeps to himself. Compliant with medications. SHAWNA.
[2021-04-11 16:23] VITALS: BP 159/79
[2021-04-11] MEDS: MIRTAZAPINE ODT 15 MG TAB.RAPDIS. PO SCH (19:54)
[2021-04-11] MEDS: QUEtiapine 100 MG TABLET. PO SCH (19:54)
[2021-04-11] MEDS: SIMVASTATIN 10 MG TABLET PO SCH (19:54)
[2021-04-11] MEDS: INSULIN GLARGINE SYRINGE. SQ SCH (19:56)
--- NOTE | 2021-04-11 22:08 | PDOC ---
Exam Note: Sandoval Note: Please also refer to the separate dictated note~for this date of service dictated separately.~Patient seen individually. Discussed the patient with Nursing staff reviewed the chart.~Reviewed interim history and current functioning. Reviewed vital signs,~Labs/ Radiology~and current medications noted below. Continue current treatment with the changes noted in the dictated addendum note Assessment: Vital Signs/I&O: Vital Signs Date Time Temp Pulse Resp B/P (MAP) Pulse Ox O2 Delivery O2 Flow Rate FiO2 04/11/21 16:23 98.0 68 16 159/79 (105) 97 04/11/21 05:36 Room Air I & O 04/10/21 04/10/21 04/11/21 15:00 23:00 07:00 Intake Total 360 ml 360 ml 120 ml Balance 360 ml 360 ml 120 ml Labs: Laboratory Tests Test 04/11/21 08:05 04/11/21 12:06 04/11/21 16:40 04/11/21 19:08 Glucose (Fingerstick) 144 mg/dL (70-99) H 259 mg/dL (70-99) H 101 mg/dL (70-99) H 78 mg/dL (70-99) Test 04/11/21 20:11 Glucose (Fingerstick) 103 mg/dL (70-99) H Current Medications: Meds: Laboratory Tests Test 04/11/21 08:05 04/11/21 12:06 04/11/21 16:40 04/11/21 19:08 Glucose (Fingerstick) 144 mg/dL 259 mg/dL 101 mg/dL 78 mg/dL Test 04/11/21 20:11 Glucose (Fingerstick) 103 mg/dL Current Medications Medications (Trade) Dose Ordered Sig/John Route PRN Reason Start Time Stop Time Status Last Admin Dose Admin Acetaminophen (Tylenol) 1,000 mg PRN Q6HRS PRN PO MILD PAIN 1-3 03/28/21 19:45 04/07/21 05:25 Aspirin (Aspirin Enteric Coated) 81 mg DAILY PO 03/29/21 09:00 04/11/21 08:41 Bisacodyl (Dulcolax Supp) 10 mg PRN Q48HR PRN RC CONSTIPATION 03/28/21 19:45 Duloxetine HCl (Cymbalta) 60 mg DAILY PO 03/29/21 09:00 04/11/21 08:41 Fluticasone Propionate (Flonase) 2 spray DAILY NS 03/29/21 09:00 04/11/21 08:41 Lisinopril (Prinivil) 10 mg DAILY PO 03/29/21 09:00 04/11/21 08:41 Al Hydroxide/Mg Hydroxide (Mylanta Plus Xs) 15 ml PRN AFTMEALHC PRN PO DYSPEPSIA 03/28/21 19:45 Memantine (Namenda) 10 mg BID PO 03/28/21 21:00 04/11/21 19:54 Multi-Ingredient Ointment (Analgesic [place]) 1 nila PRN QID PRN TP MUSCLE PAIN 03/28/21 19:45 Mirtazapine (Remeron Nasra-Tab) 15 mg HS PO 03/28/21 21:00 04/11/21 19:54 Polyethylene Glycol (miraLAX) 17 gm DAILY PO 03/29/21 09:00 04/11/21 08:40 Quetiapine Fumarate (SEROquel) 75 mg QHS PO 03/28/21 21:00 03/30/21 17:03 DC 03/29/21 20:10 Senna/Docusate Sodium (Senna Plus) 1 tab BID PO 03/28/21 21:00 04/11/21 19:54 Simvastatin (Zocor) 10 mg HS PO 03/28/21 21:00 04/11/21 19:54 Divalproex Sodium (Depakote) 500 mg BID PO 03/28/21 21:00 04/11/21 19:54 Glucagon (Glucagen Kit) 1 mg PRN Q15MIN PRN IM HYPOGLYCEMIA 03/28/21 20:00 Insulin Glargine (Lantus Syringe) 14 unit QHS SQ 03/28/21 21:00 04/10/21 21:17 Non-Formulary Medication (Insulin Lispro (Humalog)) 10 unit TIDAC SQ 03/29/21 07:30 03/30/21 07:58 DC 03/29/21 11:30 Magnesium Hydroxide (Milk Of Magnesia) 2,400 mg PRN QHS PRN PO CONSTIPATION 03/28/21 20:00 04/08/21 18:51 Guaifenesin (Guaifenesin) 400 mg PRN Q4HRS PRN PO COUGH 03/28/21 20:00 Ondansetron HCl (Zofran Odt) 4 mg PRN Q6HRS PRN PO NAUSEA/VOMITING 03/28/21 20:00 Amoxicillin (Amoxil) 500 mg [id number] PO 04/05/21 22:00 03/29/21 19:30 DC Amoxicillin (Amoxil) 500 mg [id number] PO 03/29/21 21:00 04/05/21 21:01 DC 04/05/21 20:05 Bupropion HCl (Wellbutrin Xl) 150 mg DAILY PO 03/30/21 09:00 04/01/21 16:43 DC 04/01/21 08:32 Lactobacillus Rhamnosus (Culturelle) 1 cap BID PO 03/30/21 09:00 04/11/21 19:54 Insulin Human Lispro (HumaLOG) 10 units TIDWMEALS SQ 03/30/21 08:00 04/11/21 12:31 Quetiapine Fumarate (SEROquel) 100 mg QHS PO 03/30/21 21:00 04/11/21 19:54 Bupropion HCl (Wellbutrin Xl) 300 mg DAILY PO 04/02/21 09:00 04/11/21 08:41 Tramadol HCl (Ultram) 50 mg PRN Q6HRS PRN PO MOD-SEV PAIN 04/07/21 16:45 Tramadol HCl (Ultram) 50 mg 1X ONCE PO 04/07/21 16:45 04/07/21 16:53 DC 04/07/21 16:57 I have reviewed the current psychotropics carefully including drug interactions. Risk benefit ratio favors no change other than as noted in my dictated progress note. Diagnosis: Problems: (1) Major depressive disorder with psychotic features (2) Anxiety disorder (3) Impulse control disorder JESSICA TREADWELL MD Apr 11, 2021 22:08
--- NOTE | 2021-04-11 23:30 | NUR ---
Pt quietly sitting up in w/c in his doorway when approached. Pt calm, appropriate, and interactive during encounter. Pt reports being worried about his blood sugar being low this evening. I informed him that his HS Lantus would be held and he was provided with HS snacks which he consumed. Pt cooperative with assessment and compliant with medications administered whole.
[2021-04-12 05:32] VITALS: BP 178/73
--- NOTE | 2021-04-12 07:15 | NUR ---
Pt sitting in the day room, socializing with peers when approached. Pt calm, pleasant, and interactive. Pt cooperative with assessment and compliant with medications administered whole. No paranoia, hallucinations, or delusions noted thus far this shift.
[2021-04-12] MEDS ORDERED: LIDOCAINE 1% Multi-Dose 20 ML VIAL. ONE (07:47)
[2021-04-12] MEDS: INSULIN LISPRO 300 UNITS/3 ML VIAL. SQ SCH ×3 (08:00→17:00)
[2021-04-12] MEDS: FLUTICASONE 50MCG/NASAL SPRAY 16GM BOTTLE. NS SCH (08:37)
[2021-04-12] MEDS: ASPIRIN ENTERIC COATED 81 MG TABLET.DR. PO SCH (08:38)
[2021-04-12] MEDS: DULoxetine HCL 60 MG CAPSULE.DR PO SCH (08:38)
[2021-04-12] MEDS: LACTOBACILLUS RHAMNOSUS GG 1 CAPSULE. PO SCH ×2 (08:38→20:24)
[2021-04-12] MEDS: DIVALPROEX SODIUM 250 MG TABLET.DR. PO SCH ×2 (08:38→20:24)
[2021-04-12] MEDS: SENNOSIDES/DOCUSATE 8.6/50MG TABLET. PO SCH ×2 (08:38→20:23)
[2021-04-12] MEDS: MEMANTINE 10 MG TABLET. PO SCH ×2 (08:39→20:24)
[2021-04-12] MEDS: POLYETHYLENE GLYCOL 3350 17 GM PACKET. PO SCH (08:39)
[2021-04-12] MEDS: LISINOPRIL 10 MG TABLET PO SCH (08:39)
[2021-04-12] MEDS: buPROPion XL 150 MG TAB.ER.24H PO SCH (08:39)
--- NOTE | 2021-04-12 08:43 | RAD ---
STUDY: 1. CT head without contrast 2. CT maxillofacial without contrast INDICATION: Fall. Trauma to the face. COMPARISON: Most recent CT head 03/06/2021 TECHNIQUE: Axial CT imaging of the head and maxillofacial structures performed without the use of int ravenous contrast. Sagittal and coronal reformats were obtained. One or more of the following individualized dose reduction techniques were utilized for this examinat ion: 1. Automated exposure control 2. Adjustment of the mA and/or kV according to patient size 3. Use of iterative reconstruction technique. FINDINGS: CT HEAD: No acute intracranial hemorrhage. No mass effect or midline shift. No CT evidence for an acute cortic al infarction. Parenchymal volume loss with ex vacuo ventriculomegaly. Intracranial vascular calcifications. Finding s involving the bihemispheric subcortical/periventricular white matter most commonly seen in the sett ing of chronic microvascular ischemic change. No depressed calvarial fracture. CT MAXILLOFACIAL: Acute fractures of the nasal bone complex which collectively is more pronounced on the left and with mild rightward deviation and a component of depression, image 27 series 3. Fracture of the perpendicu lar plate which is slightly angulated to the right. No additional facial bone fracture is identified. The orbital rims are intact. Anterior positioning of the mandibular condyles is symmetric and physio logic on account of imaging with the mouth open. Multifocal odontogenic disease with dental caries an d periapical lucencies. No acute fracture of the partially imaged cervical spine. ACDF construct at C3-C4. Background spondyl osis with osseous neural foraminal narrowing. Central canal stenosis from C2-C3 and below which is at least moderate. Symmetric positioning of the globes. No retrobulbar hematoma. IMPRESSION: CT HEAD: 1. No acute intracranial abnormality by CT. 2. Chronic/senescent observations as above. CT MAXILLOFACIAL: 1. Acute nasal bone complex deformity with slight rightward deviation and a component of depression. The perpendicular plate is fractured as well with slight rightward angulation at the fracture site. No additional facial bone fracture. Unremarkable orbits. 2. Incompletely assessed upper cervical spondylosis with central canal narrowing that is at least mo derate from C2-C3 and below and with osseous neural foraminal narrowing. Multifocal odontogenic disea se. Electronically signed by: MIRIAN DANIELLE MD (04/12/2021 8:40 AM) [place] [id number]
--- NOTE | 2021-04-12 09:11 | PDOC ---
Exam Note: Sandoval Note: This note is a late entry for 04/10/2021 covers elements not covered in my initial note. Subjective: The patient was seen individually in the evening of 04/10/2021 with Lien MENENDEZ, discussed and reviewed the chart. The patient slept 8-1/2 hours previous night. He has been somatic, obsessed regarding bowel movement. He complains of constipation wanting suppository. I did discuss with Judie MENENDEZ and she will make a clinical nursing assessment and then determine the need. Review of Systems: Ambulation impaired in wheelchair. No CV, , pulmonary, eye, ENT system symptoms on review. He complains of constipation. Mental Status Exam: The patient is oriented to himself and situation. He seemed to remember my name correctly. Speech is moderate to marked latency, low in rate and rhythm. Abstraction fair. Computation impaired. Language function intact. Mood and affect withdrawn, distractible. No suicidal or homicidal ideation. Laboratory Data: Reviewed. Impression: Major depressive disorder with psychotic features. Mild cognitive impairment. Anxiety disorder unspecified. Impulse control disorder unspecified. Plan: Continue current psychotropics. Adjust further as clinically indicated. Assessment: Vital Signs/I&O: Vital Signs Date Time Temp Pulse Resp B/P (MAP) Pulse Ox O2 Delivery O2 Flow Rate FiO2 04/12/21 08:39 75 178/73 04/12/21 05:32 97.5 16 94 04/11/21 05:36 Room Air I & O 04/11/21 04/11/21 04/12/21 15:00 23:00 07:00 Intake Total 600 ml 240 ml Balance 600 ml 240 ml Labs: Laboratory Tests Test 04/11/21 12:06 04/11/21 16:40 04/11/21 19:08 04/11/21 20:11 Glucose (Fingerstick) 259 mg/dL (70-99) H 101 mg/dL (70-99) H 78 mg/dL (70-99) 103 mg/dL (70-99) H Test 04/12/21 07:30 Glucose (Fingerstick) 145 mg/dL (70-99) H Current Medications: Meds: Laboratory Tests Test 04/11/21 12:06 04/11/21 16:40 04/11/21 19:08 04/11/21 20:11 Glucose (Fingerstick) 259 mg/dL 101 mg/dL 78 mg/dL 103 mg/dL Test 04/12/21 07:30 Glucose (Fingerstick) 145 mg/dL Current Medications Medications (Trade) Dose Ordered Sig/John Route PRN Reason Start Time Stop Time Status Last Admin Dose Admin Acetaminophen (Tylenol) 1,000 mg PRN Q6HRS PRN PO MILD PAIN 1-3 03/28/21 19:45 04/07/21 05:25 Aspirin (Aspirin Enteric Coated) 81 mg DAILY PO 03/29/21 09:00 04/12/21 08:38 Bisacodyl (Dulcolax Supp) 10 mg PRN Q48HR PRN RC CONSTIPATION 03/28/21 19:45 Duloxetine HCl (Cymbalta) 60 mg DAILY PO 03/29/21 09:00 04/12/21 08:38 Fluticasone Propionate (Flonase) 2 spray DAILY NS 03/29/21 09:00 04/11/21 08:41 Lisinopril (Prinivil) 10 mg DAILY PO 03/29/21 09:00 04/12/21 08:39 Al Hydroxide/Mg Hydroxide (Mylanta Plus Xs) 15 ml PRN AFTMEALHC PRN PO DYSPEPSIA 03/28/21 19:45 Memantine (Namenda) 10 mg BID PO 03/28/21 21:00 04/12/21 08:39 Multi-Ingredient Ointment (Analgesic [place]) 1 nila PRN QID PRN TP MUSCLE PAIN 03/28/21 19:45 Mirtazapine (Remeron Nasra-Tab) 15 mg HS PO 03/28/21 21:00 04/11/21 19:54 Polyethylene Glycol (miraLAX) 17 gm DAILY PO 03/29/21 09:00 04/12/21 08:39 Quetiapine Fumarate (SEROquel) 75 mg QHS PO 03/28/21 21:00 03/30/21 17:03 DC 03/29/21 20:10 Senna/Docusate Sodium (Senna Plus) 1 tab BID PO 03/28/21 21:00 04/12/21 08:38 Simvastatin (Zocor) 10 mg HS PO 03/28/21 21:00 04/11/21 19:54 Divalproex Sodium (Depakote) 500 mg BID PO 03/28/21 21:00 04/12/21 08:38 Glucagon (Glucagen Kit) 1 mg PRN Q15MIN PRN IM HYPOGLYCEMIA 03/28/21 20:00 Insulin Glargine (Lantus Syringe) 14 unit QHS SQ 03/28/21 21:00 04/10/21 21:17 Non-Formulary Medication (Insulin Lispro (Humalog)) 10 unit TIDAC SQ 03/29/21 07:30 03/30/21 07:58 DC 03/29/21 11:30 Magnesium Hydroxide (Milk Of Magnesia) 2,400 mg PRN QHS PRN PO CONSTIPATION 03/28/21 20:00 04/08/21 18:51 Guaifenesin (Guaifenesin) 400 mg PRN Q4HRS PRN PO COUGH 03/28/21 20:00 Ondansetron HCl (Zofran Odt) 4 mg PRN Q6HRS PRN PO NAUSEA/VOMITING 03/28/21 20:00 Amoxicillin (Amoxil) 500 mg [id number] PO 04/05/21 22:00 03/29/21 19:30 DC Amoxicillin (Amoxil) 500 mg [id number] PO 03/29/21 21:00 04/05/21 21:01 DC 04/05/21 20:05 Bupropion HCl (Wellbutrin Xl) 150 mg DAILY PO 03/30/21 09:00 04/01/21 16:43 DC 04/01/21 08:32 Lactobacillus Rhamnosus (Culturelle) 1 cap BID PO 03/30/21 09:00 04/12/21 08:38 Insulin Human Lispro (HumaLOG) 10 units TIDWMEALS SQ 03/30/21 08:00 04/11/21 12:31 Quetiapine Fumarate (SEROquel) 100 mg QHS PO 03/30/21 21:00 04/11/21 19:54 Bupropion HCl (Wellbutrin Xl) 300 mg DAILY PO 04/02/21 09:00 04/12/21 08:39 Tramadol HCl (Ultram) 50 mg PRN Q6HRS PRN PO MOD-SEV PAIN 04/07/21 16:45 Tramadol HCl (Ultram) 50 mg 1X ONCE PO 04/07/21 16:45 04/07/21 16:53 DC 04/07/21 16:57 Lidocaine HCl 20 ml STK-MED ONCE .ROUTE 04/12/21 07:47 04/12/21 07:47 DC I have reviewed the current psychotropics carefully including drug interactions. Risk benefit ratio favors no change other than as noted in my dictated progress note. Diagnosis: Problems: (1) Major depressive disorder with psychotic features (2) Mild cognitive impairment (3) Anxiety disorder (4) Impulse control disorder JESSICA TREADWELL MD Apr 12, 2021 09:11
--- NOTE | 2021-04-12 09:20 | NUR ---
Dr Vasquez notified. CT head and face performed. FX o nos. Dr Lawrence here to see pt. Glued laceration to nose. Pt tolerated well. Minimal bleeding noted to B nares.
--- NOTE | 2021-04-12 09:25 | NUR ---
LM message or pt son to return call regarding pt fall.
[2021-04-12] MEDS: traMADol 50 MG TABLET PO PRN (10:27)
[2021-04-12 10:48] LABS: BASO % 0 % (0-3); EOS % 0 % (0-3); HEMATOCRIT 34.3 % (39.0-53.0); HEMOGLOBIN 11.3 g/dL (13.0-17.5); LYMPH % 9 % (24-48); MEAN CORPUSCULAR HEMOGLOBIN 33 pg (25-35); MEAN CORPUSCULAR HGB CONC 33 g/dL (31-37); MEAN CORPUSCULAR VOLUME 99 fL (79-100); MONO # 0.5 x10^3/uL (0.0-1.1); MONO % 5 % (0-9); NEUT # 9.1 x10^3uL (1.8-7.7); NEUT % 86 % (31-73); PLATELET COUNT 176 x10^3/uL (140-400); RED BLOOD COUNT 3.47 x10^6/uL (4.30-5.70); RED CELL DISTRIBUTION WIDTH 15.4 % (11.5-14.5); WHITE BLOOD COUNT 10.6 x10^3/uL (4.0-11.0)
[2021-04-12 11:23] LABS: ALBUMIN/GLOBULIN RATIO 0.8 (1.0-1.7); CALCIUM 8.9 mg/dL (8.5-10.1); CREATININE 1.4 mg/dL (0.7-1.3); GFR 49.1; POTASSIUM 5.2 mmol/L (3.5-5.1); TOTAL BILIRUBIN 0.5 mg/dL (0.2-1.0); TOTAL PROTEIN 6.6 g/dL (6.4-8.2)
--- NOTE | 2021-04-12 11:40 | NUR ---
Son returned call. Informed of pt condition. Pt stable.
--- NOTE | 2021-04-12 13:00 | NUR ---
Pt refused to get up for lunch. tired after taking tramadol for nose pain. Pt did drink a glucerna.
[2021-04-12 16:15] VITALS: BP 147/70
--- NOTE | 2021-04-12 17:02 | NUR ---
Pt resting quietly in bed.
[2021-04-12] MEDS: MIRTAZAPINE ODT 15 MG TAB.RAPDIS. PO SCH (20:23)
[2021-04-12] MEDS: SIMVASTATIN 10 MG TABLET PO SCH (20:24)
[2021-04-12] MEDS: QUEtiapine 100 MG TABLET. PO SCH (20:24)
[2021-04-12] MEDS: MAGNESIUM HYDROXIDE 2,400 MG/30 ML ORAL.SUSP. PO PRN (20:30)
--- NOTE | 2021-04-12 22:05 | PDOC ---
Exam Note: Sandoval Note: Please also refer to the separate dictated note~for this date of service dictated separately.~Patient seen individually. Discussed the patient with Nursing staff reviewed the chart.~Reviewed interim history and current functioning. Reviewed vital signs,~Labs/ Radiology~and current medications noted below. Continue current treatment with the changes noted in the dictated addendum note Assessment: Vital Signs/I&O: Vital Signs Date Time Temp Pulse Resp B/P (MAP) Pulse Ox O2 Delivery O2 Flow Rate FiO2 04/12/21 16:15 97.3 89 18 147/70 (95) 95 Room Air I & O 04/11/21 04/11/21 04/12/21 15:00 23:00 07:00 Intake Total 600 ml 240 ml Balance 600 ml 240 ml Labs: Laboratory Tests Test 04/12/21 07:30 04/12/21 10:00 04/12/21 11:53 04/12/21 16:43 Glucose (Fingerstick) 145 mg/dL (70-99) H 230 mg/dL (70-99) H 248 mg/dL (70-99) H White Blood Count 10.6 x10^3/uL (4.0-11.0) Red Blood Count 3.47 x10^6/uL (4.30-5.70) L Hemoglobin 11.3 g/dL (13.0-17.5) L Hematocrit 34.3 % (39.0-53.0) L Mean Corpuscular Volume 99 fL (79-100) Mean Corpuscular Hemoglobin 33 pg (25-35) Mean Corpuscular Hemoglobin Concent 33 g/dL (31-37) Red Cell Distribution Width 15.4 % (11.5-14.5) H Platelet Count 176 x10^3/uL (140-400) Neutrophils (%) (Auto) 86 % (31-73) H Lymphocytes (%) (Auto) 9 % (24-48) L Monocytes (%) (Auto) 5 % (0-9) Eosinophils (%) (Auto) 0 % (0-3) Basophils (%) (Auto) 0 % (0-3) Neutrophils # (Auto) 9.1 x10^3uL (1.8-7.7) H Lymphocytes # (Auto) 1.0 x10^3/uL (1.0-4.8) Monocytes # (Auto) 0.5 x10^3/uL (0.0-1.1) Eosinophils # (Auto) 0.0 x10^3/uL (0.0-0.7) Basophils # (Auto) 0.0 x10^3/uL (0.0-0.2) Sodium Level 140 mmol/L (136-145) Potassium Level 5.2 mmol/L (3.5-5.1) H Chloride Level 104 mmol/L (98-107) Carbon Dioxide Level 27 mmol/L (21-32) Anion Gap 9 (6-14) Blood Urea Nitrogen 28 mg/dL (8-26) H Creatinine 1.4 mg/dL (0.7-1.3) H Estimated GFR (Cockcroft-Gault) 49.1 BUN/Creatinine Ratio 20 (6-20) Glucose Level 275 mg/dL (70-99) H Calcium Level 8.9 mg/dL (8.5-10.1) Magnesium Level 2.0 mg/dL (1.8-2.4) Total Bilirubin 0.5 mg/dL (0.2-1.0) Aspartate Amino Transferase (AST) 13 U/L (15-37) L Alanine Aminotransferase (ALT) 17 U/L (16-63) Alkaline Phosphatase 97 U/L (46-116) Total Protein 6.6 g/dL (6.4-8.2) Albumin 3.0 g/dL (3.4-5.0) L Albumin/Globulin Ratio 0.8 (1.0-1.7) L Test 04/12/21 19:24 Glucose (Fingerstick) 226 mg/dL (70-99) H Current Medications: Meds: Laboratory Tests Test 04/12/21 07:30 04/12/21 10:00 04/12/21 11:53 04/12/21 16:43 Glucose (Fingerstick) 145 mg/dL 230 mg/dL 248 mg/dL White Blood Count 10.6 x10^3/uL Red Blood Count 3.47 x10^6/uL Hemoglobin 11.3 g/dL Hematocrit 34.3 % Mean Corpuscular Volume 99 fL Mean Corpuscular Hemoglobin 33 pg Mean Corpuscular Hemoglobin Concent 33 g/dL Red Cell Distribution Width 15.4 % Platelet Count 176 x10^3/uL Neutrophils (%) (Auto) 86 % Lymphocytes (%) (Auto) 9 % Monocytes (%) (Auto) 5 % Eosinophils (%) (Auto) 0 % Basophils (%) (Auto) 0 % Neutrophils # (Auto) 9.1 x10^3uL Lymphocytes # (Auto) 1.0 x10^3/uL Monocytes # (Auto) 0.5 x10^3/uL Eosinophils # (Auto) 0.0 x10^3/uL Basophils # (Auto) 0.0 x10^3/uL Sodium Level 140 mmol/L Potassium Level 5.2 mmol/L Chloride Level 104 mmol/L Carbon Dioxide Level 27 mmol/L Anion Gap 9 Blood Urea Nitrogen 28 mg/dL Creatinine 1.4 mg/dL Estimated GFR (Cockcroft-Gault) 49.1 BUN/Creatinine Ratio 20 Glucose Level 275 mg/dL Calcium Level 8.9 mg/dL Magnesium Level 2.0 mg/dL Total Bilirubin 0.5 mg/dL Aspartate Amino Transf (AST/SGOT) 13 U/L Alanine Aminotransferase (ALT/SGPT) 17 U/L Alkaline Phosphatase 97 U/L Total Protein 6.6 g/dL Albumin 3.0 g/dL Albumin/Globulin Ratio 0.8 Test 04/12/21 19:24 Glucose (Fingerstick) 226 mg/dL Current Medications Medications (Trade) Dose Ordered Sig/John Route PRN Reason Start Time Stop Time Status Last Admin Dose Admin Acetaminophen (Tylenol) 1,000 mg PRN Q6HRS PRN PO MILD PAIN 1-3 03/28/21 19:45 04/07/21 05:25 Aspirin (Aspirin Enteric Coated) 81 mg DAILY PO 03/29/21 09:00 04/12/21 08:38 Bisacodyl (Dulcolax Supp) 10 mg PRN Q48HR PRN RC CONSTIPATION 03/28/21 19:45 Duloxetine HCl (Cymbalta) 60 mg DAILY PO 03/29/21 09:00 04/12/21 08:38 Fluticasone Propionate (Flonase) 2 spray DAILY NS 03/29/21 09:00 04/11/21 08:41 Lisinopril (Prinivil) 10 mg DAILY PO 03/29/21 09:00 04/12/21 20:01 DC 04/12/21 08:39 Al Hydroxide/Mg Hydroxide (Mylanta Plus Xs) 15 ml PRN AFTMEALHC PRN PO DYSPEPSIA 03/28/21 19:45 Memantine (Namenda) 10 mg BID PO 03/28/21 21:00 04/12/21 20:24 Multi-Ingredient Ointment (Analgesic [place]) 1 nila PRN QID PRN TP MUSCLE PAIN 03/28/21 19:45 Mirtazapine (Remeron Nasra-Tab) 15 mg HS PO 03/28/21 21:00 04/12/21 20:23 Polyethylene Glycol (miraLAX) 17 gm DAILY PO 03/29/21 09:00 04/12/21 08:39 Quetiapine Fumarate (SEROquel) 75 mg QHS PO 03/28/21 21:00 03/30/21 17:03 DC 03/29/21 20:10 Senna/Docusate Sodium (Senna Plus) 1 tab BID PO 03/28/21 21:00 04/12/21 20:23 Simvastatin (Zocor) 10 mg HS PO 03/28/21 21:00 04/12/21 20:24 Divalproex Sodium (Depakote) 500 mg BID PO 03/28/21 21:00 04/12/21 20:24 Glucagon (Glucagen Kit) 1 mg PRN Q15MIN PRN IM HYPOGLYCEMIA 03/28/21 20:00 Insulin Glargine (Lantus Syringe) 14 unit QHS SQ 03/28/21 21:00 04/10/21 21:17 Non-Formulary Medication (Insulin Lispro (Humalog)) 10 unit TIDAC SQ 03/29/21 07:30 03/30/21 07:58 DC 03/29/21 11:30 Magnesium Hydroxide (Milk Of Magnesia) 2,400 mg PRN QHS PRN PO CONSTIPATION 03/28/21 20:00 04/12/21 20:30 Guaifenesin (Guaifenesin) 400 mg PRN Q4HRS PRN PO COUGH 03/28/21 20:00 Ondansetron HCl (Zofran Odt) 4 mg PRN Q6HRS PRN PO NAUSEA/VOMITING 03/28/21 20:00 Amoxicillin (Amoxil) 500 mg [id number] PO 04/05/21 22:00 03/29/21 19:30 DC Amoxicillin (Amoxil) 500 mg [id number] PO 03/29/21 21:00 04/05/21 21:01 DC 04/05/21 20:05 Bupropion HCl (Wellbutrin Xl) 150 mg DAILY PO 03/30/21 09:00 04/01/21 16:43 DC 04/01/21 08:32 Lactobacillus Rhamnosus (Culturelle) 1 cap BID PO 03/30/21 09:00 04/12/21 20:24 Insulin Human Lispro (HumaLOG) 10 units TIDWMEALS SQ 03/30/21 08:00 04/12/21 17:00 Quetiapine Fumarate (SEROquel) 100 mg QHS PO 03/30/21 21:00 04/12/21 20:24 Bupropion HCl (Wellbutrin Xl) 300 mg DAILY PO 04/02/21 09:00 04/12/21 08:39 Tramadol HCl (Ultram) 50 mg PRN Q6HRS PRN PO MOD-SEV PAIN 04/07/21 16:45 04/12/21 10:27 Tramadol HCl (Ultram) 50 mg 1X ONCE PO 04/07/21 16:45 04/07/21 16:53 DC 04/07/21 16:57 Lidocaine HCl 20 ml STK-MED ONCE .ROUTE 04/12/21 07:47 04/12/21 07:47 DC Amlodipine Besylate (Norvasc) 10 mg DAILY PO 04/13/21 09:00 I have reviewed the current psychotropics carefully including drug interactions. Risk benefit ratio favors no change other than as noted in my dictated progress note. Diagnosis: Problems: (1) Mild cognitive impairment (2) Major depressive disorder with psychotic features (3) Anxiety disorder (4) Impulse control disorder JESSICA TREADWELL MD Apr 12, 2021 22:05
[2021-04-12] MEDS: INSULIN GLARGINE SYRINGE. SQ SCH (22:27)
[2021-04-13] MEDS: traMADol 50 MG TABLET PO PRN ×3 (00:06→16:32)
--- NOTE | 2021-04-13 02:49 | NUR ---
Nursing Note The patient was agitated/irritable this shift. The patient was agitated during all interactions with this nurse. The patient was alert to name, date and location. The patient took his medication whole. The patient requested PRN MOM with HS medications. The patient had a bowel movement @HS. the patient requested PRN pain medication and received PRN Tramadol @0006. The patient is currently sleeping no signs of pain at this time.
[2021-04-13] MEDS ORDERED: AMLO-187 PO (03:16)
[2021-04-13] MEDS ORDERED: TRAM50TA PO (03:17)
[2021-04-13] MEDS ORDERED: BUPR300T92 PO (03:18)
[2021-04-13] MEDS ORDERED: LACT1CAP21 PO (03:19)
[2021-04-13 05:46] VITALS: BP 187/92
[2021-04-13] MEDS: INSULIN LISPRO 300 UNITS/3 ML VIAL. SQ SCH ×3 (08:12→17:27)
[2021-04-13] MEDS: POLYETHYLENE GLYCOL 3350 17 GM PACKET. PO SCH (08:17)
[2021-04-13] MEDS: FLUTICASONE 50MCG/NASAL SPRAY 16GM BOTTLE. NS SCH (08:18)
[2021-04-13] MEDS: DIVALPROEX SODIUM 250 MG TABLET.DR. PO SCH ×2 (08:18→20:29)
[2021-04-13] MEDS: MEMANTINE 10 MG TABLET. PO SCH ×2 (08:19→20:29)
[2021-04-13] MEDS: ASPIRIN ENTERIC COATED 81 MG TABLET.DR. PO SCH (08:19)
[2021-04-13] MEDS: buPROPion XL 150 MG TAB.ER.24H PO SCH (08:19)
[2021-04-13] MEDS: amLODIPine BESYLATE 10 MG TABLET PO SCH (08:19)
[2021-04-13] MEDS: LACTOBACILLUS RHAMNOSUS GG 1 CAPSULE. PO SCH ×2 (08:19→20:29)
[2021-04-13] MEDS: DULoxetine HCL 60 MG CAPSULE.DR PO SCH (08:19)
[2021-04-13] MEDS: SENNOSIDES/DOCUSATE 8.6/50MG TABLET. PO SCH ×2 (08:19→20:29)
--- NOTE | 2021-04-13 09:19 | PDOC ---
Exam Note: Sandoval Note: This note is a late entry for 04/11/2021 covers elements not covered in my initial note. Subjective: The patient was seen individually in the evening of 04/11/2021 with Pb MENENDEZ, discussed and reviewed the chart. The patient slept 8 hours previous night. He has been irritable, somewhat withdrawn to his room, flat. He has been having bowel movements daily, gets obsessed that he is constipated asking for suppository. I will let the nursing staff decide on this. We will check labs morning of . Review of Systems: Ambulation impaired in wheelchair. No CV, , pulmonary, eye, ENT system symptoms on review. Mental Status Exam: The patient is oriented to himself and situation. I met with him in his room. He was lying in bed, readily recognized me, even remembered my name. Speech is coherent, low in rate and rhythm. Abstraction fair. Computation impaired. Language function intact. Mood and affect withdrawn. No suicidal or homicidal ideation. Laboratory Data: Reviewed. Impression: Major depressive disorder with psychotic features. Mild cognitive impairment. Anxiety disorder unspecified. Impulse control disorder unspecified. Plan: Continue current psychotropics. Adjust further as clinically indicated. Assessment: Vital Signs/I&O: Vital Signs Date Time Temp Pulse Resp B/P (MAP) Pulse Ox O2 Delivery O2 Flow Rate FiO2 04/13/21 08:19 66 187/92 04/13/21 05:46 97.6 18 96 04/13/21 00:36 Room Air I & O 04/12/21 04/12/21 04/13/21 14:59 22:59 06:59 Intake Total 720 ml 200 ml 120 ml Balance 720 ml 200 ml 120 ml Labs: Laboratory Tests Test 04/12/21 10:00 04/12/21 11:53 04/12/21 16:43 04/12/21 19:24 White Blood Count 10.6 x10^3/uL (4.0-11.0) Red Blood Count 3.47 x10^6/uL (4.30-5.70) L Hemoglobin 11.3 g/dL (13.0-17.5) L Hematocrit 34.3 % (39.0-53.0) L Mean Corpuscular Volume 99 fL (79-100) Mean Corpuscular Hemoglobin 33 pg (25-35) Mean Corpuscular Hemoglobin Concent 33 g/dL (31-37) Red Cell Distribution Width 15.4 % (11.5-14.5) H Platelet Count 176 x10^3/uL (140-400) Neutrophils (%) (Auto) 86 % (31-73) H Lymphocytes (%) (Auto) 9 % (24-48) L Monocytes (%) (Auto) 5 % (0-9) Eosinophils (%) (Auto) 0 % (0-3) Basophils (%) (Auto) 0 % (0-3) Neutrophils # (Auto) 9.1 x10^3uL (1.8-7.7) H Lymphocytes # (Auto) 1.0 x10^3/uL (1.0-4.8) Monocytes # (Auto) 0.5 x10^3/uL (0.0-1.1) Eosinophils # (Auto) 0.0 x10^3/uL (0.0-0.7) Basophils # (Auto) 0.0 x10^3/uL (0.0-0.2) Sodium Level 140 mmol/L (136-145) Potassium Level 5.2 mmol/L (3.5-5.1) H Chloride Level 104 mmol/L (98-107) Carbon Dioxide Level 27 mmol/L (21-32) Anion Gap 9 (6-14) Blood Urea Nitrogen 28 mg/dL (8-26) H Creatinine 1.4 mg/dL (0.7-1.3) H Estimated GFR (Cockcroft-Gault) 49.1 BUN/Creatinine Ratio 20 (6-20) Glucose Level 275 mg/dL (70-99) H Calcium Level 8.9 mg/dL (8.5-10.1) Magnesium Level 2.0 mg/dL (1.8-2.4) Total Bilirubin 0.5 mg/dL (0.2-1.0) Aspartate Amino Transferase (AST) 13 U/L (15-37) L Alanine Aminotransferase (ALT) 17 U/L (16-63) Alkaline Phosphatase 97 U/L (46-116) Total Protein 6.6 g/dL (6.4-8.2) Albumin 3.0 g/dL (3.4-5.0) L Albumin/Globulin Ratio 0.8 (1.0-1.7) L Glucose (Fingerstick) 230 mg/dL (70-99) H 248 mg/dL (70-99) H 226 mg/dL (70-99) H Test 04/13/21 07:17 Glucose (Fingerstick) 190 mg/dL (70-99) H Current Medications: Meds: Laboratory Tests Test 04/12/21 10:00 04/12/21 11:53 04/12/21 16:43 04/12/21 19:24 White Blood Count 10.6 x10^3/uL Red Blood Count 3.47 x10^6/uL Hemoglobin 11.3 g/dL Hematocrit 34.3 % Mean Corpuscular Volume 99 fL Mean Corpuscular Hemoglobin 33 pg Mean Corpuscular Hemoglobin Concent 33 g/dL Red Cell Distribution Width 15.4 % Platelet Count 176 x10^3/uL Neutrophils (%) (Auto) 86 % Lymphocytes (%) (Auto) 9 % Monocytes (%) (Auto) 5 % Eosinophils (%) (Auto) 0 % Basophils (%) (Auto) 0 % Neutrophils # (Auto) 9.1 x10^3uL Lymphocytes # (Auto) 1.0 x10^3/uL Monocytes # (Auto) 0.5 x10^3/uL Eosinophils # (Auto) 0.0 x10^3/uL Basophils # (Auto) 0.0 x10^3/uL Sodium Level 140 mmol/L Potassium Level 5.2 mmol/L Chloride Level 104 mmol/L Carbon Dioxide Level 27 mmol/L Anion Gap 9 Blood Urea Nitrogen 28 mg/dL Creatinine 1.4 mg/dL Estimated GFR (Cockcroft-Gault) 49.1 BUN/Creatinine Ratio 20 Glucose Level 275 mg/dL Calcium Level 8.9 mg/dL Magnesium Level 2.0 mg/dL Total Bilirubin 0.5 mg/dL Aspartate Amino Transf (AST/SGOT) 13 U/L Alanine Aminotransferase (ALT/SGPT) 17 U/L Alkaline Phosphatase 97 U/L Total Protein 6.6 g/dL Albumin 3.0 g/dL Albumin/Globulin Ratio 0.8 Glucose (Fingerstick) 230 mg/dL 248 mg/dL 226 mg/dL Test 04/13/21 07:17 Glucose (Fingerstick) 190 mg/dL Current Medications Medications (Trade) Dose Ordered Sig/John Route PRN Reason Start Time Stop Time Status Last Admin Dose Admin Acetaminophen (Tylenol) 1,000 mg PRN Q6HRS PRN PO MILD PAIN 1-3 03/28/21 19:45 04/07/21 05:25 Aspirin (Aspirin Enteric Coated) 81 mg DAILY PO 03/29/21 09:00 04/13/21 08:19 Bisacodyl (Dulcolax Supp) 10 mg PRN Q48HR PRN RC 2ND CHOICE CONSTIPATION 03/28/21 19:45 Duloxetine HCl (Cymbalta) 60 mg DAILY PO 03/29/21 09:00 04/13/21 08:19 Fluticasone Propionate (Flonase) 2 spray DAILY NS 03/29/21 09:00 04/11/21 08:41 Lisinopril (Prinivil) 10 mg DAILY PO 03/29/21 09:00 04/12/21 20:01 DC 04/12/21 08:39 Al Hydroxide/Mg Hydroxide (Mylanta Plus Xs) 15 ml PRN AFTMEALHC PRN PO DYSPEPSIA 03/28/21 19:45 Memantine (Namenda) 10 mg BID PO 03/28/21 21:00 04/13/21 08:19 Multi-Ingredient Ointment (Analgesic [place]) 1 nila PRN QID PRN TP MUSCLE PAIN 03/28/21 19:45 Mirtazapine (Remeron Nasra-Tab) 15 mg HS PO 03/28/21 21:00 04/12/21 20:23 Polyethylene Glycol (miraLAX) 17 gm DAILY PO 03/29/21 09:00 04/13/21 08:17 Quetiapine Fumarate (SEROquel) 75 mg QHS PO 03/28/21 21:00 03/30/21 17:03 DC 03/29/21 20:10 Senna/Docusate Sodium (Senna Plus) 1 tab BID PO 03/28/21 21:00 04/13/21 08:19 Simvastatin (Zocor) 10 mg HS PO 03/28/21 21:00 04/12/21 20:24 Divalproex Sodium (Depakote) 500 mg BID PO 03/28/21 21:00 04/13/21 08:18 Glucagon (Glucagen Kit) 1 mg PRN Q15MIN PRN IM HYPOGLYCEMIA 03/28/21 20:00 Insulin Glargine (Lantus Syringe) 14 unit QHS SQ 03/28/21 21:00 04/12/21 22:27 Non-Formulary Medication (Insulin Lispro (Humalog)) 10 unit TIDAC SQ 03/29/21 07:30 03/30/21 07:58 DC 03/29/21 11:30 Magnesium Hydroxide (Milk Of Magnesia) 2,400 mg PRN QHS PRN PO 1ST CHOICE CONSTIPATION 03/28/21 20:00 04/12/21 20:30 Guaifenesin (Guaifenesin) 400 mg PRN Q4HRS PRN PO COUGH 03/28/21 20:00 Ondansetron HCl (Zofran Odt) 4 mg PRN Q6HRS PRN PO NAUSEA/VOMITING 03/28/21 20:00 Amoxicillin (Amoxil) 500 mg [id number] PO 04/05/21 22:00 03/29/21 19:30 DC Amoxicillin (Amoxil) 500 mg [id number] PO 03/29/21 21:00 04/05/21 21:01 DC 04/05/21 20:05 Bupropion HCl (Wellbutrin Xl) 150 mg DAILY PO 03/30/21 09:00 04/01/21 16:43 DC 04/01/21 08:32 Lactobacillus Rhamnosus (Culturelle) 1 cap BID PO 03/30/21 09:00 04/13/21 08:19 Insulin Human Lispro (HumaLOG) 10 units TIDWMEALS SQ 03/30/21 08:00 04/13/21 08:12 Quetiapine Fumarate (SEROquel) 100 mg QHS PO 03/30/21 21:00 04/12/21 20:24 Bupropion HCl (Wellbutrin Xl) 300 mg DAILY PO 04/02/21 09:00 04/13/21 08:19 Tramadol HCl (Ultram) 50 mg PRN Q6HRS PRN PO MOD-SEV PAIN 04/07/21 16:45 04/13/21 00:06 Tramadol HCl (Ultram) 50 mg 1X ONCE PO 04/07/21 16:45 04/07/21 16:53 DC 04/07/21 16:57 Lidocaine HCl 20 ml STK-MED ONCE .ROUTE 04/12/21 07:47 04/12/21 07:47 DC Amlodipine Besylate (Norvasc) 10 mg DAILY PO 04/13/21 09:00 04/13/21 08:19 Current Medications Medications (Trade) Dose Ordered Sig/John Route PRN Reason Start Time Stop Time Status Last Admin Dose Admin Amlodipine Besylate (Norvasc) 10 mg DAILY PO 04/13/21 09:00 04/13/21 08:19 I have reviewed the current psychotropics carefully including drug interactions. Risk benefit ratio favors no change other than as noted in my dictated progress note. Diagnosis: Problems: (1) Major depressive disorder with psychotic features (2) Anxiety disorder (3) Impulse control disorder (4) Mild cognitive impairment JESSICA TREADWELL MD Apr 13, 2021 09:19
--- NOTE | 2021-04-13 09:46 | PDOC ---
Exam Note: Sandoval Note: This note is a late entry for 04/12/2021 covers elements not covered in my initial note. Subjective: The patient was seen individually in the evening of 04/12/2021 with Supriya MENENDEZ, discussed and reviewed the chart. The patient slept 7-3/4 hours previous night. He had a fall and fractured his nose. Apparently he was seated in a wheelchair in the dayroom, and middle of the sleep he fell forward on his face. Dr. Vasquez was called and he is following the patient for this. He refused his lunch, took tramadol with Ensure. Review of Systems: Ambulation impaired in wheelchair. No CV, , pulmonary, eye, ENT system symptoms on review. Mental Status Exam: The patient is oriented to himself and situation. I met with him in the dayroom. He is quite verbal, interactive. Speech is coherent, low in rate and rhythm. Abstraction fair. Computation impaired. Language function intact. Mood and affect withdrawn, distractible. No suicidal or ho micidal ideation. Laboratory Data: Reviewed. Impression: Major depressive disorder with psychotic features. Mild cognitive impairment. Anxiety disorder unspecified. Impulse control disorder unspecified. Plan: Continue current psychotropics. Adjust further as clinically indicated. Assessment: Vital Signs/I&O: Vital Signs Date Time Temp Pulse Resp B/P (MAP) Pulse Ox O2 Delivery O2 Flow Rate FiO2 04/13/21 08:19 66 187/92 04/13/21 05:46 97.6 18 96 04/13/21 00:36 Room Air I & O 04/12/21 04/12/21 04/13/21 15:00 23:00 07:00 Intake Total 720 ml 200 ml 120 ml Balance 720 ml 200 ml 120 ml Labs: Laboratory Tests Test 04/12/21 10:00 04/12/21 11:53 04/12/21 16:43 04/12/21 19:24 White Blood Count 10.6 x10^3/uL (4.0-11.0) Red Blood Count 3.47 x10^6/uL (4.30-5.70) L Hemoglobin 11.3 g/dL (13.0-17.5) L Hematocrit 34.3 % (39.0-53.0) L Mean Corpuscular Volume 99 fL (79-100) Mean Corpuscular Hemoglobin 33 pg (25-35) Mean Corpuscular Hemoglobin Concent 33 g/dL (31-37) Red Cell Distribution Width 15.4 % (11.5-14.5) H Platelet Count 176 x10^3/uL (140-400) Neutrophils (%) (Auto) 86 % (31-73) H Lymphocytes (%) (Auto) 9 % (24-48) L Monocytes (%) (Auto) 5 % (0-9) Eosinophils (%) (Auto) 0 % (0-3) Basophils (%) (Auto) 0 % (0-3) Neutrophils # (Auto) 9.1 x10^3uL (1.8-7.7) H Lymphocytes # (Auto) 1.0 x10^3/uL (1.0-4.8) Monocytes # (Auto) 0.5 x10^3/uL (0.0-1.1) Eosinophils # (Auto) 0.0 x10^3/uL (0.0-0.7) Basophils # (Auto) 0.0 x10^3/uL (0.0-0.2) Sodium Level 140 mmol/L (136-145) Potassium Level 5.2 mmol/L (3.5-5.1) H Chloride Level 104 mmol/L (98-107) Carbon Dioxide Level 27 mmol/L (21-32) Anion Gap 9 (6-14) Blood Urea Nitrogen 28 mg/dL (8-26) H Creatinine 1.4 mg/dL (0.7-1.3) H Estimated GFR (Cockcroft-Gault) 49.1 BUN/Creatinine Ratio 20 (6-20) Glucose Level 275 mg/dL (70-99) H Calcium Level 8.9 mg/dL (8.5-10.1) Magnesium Level 2.0 mg/dL (1.8-2.4) Total Bilirubin 0.5 mg/dL (0.2-1.0) Aspartate Amino Transferase (AST) 13 U/L (15-37) L Alanine Aminotransferase (ALT) 17 U/L (16-63) Alkaline Phosphatase 97 U/L (46-116) Total Protein 6.6 g/dL (6.4-8.2) Albumin 3.0 g/dL (3.4-5.0) L Albumin/Globulin Ratio 0.8 (1.0-1.7) L Glucose (Fingerstick) 230 mg/dL (70-99) H 248 mg/dL (70-99) H 226 mg/dL (70-99) H Test 04/13/21 07:17 Glucose (Fingerstick) 190 mg/dL (70-99) H Current Medications: Meds: Laboratory Tests Test 04/12/21 10:00 04/12/21 11:53 04/12/21 16:43 04/12/21 19:24 White Blood Count 10.6 x10^3/uL Red Blood Count 3.47 x10^6/uL Hemoglobin 11.3 g/dL Hematocrit 34.3 % Mean Corpuscular Volume 99 fL Mean Corpuscular Hemoglobin 33 pg Mean Corpuscular Hemoglobin Concent 33 g/dL Red Cell Distribution Width 15.4 % Platelet Count 176 x10^3/uL Neutrophils (%) (Auto) 86 % Lymphocytes (%) (Auto) 9 % Monocytes (%) (Auto) 5 % Eosinophils (%) (Auto) 0 % Basophils (%) (Auto) 0 % Neutrophils # (Auto) 9.1 x10^3uL Lymphocytes # (Auto) 1.0 x10^3/uL Monocytes # (Auto) 0.5 x10^3/uL Eosinophils # (Auto) 0.0 x10^3/uL Basophils # (Auto) 0.0 x10^3/uL Sodium Level 140 mmol/L Potassium Level 5.2 mmol/L Chloride Level 104 mmol/L Carbon Dioxide Level 27 mmol/L Anion Gap 9 Blood Urea Nitrogen 28 mg/dL Creatinine 1.4 mg/dL Estimated GFR (Cockcroft-Gault) 49.1 BUN/Creatinine Ratio 20 Glucose Level 275 mg/dL Calcium Level 8.9 mg/dL Magnesium Level 2.0 mg/dL Total Bilirubin 0.5 mg/dL Aspartate Amino Transf (AST/SGOT) 13 U/L Alanine Aminotransferase (ALT/SGPT) 17 U/L Alkaline Phosphatase 97 U/L Total Protein 6.6 g/dL Albumin 3.0 g/dL Albumin/Globulin Ratio 0.8 Glucose (Fingerstick) 230 mg/dL 248 mg/dL 226 mg/dL Test 04/13/21 07:17 Glucose (Fingerstick) 190 mg/dL Current Medications Medications (Trade) Dose Ordered Sig/John Route PRN Reason Start Time Stop Time Status Last Admin Dose Admin Acetaminophen (Tylenol) 1,000 mg PRN Q6HRS PRN PO MILD PAIN 1-3 03/28/21 19:45 04/07/21 05:25 Aspirin (Aspirin Enteric Coated) 81 mg DAILY PO 03/29/21 09:00 04/13/21 08:19 Bisacodyl (Dulcolax Supp) 10 mg PRN Q48HR PRN RC 2ND CHOICE CONSTIPATION 03/28/21 19:45 Duloxetine HCl (Cymbalta) 60 mg DAILY PO 03/29/21 09:00 04/13/21 08:19 Fluticasone Propionate (Flonase) 2 spray DAILY NS 03/29/21 09:00 04/11/21 08:41 Lisinopril (Prinivil) 10 mg DAILY PO 03/29/21 09:00 04/12/21 20:01 DC 04/12/21 08:39 Al Hydroxide/Mg Hydroxide (Mylanta Plus Xs) 15 ml PRN AFTMEALHC PRN PO DYSPEPSIA 03/28/21 19:45 Memantine (Namenda) 10 mg BID PO 03/28/21 21:00 04/13/21 08:19 Multi-Ingredient Ointment (Analgesic [place]) 1 nila PRN QID PRN TP MUSCLE PAIN 03/28/21 19:45 Mirtazapine (Remeron Nasra-Tab) 15 mg HS PO 03/28/21 21:00 04/12/21 20:23 Polyethylene Glycol (miraLAX) 17 gm DAILY PO 03/29/21 09:00 04/13/21 08:17 Quetiapine Fumarate (SEROquel) 75 mg QHS PO 03/28/21 21:00 03/30/21 17:03 DC 03/29/21 20:10 Senna/Docusate Sodium (Senna Plus) 1 tab BID PO 03/28/21 21:00 04/13/21 08:19 Simvastatin (Zocor) 10 mg HS PO 03/28/21 21:00 04/12/21 20:24 Divalproex Sodium (Depakote) 500 mg BID PO 03/28/21 21:00 04/13/21 08:18 Glucagon (Glucagen Kit) 1 mg PRN Q15MIN PRN IM HYPOGLYCEMIA 03/28/21 20:00 Insulin Glargine (Lantus Syringe) 14 unit QHS SQ 03/28/21 21:00 04/12/21 22:27 Non-Formulary Medication (Insulin Lispro (Humalog)) 10 unit TIDAC SQ 03/29/21 07:30 03/30/21 07:58 DC 03/29/21 11:30 Magnesium Hydroxide (Milk Of Magnesia) 2,400 mg PRN QHS PRN PO 1ST CHOICE CONSTIPATION 03/28/21 20:00 04/12/21 20:30 Guaifenesin (Guaifenesin) 400 mg PRN Q4HRS PRN PO COUGH 03/28/21 20:00 Ondansetron HCl (Zofran Odt) 4 mg PRN Q6HRS PRN PO NAUSEA/VOMITING 03/28/21 20:00 Amoxicillin (Amoxil) 500 mg [id number] PO 04/05/21 22:00 03/29/21 19:30 DC Amoxicillin (Amoxil) 500 mg [id number] PO 03/29/21 21:00 04/05/21 21:01 DC 04/05/21 20:05 Bupropion HCl (Wellbutrin Xl) 150 mg DAILY PO 03/30/21 09:00 04/01/21 16:43 DC 04/01/21 08:32 Lactobacillus Rhamnosus (Culturelle) 1 cap BID PO 03/30/21 09:00 04/13/21 08:19 Insulin Human Lispro (HumaLOG) 10 units TIDWMEALS SQ 03/30/21 08:00 04/13/21 08:12 Quetiapine Fumarate (SEROquel) 100 mg QHS PO 03/30/21 21:00 04/12/21 20:24 Bupropion HCl (Wellbutrin Xl) 300 mg DAILY PO 04/02/21 09:00 04/13/21 08:19 Tramadol HCl (Ultram) 50 mg PRN Q6HRS PRN PO MOD-SEV PAIN 04/07/21 16:45 04/13/21 00:06 Tramadol HCl (Ultram) 50 mg 1X ONCE PO 04/07/21 16:45 04/07/21 16:53 DC 04/07/21 16:57 Lidocaine HCl 20 ml STK-MED ONCE .ROUTE 04/12/21 07:47 04/12/21 07:47 DC Amlodipine Besylate (Norvasc) 10 mg DAILY PO 04/13/21 09:00 04/13/21 08:19 Current Medications Medications (Trade) Dose Ordered Sig/John Route PRN Reason Start Time Stop Time Status Last Admin Dose Admin Amlodipine Besylate (Norvasc) 10 mg DAILY PO 04/13/21 09:00 04/13/21 08:19 I have reviewed the current psychotropics carefully including drug interactions. Risk benefit ratio favors no change other than as noted in my dictated progress note. Diagnosis: Problems: (1) Major depressive disorder with psychotic features (2) Anxiety disorder (3) Mild cognitive impairment (4) Impulse control disorder JESSICA TREADWELL MD Apr 13, 2021 09:46
--- NOTE | 2021-04-13 10:13 | NUR ---
SABRA attempted to contact [facility] to discuss discharge. SABRA was transferred to the voicemail of [facility] [place] in which SABRA requested a call back re: pt discharge to them today.
--- NOTE | 2021-04-13 11:52 | NUR ---
Treatment team note: Pt is eating 75% and sleeping 6.5 hours per night. Pt continues to be flat, depressed and withdrawn to his room. Pt is compliant with medications whole. Pt is alert and oriented to self; pt did fall out of his wheelchair this weekend, ending up with a broken nose. Pt has poor group participation but does at times sit in the day room. Pt will return to [facility] either later today or tomorrow. SW to work with pt family and the facility on making this happen.
--- NOTE | 2021-04-13 12:53 | NUR ---
WEEKLY ACTIVITY THERAPY NOTE Date of Admission: 03/28/21 Date of AT Assessment: 03/26 remains valid Precipitating behaviors that initiated 03/28 intake and admission: yelling out, refusing cares Precipitating behaviors that initiated 03/25 intake and admission: Admitted from [facility] via [facility] for reportedly refusing cares, depressed, isolating, uncooperative, hollering out, disruptive to facility, having poor appetite, and being verbally aggressive. Goal aimed: increase socialization and relaxation skills Initial Goal: Pt will participate in at least three individual or group Activity Therapy sessions before discharge. Weekly progress towards goal: on track (04/01-chocolate fun facts and milkshakes, 04/03-patio,music and trivia) Group participation level: none Weekly highlights: no group participation Behaviors observed: withdrawn to room, no group interest Plan: no change to goal Beneficial adaptations: encouragement
--- NOTE | 2021-04-13 13:18 | NUR ---
SABRA returned call to Fatou and gave her an update on how pt is doing as well as to make discharge arrangements. Fatou and SABRA discussed orders and all parties agreed for discharge tomorrow to give time for all orders to be cared for. Fatou will plan to set up transport for 1100. If that changes she will make sure to notify SABRA of that change.
--- NOTE | 2021-04-13 15:34 | NUR ---
[facility] Social Work Discharge Planning Form Patient Name DOREEN MURRIETA Admit Date: 28 March 2021 DISCHARGE PLAN Discharge Destination: Pt to discharge back to [facility] Care Assessment: N/A Level II Assessment: N/A Transportation: Pt facility has set up transport for 11:00AM. Special Instructions/Notes: Please fax discharge orders, discharge medication list and discharge summary to the fax number listed below. DISCHARGE TO FACILITY Facility: [facility] Address: [address] [place] [id number] Contact Name: Please ask for nurse caring for pt upon admission. PCP: Dr. Vasquez
--- NOTE | 2021-04-13 15:46 | NUR ---
Nursing note: Patient in dinning room for medication & assessment, takes medication whole. He is agitated/irritable on and off through this shift. He is alert to name, date and location. He is c/o neck & shoulder pain, PRN given per order. Patient refused to get up for lunch. He is currently in bed. Will continue to monitor.
--- NOTE | 2021-04-13 16:00 | NUR ---
[facility] Social Work Discharge Planning Form Patient Name DOREEN MURRIETA Admit Date: 28 March 2021 DISCHARGE PLAN Discharge Destination: Pt to discharge back to [facility] Care Assessment: N/A Level II Assessment: N/A Transportation: Pt facility has set up transport for 11:00AM. Special Instructions/Notes: Please fax discharge orders, discharge medication list and discharge summary to the fax number listed below. DISCHARGE TO FACILITY Facility: [facility] Address: [address] [place] [id number] Contact Name: Please ask for nurse caring for pt upon admission. PCP: Dr. Vasquez Please note: Pt will need to schedule an outpt appointment to see a GI specialist at [facility] per discussion with Dr. Lopez re: a colonoscopy.
[2021-04-13 16:18] VITALS: BP 159/73
[2021-04-13] MEDS: QUEtiapine 100 MG TABLET. PO SCH (20:29)
[2021-04-13] MEDS: MIRTAZAPINE ODT 15 MG TAB.RAPDIS. PO SCH (20:29)
[2021-04-13] MEDS: SIMVASTATIN 10 MG TABLET PO SCH (20:29)
[2021-04-13] MEDS: INSULIN GLARGINE SYRINGE. SQ SCH (21:00)
--- NOTE | 2021-04-13 22:17 | PDOC ---
Exam Note: Sandoval Note: Please also refer to the separate dictated note~for this date of service dictated separately.~Patient seen individually. Discussed the patient with Nursing staff reviewed the chart.~Reviewed interim history and current functioning. Reviewed vital signs,~Labs/ Radiology~and current medications noted below. Continue current treatment with the changes noted in the dictated addendum note Assessment: Vital Signs/I&O: Vital Signs Date Time Temp Pulse Resp B/P (MAP) Pulse Ox O2 Delivery O2 Flow Rate FiO2 04/13/21 17:00 97 04/13/21 16:18 97.8 69 18 159/73 (101) 04/13/21 00:36 Room Air I & O 04/12/21 04/12/21 04/13/21 14:59 22:59 06:59 Intake Total 720 ml 200 ml 120 ml Balance 720 ml 200 ml 120 ml Labs: Laboratory Tests Test 04/13/21 07:17 04/13/21 11:22 04/13/21 16:57 04/13/21 19:44 Glucose (Fingerstick) 190 mg/dL (70-99) H 192 mg/dL (70-99) H 110 mg/dL (70-99) H 137 mg/dL (70-99) H Current Medications: Meds: Laboratory Tests Test 04/13/21 07:17 04/13/21 11:22 04/13/21 16:57 04/13/21 19:44 Glucose (Fingerstick) 190 mg/dL 192 mg/dL 110 mg/dL 137 mg/dL Current Medications Medications (Trade) Dose Ordered Sig/John Route PRN Reason Start Time Stop Time Status Last Admin Dose Admin Acetaminophen (Tylenol) 1,000 mg PRN Q6HRS PRN PO MILD PAIN 1-3 03/28/21 19:45 04/07/21 05:25 Aspirin (Aspirin Enteric Coated) 81 mg DAILY PO 03/29/21 09:00 04/13/21 08:19 Bisacodyl (Dulcolax Supp) 10 mg PRN Q48HR PRN RC 2ND CHOICE CONSTIPATION 03/28/21 19:45 Duloxetine HCl (Cymbalta) 60 mg DAILY PO 03/29/21 09:00 04/13/21 08:19 Fluticasone Propionate (Flonase) 2 spray DAILY NS 03/29/21 09:00 04/11/21 08:41 Lisinopril (Prinivil) 10 mg DAILY PO 03/29/21 09:00 04/12/21 20:01 DC 04/12/21 08:39 Al Hydroxide/Mg Hydroxide (Mylanta Plus Xs) 15 ml PRN AFTMEALHC PRN PO DYSPEPSIA 03/28/21 19:45 Memantine (Namenda) 10 mg BID PO 03/28/21 21:00 04/13/21 20:29 Multi-Ingredient Ointment (Analgesic [place]) 1 nila PRN QID PRN TP MUSCLE PAIN 03/28/21 19:45 Mirtazapine (Remeron Nasra-Tab) 15 mg HS PO 03/28/21 21:00 04/13/21 20:29 Polyethylene Glycol (miraLAX) 17 gm DAILY PO 03/29/21 09:00 04/13/21 08:17 Quetiapine Fumarate (SEROquel) 75 mg QHS PO 03/28/21 21:00 03/30/21 17:03 DC 03/29/21 20:10 Senna/Docusate Sodium (Senna Plus) 1 tab BID PO 03/28/21 21:00 04/13/21 20:29 Simvastatin (Zocor) 10 mg HS PO 03/28/21 21:00 04/13/21 20:29 Divalproex Sodium (Depakote) 500 mg BID PO 03/28/21 21:00 04/13/21 20:29 Glucagon (Glucagen Kit) 1 mg PRN Q15MIN PRN IM HYPOGLYCEMIA 03/28/21 20:00 Insulin Glargine (Lantus Syringe) 14 unit QHS SQ 03/28/21 21:00 04/12/21 22:27 Non-Formulary Medication (Insulin Lispro (Humalog)) 10 unit TIDAC SQ 03/29/21 07:30 03/30/21 07:58 DC 03/29/21 11:30 Magnesium Hydroxide (Milk Of Magnesia) 2,400 mg PRN QHS PRN PO 1ST CHOICE CONSTIPATION 03/28/21 20:00 04/12/21 20:30 Guaifenesin (Guaifenesin) 400 mg PRN Q4HRS PRN PO COUGH 03/28/21 20:00 Ondansetron HCl (Zofran Odt) 4 mg PRN Q6HRS PRN PO NAUSEA/VOMITING 03/28/21 20:00 Amoxicillin (Amoxil) 500 mg [id number] PO 04/05/21 22:00 03/29/21 19:30 DC Amoxicillin (Amoxil) 500 mg [id number] PO 03/29/21 21:00 04/05/21 21:01 DC 04/05/21 20:05 Bupropion HCl (Wellbutrin Xl) 150 mg DAILY PO 03/30/21 09:00 04/01/21 16:43 DC 04/01/21 08:32 Lactobacillus Rhamnosus (Culturelle) 1 cap BID PO 03/30/21 09:00 04/13/21 20:29 Insulin Human Lispro (HumaLOG) 10 units TIDWMEALS SQ 03/30/21 08:00 04/13/21 17:27 Quetiapine Fumarate (SEROquel) 100 mg QHS PO 03/30/21 21:00 04/13/21 20:29 Bupropion HCl (Wellbutrin Xl) 300 mg DAILY PO 04/02/21 09:00 04/13/21 08:19 Tramadol HCl (Ultram) 50 mg PRN Q6HRS PRN PO MOD-SEV PAIN 04/07/21 16:45 04/13/21 15:53 DC 04/13/21 12:24 Tramadol HCl (Ultram) 50 mg 1X ONCE PO 04/07/21 16:45 04/07/21 16:53 DC 04/07/21 16:57 Lidocaine HCl 20 ml STK-MED ONCE .ROUTE 04/12/21 07:47 04/12/21 07:47 DC Amlodipine Besylate (Norvasc) 10 mg DAILY PO 04/13/21 09:00 04/13/21 08:19 Tramadol HCl (Ultram) 100 mg PRN Q4HRS PRN PO MOD-SEV PAIN 04/13/21 15:51 04/13/21 16:32 Current Medications Medications (Trade) Dose Ordered Sig/John Route PRN Reason Start Time Stop Time Status Last Admin Dose Admin Amlodipine Besylate (Norvasc) 10 mg DAILY PO 04/13/21 09:00 04/13/21 08:19 Tramadol HCl (Ultram) 100 mg PRN Q4HRS PRN PO MOD-SEV PAIN 04/13/21 15:51 04/13/21 16:32 I have reviewed the current psychotropics carefully including drug interactions. Risk benefit ratio favors no change other than as noted in my dictated progress note. Diagnosis: Problems: (1) Mild cognitive impairment (2) Major depressive disorder with psychotic features (3) Impulse control disorder (4) Anxiety disorder JESSICA TREADWELL MD Apr 13, 2021 22:17
--- NOTE | 2021-04-13 23:00 | NUR ---
Nursing Note The patient was located in his room for his assessment and medication pass. The patient was very drowsy but answered name and location. The patient took his medication whole. The patients insulin was held due to patient not receiving HS snack. The patient is currently sleeping in his room.
[2021-04-14] MEDS: traMADol 50 MG TABLET PO PRN ×2 (05:47→12:12)
[2021-04-14 05:49] VITALS: BP 154/84
[2021-04-14] MEDS: INSULIN LISPRO 300 UNITS/3 ML VIAL. SQ SCH ×2 (08:25→12:10)
[2021-04-14] MEDS: POLYETHYLENE GLYCOL 3350 17 GM PACKET. PO SCH (08:26)
[2021-04-14] MEDS: ASPIRIN ENTERIC COATED 81 MG TABLET.DR. PO SCH (08:26)
[2021-04-14 08:27] VITALS: BP 154/84
[2021-04-14] MEDS: SENNOSIDES/DOCUSATE 8.6/50MG TABLET. PO SCH (08:27)
[2021-04-14] MEDS: LACTOBACILLUS RHAMNOSUS GG 1 CAPSULE. PO SCH (08:27)
[2021-04-14] MEDS: MEMANTINE 10 MG TABLET. PO SCH (08:27)
[2021-04-14] MEDS: DIVALPROEX SODIUM 250 MG TABLET.DR. PO SCH (08:27)
[2021-04-14] MEDS: DULoxetine HCL 60 MG CAPSULE.DR PO SCH (08:27)
[2021-04-14] MEDS: buPROPion XL 150 MG TAB.ER.24H PO SCH (08:27)
[2021-04-14] MEDS: amLODIPine BESYLATE 10 MG TABLET PO SCH (08:27)
[2021-04-14] MEDS: FLUTICASONE 50MCG/NASAL SPRAY 16GM BOTTLE. NS SCH (08:28)
--- NOTE | 2021-04-14 13:15 | NUR ---
Transition Record was faxed to follow-up provider with the following elements: Reason for admission, procedures, tests, principal diagnosis, pending studies, patient instructions, 18/04 contact information for unit, phone number to obtain pending test results, plan for follow-up care, physician follow-up, advanced directive information, and medication list with dose, duration and instructions. This information was included in the following documents: History and physical, lab results, study results, progress notes, social work planning form, DC instruction form, patient visit summary, and medication reconciliation form. Date & time record faxed: 04/14/21@0402 & [id number] Record faxed to: [facility] [phone] Record discussed with/ report given to: Joanie Banks RN @1030
--- NOTE | 2021-04-14 23:13 | DS ---
DATE OF DISCHARGE: 04/14/2021 DISCHARGE SUMMARY/PSYCHIATRIC PROGRESS NOTE This note covers elements not covered in my initial note of 04/14/2021. REASON FOR ADMISSION: Please refer to the admission history for details. Briefly, the patient is a 75-year-old male referred to us from [facility] from where he presented at [facility] for medical stabilization. He remained extremely labile in his mood despite medical stabilization, was yelling with cares, refusing cares, isolating himself, resisted to taking his medications, had a drop in his appetite. He had failed outpatient psychiatric intervention, resulting in this referral. SIGNIFICANT FINDINGS AND CLINICAL COURSE: Following admission, the patient was seen daily individually by myself from a psychiatric standpoint. Medical followup with Dr. Vasquez/Dr. Beckford. The patient remained depressed, withdrawn, irritable at times, but showed improvement during this hospitalization, prior to discharge on 04/14/2021. REVIEW OF SYSTEMS: Impaired ambulation in wheelchair. No CV, , pulmonary, eye, ENT system symptoms on review. MENTAL STATUS EXAMINATION: The patient is oriented to himself, situation. Speech is moderate latency, often responses monosyllabic. Abstraction fair. Computation impaired. Language function intact. Mood and affect slightly brighter. No suicidal or homicidal ideation. LABORATORY DATA: Reviewed. FINAL DIAGNOSES: Major depressive disorder with psychotic features, mild cognitive impairment, anxiety disorder, unspecified; impulse control disorder, unspecified. During the latter part of his hospitalization, he was seated in the dayroom and apparently went to sleep in his wheelchair and fell forward fracturing his nose. This was healing at the time of his discharge. DISCHARGE MEDICATIONS: Please refer to the MRAD. DISCHARGE INSTRUCTIONS: Outpatient psychiatric and medical followup at the shelter. Time for discharge day management greater than [address]: Aurora TID: [id number]
--- NOTE | 2021-04-15 08:33 | PDOC ---
Exam Note: Sandoval Note: This note is a late entry for 04/13/2021 covers elements not covered in my initial note. Subjective: The patient was seen individually in the morning of 04/13/2021 for a treatment team meeting with Elsy Pang, Inessa Holland (social group worker), Oumou, activity therapy and Diane MENENDEZ, discussed and reviewed the chart. The patient slept 3-3/4 hours previous night. The patient fell yesterday, was seen by the ER physician, has a fractured nose. We will check labs. He has been withdrawn, spends much time in his room which is where I met with him in the evening. Discussed the patients diagnoses, progress, current psychotropics. Mood is somewhat improved. Review of Systems: Ambulation impaired in wheelchair. No CV, , pulmonary, eye, ENT system symptoms on review. Mental Status Exam: The patient is oriented to himself and situation. Speech is coherent, low in rate and rhythm. Abstraction fair. Computation impaired. Language function intact. Mood and affect improved. No suicidal or homicidal ideation. Laboratory Data: Reviewed. Impression: Major depressive disorder with psychotic features. Mild cognitive impairment. Anxiety disorder unspecified. Impulse control disorder unspecified. Plan: Continue current psychotropics. Valproic acid level is therapeutic. Maintain Remeron, Seroquel, Wellbutrin and Cymbalta. Assessment: Vital Signs/I&O: Vital Signs Date Time Temp Pulse Resp B/P (MAP) Pulse Ox O2 Delivery O2 Flow Rate FiO2 04/14/21 12:42 96 04/14/21 08:27 74 154/84 04/14/21 05:49 97.4 18 04/14/21 05:47 Room Air I & O 04/14/21 04/14/21 04/15/21 15:00 23:00 07:00 Intake Total 480 ml Balance 480 ml Labs: Laboratory Tests Test 04/14/21 11:22 Glucose (Fingerstick) 249 mg/dL (70-99) H Current Medications: Meds: Laboratory Tests Test 04/14/21 11:22 Glucose (Fingerstick) 249 mg/dL Current Medications Medications (Trade) Dose Ordered Sig/John Route PRN Reason Start Time Stop Time Status Last Admin Dose Admin Acetaminophen (Tylenol) 1,000 mg PRN Q6HRS PRN PO MILD PAIN 1-3 03/28/21 19:45 04/14/21 13:26 DC 04/07/21 05:25 Aspirin (Aspirin Enteric Coated) 81 mg DAILY PO 03/29/21 09:00 04/14/21 13:26 DC 04/14/21 08:26 Bisacodyl (Dulcolax Supp) 10 mg PRN Q48HR PRN RC 2ND CHOICE CONSTIPATION 03/28/21 19:45 04/14/21 13:26 DC Duloxetine HCl (Cymbalta) 60 mg DAILY PO 03/29/21 09:00 04/14/21 13:26 DC 04/14/21 08:27 Fluticasone Propionate (Flonase) 2 spray DAILY NS 03/29/21 09:00 04/14/21 13:26 DC 04/11/21 08:41 Lisinopril (Prinivil) 10 mg DAILY PO 03/29/21 09:00 04/12/21 20:01 DC 04/12/21 08:39 Al Hydroxide/Mg Hydroxide (Mylanta Plus Xs) 15 ml PRN AFTMEALHC PRN PO DYSPEPSIA 03/28/21 19:45 04/14/21 13:26 DC Memantine (Namenda) 10 mg BID PO 03/28/21 21:00 04/14/21 13:26 DC 04/14/21 08:27 Multi-Ingredient Ointment (Analgesic [place]) 1 nila PRN QID PRN TP MUSCLE PAIN 03/28/21 19:45 04/14/21 13:26 DC Mirtazapine (Remeron Nasra-Tab) 15 mg HS PO 03/28/21 21:00 04/14/21 13:26 DC 04/13/21 20:29 Polyethylene Glycol (miraLAX) 17 gm DAILY PO 03/29/21 09:00 04/14/21 13:26 DC 04/14/21 08:26 Quetiapine Fumarate (SEROquel) 75 mg QHS PO 03/28/21 21:00 03/30/21 17:03 DC 03/29/21 20:10 Senna/Docusate Sodium (Senna Plus) 1 tab BID PO 03/28/21 21:00 04/14/21 13:26 DC 04/14/21 08:27 Simvastatin (Zocor) 10 mg HS PO 03/28/21 21:00 04/14/21 13:26 DC 04/13/21 20:29 Divalproex Sodium (Depakote) 500 mg BID PO 03/28/21 21:00 04/14/21 13:26 DC 04/14/21 08:27 Glucagon (Glucagen Kit) 1 mg PRN Q15MIN PRN IM HYPOGLYCEMIA 03/28/21 20:00 04/14/21 13:26 DC Insulin Glargine (Lantus Syringe) 14 unit QHS SQ 03/28/21 21:00 04/14/21 13:26 DC 04/12/21 22:27 Non-Formulary Medication (Insulin Lispro (Humalog)) 10 unit TIDAC SQ 03/29/21 07:30 03/30/21 07:58 DC 03/29/21 11:30 Magnesium Hydroxide (Milk Of Magnesia) 2,400 mg PRN QHS PRN PO 1ST CHOICE CONSTIPATION 03/28/21 20:00 04/14/21 13:26 DC 04/12/21 20:30 Guaifenesin (Guaifenesin) 400 mg PRN Q4HRS PRN PO COUGH 03/28/21 20:00 04/14/21 13:26 DC Ondansetron HCl (Zofran Odt) 4 mg PRN Q6HRS PRN PO NAUSEA/VOMITING 03/28/21 20:00 04/14/21 13:26 DC Amoxicillin (Amoxil) 500 mg [id number] PO 04/05/21 22:00 03/29/21 19:30 DC Amoxicillin (Amoxil) 500 mg [id number] PO 03/29/21 21:00 04/05/21 21:01 DC 04/05/21 20:05 Bupropion HCl (Wellbutrin Xl) 150 mg DAILY PO 03/30/21 09:00 04/01/21 16:43 DC 04/01/21 08:32 Lactobacillus Rhamnosus (Culturelle) 1 cap BID PO 03/30/21 09:00 04/14/21 13:26 DC 04/14/21 08:27 Insulin Human Lispro (HumaLOG) 10 units TIDWMEALS SQ 03/30/21 08:00 04/14/21 13:26 DC 04/14/21 12:10 Quetiapine Fumarate (SEROquel) 100 mg QHS PO 03/30/21 21:00 04/14/21 13:26 DC 04/13/21 20:29 Bupropion HCl (Wellbutrin Xl) 300 mg DAILY PO 04/02/21 09:00 04/14/21 13:26 DC 04/14/21 08:27 Tramadol HCl (Ultram) 50 mg PRN Q6HRS PRN PO MOD-SEV PAIN 04/07/21 16:45 04/13/21 15:53 DC 04/13/21 12:24 Tramadol HCl (Ultram) 50 mg 1X ONCE PO 04/07/21 16:45 04/07/21 16:53 DC 04/07/21 16:57 Lidocaine HCl 20 ml STK-MED ONCE .ROUTE 04/12/21 07:47 04/12/21 07:47 DC Amlodipine Besylate (Norvasc) 10 mg DAILY PO 04/13/21 09:00 04/14/21 13:26 DC 04/14/21 08:27 Tramadol HCl (Ultram) 100 mg PRN Q4HRS PRN PO MOD-SEV PAIN 04/13/21 15:51 04/14/21 13:26 DC 04/14/21 12:12 I have reviewed the current psychotropics carefully including drug interactions. Risk benefit ratio favors no change other than as noted in my dictated progress note. Diagnosis: Problems: (1) Mild cognitive impairment (2) Major depressive disorder with psychotic features (3) Anxiety disorder (4) Impulse control disorder JESSICA TREADWELL MD Apr 15, 2021 08:33
--- NOTE | 2021-04-15 08:35 | PDOC ---
Exam Note: Sandoval Note: Late entry for date of discharge 04/14/21. Please also refer to the separate dictated note~for this date of service dictated separately.~Patient seen individually. Discussed the patient with Nursing staff reviewed the chart.~Reviewed interim history and current functioning. Reviewed vital signs,~Labs/ Radiology~and current medications noted below. Continue current treatment with the changes noted in the dictated addendum note Assessment: Vital Signs/I&O: Vital Signs Date Time Temp Pulse Resp B/P (MAP) Pulse Ox O2 Delivery O2 Flow Rate FiO2 04/14/21 12:42 96 04/14/21 08:27 74 154/84 04/14/21 05:49 97.4 18 04/14/21 05:47 Room Air I & O 04/14/21 04/14/21 04/15/21 15:00 23:00 07:00 Intake Total 480 ml Balance 480 ml Labs: Laboratory Tests Test 04/14/21 11:22 Glucose (Fingerstick) 249 mg/dL (70-99) H Current Medications: Meds: Laboratory Tests Test 04/14/21 11:22 Glucose (Fingerstick) 249 mg/dL Current Medications Medications (Trade) Dose Ordered Sig/John Route PRN Reason Start Time Stop Time Status Last Admin Dose Admin Acetaminophen (Tylenol) 1,000 mg PRN Q6HRS PRN PO MILD PAIN 1-3 03/28/21 19:45 04/14/21 13:26 DC 04/07/21 05:25 Aspirin (Aspirin Enteric Coated) 81 mg DAILY PO 03/29/21 09:00 04/14/21 13:26 DC 04/14/21 08:26 Bisacodyl (Dulcolax Supp) 10 mg PRN Q48HR PRN 2ND CHOICE CONSTIPATION 03/28/21 19:45 04/14/21 13:26 DC Duloxetine HCl (Cymbalta) 60 mg DAILY PO 03/29/21 09:00 04/14/21 13:26 DC 04/14/21 08:27 Fluticasone Propionate (Flonase) 2 spray DAILY NS 03/29/21 09:00 04/14/21 13:26 DC 04/11/21 08:41 Lisinopril (Prinivil) 10 mg DAILY PO 03/29/21 09:00 04/12/21 20:01 DC 04/12/21 08:39 Al Hydroxide/Mg Hydroxide (Mylanta Plus Xs) 15 ml PRN AFTMEALHC PRN PO DYSPEPSIA 03/28/21 19:45 04/14/21 13:26 DC Memantine (Namenda) 10 mg BID PO 03/28/21 21:00 04/14/21 13:26 DC 04/14/21 08:27 Multi-Ingredient Ointment (Analgesic [place]) 1 nila PRN QID PRN TP MUSCLE PAIN 03/28/21 19:45 04/14/21 13:26 DC Mirtazapine (Remeron Nasra-Tab) 15 mg HS PO 03/28/21 21:00 04/14/21 13:26 DC 04/13/21 20:29 Polyethylene Glycol (miraLAX) 17 gm DAILY PO 03/29/21 09:00 04/14/21 13:26 DC 04/14/21 08:26 Quetiapine Fumarate (SEROquel) 75 mg QHS PO 03/28/21 21:00 03/30/21 17:03 DC 03/29/21 20:10 Senna/Docusate Sodium (Senna Plus) 1 tab BID PO 03/28/21 21:00 04/14/21 13:26 DC 04/14/21 08:27 Simvastatin (Zocor) 10 mg HS PO 03/28/21 21:00 04/14/21 13:26 DC 04/13/21 20:29 Divalproex Sodium (Depakote) 500 mg BID PO 03/28/21 21:00 04/14/21 13:26 DC 04/14/21 08:27 Glucagon (Glucagen Kit) 1 mg PRN Q15MIN PRN IM HYPOGLYCEMIA 03/28/21 20:00 04/14/21 13:26 DC Insulin Glargine (Lantus Syringe) 14 unit QHS SQ 03/28/21 21:00 04/14/21 13:26 DC 04/12/21 22:27 Non-Formulary Medication (Insulin Lispro (Humalog)) 10 unit TIDAC SQ 03/29/21 07:30 03/30/21 07:58 DC 03/29/21 11:30 Magnesium Hydroxide (Milk Of Magnesia) 2,400 mg PRN QHS PRN PO 1ST CHOICE CONSTIPATION 03/28/21 20:00 04/14/21 13:26 DC 04/12/21 20:30 Guaifenesin (Guaifenesin) 400 mg PRN Q4HRS PRN PO COUGH 03/28/21 20:00 04/14/21 13:26 DC Ondansetron HCl (Zofran Odt) 4 mg PRN Q6HRS PRN PO NAUSEA/VOMITING 03/28/21 20:00 04/14/21 13:26 DC Amoxicillin (Amoxil) 500 mg [id number] PO 04/05/21 22:00 03/29/21 19:30 DC Amoxicillin (Amoxil) 500 mg [id number] PO 03/29/21 21:00 04/05/21 21:01 DC 04/05/21 20:05 Bupropion HCl (Wellbutrin Xl) 150 mg DAILY PO 03/30/21 09:00 04/01/21 16:43 DC 04/01/21 08:32 Lactobacillus Rhamnosus (Culturelle) 1 cap BID PO 03/30/21 09:00 04/14/21 13:26 DC 04/14/21 08:27 Insulin Human Lispro (HumaLOG) 10 units TIDWMEALS SQ 03/30/21 08:00 04/14/21 13:26 DC 04/14/21 12:10 Quetiapine Fumarate (SEROquel) 100 mg QHS PO 03/30/21 21:00 04/14/21 13:26 DC 04/13/21 20:29 Bupropion HCl (Wellbutrin Xl) 300 mg DAILY PO 04/02/21 09:00 04/14/21 13:26 DC 04/14/21 08:27 Tramadol HCl (Ultram) 50 mg PRN Q6HRS PRN PO MOD-SEV PAIN 04/07/21 16:45 04/13/21 15:53 DC 04/13/21 12:24 Tramadol HCl (Ultram) 50 mg 1X ONCE PO 04/07/21 16:45 04/07/21 16:53 DC 04/07/21 16:57 Lidocaine HCl 20 ml STK-MED ONCE .ROUTE 04/12/21 07:47 04/12/21 07:47 DC Amlodipine Besylate (Norvasc) 10 mg DAILY PO 04/13/21 09:00 04/14/21 13:26 DC 04/14/21 08:27 Tramadol HCl (Ultram) 100 mg PRN Q4HRS PRN PO MOD-SEV PAIN 04/13/21 15:51 04/14/21 13:26 DC 04/14/21 12:12 I have reviewed the current psychotropics carefully including drug interactions. Risk benefit ratio favors no change other than as noted in my dictated progress note. Diagnosis: Problems: (1) Major depressive disorder with psychotic features (2) Mild cognitive impairment (3) Impulse control disorder (4) Anxiety disorder JESSICA TREADWELL MD Apr 15, 2021 08:35
== END 2021-04-14 13:15 | DRG 885 ==
LOC: GEROPSY 17:03
PROVIDERS: ADMIT Psychiatry & Neurology Psychiatry; ATTEND Psychiatry & Neurology Psychiatry
DX: F32.3 Major depressive disorder, single episode, severe with psychotic features (principal); E43 Unspecified severe protein-calorie malnutrition; F02.81 Dementia in other diseases classified elsewhere, unspecified severity, with behavioral disturbance; E11.9 Type 2 diabetes mellitus without complications; E78.5 Hyperlipidemia, unspecified; I10 Essential (primary) hypertension; I25.10 Atherosclerotic heart disease of native coronary artery without angina pectoris; F41.9 Anxiety disorder, unspecified; K59.00 Constipation, unspecified; F63.9 Impulse disorder, unspecified; G30.9 Alzheimer's disease, unspecified; I48.91 Unspecified atrial fibrillation; I69.320 Aphasia following cerebral infarction; Z68.30 Body mass index [BMI] 30.0-30.9, adult
CPT/HCPCS: 36415; 70450; 70486; 80053; 80164; 82550; 82947; 83735; 84484; 85007; 85025; 93005; J1815